=== PATIENT | female | born 1955 | race Caucasian/White ===

== ENCOUNTER 2021-05-28 03:19 | Outpatient (CLI) | payer OTHER, SELFPAY ==
[2021-05-28 14:18] LABS: Abs Immature Grans 0.01 10^3/uL (0.0-0.06); Absolute Basophil Count 0.03 10^3/uL (0.0-0.2); Absolute Lymphocyte Count 0.61 10^3/uL (1.2-3.4); Absolute Monocyte Count 0.29 10^3/uL (0.1-0.8); Absolute Neutrophil Count 1.81 10^3/uL (1.2-6.7); Eosinophils % 6.8; HCT 30.4 % (36.0-46.0); HGB 9.4 g/dL (11.2-15.7); Immature Grans % 0.3; Lymphocytes % 20.7; MCH 27.7 pg (27.0-33.0); MCHC 30.9 % (32.0-36.0); MCV 89.7 fL (80-95); MPV 9.1 fL (8.0-11.0); Monocytes % 9.8; Neutrophils % 61.4; Nucleated RBC 0 %; RBC 3.39 10^6/uL (3.93-5.22); RDW 19.4 % (11.7-14.6); RDW-SD 63.4 fL; WBC 2.95 10^3/uL (4.4-10.8)
[2021-05-28 15:05] LABS: Platelet Count 65 10^3/uL (130-400)
[2021-05-28 15:19] LABS: ALT 23 U/L (14-59); AST 23 U/L (15-37); Albumin 3.9 g/dL (3.4-5.0); Alkaline Phosphatase 67 U/L (46-116); Anion Gap 7.1 mmol/L (3-11); BUN 17 mg/dL (7-18); Bilirubin, Total 0.4 mg/dL (0.2-1.0); CO2 26.9 mmol/L (21.0-32.0); CREATININE 0.7 mg/dL (0.55-1.02); Calcium 8.8 mg/dL (8.5-10.1); Chloride 107 mmol/L (98-107); Glucose 87 mg/dL (74-106); Potassium 3.8 mmol/L (3.5-5.1); Sodium 141 mmol/L (136-145); Total Protein 7.5 g/dL (6.4-8.2)
[2021-05-28 20:57] LABS: INR 1.1 (0.9-1.1); Prothrombin Time 11.2 sec (9.3-11.0)
== END 2021-05-28 03:20 | disposition home or self-care (01) ==
LOC: LBO 03:19
PROVIDERS: PCP Family Medicine; Visit Provider Family Medicine
DX: Z00.00 Encounter for general adult medical examination without abnormal findings (principal); K74.60 Unspecified cirrhosis of liver; D69.6 Thrombocytopenia, unspecified; Z79.01 Long term (current) use of anticoagulants
CPT/HCPCS: 36415; 80053; 85025; 85610

== ENCOUNTER 2021-09-12 13:21 | Outpatient (CLI) | payer OTHER, SELFPAY ==
[2021-09-12 13:37] LABS: Abs Immature Grans 0.01 10^3/uL (0.0-0.06); Absolute Basophil Count 0.03 10^3/uL (0.0-0.2); Absolute Eosinophil Count 0.21 10^3/uL (0.0-0.7); Absolute Lymphocyte Count 0.62 10^3/uL (1.2-3.4); Absolute Monocyte Count 0.33 10^3/uL (0.1-0.8); Absolute Neutrophil Count 2.08 10^3/uL (1.2-6.7); Basophils % 0.9; Eosinophils % 6.4; HCT 30.5 % (36.0-46.0); Immature Grans % 0.3; Lymphocytes % 18.9; MCH 30.1 pg (27.0-33.0); MCHC 32.8 % (32.0-36.0); MCV 92 fL (80-95); MPV 10.4 fL (8.0-11.0); Monocytes % 10.1; Neutrophils % 63.4; RBC 3.32 10^6/uL (3.93-5.22); RDW 17.6 % (11.7-14.6); RDW-SD 58.7 fL; WBC 3.28 10^3/uL (4.4-10.8)
[2021-09-12 13:53] LABS: Diff Comment Diff Reviewed; Platelet Count 67 10^3/uL (130-400); RBC Morphology Normal
[2021-09-12 13:57] LABS: INR 1.1 (0.9-1.1); Prothrombin Time 11.2 sec (9.3-11.0)
[2021-09-12 14:04] LABS: ALT 21 U/L (14-59); AST 21 U/L (15-37); Albumin 3.5 g/dL (3.4-5.0); Alkaline Phosphatase 61 U/L (46-116); Anion Gap 5.6 mmol/L (3-11); BUN 16 mg/dL (7-18); Bilirubin, Total 0.5 mg/dL (0.2-1.0); CO2 28.4 mmol/L (21.0-32.0); CREATININE 0.8 mg/dL (0.55-1.02); Calcium 8.7 mg/dL (8.5-10.1); Chloride 104 mmol/L (98-107); Glucose 88 mg/dL (74-106); Potassium 4.1 mmol/L (3.5-5.1); Sodium 138 mmol/L (136-145); Total Protein 7.2 g/dL (6.4-8.2)
== END 2021-09-12 13:22 | disposition home or self-care (01) ==
LOC: LBO 13:22
PROVIDERS: PCP Family Medicine; Visit Provider Internal Medicine
DX: K74.60 Unspecified cirrhosis of liver (principal)
CPT/HCPCS: 36415; 80053; 85025; 85610

== ENCOUNTER 2021-11-05 04:33 | Outpatient (CLI) | payer OTHER, SELFPAY ==
[2021-11-05 13:48] LABS: INR 1.2 (0.9-1.1); Prothrombin Time 11.6 sec (9.3-11.0)
[2021-11-05 14:28] LABS: ALT 26 U/L (14-59); AST 25 U/L (15-37); Albumin 3.4 g/dL (3.4-5.0); Alkaline Phosphatase 63 U/L (46-116); Bilirubin, Direct 0.1 mg/dL (0.0-0.2); Bilirubin, Total 0.4 mg/dL (0.2-1.0)
== END 2021-11-05 04:34 | disposition home or self-care (01) ==
LOC: LBO 04:34
PROVIDERS: PCP Family Medicine; Visit Provider Internal Medicine
DX: K74.60 Unspecified cirrhosis of liver (principal)
CPT/HCPCS: 36415; 80076; 85610

== ENCOUNTER 2021-11-30 00:54 | Outpatient (CLI) | payer OTHER, SELFPAY ==
--- OUTSIDE RECORDS SUMMARY | 2021-11-30 01:28 | XMS_ITS | Encounter Summary ---
:1955 Author Organization [facility] [place] [address] Care Team Providers Name Role Phone Sruthi Eden MD Primary Care Provider Encounter Details Date Type Department Care Team Description 09/26/2021 Orders Only Gastroenterology at [facility] Janet Grey, Cirrhosis of liver [facility] Yasmin capone MD without ascites, [place] [address] [facility] unspecified hepatic [phone] [place] [address] Social History Tobacco Use Types Packs/Day Years Used Date Never Smoker Smokeless Tobacco: Never Used Alcohol Use Standard Drinks/Week Comments Yes 0 (1 standard drink = 0.6 oz pure alcoho l) rarely Alcohol Habits Answer Date Recorded How often do you have a drink containing alcohol? Not asked How many drinks containing alcohol do you have on a typical Not asked day when you are drinking? How often do you have six or more drinks on one occasion? No t asked Comment: rarely 08/28/2021 Sex Assigned at Date Recorded Female 05/18/2021 4:36 PM EST documented as of this encounter Plan of Treatment Upcoming Encounters Date Type Specialty Care Team Description 04/18/2022 Appointment Radiology Janet Grey MD [facility] [place] [address] (Wo rk) 04/18/2022 Laboratory Appointment Lab 04/18/2022 Office Visit Gastroenterology Janet Grey MD [facility] [address] [place] [address] (Wo rk) Scheduled Orders Name Type Priority Associated Diagnoses Order S chedule Hepatic Function Panel Lab Routine Cirrhosis of liver without Expected: 11/30/2021 ascites, unspecified (Approx imate), hepatic cirrhosis type Expir es: 04/28/2022 Prothrombin Time Lab Routine Cirrhosis of liver witho ut Expected: 10/27/2021 ascites, unspecified (Approx imate), hepatic cirrhosis type Expir es: 04/28/2022 documented as of this encounter Visit Diagnoses Diagnosis Cirrhosis of liver without ascites, unsp ecified hepatic cirrhosis type documented in this encounter Care Teams Email Marketing Intern Relationship Specialty Start Date End Date Sruthi Eden MD PCP - General Family Medicine 05/25/[address] [place] [id number] documented as of this encounter
--- OUTSIDE RECORDS SUMMARY | 2021-11-30 01:28 | XMS_ITS | Encounter Summary ---
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, liver biopsy to assess disease activity, f/u of esophageal varices, pancreatic cyst, ALEX Procedures PRO ENDOSCOPIC US EXAM, ESOPH PRO COLONOSCOPY, DIAGNOSTIC UPPER EUS- ENDOSCOPIC ULTRASOUND COLONOSCOPY, DIAGNOSTIC Referral ID Status Reason Start Date Expiration Date Visits Requ ested Visits Authorized [id number] 1 Encounter Details Date Type Department Care Team Description 08/28/2021 Surgery Gastroenterology at [facility] Rakesh Ricci UPPER EUS- ENDOSCOPIC [facility] Yasmin Tesfaye [place] [address] [facility] [phone] GASTRO[facility]OLOGY [place], [place] [address] Social History Tobacco Use Types Packs/Day Years [...] PM EST documented as of this encounter Last Filed Vital Signs Vital Sign Reading Time Taken Comments Blood Pressure 123/68 08/28/2021 2:20 PM EDT Pulse 55 08/28/2021 12:31 PM EDT Temperature 36.5 ??C (97.7 ??F) 08/28/2021 12:31 PM EDT Respiratory Rate - - Oxygen Saturation 100% 08/28/2021 2:20 PM EDT Inhaled Oxygen Concentration - - Weight 82.6 kg (182 lb) 08/28/2021 12:31 PM EDT Height - - Body Mass Index 25.38 06/22/2021 3:44 PM EDT documented in this encounter Medications at Time of Discharge Medication Sig Dispensed Refills Start Date End Date nadoloL (Corgard) 20 mg Take 1 tablet by 90 tablet 3 2021 Tablet mouth daily. multivitamin (THERAGRAN) Take 1 tablet by 0 Tablet mouth daily. MILK THISTLE ORAL Take by mouth. 0 azaTHIOprine (Imuran) 50 Take 2 tablets by 180 tablet 3 08/0809/26/2021 mg Tablet mouth daily. documented as of this encounter H&P Notes Rakesh Ricci MD - 08/28/2021 12:51 PM EDT PROBLEM LIST There is no problem list on file for this patient. HISTORY OF PRESENT ILLNESS Samara Lyons is a 66 y.o. y/o who presents for colonoscopy for anemia and liver biopsy for AIH. MEDICATIONS No current facility-administered medications on file prior to encounter. Current Outpatient Medications on File Prior to Encounter Medication Sig Dispense Refill ??? multivitamin (THERAGRAN) Tablet Take 1 tablet by mouth daily. ??? MILK THISTLE ORAL Take by mouth. PHYSICAL EXAM: Blood pressure 142/77, pulse 55, temperature 36.5 ??C (97.7 ??F), weight 82.6 kg (182 lb), SpO2 100 %. GEN: Alert, cooperative. Pleasant. In NAD MP I ASA II HEENT: No oropharyngeal lesions. Neck supple. No masses. Thyroid symmetric LUNGS: CTAB CARD: RRR without m/g/r RECENT LABS No results found for this or any previous visit (from the past 24 hour(s)). ASSESSMENT AND PLAN Samara Lyons is a 66 y.o. y/o who presents for endoscopic evaluation. Risks extensively discussed including bleeding, infection, reaction to anesthesia, perforation, pancreatitis (if applicable),bile duct injury (if applicable), missing a cancer (if applicable) and/or other unforseen complicatio n. Consent signed and patient well informed of the risks of the procedure. documented in this encounter Plan of Treatment Upcoming Encounters Date Type Specialty Care Team Description 04/18/2022 Appointment Radiology Janet Grey MD [facility] [address] [place] [address] (Wo rk) 04/18/2022 Laboratory Appointment Lab 04/18/2022 Office Visit Gastroenterology Janet Grey MD [facility] [address], [place] [address] (Wo rk) documented as of this encounter Procedures Procedure Name Priority Date/Time Associated Diagnosis Comme nts SURGICAL PATHOLOGY Routine 08/28/2021 1:37 PM Res ults for this REPORT EDT procedure are i n the results section. SPECIMEN TO Routine 08/28/2021 1:37 PM Results f or this PATHOLOGY EDT procedure are i n the results section. EGD, W US GUIDED 08/28/2021 12:53 Cirrhosis of liver FINE NEEDLE PM EDT without ascites, ASPIRATION/BIOPSY unspecified hepatic cirrhosis type Anemia, unspecified type LIVER BIOPSY 08/28/2021 12:53 Cirrhosis of liver PM EDT without ascites, unspecified hepatic cirrhosis type Anemia, unspecified type COLONOSCOPY, 08/28/2021 12:53 Cirrhosis of liver DIAGNOSTIC PM EDT without ascites, unspecified hepatic cirrhosis type Anemia, unspecified type UPPER EUS- 08/28/2021 12:53 Cirrhosis of liver ENDOSCOPIC PM EDT without ascites, ULTRASOUND unspecified hepatic cirrhosis type Anemia, unspecified type COLONOSCOPY Routine 08/28/2021 12:39 Results for this PM EDT procedure are i n the results section. UPPER EUS-ENDOSCOPIC Routine 08/28/2021 12:38 Res ults for this ULTRASOUND PM EDT procedure are i n the results section. documented in this encounter Results Surgical Pathology Report (08/28/2021 1:37 PM EDT) Component Value Ref Test Analysis Performed At Patholo gist Range Method Time Signature Surgical [id number] ? Location: 4T; EA13; A [facility] Report The signing pathologist has (i) examined the relevant preparation(s) for the [facility] specimen(s) and (ii) rendered or confirmed the diagnosis(es) . HOSPITAL LABORATORY . ?Surgic al Pathology DIAGNOSIS A - Liver biopsy, biopsy: The biopsy ??consists of thi n liver cores with focal fragmentation. Limited number of portal areas show no significant inf lammation and fibrosis. Focal mild and nonspecific sinusoidal dila tion is seen. No evidence of active autoimmune hepatitis and no definitive evidence of cirrhosis is seen in this bio psy. Iron stain is negative. Trichrome stain highlights focal mild portal fibrosis. Electronically signed by: ?Teresa Osman MD Verified: ??09/05/2021 12:10 ??Pathologist Performed at: ??-[facility] Dept. of Pathology, [place], [place] ADDITIONAL STUDIES Whole slide scan: [id number] A1-1,2 SPECIMEN(S) SUBMITTED A - Liver biopsy, biopsy (1) CLINICAL INFORMATION 66 year-old female with autoimmune hepatitis, staging for ci rrhosis SPECIMEN PROCESSING A - Labeled/Fixative: Liver biopsy, formalin. Quantity/Size: Four, ranging from 0.3 x 0.1 cm to 1.2 x 0.1 cm Tissue Description: Juarez needle core biopsies. Sections/Processing: Entirely submitted in 1 cassette labeled A1. ??sns Specimen (Source) Anatomical Collection Method Collection Time Re ceived Time Location / / Volume Laterality 08/28/2021 1:37 PM EDT Rakesh Ricci MD PATHOLOGY/CYTOLOGY ORDERABLE S Performing Organization Address City/State/[place] [address] Specimen to Pathology (08/28/2021 1:37 PM EDT) Specimen Anatomical Collection Method Collection Time Receive d Time (Source) Location / / Volume Laterality AP Specimen 08/28/2021 1:37 PM 2 1:37 EDT PM EDT Narrative [facility] - 08/28/2021 1:37 PM EDT Specimen requisition ordered. ??Separate Pathology report to follow Rakesh Ricci MD PATHOLOGY/CYTOLOGY ORDERABLE S Performing Organization Address [facility]/[place] [address] COLONOSCOPY (08/28/2021 12:39 PM EDT) [facility] Method Time Signature COLONOSCOPY [facility] Endoscopy Procedure Date: 08/28/2021 12:39 PM ? Patient Name: Samara Lyons ? Date of : 1955 ? Age: 66 ? Order #: [id number] ? Instrument Name: [id number] ? Procedure: ? Colonoscopy Indications: ? Unexplained iron deficiency anem ia Providers: ? Rakesh Ricci MD, Yessenia Carney ? Marija Lopez Kristin ? Adenike Thomason, Dedicated Local Truck Driver Referring MD: ?Sruthi Eden MD Medicines: ? Monitored Anesthesia Care Complications: ? No immediate complications. Procedure: ? Pre-Anesthesia Assessment: ? - Prior to the procedure, a History ? and Physical was performed , and ? patient medications and al lergies ? were reviewed. The patient is ? competent. The risks and b enefits ? of the procedure and the s edation ? options and risks were dis cussed ? with the patient. All ques tions ? were answered and informed consent ? was obtained. Patient ? identification and propose d ? procedure were verified by the ? physician in the pre-proce dure ? area. Mental Status Examin ation: ? alert and oriented. Airway ? Examination: normal oropha ryngeal ? airway and neck mobility. ? Respiratory Examination: c lear to ? auscultation. CV Examinati on: ? normal. Prophylactic Antib iotics: ? The patient does not requi re ? prophylactic antibiotics. Prior ? Anticoagulants: The patien t has ? taken no anticoagulant or ? antiplatelet agents. ASA G rade ? Assessment: III - A patien t with ? severe systemic disease. A fter ? reviewing the risks and be nefits, ? the patient was deemed in ? satisfactory condition to undergo ? the procedure. The anesthe jessie plan ? was to use monitored anest hesia ? care (MAC). Immediately pr ior to ? administration of medicati ons, the ? patient was re-assessed fo r ? adequacy to receive sedati ves. The ? heart rate, respiratory ra te, ? oxygen saturations, blood pressure, ? adequacy of pulmonary vent ilation, ? and response to care were monitored ? throughout the procedure. The ? physical status of the pat ient was ? re-assessed after the proc edure. ? The procedure, indications , ? benefits, risks and altern atives ? were explained to the nuzhat ent. ? Specifically discussed wer e ? potential complications in cluding, ? but not limited to, khalif [place], ? perforation, infection, mi ssing a ? cancer, and adverse medica tion ? reactions. The patient was placed ? in the left lateral decubi tus ? position, and a digital re ctal exam ? was performed. The Colonos cope was ? inserted in the anus and u nder ? direct visualization, adva nced to ? the terminal ileum. Carefu l ? inspection was made as the ? colonoscope was withdrawn. The ? colonoscopy was performed without ? difficulty. The patient to lerated ? the procedure well. The qu ality of ? the bowel preparation was good. ? Anatomical landmarks were ? photographed. ? Findings: ? The perianal and digital rectal examinations were ? normal. ? The colon (entire examined portion) appeared normal ? with the exception of a snake skin appearance in the ? distal rectum (circumferential last 3 cm of colon) ? and large rectal varices consistent with portal ? colopathy. ? The terminal ileum appeared normal. ? Moderate Sedation: ? Not applicable - See Anesthesia documentation Impression: ?- Portal colopathy and non blee ding ? rectal varices Recommendation: ?- Proceed with EUS now ? Attending Participation: ? I personally performed the entire procedure. ? Rakesh Ricci MD 08/28/2021 1:20:26 PM This report has been signed electronically. Number of Addenda: 0 Note Initiated On: 08/28/2021 12:39 PM Specimen (Source) Anatomical Collection Method Collection Time Re ceived Time Location / / Volume Laterality 08/28/2021 12:39 PM EDT Sruthi Eden MD GENERAL SURGICAL ORDERABLES Performing Organization Address City/State/ZIP Code Phon e Number [facility] UPPER EUS-ENDOSCOPIC ULTRASOUND (08/28/2021 12:38 PM EDT) Component Value Ref Test Analysis Performed Pathologis t Range Method Time At [facility] ENDOSCOPIC Endoscopy ULTRASOUND _ Procedure Date: 08/28/2021 12:38 PM ? Patient Name: Samara Lyons ? Date of : 1955 ? Age: 66 ? Order #: [id number] ? Instrument Name: [id number] ? Procedure: ? Upper EUS Indications: ? AIH - need for liver biopsy Providers: ? Rakesh Ricci MD, Yessenia Carney ? Marija Lopez Kristin ? Adenike Thomason, Dedicated Local Truck Driver Referring : ?Sruthi Eden MD Medicines: ? Monitored Anesthesia Care Complications: ? No immediate complications. Procedure: ? Pre-Anesthesia Assessment: ? - Prior to the procedure, a History ? and Physical was performed , and ? patient medications and al lergies ? were reviewed. The patient is ? competent. The risks and b enefits ? of the procedure and the s edation ? options and risks were dis cussed ? with the patient. All ques tions ? were answered and informed consent ? was obtained. Patient ? identification and propose d ? procedure were verified by the ? physician in the pre-proce dure ? area. Mental Status Examin ation: ? alert and oriented. Airway ? Examination: normal oropha ryngeal ? airway and neck mobility. ? Respiratory Examination: c lear to ? auscultation. CV Examinati on: ? normal. Prophylactic Antib iotics: ? The patient does not requi re ? prophylactic antibiotics. Prior ? Anticoagulants: The patien t has ? taken no anticoagulant or ? antiplatelet agents. ASA G rade ? Assessment: III - A patien t with ? severe systemic disease. A fter ? reviewing the risks and be nefits, ? the patient was deemed in ? satisfactory condition to undergo ? the procedure. The anesthe jessie plan ? was to use monitored anest hesia ? care (MAC). Immediately pr ior to ? administration of medicati ons, the ? patient was re-assessed fo r ? adequacy to receive sedati ves. The ? heart rate, respiratory ra te, ? oxygen saturations, blood pressure, ? adequacy of pulmonary vent ilation, ? and response to care were monitored ? throughout the procedure. The ? physical status of the pat ient was ? re-assessed after the proc edure. ? The procedure, indications , ? benefits, risks and altern atives ? were explained to the nuzhat ent. ? Specifically discussed wer e ? potential complications in cluding, ? but not limited to, k[place]if [place], ? perforation, infection, mi ssing a ? cancer, and adverse medica tion ? reactions. The Endosonosco pe was ? introduced through the tiffani th, and ? advanced to the third part of ? duodenum. The upper EUS wa s ? accomplished without diffi culty. ? The patient tolerated the procedure ? well. ? Findings: ? ENDOSCOPIC FINDING: : ? The patient had large varices in 3-4 columns which ? extended from 25-40 cm at the GE junction. There was ? no sign of recent bleeding. ? The entire stomach had a cobblestone appearance that ? 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 There were no gastric ? varices. ? The examined duodenum was endoscopically normal. ? ENDOSONOGRAPHIC FINDING: : ? There was no sign of significant endosonographic ? abnormality in the esophagus, stomach, duodenum or ? celiac axis with the exception of extensive vascular ? collateralization consistent with varices. ? There was no sign of significant endosonographic ? abnormality in the ampulla. ? There was no sign of significant endosonographic ? abnormality in the common bile duct. The maximum ? diameter of the duct was 3 mm. ? There was no sign of significant endosonographic ? abnormality in the left lobe of the liver. Fine ? needle biopsy was performed. Color Doppler imaging ? was utilized prior to needle puncture to confirm a ? lack of significant vascular structures within the ? needle path. One pass was made with the 22 gauge ? SharkCore biopsy needle using a transgastric ? approach. A visible core of tissue was obtained. The ? cellularity of the specimen was adequate. Final ? cytology results are pending. ? There was no sign of significant endosonographic ? abnormality in the entire pancreas with the exception ? of a 15 mm benign-appearing cysts which was ? unilocular without a thickened wall or main duct ? involvement. ? No lymphadenopathy seen. There was partial portal ? vein thrombosis and a small amount of perihepatic ? ascites ? Moderate Sedation: ? Not applicable - See Anesthesia documentation Impression: ?- Liver biopsy performed ? - Partial portal vein thro mbosis ? and a small amount of asci you ? - Large esophageal varices ? - Benign pancreatic cyst Recommendation: ?- Await pathology results ? - Continue outpatient foll ow-up per ? Dr. Grey ? Attending Participation: ? I personally performed the entire procedure. ? Rakesh Ricci MD 08/28/2021 1:45:54 PM This report has been signed electronically. 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 Continuous Medication Order 08/26/2021 08/27/2021 08/28/2021 lactated ringers infusion 1242 ( New Bag - Provider: Marva Young RN)1301 (Paused - Provider: Maritza Bateman Kati, DENTIST - Comment: Switch to gravity)1302 (Restarted - Provider: Maritza Chengpola, DENTIST)1332 (Anesthesia Volume Adjustment - Provider: Maritza S Kati, DENTIST) 100 mL/hr, Intravenous, CONTINUOUS, Star ting on 08/28/21 at 1245, Until 08/28/21 at 1738, Endoscopy (Day of Procedure) documented in this encounter Care Teams Machine Molder Squeeze Relationship Specialty Start Date End Date Sruthi Eden MD PCP - General Family Medicine 05/25/21 [address] [facility] [place] [address] documented as of this encounter
--- OUTSIDE RECORDS SUMMARY | 2021-11-30 01:28 | XMS_ITS | Clinical Summary ---
:1955 Author Organization [facility] [place] [address] Care Team Providers Name Role Phone Sruthi Eden MD Primary Care Provider Allergies Active Allergy Reactions Severity Noted Date Comments Prednisone 06/22/2021 Medications Medication Sig Dispensed Refills Start Date End Date Status multivitamin Take 1 tablet by 0 Active (THERAGRAN) Tablet mouth daily. MILK THISTLE ORAL Take by mouth. 0 Active nadoloL (Corgard) 20 mg Take 1 tablet by 90 tablet 3 2 Active Tablet mouth daily. azaTHIOprine (Imuran) Take 1 tablet by 45 tablet 3 09/26/2021 Active 50 mg Tablet mouth every other day. ascorbic acid, vitamin Take 100 mg by 0 Active C, (Vitamin C) 100 mg mouth daily. Tablet Active Problems No known active problems Encounters Date Type Specialty Care Team Description 11/12/2021 Orders Only Gastroenterology Janet Grey Cirrhos is of liver MD without ascites , unspecified hep atic cirrhosis type 10/17/2021 Office Visit Gastroenterology Janet Grey Cirrhos is of liver MD without ascites , unspecified hep atic cirrhosis type 10/11/2021 Hospital Encounter Radiology Janet Grey Cirrh osis of liver MD without ascites , unspecified hep atic cirrhosis type 09/26/2021 Orders Only Gastroenterology Janet Grey Cirrhos is of liver MD without ascites , unspecified hep atic cirrhosis type 09/07/2021 Orders Only Gastroenterology Janet Grey Cirrhos is of liver MD without ascites , unspecified hep atic cirrhosis type 09/06/2021 Telephone Gastroenterology Renetta Oliveros from Last 3 Months Social History Tobacco Use Types Packs/Day Years [...] Date Recorded Female 05/18/2021 4:36 PM EST Last Filed Vital Signs Vital Sign Reading Time Taken Comments Blood Pressure 133/76 10/17/2021 9:13 AM EDT Pulse 61 10/17/2021 9:13 AM EDT Temperature 36.5 ??C (97.7 ??F) 08/28/2021 12:31 PM EDT Respiratory Rate - - Oxygen Saturation 100% 08/28/2021 2:20 PM EDT Inhaled Oxygen Concentration - - Weight 85 kg (187 lb 4.8 oz) 10/17/2021 9:13 AM EDT Height 180.3 cm (5' 11) 10/17/2021 9:13 AM EDT Body Mass Index 26.12 10/17/2021 9:13 AM EDT Plan of Treatment Upcoming Encounters Date Type Specialty Care Team Description 04/18/2022 Appointment Radiology Janet Grey MD [facility] [address] [place] [address] (Wo rk) 04/18/2022 Laboratory Appointment Lab 04/18/2022 Office Visit Gastroenterology Janet Grey MD [facility] [place], [place] [address] (Wo rk) Health Maintenance Due Date Last Done Comments Covid-19 Vaccine (#1) 01/21/1960 Hepatitis C Screening 1973 Tdap adult 1974 Tetanus vaccine 1974 HPV test 1985 PAP Smear 1985 Breast Cancer Share Decision Needed 1995 Breast Cancer screening 2005 Zoster vaccine (1 of 2) 2005 Advance Directive 2010 Bone Density Scan 01/21/2020 Pneumoccocal Vaccine: 65+ (1 - PCV) 01/21/2020 Influenza (Flu) vaccine (1 of - 11/08/2021 Influenza standard series) Diabetes Screening (HgbA1C or Glucose) 06/22/2024 2 Colonoscopy 08/29/2031 08/28/2021, 08/28/2021 Procedures Procedure Name Priority Date/Time Associated Diagnosis Comme nts LAB SCAN 11/05/2021 12:00 AM Results for this EDT procedure are i n the results section. MRI ABDOMEN WWO Routine 10/11/2021 9:58 AM Cirrhosis of liver Results for this CONTRAST EDT without ascites, procedure a re in unspecified hepatic the resu lts cirrhosis type section. LAB SCAN 09/12/2021 12:00 AM Results for this EDT procedure are i n the results section. from Last 3 Months Results SCAN DOC: LAB (11/05/2021 12:00 AM EDT)Only the most recent of2 resultswithin the time period is included. Narrative 11/05/2021 12:00 AM EDT This result has an attachment that is no t available. Ordered by an unspecified provider. Scanning Provider MEDIA MGR SCAN EXT ORDR/RSLT MRI Abdomen wwo Contrast (Generic) (10/11/2021 9:58 AM EDT) Anatomical Region Laterality Modality Abdomen Magnetic Resonance Specimen (Source) Anatomical Location Collection Method / Collectio n Time Received Time / Laterality Volume Impressions 10/11/2021 1:21 PM EDT 1. ??No suspicious liver lesions. 2. ??Cirrhosis and stigmata of portal hy pertension including varices, ascites and splenomegaly. 3. ??Indeterminate solitary splenic lesi on, possible hematoma or hemangioma. Attention on follow-up liver imaging rec ommended. 4. ??Pancreatic body cystic lesion may b e a branch duct IPMN, 11 mm. LI-RADS Categories: LR-TIV = Tumor in vein LR-5 = Definitely hepatocellular carcino ma (concordant with OPTN 5) LR-4 = Probably hepatocellular carcinoma LR-3 = Intermediate probability for hepa tocellular carcinoma LR-2 = Probably benign LR-1 = Definitely benign LR-TR Viable = Treated, probably or defi nitely viable LR-TR Equivocal = Treated, equivocal via ble LR-TR Nonviable = Treated, probably or d efinitely not viable LR-TR Nonevaluable = Treated, Response n ot evaluable (due to image omission or degradation) LR-M = Probably or definitely malignant but not HCC specific LR-NC = Not categorizable (due to image omission or degradation) NOTE: LI-RADS categories should be inter preted in the context of other available data, such as biomarkers and the patient 's prior probability of developing or having hepatocellular carcinoma. The LI- RADS / OPTN classification of liver lesions has been adopted to standardize CT and MRI scan reporting in patients at risk for hepatocellular carcinoma. The i maging criteria for definite hepatocellular carcinoma are concordant for the LI-RADS and OPTN systems. LI-RADS criteria and documentation are a vailable online at https://www.acr.org/Clinical-Resources/R vostebof-olq-Dlun-Systems/LI-RADS. This report utilizes LI-RADS version 2018. Thank you for letting us participate in the care of this patient. ??If you are a health care provider and have any questi ons regarding this report, please contact the number below. ??For patients who have questions please contact the health clinical care leader that requested your imaging first. ? Narrative 10/11/2021 1:21 PM EDT EXAMINATION: MRI ABDOMEN WWO CONTRAST (GENERIC) CLINICAL HISTORY: Liver disease, chronic , tumor screening cirrhosis, HCC screening, f/u 9mm pancre as IPMN TECHNIQUE: MRI of the abdomen was perfor med with images obtained prior to and following the intravenous administration of 17ml of Dotarem using the dynamic liver protocol. COMPARISONS: none FINDINGS: Prior hepatic interventions: None. Liver Morphology: Small in size with nod ular contour consistent with history of cirrhosis Focal hepatic lesions: Nonenhancing simp le cysts, largest 5.6 cm in the inferior right lobe. These are LR-1. No suspiciou s lesions. Portal Vein: Widely Patent. Varices: Recanalized umbilical vein. Sma ll gastroesophageal varices Ascites: Moderate volume Spleen: Enlarged to 17 cm. T2 hypointens e hypovascular lesion along the lateral aspect of the spleen may represent a sma ll hemorrhage or hemangioma, 20 mm. No additional lesions Bile ducts: Nondilated. Gallbladder: 2 small stones in the depen dent lumen. Wall edema may be secondary to ascites. Pancreas: 11 mm cystic lesion in the ant erior body with unknown communication to the pancreatic duct. No prior imaging is available. No additional lesions. Adrenals: Normal. Kidneys: Normal aside from subcentimeter endophytic cortical cyst. Aorta: No aneurysm. Lymph nodes: No enlarged lymph nodes. Bowel: Nondilated, no inflammatory navas es. Marrow Signal: Normal. Procedure Note Jose Song MD - 10/11/2021Format ting of this note might be different from the original. EXAMINATION: MRI ABDOMEN WWO CONTRAST (G ENERIC) CLINICAL HISTORY: Liver disease, chronic , tumor screening cirrhosis, HCC screening, f/u 9mm pancre as IPMN TECHNIQUE: MRI of the abdomen was perfor med with images obtained prior to and following the intravenous administration of 17ml of Dotarem using the dynamic liver protocol. COMPARISONS: none FINDINGS: Prior hepatic interventions: None. Liver Morphology: Small in size with nod ular contour consistent with history of cirrhosis Focal hepatic lesions: Nonenhancing simp le cysts, largest 5.6 cm in the inferior right lobe. These are LR-1. No suspiciou s lesions. Portal Vein: Widely Patent. Varices: Recanalized umbilical vein. Sma ll gastroesophageal varices Ascites: Moderate volume Spleen: Enlarged to 17 cm. T2 hypointens e hypovascular lesion along the lateral aspect of the spleen may represent a sma ll hemorrhage or hemangioma, 20 mm. No additional lesions Bile ducts: Nondilated. Gallbladder: 2 small stones in the depen dent lumen. Wall edema may be secondary to ascites. Pancreas: 11 mm cystic lesion in the ant erior body with unknown communication to the pancreatic duct. No prior imaging is available. No additional lesions. Adrenals: Normal. Kidneys: Normal aside from subcentimeter endophytic cortical cyst. Aorta: No aneurysm. Lymph nodes: No enlarged lymph nodes. Bowel: Nondilated, no inflammatory navas es. Marrow Signal: Normal. IMPRESSION 1. No suspicious liver lesions. 2. Cirrhosis and stigmata of portal hype rtension including varices, ascites and splenomegaly. 3. Indeterminate solitary splenic lesion , possible hematoma or hemangioma. Attention on follow-up liver imaging rec ommended. 4. Pancreatic body cystic lesion may be a branch duct IPMN, 11 mm. LI-RADS Categories: LR-TIV = Tumor in vein LR-5 = Definitely hepatocellular carcino ma (concordant with OPTN 5) LR-4 = Probably hepatocellular carcinoma LR-3 = Intermediate probability for hepa tocellular carcinoma LR-2 = Probably benign LR-1 = Definitely benign LR-TR Viable = Treated, probably or defi nitely viable LR-TR Equivocal = Treated, equivocal via ble LR-TR Nonviable = Treated, probably or d efinitely not viable LR-TR Nonevaluable = Treated, Response n ot evaluable (due to image omission or degradation) LR-M = Probably or definitely malignant but not HCC specific LR-NC = Not categorizable (due to image omission or degradation) NOTE: LI-RADS categories should be inter preted in the context of other available data, such as biomarkers and the patient 's prior probability of developing or having hepatocellular carcinoma. The LI- RADS / OPTN classification of liver lesions has been adopted to standardize CT and MRI scan reporting in patients at risk for hepatocellular carcinoma. The i maging criteria for definite hepatocellular carcinoma are concordant for the LI-RADS and OPTN systems. LI-RADS criteria and documentation are a vailable online at https://www.acr.org/Clinical-Resources/R axwulyqm-dwl-Nchg-Systems/LI-RADS. This report utilizes LI-RADS version 2018. Thank you for letting us participate in the care of this patient. If you are a health care provider and have any questi ons regarding this report, please contact the number below. For patients w ho have questions please contact the health clinical care leader that requested your imaging first. Janet Grey MD IMG MRI ORDERABLES from Last 3 Months Insurance Payer Benefit Plan / Subscriber ID Effective Dates Phone Addre ss Type Group MVP MANAGED MVP MANAGED [id number] 2021-Presen [phone] [id number] MEDICARE MEDICARE t [address] [place] [address] Care Teams Soap Drier Operator Relationship Specialty Start Date End Date Sruthi Eden MD PCP - General Family Medicine 05/25/[address] [place] [address]
--- OUTSIDE RECORDS SUMMARY | 2021-11-30 01:28 | XMS_ITS | Encounter Summary ---
:1955 Author Organization [facility] Address [place] [id number] Care Team Providers Name Role Phone Sruthi Eden MD Primary Care Provider Encounter Details Date Type Department Care Team Description 10/17/2021 [place] [facility] [place], Cirrhosis of liver [facility] Yasmin capone MD without ascites, [place] [address] [facility] unspecified hepatic [phone] [place] [address] Social History Tobacco Use Types Packs/Day Years [...] Pulse 61 10/17/2021 9:13 AM EDT Temperature - - Respiratory Rate - - Oxygen Saturation - - Inhaled Oxygen Concentration - - Weight 85 kg (187 lb 4.8 oz) 10/17/2021 9:13 AM EDT Height 180.3 cm (5' 11) 10/17/2021 9:13 AM EDT Body Mass Index 26.12 10/17/2021 9:13 AM EDT documented in this encounter Progress Notes Janet Grey MD - 10/17/2021 9:00 AM EDT Gastroenterology and Hepatology Follow Up Note Patient: Samara Lyons : 1955 Provider: Janet Grey MD Problem List: #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 She has been maintained on azathioprine for her autoimmune hepatitis and on nadolol 40 mg daily with vital signs at target for primary prophylaxis for esophageal varices. ?? She reports being diagnosed in 07/2013. She reports that she had GI symptoms and jaundice. She had transaminases in the s at the time. She reports negative testing for viral hepatitis. She was stated on 60 mg on prednisone. She reports her liver enzymes decreased to 900 very quickly. She started to wean her prednisone within days on her own. Her enzymes at first declined, but than increased again. She did increase back up 60 mg of prednisone. She reports having hallucination from the high dose prednisone. She was started on azathioprine and she was able to taper off prednisone. She is currentlyon AZA 100 mg daily. She reports having a biopsy at some point in the fall. From the outsidenotes it should AIH with F2-3 fibrosis. Liver bx 08/09/2021, reviewed at path conference on 09/06/2021: cirrhosis with thin bands of fibrosis, no disease activity - Medications: - 10/09/2021: decreased AZA to 50 mg every other day ? #Esophageal varices She reports being started on nadolol 40 mg daily for large esophageal varices in 2019. She reports feeling weakness in her legs in 2021. Her PCP reduced her dose of nadolol to 20 mg daily resulting in vital signs not being at target for primary prophylaxis. - EGD 08/19/2021: large esophageal varices #At risk for HCC?? MRI abdomen 08/15/2020: cirrhosis, no masses, 9 mm IPMN MRI abdomen 10/09/2021: cirrhosis, no masses, 11 mm IPMN #Pancreatic IPMN MRI abdomen 08/15/2020: cirrhosis, no masses, 9 mm IPMN MRI abdomen 10/09/2021: cirrhosis, no masses, 11 mm IPMN #CRC screening Heron 10/2014: negative Heron 08/2021: negative, rectal varices Interval History: She reports doing well. She is here today to review her recent laboratory investigations, liver biopsy, MRI, and upper endoscopy. Current Outpatient Medications Medication Sig Dispense Refill ??? azaTHIOprine (Imuran) 50 mg Tablet Take 1 tablet by mouth every other day. 45 tablet 3 ??? nadoloL (Corgard) 20 mg Tablet Take 1 tablet by mouth daily. 90 tablet 3 ??? multivitamin (THERAGRAN) Tablet Take 1 tablet by mouth daily. ??? MILK THISTLE ORAL Take by mouth. No current facility-administered medications for this visit. Vitals: 10/17/21 0913 BP: 133/76 BP Location ([facility]): Left arm Patient Position: Sitting BP Cuff Sizes: Adult (25-34 cm) Pulse: 61 Weight: 85 kg (187 lb 4.8 oz) Height: 180.3 cm (5' 11) Body mass index is 26.12 kg/m??. 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 We discussed that given her cirrhosis diagnosis it is not recommended to come fully off of immunosuppression, but I was in agreement with working on reducing her dose. Discussed that this would require close monitoring with monthly liver enzymes. Discussed that patients with autoimmune hepatitis who come off of therapy even with normal liver enzymes and a biopsy without disease activity the risk of recurrent disease requiring the initiation of therapy again is 80% over a 5-year. Discussed that given her cirrhosis with portal hypertension this could lead to significant liver decompensation. We also discussed that if she came off of immunosuppression for her autoimmune hepatitis despite the recommendations above this would also likely mean that she would not be a liver transplant candidate. She appreciated the discussion, however at the end of our conversation appeared to favor discontinuing the azathioprineslowly over time. ?? # Large esophageal varices She is continuing on nadolol 20 mg daily. Upper endoscopy did confirm the presence of large esophageal varices. We discussed via side targets would be a pulse between 50 to 60 bpm while maintaining a systolic blood pressure greater than 90 mmHg. Her vital signs today were not at goal. She will monitorthem at home over the next week and provide the readings via the [facility] portal. We discussed that if her vital signs are not at goal I would recommend increasing the nadolol to reduce the risk of a variceal bleed. ?? # At risk for HCC # 9 mm pancreatic cyst I reviewed MRI report from Oct 2021 which was negative for HCC and noted of 11 mm pancreatic cyst likely IPMN. Recommend ultrasound in 6 months for HCC screening. Recommend MRI in August 2022 for HCC screening and follow-up of the pancreatic cyst. Janet Grey MD Section of Gastroenterology & Hepatology [address] [place] [id number] Time spent reviewing records prior to this encounter: 5 minutes Time spent during encounter with patient including counselin minutes Time spent documenting encounter after office visit: 5 minutes Approximate total time devoted to this single encounter on the day of the encounter: 30 minutes Cc: Sruthi Eden MD documented in this encounter Plan of Treatment Upcoming Encounters Date Type Specialty Care Team Description 04/18/2022 Appointment Radiology Janet Grey MD [facility] [address] [place], [place] [address] (Wo rk) 04/18/2022 Laboratory Appointment Lab 04/18/2022 Office Visit Gastroenterology Janet Grey MD [facility] [address] [place], [place] [address] (Wo rk) Scheduled Orders Name Type Priority Associated Diagnoses Order S chedule US Abdomen Limited Imaging Routine Cirrhosis of liver Exp ected: 04/19/2022 Hepatology Protocol without ascites, (Sima roximate), unspecified hepatic Expires: 10/19/2022 cirrhosis type CBC (with Diff) Lab Routine Cirrhosis of liver Expect ed: 04/19/2022 without ascites, (Approximat e), unspecified hepatic Expires: 10/19/2022 cirrhosis type Comprehensive metabolic Lab Routine Cirrhosis of live r Expected: 04/19/2022 panel (non-fasting) without ascites, (Sima roximate), unspecified hepatic Expires: 10/19/2022 cirrhosis type Prothrombin Time Lab Routine Cirrhosis of liver Expec tonio: 04/19/2022 without ascites, (Approximat e), unspecified hepatic Expires: 10/19/2022 cirrhosis type AFP tumor marker Lab Routine Cirrhosis of liver Expec tonio: 04/19/2022 without ascites, (Approximat e), unspecified hepatic Expires: 10/19/2022 cirrhosis type documented as of this encounter Visit Diagnoses Diagnosis Cirrhosis of liver without ascites, unsp ecified hepatic cirrhosis type documented in this encounter Care Teams Group Segment Consultant Relationship Specialty Start Date End Date Sruthi Eden MD PCP - General Family Medicine 05/25/[address] [place], [place] [address] [address] documented as of this encounter
--- OUTSIDE RECORDS SUMMARY | 2021-11-30 01:28 | XMS_ITS | Encounter Summary ---
:1955 Author Organization [facility] [place] [address] Care Team Providers Name Role Phone Sruthi Eden MD Primary Care Provider Reason for Referral Diagnostic Test (Routine) - Closed Specialty Diagnoses / Procedures Referred By Contact Refer red To Contact Radiology Diagnoses Cirrhosis of liver without ascites, unspecified hepatic cirrhosis type Janet Grey MD [facility] Rad Mri Procedures MRI Abdomen wwo Contrast (Generic) [facility] [address] [place], [place] [id number] [place] [id number] Referral ID Status Reason Start Date Expiration Date Visits V isits Requested Authorized [id number] Closed Specialty 06/22/2021 12/22/2022 1 1 Service Requested Reason for Visit Diagnostic Test (Routine) - Closed Specialty Diagnoses / Procedures Referred By Contact Refer red To Contact Radiology Diagnoses Cirrhosis of liver without ascites, unspecified hepatic cirrhosis type Janet Grey MD [facility] Rad Mri Procedures MRI Abdomen wwo Contrast (Generic) [place] [address] [place] [address] Referral ID Status Reason Start Date Expiration Date Visits V isits Requested Authorized [id number] Closed Specialty 06/22/2021 12/22/2022 1 1 Service Requested Encounter Details Date Type Department Care Team Description 10/11/2021 Hospital En[place] [facility] [place] Grey, Cirrhosis of liver [facility] without ascites, [facility] unspecified hepatic [facility] cirrhosis type [id number] [place], [place] [phone] [id number] Social History Tobacco Use Types Packs/Day Years [...] PM EST documented as of this encounter Medications at Time of Discharge Medication Sig Dispensed Refills Start Date End Date azaTHIOprine (Imuran) 50 mg Take 1 tablet by 45 tablet 3 Tablet mouth every other day. nadoloL (Corgard) 20 mg Take 1 tablet by 90 tablet 3 2021 Tablet mouth daily. multivitamin (THERAGRAN) Take 1 tablet by 0 Tablet mouth daily. MILK THISTLE ORAL Take by mouth. 0 documented as of this encounter Plan of Treatment Upcoming Encounters Date Type Specialty Care Team Description 04/18/2022 Appointment Radiology Janet Grey MD [facility] [place] [address] (Wo rk) 04/18/2022 Laboratory Appointment Lab 04/18/2022 Office Visit Gastroenterology Janet Grey MD [facility] [place] [address] (Wo rk) documented as of this encounter Procedures Procedure Name Priority Date/Time Associated Diagnosis Comme nts MRI ABDOMEN WWO Routine 10/11/2021 9:58 AM Cirrhosis of liver Results for this CONTRAST EDT without ascites, procedure a re in unspecified hepatic the resu lts cirrhosis type section. documented in this encounter Results MRI Abdomen wwo Contrast (Generic) (10/11/2021 9:58 [...] documentation are a vailable online at https://www.acr.org/Clinical-Resources/R eligsxqf-nmi-Dgin-Systems/LI-RADS. This report utilizes LI-RADS version 2018. Thank you for letting us participate in the care of this patient. ??If you are a health care provider and have any questi ons regarding this report, please contact the number below. ??For patients who have questions please contact the health health care analyst that requested your imaging first. ? Narrative [...] documentation are a vailable online at https://www.acr.org/Clinical-Resources/R qkypuioz-ogt-Wryd-Systems/LI-RADS. This report utilizes LI-RADS version 2018. Thank you for letting us participate in the care of this patient. If you are a health care provider and have any questi ons regarding this report, please contact the number below. For patients w ho have questions please contact the health health care analyst that requested your imaging first. Janet Grey MD IMG MRI ORDERABLES documented in this encounter Visit Diagnoses Diagnosis Cirrhosis of liver without ascites, unsp ecified hepatic cirrhosis type documented in this encounter Administered Medications Inactive Administered Medications - up to 3 most recent administrations Medication Order MAR Action Action Date Dose Rate Site gadoterate meglumine (Dotarem) Given 10/11/2021 9:29 AM EDT 17 m Ls (0.5 mMol/mL) injection solution 0-100 mL 0-100 mL, Intravenous, ONCE PRN, 1 dose, Starting on Samantha 10/11/21 at 0933, Until Samantha 10/11/21 at 0929, Per Protocol, Radiology Contrast, Routine documented in this encounter Care Teams Epic Ambulatory Analysts Relationship Specialty Start Date End Date Sruthi Eden MD PCP - General Family Medicine 05/25/[address] [place] [address] documented as of this encounter
--- OUTSIDE RECORDS SUMMARY | 2021-11-30 01:28 | XMS_ITS | Encounter Summary ---
:1955 Author Organization [facility] [place] [address] Care Team Providers Name Role Phone Sruthi Eden MD Primary Care Provider Encounter Details Date Type Department Care Team Description 11/12/2021 Orders Only [place] [facility] [place] Grey, Cirrhosis of liver [facility] Yasmin capone MD without ascites, [place] [address] [facility] Medical unspecified hepatic [phone] [address] Social History Tobacco Use Types Packs/Day Years [...] Description 04/18/2022 Appointment Radiology Janet Grey MD [facility] [place] [address] (Wo rk) 04/18/2022 Laboratory Appointment Lab 04/18/2022 Office Visit Gastroenterology Janet Grey MD [facility] [address] [place] [place] [address] (Wo rk) Scheduled Orders Name Type Priority Associated Diagnoses Order S chedule Comprehensive metabolic Lab Routine Cirrhosis of live r Expected: 12/12/2021 panel (non-fasting) without ascites, (Sima roximate), unspecified hepatic Expires: 06/13/2022 cirrhosis type Prothrombin Time Lab Routine Cirrhosis of liver Expec tonio: 12/12/2021 without ascites, (Approximat e), unspecified hepatic Expires: 06/13/2022 cirrhosis type documented as of this encounter Visit Diagnoses Diagnosis Cirrhosis of liver without ascites, unsp ecified hepatic cirrhosis type documented in this encounter Care Teams Channel Business Manager Relationship Specialty Start Date End Date Sruthi Eden MD PCP - General Family Medicine 05/25/[address] [place] [id number] documented as of this encounter
--- OUTSIDE RECORDS SUMMARY | 2021-11-30 01:28 | XMS_ITS | Encounter Summary ---
:1955 Author Organization [facility] [place] [address] Care Team Providers Name Role Phone Sruthi [...] Expiration Date Visits Requ ested Visits Authorized [id number] 1 1 Encounter Details Date Type Department Care Team Description 08/28/2021 Anesthesia Event G[place]ology [place] [facility] Hipolito Christopher, [facility] [place] [address] [facility] [phone] ANESTHESIOLOGY [place], [place] [address] Anesthesia Record Procedure Summary Procedure Name Responsible Anesthesia Start Anesthesia Stop Anesthesiologist Time Time UPPER EUS- Hipolito Christopher MD 08/28/21 1250 08/28/21 1 347 ENDOSCOPIC ULTRASOUND (N/A Trunk) Events Date Time Event Comment 08/28/2021 1236 1250 Start 1251 AN Verify 1254 An Start Data 1259 An Induction 5 L/min O2 via P OM. Smooth IV induction; spontaneous vent ilation maintained. 1300 Anesthesia Ready 1301 Procedure Start 1337 Procedure Stop 1342 an stop data 1346 Recovery or ICU Handoff Patient care was transferred to the destination unit staff after review of the patient's medica l history, current anesthetic/surgi loli status and plan, according to the Provider Handoff Checklist. 1347 Stop Spontaneous vent ilation without issue. VSS. Full report give n to TOOL AND DIE MAKER. Name Total IV Lidocaine 100 mg Propofol 100 mg Propofol INF 396.48 mg lactated ringers infusion 400 mL Agents Name O2 Air N2O O2 Auxiliary Flowmeter 1 Blood No blood administrations on file. Lines, Drains, and Airways Type Details Placement Removal PIV 08/28/21; 1242; median 08/28/21 1242 by Chet rene, 08/28/21 1524 by Lisandro, cubital vein (antecubital AXEL Chang RN fossa), right; [id number] catheter system; US Not Used; 22 gauge; Araceli Young RN; distraction; 08/28/21; 1524 documented in this encounter Social History Tobacco Use Types Packs/Day Years [...] PM EST documented as of this encounter OR Notes Anesthesia Postprocedure Evaluation - Hipolito Christopher MD - 08/28/2021 2:32 PM EDT Department of Anesthesiology Post-procedure Note Patient: Samara Lyons Procedure Summary Date: 08/28/21 Room / Location: [facility] ENDO 2 / [facility] ENDOSCOPY Anesthesia Start: 1250 Anesthesia Stop: 1347 Procedures: UPPER EUS- ENDOSCOPIC ULTRASOUND (N/A Trunk) COLONOSCOPY, DIAGNOSTIC (N/A Trunk) LIVER BIOPSY (N/A Trunk) EGD, W US GUIDED FINE NEEDLE ASPIRATION/BIOPSY Diagnosis: Cirrhosis of liver without ascites, unspecified hepatic cirrhosis type Anemia, unspecified type (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 Patient Location: PACU/[facility] Level of Consciousness: Awake and Alert Pain Management: Satisfactory Analgesia PONV: None Cardiovascular Status: At Baseline and Hemodynamically Stable Respiratory Status: At Baseline and Room Air Postoperative Fluid Status: Intravascular EUvolemia Possible Anesthetic Complications: NONE apparent at time of evaluation Final Primary Anesthesia Type: MAC (The anesthetic type performed was the same as planned.) Comments: Hipolito Christopher MD Anesthesia Preprocedure Evaluation - Hipolito Christopher MD - 08/28/2021 8:51 AM EDT Pre-Anesthesia Evaluation for: Samara Lyons a 66 y.o. female. Procedure(s): UPPER EUS- ENDOSCOPIC ULTRASOUND COLONOSCOPY, DIAGNOSTIC There are no problems to display for this patient. No past medical history on file. No past surgical history on file. Social History Tobacco Use ??? Smoking status: Never Smoker ??? Smokeless tobacco: Never Used Substance Use Topics ??? Alcohol use: Not on file Social History Substance and Sexual Activity Drug Use Not on file Allergies Allergen Reactions ??? Prednisone Medications: MAR and/or home medications have been reviewed. Physical Exam: Preprocedure Vitals Current as of 08/28/21 0851 No BP, pulse, respiration, SpO2, or temperature recorded. Height: Weight: BMI: IBW: Airway Assessment: Mallampati: II TM distance: >3 FB Neck ROM: full Cardiovascular Assessment: Rhythm: regular Rate: normal Pulmonary Assessment: unlabored breathing Dental Assessment: Misc Assessment: Patient is wearing No contact(s). IV access: Peripheral line Last Filed Perioperative Cognitive Screening None Anesthesia Plan: ASA 3 MAC, with a(n) intravenous induction Samara Lyons is a 66 y.o. BMI 26 female presenting for EUS/colonoscopy. 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 Labs were reviewed. Type and Screen: No results found for: ABORH Allergies: -- Prednisone NPO Status: Appropriate Anesthetic Plan: MAC with propofol, GA backup Standard ASA monitoring Adequate IV access Hipolito Christopher MD PhD #[id number] Region - Other Informed Consent: Anesthetic plan and risks discussed with patient. Plan discussed with HOT BOX OPERATOR. Anesthesia Screening documented in this encounter Plan of Treatment Upcoming Encounters Date Type Specialty Care Team Description 04/18/2022 Appointment Radiology Janet Grey MD [facility] [address] [place] [address] (Wo rk) 04/18/2022 Laboratory Appointment Lab 04/18/2022 Office Visit Gastroenterology Janet Grey MD [facility] [place] [address] (Wo rk) documented as of this encounter Visit Diagnoses Not on filedocumented in this encounter Administered Medications Inactive Administered Medications - up to 3 most recent administrations Medication Order MAR Action Action Date Dose Rate Site lactated ringers infusion Restarted 08/28/2021 1:02 PM EDT 100 mL/hr, Intravenous, CONTINUOUS, Starting on Fri08/28/21 at 1245, Until Fri08/28/21 at 1738, Endoscopy (Day of Procedure) New Bag 08/28/2021 12:42 PM EDT 100 mL/hr 100 mL/hr lidocaine (pf) (Xylocaine) (20 mg/mL) 2% Given 08/28/2021 12:59 PM EDT 100 mg injection syringe Intravenous, PRN, Starting on Fri08/28/21 at 1259, Until Fri08/28/21 at 1353, Anesthesia Intra-op, Routine propofoL (Diprivan) (10 mg/mL) New Bag 08/28/2021 1:00 PM 150 mcg/kg/min 74.34 mL/hr infusion EDT Intravenous, CONTINUOUS PRN, Starting on Fri08/28/21 at 1300, Until Fri08/28/21 at 1353, Anesthesia Intra-op, Routine propofoL (Diprivan) 10 mg/mL bolus injection Given 2 1:00 PM EDT 30 mg (Anesthesia) Intravenous, PRN, Starting on Fri08/28/21 at 1259, Until Fri08/28/21 at 1353, Anesthesia Intra-op Given 08/28/2021 12:59 PM EDT 70 mg documented in this encounter Care Teams Fish Hatchery Assistant Relationship Specialty Start Date End Date Sruthi Eden MD PCP - General Family Medicine 05/25/[address] [place] [id number] documented as of this encounter
--- OUTSIDE RECORDS SUMMARY | 2021-11-30 01:28 | XMS_ITS | Encounter Summary ---
:1955 Author Organization [facility] [place] [address] Care Team Providers Name Role Phone Sruthi Eden MD Primary Care Provider Encounter Details Date Type Department Care Team Description 06/26/2021 Orders Only Gastroenterology at [facility] [place] Janet Grey, Cirrhosis of liver without a scites, unspecified hepatic cirrhosis type; [facility] Yasmin capone MD Anemia, [place] [address] [facility] [phone] [place] [address] Social History Tobacco Use Types Packs/Day Years Used Date Never Smoker Smokeless Tobacco: Never Used Sex Assigned at Date Recorded Female 05/18/2021 4:36 PM EST documented as of this encounter Plan of Treatment Upcoming Encounters Date Type Specialty Care Team Description 04/18/2022 Appointment Radiology Janet Grey MD [facility] [address] [place] [address] (Wo rk) 04/18/2022 Laboratory Appointment Lab 04/18/2022 Office Visit Gastroenterology Janet Grey MD [facility] [address] [place] [address] (Wo rk) Scheduled Orders Name Type Priority Associated Diagnoses Order S chedule ENDOSCOPY CASE Procedures Routine Cirrhosis of liver Ordered : 06/26/2021 REQUEST: UPPER EUS- without ascites, ENDOSCOPIC ULTRASOUND unspecified hepatic cirrhosis type Anemia, unspecified type documented as of this encounter Visit Diagnoses Diagnosis Cirrhosis of liver without ascites, unsp ecified hepatic cirrhosis type Anemia, unspecified type documented in this encounter Care Teams Cook Vegetable Relationship Specialty Start Date End Date Sruthi Eden MD PCP - General Family Medicine 05/25/[address] [place] [address] documented as of this encounter
--- OUTSIDE RECORDS SUMMARY | 2021-11-30 01:28 | XMS_ITS | Encounter Summary ---
:1955 Author Organization [facility] [place] [address] Care Team Providers Name Role Phone Sruthi Eden MD Primary Care Provider Encounter Details Date Type Department Care Team Description 07/20/2021 Orders Only Gastroenterology at [facility] Janet Grey, Anemia, unspecified [facility] [place] [address] [facility] [phone] [place] [address] Social History Tobacco Use Types Packs/Day Years Used Date Never Smoker Smokeless Tobacco: Never Used Sex Assigned at Date Recorded Female 05/18/2021 4:36 PM EST documented as of this encounter Plan of Treatment Upcoming Encounters Date Type Specialty Care Team Description 04/18/2022 Appointment Radiology Janet Grey MD [facility] er [address] [place] [address] (Wo rk) 04/18/2022 Laboratory Appointment Lab 04/18/2022 Office Visit Gastroenterology Janet Grey MD [facility] [address] [place] [address] (Wo rk) documented as of this encounter Visit Diagnoses Diagnosis Anemia, unspecified type documented in this encounter Care Teams Videogame Tester Relationship Specialty Start Date End Date Sruthi Eden MD PCP - General Family Medicine 05/25/[address] [place], [place] [phone] (work) documented as of this encounter
--- OUTSIDE RECORDS SUMMARY | 2021-11-30 01:28 | XMS_ITS | Encounter Summary ---
:1955 Author Organization [facility] [place] [address] Care Team Providers Name Role Phone Sruthi Eden MD Primary Care Provider Encounter Details Date Type Department Care Team Description 09/06/2021 Telephone [place] [facility]os [facility] [place] [address] Social History Tobacco Use Types Packs/Day Years [...] PM EST documented as of this encounter Miscellaneous Notes Telephone Encounter - Renetta Oliveros - 09/06/2021 9:32 AM EDT Called pt to schedule follow up visit with Dr. Grey. Left . documented in this encounter Plan of Treatment Upcoming Encounters Date Type Specialty Care Team Description 04/18/2022 Appointment Radiology Janet Grey MD [facility] [address] [place] [address] (Wo rk) 04/18/2022 Laboratory Appointment Lab 04/18/2022 Office Visit Gastroenterology Janet Grey MD [facility] [address] [place] [address] (Wo rk) documented as of this encounter Visit Diagnoses Not on filedocumented in this encounter Care Teams Cashier Or Checker Stock Clerk Relationship Specialty Start Date End Date Sruthi Eden MD PCP - General Family Medicine 05/25/[address] [place] [address] [place] [address] documented as of this encounter
--- OUTSIDE RECORDS SUMMARY | 2021-11-30 01:28 | XMS_ITS | Encounter Summary ---
:1955 Author Organization [facility] [address] Care Team Providers Name Role Phone Sruthi Eden MD Primary Care Provider Encounter Details Date Type Department Care Team Description 09/07/2021 Orders Only Gastroenterology at [facility] Janet Grey, Cirrhosis of liver [facility] Yasmin capone MD without ascites, [place] [address] [facility] unspecified hepatic [phone] [place] [place] [address] Social History Tobacco Use Types Packs/Day Years [...] Description 04/18/2022 Appointment Radiology Janet Grey MD [facility] AFSANEH [place] [address] (Wo rk) 04/18/2022 Laboratory Appointment Lab 04/18/2022 Office Visit Gastroenterology Janet Grey MD [facility] [address] [address] (Wo rk) Scheduled Orders Name Type Priority Associated Diagnoses Order S chedule CBC (with Diff) Lab Routine Cirrhosis of liver Expect ed: 10/08/2021 without ascites, (Approximat e), unspecified hepatic Expires: 04/09/2022 cirrhosis type Comprehensive metabolic Lab Routine Cirrhosis of live r Expected: 10/08/2021 panel (non-fasting) without ascites, (Sima roximate), unspecified hepatic Expires: 04/09/2022 cirrhosis type Prothrombin Time Lab Routine Cirrhosis of liver Expec tonio: 10/08/2021 without ascites, (Approximat e), unspecified hepatic Expires: 04/09/2022 cirrhosis type documented as of this encounter Visit Diagnoses Diagnosis Cirrhosis of liver without ascites, unsp ecified hepatic cirrhosis type documented in this encounter Care Teams Target Aircraft Controller Relationship Specialty Start Date End Date Sruthi Eden MD PCP - General Family Medicine 05/25/[address] [place] [id number] documented as of this encounter
--- OUTSIDE RECORDS SUMMARY | 2021-11-30 01:28 | XMS_ITS | Encounter Summary ---
:1955 Author Organization [facility] [address] Care Team Providers Name Role Phone Sruthi Eden MD Primary Care Provider Reason for Referral Diagnostic Test (Routine) - Closed Specialty Diagnoses / Procedures Referred By Contact Refer red To Contact Radiology Diagnoses Cirrhosis of liver without ascites, unspecified hepatic cirrhosis type Kori Grey MD [facility] Rad Mri Procedures MRI Abdomen wwo Contrast (Generic) [place] [address] [place] [address] Referral ID Status Reason Start Date Expiration Date Visits V isits Requested Authorized [id number] Closed Specialty 06/22/2021 12/22/2022 1 1 Service Requested Reason for Visit Consultation (Routine) - Authorized Specialty Diagnoses / Procedures Referred By Contact Refer red To Contact Gastroenterology Diagnoses Unspecified cirrhosis of liver cirrhosis, autoimmune hepatitis Pedro Webster MD [facility] Gastro 4l Procedures [address] [place] [address] [place] [address] Phone: Fax: Referral ID Status Reason Start Expiration Visits Visits Date Date Requested Authorized [id number] Authorized Consult, 05/07/2021 05/07/2022 6 6 Test & Treat PCP Updated and/or Approved Encounter Details Date Type Department Care Team Description 06/22/2021 Office Visit Gastroenterology at [facility] Kori Grey, Cirrhosis of liver without a scites, unspecified hepatic cirrhosis type; [facility] Yasmin capone MD Anemia, unspecified type [place] [phone] [facility] [phone] [place] [address] Social History Tobacco Use Types Packs/Day Years Used Date Never Smoker Smokeless Tobacco: Never Used Sex Assigned at Date Recorded Female 05/18/2021 4:36 PM EST documented as of this encounter Last Filed Vital Signs Vital Sign Reading Time Taken Comments Blood Pressure 141/69 06/22/2021 3:44 PM EDT Pulse 65 06/22/2021 3:44 PM EDT Temperature - - Respiratory Rate - - Oxygen Saturation - - Inhaled Oxygen Concentration - - Weight 85.7 kg (188 lb 14.4 oz) 06/22/2021 3:44 PM EDT Height 180.3 cm (5' 11) 06/22/2021 3:44 PM EDT Body Mass Index 26.35 06/22/2021 3:44 PM EDT documented in this encounter Progress Notes Kori Grey MD - 06/22/2021 4:00 PM EDT Images from the original note were not included. HEPATOLOGY CONSULTATION Samara Lyons 1955 HOUSE FELLOW: Kori Grey MD ([id number]) PCP: Sruthi Eden MD Requesting Provider: Pedro Webster MD [address] [place] [address] REASON FOR CONSULTATION Cirrhosis, secondary to AIH HISTORY OF PRESENT ILLNESS Samara Lyons is a 66 y.o. year old with history of cirrhosis secondary to autoimmune hepatitis complicated by large esophageal varices. She has been maintained on azathioprine for her autoimmune hepatitis and on nadolol 40 mg daily with vital signs at target for primary prophylaxis for esophageal varices. She reports being diagnosed in 07/2013. She reports that she had GI symptoms and jaundice. She had transaminases in the 1999's at the time. She reports negative testing [...] a biopsy at some point in the fall of 2013. From the outsidenotes it should AIH with F2-3 fibrosis. She reports being started on nadolol 40 mg daily for large esophageal varices two years ago. She reports a few weeks ago feeling weakness in her legs. Her PCP reduced her dose of nadolol to 20 mg daily. Vital signs today are not at goal. MRI abdomen 08/15/2020: cirrhosis, no masses, 9 mm IPMN Colon 10/2014: negative ROS: Constitutional: no weight loss HEENT: no visual changes, no URI symptoms Cardio: no chest pain Resp: no cough, no SOB, no WALKER or orthopnea Hem/Lymph: no new lumps or bumps on body GI: see HPI : no dysuria Integumentary: no new rashes Musculoskeletal: no new joint pains Neuro: no new numbness, weakness in extremities PAST MEDICAL/SURGICAL HISTORY 1. AIH cirrhosis complicated by large esophageal varices 2. Bladder prolapse 3. 9 mm pancreatic cyst 4. Steroid induce psychosis MEDICATIONS Outpatient Medications Marked as Taking for the 06/22/21 encounter (Office Visit) with Kori Grey MD Medication Sig Dispense Refill ??? azaTHIOprine (Imuran) 50 mg Tablet Take 100 mg by mouth daily. ??? nadoloL (Corgard) 20 mg Tablet Take 20 mg by mouth daily. ??? multivitamin (THERAGRAN) Tablet Take 1 tablet by mouth daily. ??? MILK THISTLE ORAL Take by mouth. ALLERGIES Allergies Allergen Reactions ??? Prednisone SOCIAL HISTORY Social History Socioeconomic History ??? Marital status: Spouse name: Not on file ??? Number of children: Not on file ??? Years of education: Not on file ??? Highest education level: Not on file Occupational History ??? Not on file Tobacco Use ??? Smoking status: Never Smoker ??? Smokeless tobacco: Never Used Vaping Use ??? Vaping Use: Never used Substance and Sexual Activity ??? Alcohol use: Not on file ??? Drug use: Not on file ??? Sexual activity: Not on file Other Topics Concern ??? Not on file Social History Narrative ??? Not on file Social Determinants of Health Financial Resource Strain: Not on file Food Insecurity: Not on file Transportation Needs: Not on file Physical Activity: Not on file Housing Stability: Not on file FAMILY HISTORY There is no family history of inflammatory bowel disease, celiac disease, or colorectal cancer. There is no history of liver disease. Vitals: 06/22/21 1544 BP: 141/69 BP Location (NBP): Left arm Patient Position: Sitting BP Cuff Sizes: Adult (25-34 cm) Pulse: 65 Weight: 85.7 kg (188 lb 14.4 oz) Height: 180.3 cm (5' 11) PHYSICAL EXAM General: Appears stated age, NAD Eyes: Normal sclera, normal conjunctiva ENT: Moist mucus membranes, normal posterior pharynx Lymph: No lymphadenopathy of the head or neck Heart: Heart sounds I and II were audible, no added sounds, no murmurs Lungs: Clear to ausculation bilaterally Abdomen: Soft, non-tender, no organomegaly, normal active bowel sounds Extremities: No peripheral edema Skin: No jaundice, no spider nevi, no palmar erythema Neuro: No asterixis, grossly intact Mental: Appropriate affect, oriented in person, place, and time RESULTS See HPI ASSESSMENT/PLAN # Cirrhosis secondary to AIH We reviewed her diagnosis of cirrhosis secondary to autoimmune hepatitis complicated by portal hypertension with large esophageal varices. We discussed that her chronic thrombocytopenia and mild leukopenia could be due to portal hypertension or bone marrow suppression from the azathioprine. Recommend o btaining thio purine metabolites for assessment. We will update her CBC, CMP, and iron are today to assess liver synthetic function. She would like to potentially come off of immunosuppression. We discussed that some patients with autoimmune hepatitis are able to come off of immunosuppression if theredisease has been controlled for at least 2 years on therapy and with liver biopsy shows no disease activity prior to tapering immunosuppression, but 80% of patients that come off of immunosuppression will need to go back on within 5 years and the disease is often harder to control. After discussion she would still like to be considered for coming off of immunosuppression and we discussed an EUS guided liver biopsy. # Large esophageal varices We reviewed her prior endoscopic reports which were notable for large esophageal varices. We reviewed the recommendation for primary prophylaxis either with a nonselective beta-camila or banding therapy. She is not interested in banding therapy. We discussed that with the nadolol for primary prophylaxis for to be effective her vital signs have to be within goal which is a pulse between 50-60 while maintaining a systolic blood pressure greater than 90 mmHg. Based on today's vitals she is not at goalat a dose of nadolol of 20 mg daily. From the outside records her dose was increased from 20 mg to 40 mg to achieve the vital sign target. However, she would like to repeat the upper endoscopy to reassess the varices before titrating up on the nadolol. We discussed that if she is not tolerating the nadolol we could try switching to carvedilol. # At risk for HCC # 9 mm pancreatic cyst I reviewed MRI report from August 2020 which was negative for HCC and noted of 9 mm pancreatic cyst likely IPMN. Recommend MRI in August 2021 for HCC screening and follow-up of the pancreatic cyst. # Anemia I unfortunately do not have the records from her recent blood work done by her PCP, but per her notes she has a new anemia. Recommend follow-up CBC today. Ordered iron studies, folate, and B12 levels. Ordered celiac serologies. Discussed that if iron deficiency anemia is confirmed would recommend a col onoscopy in addition to upper endoscopy. Kori Grey MD Hepatology and Gastroenterology [facility] AFSANEH Meeks V: [phone] Copy: Sruthi Eden MD [address] [place] [address] / [facility] [id number] Time spent reviewing records prior to this encounter: 15 minutes Time spent during encounter with patient including counselin minutes Time spent documenting encounter after office visit: 5 minutes Approximate total time devoted to this single encounter on the day of the encounter: 65 minutes documented in this encounter Plan of Treatment Upcoming Encounters Date Type Specialty Care Team Description 04/18/2022 Appointment Radiology Kori Grey MD [facility] [address] [place] [address] (Wo rk) 04/18/2022 Laboratory Appointment Lab 04/18/2022 Office Visit Gastroenterology Kori Grey MD [facility] [address] [place] [address] (Wo rk) documented as of this encounter Procedures Procedure Name Priority Date/Time Associated Comments Diagnosis HEMOGRAM Routine 06/22/2021 5:19 Cirrhosis of liver Result s for this PM EDT without ascites, procedure a re in unspecified hepatic the resu lts cirrhosis type section. Anemia, unspecified type DIFFERENTIAL, AUTOMATED Routine 06/22/2021 5:19 Cirrhosis of l iver Results for this PM EDT without ascites, procedure a re in unspecified hepatic the resu lts cirrhosis type section. Anemia, unspecified type HC [facility] THIOPURINE Routine 06/22/2021 5:19 Cirrhosis of liver R esults for this METABOLITES PM EDT without ascites, procedure a re in unspecified hepatic the resu lts cirrhosis type section. Anemia, unspecified type HC IRON BINDING CAPACITY Routine 06/22/2021 5:19 Cirrhosis of liver Results for this PM EDT without ascites, procedure a re in unspecified hepatic the resu lts cirrhosis type section. Anemia, unspecified type HC TISSUE Routine 06/22/2021 5:19 Cirrhosis of liver Result s for this TRANSGLUTAMINASE AB PM EDT without ascites, proc edure are in unspecified hepatic the resu lts cirrhosis type section. Anemia, unspecified type HC PROTHROMBIN TIME Routine 06/22/2021 5:19 Cirrhosis of liver Results for this PM EDT without ascites, procedure a re in unspecified hepatic the resu lts cirrhosis type section. Anemia, unspecified type HC CBC,PLT & AUTO DIFF Routine 06/22/2021 5:19 Cirrhosis of li richie PM EDT without ascites, unspecified hepatic cirrhosis type Anemia, unspecified type HC IGA, SERUM Routine 06/22/2021 5:19 Cirrhosis of liver Resul ts for this PM EDT without ascites, procedure a re in unspecified hepatic the resu lts cirrhosis type section. Anemia, unspecified type HC FOLATE, SERUM Routine 06/22/2021 5:19 Cirrhosis of liver Re sults for this PM EDT without ascites, procedure a re in unspecified hepatic the resu lts cirrhosis type section. Anemia, unspecified type HC FERRITIN, SERUM Routine 06/22/2021 5:19 Cirrhosis of liver Results for this PM EDT without ascites, procedure a re in unspecified hepatic the resu lts cirrhosis type section. Anemia, unspecified type HC VENIPUNCTURE Routine 06/22/2021 5:19 Cirrhosis of liver Res ults for this PM EDT without ascites, procedure a re in unspecified hepatic the resu lts cirrhosis type section. Anemia, unspecified type COMPREHENSIVE METABOLIC Routine 06/22/2021 5:19 Cirrhosis of l iver Results for this PANEL (NON-FASTING) PM EDT without ascites, proc edure are in unspecified hepatic the resu lts cirrhosis type section. Anemia, unspecified type documented in this encounter Results MRI Abdomen [...] documentation are a vailable online at https://[email or web address].org/Clinical-Resources/R xwhhxtyq-iba-Huaz-Systems/LI-RADS. This report utilizes LI-RADS version 2018. Thank you for letting us participate in the care of this patient. ??If you are a health care provider and have any questi ons regarding this report, please contact the number below. ??For patients who have questions please contact the health career development engineer that requested your imaging first. ? Narrative [...] documentation are a vailable online at [email or web address].org/Clinical-Resources/R [email or web address]-Systems/[email or web address]. This report utilizes LI-RADS version 2018. Thank you for letting us participate in the care of this patient. If you are a health care provider and have any questi ons regarding this report, please contact the number below. For patients w ho have questions please contact the health career development engineer that requested your imaging first. Kori Grey MD IMG MRI ORDERABLES (ABNORMAL) Differential, Automated (06/22/2021 5:19 PM EDT) [facility] Method Time Signature Neutrophils % 62.7 % [facility] Neutr Abs (ANC) 1.67 (L) 1.70 - [facility] 6.10 [facility] x10(3)/[facility] LABORATORY Lymphocytes % 20.3 % [facility] Lymphocytes Abs 0.5 (L) 0.9 - 3.2 [facility] x10(3)/[facility] LABORATORY Monocytes % 10.9 % [facility] Monocyte Abs 0.3 0.3 - 0.9 [facility] x10(3)/[facility] LABORATORY Eosinophils % 4.9 % [facility] Eosinophils Abs 0.1 0.0 - 0.4 [facility] x10(3)/[facility] LABORATORY Basophils % 0.8 % [facility] Basophils Abs 0.0 0.0 - 0.1 [place] 163030(3)/[facility] LABORATORY Immature Gran % 0.40 % [facility] Comment: Immature granulocytes(IG's)percentage an d absolute count will include metamyelocytes, myelocytes, and promyelo cytes. Blood smears from CBCs yielding IG's will be scanned manually for concor dance. If this scan disagrees with the automated IG or if promyelocytes are not ed, a manual differential will be performed. Madeline Gran Abs 0.01 0.00 - 0.04 x10(3)/[facility]OR[facility] Specimen Anatomical Collection Method Collection Time Receive d Time (Source) Location / / Volume Laterality Blood 06/22/2021 5:19 PM 5:25 EDT PM EDT Resulting Agency Comment Spec In Lab Kori Grey MD HEMATOLOGY ORDERABLES Performing Organization Address City/State/[place] [address] (ABNORMAL) Hemogram (06/22/2021 5:19 PM EDT) Analysis Performed At Patho logist Time Signature WBC 2.7 (L) 4.0 - 9.5 [facility] x10(3)/[facility] LABORATORY RBC 3.30 (L) 4.00 - [facility] 5.21 [facility] x10(6)/[facility] LABORATORY Hemoglobin 9.5 (L) 11.7 - [facility] 15.5 g/dL [facility] LABORATORY Hematocrit 29.4 (L) 35.7 - [facility] 45.8 % [facility] MCV 89.1 82.6 - [facility] 94.4 [facility] LABORATORY MCH 28.8 27.1 - [facility] 32.0 pg [facility] MCHC 32.3 31.7 - [facility] 35.0 g/dL [facility]ORY Platelets 73 (L) 145 - 357 [facility] x10(3)/[facility] LABORATORY RDWSD 62.3 (H) 37.0 - [facility] 46.0 [facility] LABORATORY RDWCV 19.2 (H) 11.5 - [facility] 14.1 % [facility] LABORATORY MPV 8.9 7.6 - 12.9 [facility] LABORATORY nRBC % Auto 0.0 % [facility] nRBC Abs Auto 0.000 0.000 - [facility] 0.000 [facility] x10(3)/[facility] LABORATORY Specimen Anatomical Collection Method Collection Time Receive d Time (Source) Location / / Volume Laterality Blood 06/22/2021 5:19 PM 2 5:25 EDT PM EDT Resulting Agency Comment Spec In Lab Kori Grey MD HEMATOLOGY ORDERABLES Performing Organization Address City/[facility]/ZIP Code Phon e Number [address] Vitamin B12 (06/22/2021 5:19 PM EDT) athologist Signature Vitamin B-12 669 232 - 1,245 [facility] pg/mL [facility] LABOR[facility]ORY Specimen Anatomical Collection Method Collection Time Receive d Time (Source) Location / / Volume Laterality Blood 06/22/2021 5:19 PM 2 5:25 EDT PM EDT Resulting Agency Comment Spec In Lab Kori Grey MD CHEMISTRY ORDERABLES Performing Organization Address City/[facility]/ZIP Code Phon e Number [address] Folate, serum (06/22/2021 5:19 PM EDT) athologist [facility] Folate Lvl 17.8 4.8 - 24.2 [facility] ng/mL [facility] LABOR[facility]ORY Specimen Anatomical Collection Method Collection Time Receive d Time (Source) Location / / Volume Laterality Blood 06/22/2021 5:19 PM 2 5:25 EDT PM EDT Resulting Agency Comment Spec In Lab Kori Grey MD CHEMISTRY ORDERABLES Performing Organization Address City/[facility]/[place] [address] Tissue transglutaminase, IgA (06/22/2021 5:19 PM EDT) athologist [facility] TTG IgA Ab 1.0 0.1 - 10.0 [facility] u/ml [facility] LABORATORY Comment: Negative = <7 U/mL Equivocal = 7-10 U/mL Positive = >10 U/mL Specimen Anatomical Collection Method Collection Time Receive d Time (Source) Location / / Volume Laterality Blood 06/22/2021 5:19 PM 2 7:33 EDT AM EDT Resulting Agency Comment Spec In Lab Kori Grey MD IMMUNOLOGY ORDERABLES Performing Organization Address City/[facility]/[place] [address] (ABNORMAL) IgA (06/22/2021 5:19 PM EDT) athologist [facility] IgA 464 (H) 70 - 400 [facility] mg/dL [facility] LABOR[facility]ORY Specimen Anatomical Collection Method Collection Time Receive d Time (Source) Location / / Volume Laterality Blood 06/22/2021 5:19 PM 2 5:25 EDT PM EDT Resulting Agency Comment Spec In Lab Kori Grey MD IMMUNOLOGY ORDERABLES Performing Organization Address City/[facility]/[place] [address] (ABNORMAL) Iron and TIBC (06/22/2021 5:19 PM EDT) athologist Signature Iron 36 30 - 150 [facility] mcg/dL [facility] TIBC 392 250 - 450 [facility] mcg/dL [facility] LABOR[facility]ORY Iron Saturation 9 (L) 20 - 50 % [facility]ORY Specimen Anatomical Collection Method Collection Time Receive d Time (Source) Location / / Volume Laterality Blood 06/22/2021 5:19 PM 2 5:25 EDT PM EDT Resulting Agency Comment Spec In Lab Kori Grey MD CHEMISTRY ORDERABLES Performing Organization Address City/State/ZIP Code Phon e Number [address] (ABNORMAL) Ferritin (06/22/2021 5:19 PM EDT) athologist Signature Ferritin 14 (L) 30 - 400 [facility] ng/mL [facility] Comment: Pediatric reference ranges not verified at [facility], interpret with caution. Reference ranges for females greater juliette n 50 years of age approach values for men, i.e., 30-400 ng/mL. Specimen Anatomical Collection Method Collection Time Receive d Time (Source) Location / / Volume Laterality Blood 06/22/2021 5:19 PM 2 5:25 EDT PM EDT Resulting Agency Comment Spec In Lab Kori Grey MD CHEMISTRY ORDERABLES Performing Organization Address City/[facility]/[place] [address] Thiopurine Metabolites (06/22/2021 5:19 PM EDT) Patholo gist Method Time Signature Thiopurine See Scan [facility] Metabolites Report [facility] LABOR[facility]ORY Specimen Anatomical Collection Method Collection Time Receive d Time (Source) Location / / Volume Laterality Blood 06/22/2021 5:19 PM 2 EDT 10:38 AM EDT Narrative This result has an attachment that is no t available. Resulting Agency Comment Spec In Lab Kori Grye MD CHEMISTRY ORDERABLES Performing Organization Address City/State/[place] [address] (ABNORMAL) Prothrombin Time (06/22/2021 5:19 PM EDT) athologist Signature PT 14.3 (H) 9.4 - 12.5 [facility] LABORATORY INR 1.3 [facility] Comment: An INR <2.0 indicates adequate procoagul ant activity for hemostasis in most patients without underlying bleeding dis orders, though the INR may not adequately reflect hemostatic capacity i n patients with liver disease and synthetic impairment. The recommended ta rget INR range for therapeutic anticoagulation is 2.0 ? 3.0 for most applications, though lower and higher ranges may be appropriate depending on c linical circumstances. Specimen Anatomical Collection Method Collection Time Receive d Time (Source) Location / / Volume Laterality Blood 06/22/2021 5:19 PM 5:25 EDT PM EDT Resulting Agency Comment Spec In Lab Kori Grey MD HEMATOLOGY ORDERABLES Performing Organization Address City/State/[place] [address] (ABNORMAL) Comprehensive metabolic panel (non-fasting) (06/22/2021 5:19 PM EDT) athologist Signature Glucose Lvl 96 65 - 199 [facility] mg/dL [facility] Comment: Diabetes: >=200 mg/dL plus symp toms BUN 17 8 - 18 mg/dL [facility] LABOR[facility] Creatinine 0.69 (L) 0.70 - 1.20 mg/dL [facility] LAB[facility] Sodium 141 135 - 145 mmol/L [facility] Potassium 3.8 3.5 - 5.0 mmol/L [facility] Comment: Please note: ??Patients with WBC >100,00 0 may have falsely elevated Potassium levels. ??For accurate Potassium quantif ication in these patients send serum separator tube (gold top) for subsequent determinations. ??Contact the Clinical Chemistry Laboratory if there are any qu estions. Chloride 107 98 - 107 mmol/L [facility] CO2 26 22 - 31 mmol/L [facility] Anion Gap 8 5 - 15 mmol/L [facility] LABOR[facility]ORY Calcium 9.3 8.5 - 10.5 mg/dL [facility] K [facility]ORY Total Protein 7.7 6.1 - 8.0 g/dL [facility] Albumin 4.4 3.2 - 5.2 g/dL [facility] AST 24 0 - 30 unit/L [facility] ALT 13 0 - 30 unit/L [facility] Alk Phos 64 35 - 105 unit/L [facility] Total Bilirubin 0.4 0.2 - 1.3 mg/dL [facility] LABOR[facility]ORY Estimated GFR 91 >=60 mL/min/1.73 m?? [facility] Comment: This patient? s estimated glomerular filtration rate (eGFR) is between 91 mL/min/1.73 m2 (patients with less muscl e mass) and 105 mL/min/1.73 m2 (patients with more muscle mass) as dete rmined by the CKD-EPI equation. Assessment of eGFR is not appropriate wh en creatinine concentrations are rapidly changing. For clinical decisions where creatinine clearance will affect therapy, a 24-hour urine creatinine venu tammie may be advised. Assignment of CKD stage 1 - 5 for patien ts with an eGFR near the transition point between stages may be based on cli nical assessment of muscle mass and symptoms in addition to eGFR. Specimen Anatomical Collection Method Collection Time Receive d Time (Source) Location / / Volume Laterality Blood 06/22/2021 5:19 PM 2 5:25 EDT PM EDT Resulting Agency Comment Spec In Lab Kori Grey MD CHEMISTRY ORDERABLES Performing Organization Address City/State/[place] [address] documented in this encounter Visit Diagnoses Diagnosis Cirrhosis of liver without ascites, unsp ecified hepatic cirrhosis type Anemia, unspecified type Cirrhosis of liver without ascites, unsp ecified hepatic cirrhosis type documented in this encounter Care Teams Area Director Relationship Specialty Start Date End Date Sruthi Eden MD PCP - General Family Medicine 05/25/[address] [place], [place] [address] [address] documented as of this encounter
--- OUTSIDE RECORDS SUMMARY | 2021-11-30 01:28 | XMS_ITS | Encounter Summary ---
:1955 Author Organization [facility] [place] [address] Care Team Providers Name Role Phone Sruthi Eden MD Primary Care Provider Encounter Details Date Type Department Care Team Description 05/25/2021 Transcribe Orders eDH Incoming Referra ls Sruthi Eden MD [phone] [place], [place] [id number] (Wo rk) Social History Tobacco Use Types Packs/Day Years Used Date Never Assessed Sex Assigned at Date Recorded Female 05/18/2021 4:36 PM EST documented as of this encounter Plan of Treatment Upcoming Encounters Date Type Specialty Care Team Description 04/18/2022 Appointment Radiology Janet Grey MD [facility] [place] [address] (Wo rk) 04/18/2022 Laboratory Appointment Lab 04/18/2022 Office Visit Gastroenterology Janet Grey MD [facility] [address] [place], [place] [address] (Wo rk) documented as of this encounter Visit Diagnoses Not on filedocumented in this encounter Care Teams Sack Cleaner Relationship Specialty Start Date End Date Sruthi Eden MD PCP - General Family Medicine 05/25/[address] [place], [place] [id number] documented as of this encounter
--- OUTSIDE RECORDS SUMMARY | 2021-11-30 01:28 | XMS_ITS | Encounter Summary ---
:1955 Author Organization [facility] [place] [address] Care Team Providers Name Role Phone Sruthi [...] Expiration Date Visits Requ ested Visits Authorized [id number] 1 1 Encounter Details Date Type Department Care Team Description 08/28/2021 Hospital Encounter Gastroenterology at [facility] Rakesh Ricci [facility] [place] [address] [place] [address] [facility] [place], [place] [address] Social History Tobacco Use Types [...] 04/18/2022 Appointment Radiology Janet Grey MD [facility] [address] [place] [address] (Wo rk) 04/18/2022 Laboratory Appointment Lab 04/18/2022 Office Visit Gastroenterology Janet Grey MD [facility] [address] [place] [address] (Wo rk) documented as of this [...] Component Value Ref Test Analysis Performed At [facility] Method Time Signature Surgical [id number] ? Location: 4T; EA13; A [facility] Report The signing pathologist has (i) [...] MD Verified: ??09/05/2021 12:10 ??Pathologist Performed at: ??-[facility] Dept. of Pathology, [place], [place] ADDITIONAL STUDIES Whole slide scan: [id number] A1-1,2 SPECIMEN(S) SUBMITTED A - Liver biopsy, [...] Organization Address City/State/[place] [address] Specimen to Pathology (08/28/2021 1:37 PM EDT) Specimen Anatomical Collection Method Collection Time Receive d Time (Source) Location / / Volume Laterality AP Specimen 08/28/2021 1:37 PM 1:37 EDT PM EDT Narrative [facility] - 08/28/2021 1:37 PM EDT Specimen requisition ordered. ??Separate Pathology report to follow Rakesh Ricci MD PATHOLOGY/CYTOLOGY ORDERABLE S Performing Organization Address [facility]/State/[place] [address] COLONOSCOPY (08/28/2021 12:39 PM EDT) [facility] Method Time Signature COLONOSCOPY [facility] Endoscopy Procedure Date: 08/28/2021 12:39 PM ? Patient Name: Samara [place] ? Date of : 1955 ? Age: 66 ? Order #: [id number] ? Instrument Name: [id number] ? Procedure: ? Colonoscopy Indications: ? Unexplained iron deficiency anem ia Providers: ? Rakesh Ricci MD, Yessenia Carney ? Marija Lopez Kristin ? Adenike Thomason, External Relations Director Referring : ?Sruthi Eden MD Medicines: ? [...] Performed Pathologis t Range Method Time At [facility] ENDOSCOPIC Endoscopy ULTRASOUND _ Procedure Date: 08/28/2021 12:38 PM ? Patient Name: Samara [place] ? Date of : 1955 ? Age: 66 ? Order #: [id number] ? Instrument Name: [id number] ? Procedure: ? Upper EUS Indications: ? AIH - need for liver biopsy Providers: ? Rakesh Ricci MD, Yessenia Carney ? Marija Lopez Kristin ? Adenike Thomason, External Relations Director Referring : ?Sruthi Eden MD Medicines: ? [...] [employer]ATION documented in this encounter Visit Diagnoses Not on filedocumented [...] Marva Young RN)1301 (Paused - Provider: Maritza Simona, HAND TENNIS BALL COVERER - Comment: Switch to gravity)1302 (Restarted - Provider: Maritza Simona, HAND TENNIS BALL COVERER)1332 (Anesthesia Volume Adjustment - Provider: Maritzabenigno Chengpola, HAND TENNIS BALL COVERER) 100 mL/hr, Intravenous, CONTINUOUS, Star ting on e 08/28/21 at 1245, Until Tu08/28/21 at 1738, Endoscopy (Day of Procedure) documented in this encounter Care Teams Inventory Administrator Relationship Specialty Start Date End Date Sruthi Eden MD PCP - General Family Medicine 05/25/[address] [place] [address] documented as of this encounter
--- OUTSIDE RECORDS SUMMARY | 2021-11-30 01:28 | XMS_ITS | Encounter Summary ---
:1955 Author Organization [facility] [address] Care Team Providers Name Role Phone Sruthi Eden MD Primary Care Provider Encounter Details Date Type Department Care Team Description 08/17/2021 Orders Only [place] [place] [facility] [place] [address] [place], [place] [address] (Wo rk) Social History Tobacco Use Types Packs/Day Years Used Date Never Smoker Smokeless Tobacco: Never Used Sex Assigned at Date Recorded Female 05/18/2021 4:36 PM EST documented as of this encounter Plan of Treatment Upcoming Encounters Date Type Specialty Care Team Description 04/18/2022 Appointment Radiology Janet Grey MD [facility] [address] [place] [address] (Wo rk) 04/18/2022 Laboratory Appointment Lab 04/18/2022 Office Visit Gastroenterology Janet Grey MD [facility] [place], [place] [address] (Wo rk) documented as of this encounter Visit Diagnoses Not on filedocumented in this encounter Care Teams Administrative Assistant Coordinator Relationship Specialty Start Date End Date Sruthi Edne MD PCP - General Family Medicine 05/25/[address] [place], [place] [id number] documented as of this encounter
--- OUTSIDE RECORDS SUMMARY | 2021-11-30 01:30 | XMS_ITS ---
:1955 Author Care Team Providers Name Role Phone Huma Villa Primary Care Provider Unavailable Allergies Code Code System Name Reaction Severity Status Onset 8640 RxNorm Prednisone Edema Moderate to Severe Active 07/21/2013 ? ? ? Hallucinations Severe Active ? Headache Severe Active ? Medications Name Status Start Date Stop Date ? ? azathioprine 50 mg tablet Active 12/12/2013 Not av ailable 2 tablets every day by oral route. Daily Multi-Vitamin Active 03/10/2014 Not availabl e nadolol 40 mg tablet Active 11/21/2018 Not availab le 1 tablet every day by oral route. Vitamin C With Bernarda Hips 1,000 mg tablet Active 021 Not available 1 tablet every day by oral route. Problems Name Status Onset Date Source ? 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 Procedures Date Name Performed by ? 10/14/2014 Colonoscopy Information not avai lable Results Lab Results None recorded. Past Encounters 04/05/2021 Autoimmune Hepatitis [place]uma Villa, [place]: [address] [place] [address], Ph. [phone] Social History Tobacco Smoking Status Never Smoker Vaccine List Vaccine Type Hep A, adult 01/01/2011 Hep B, adolescent/high risk 04/11/2011 HPV, unspecified formulation 05/24/2019 influenza, seasonal, injectable 02/13/2019 Pneumococcal Conjugate, unspecified form ulation 01/06/2019 Plan of Care Patient Instructions 1. milk thistle- 500mg 2xday 2. Auto-immune diet and books on Autoim mune protocol 3. Bloodwork- the above are things i wou ld like to look into- WE can get 80% discount through [facility] or if you can get thrtough your medicare (unlikely to cover more than hepatic and cbc?) referral to gastroenterology let me k now who to send this referral to [facility]- Reminders Provider Appointments None recorded. ? ? Lab None recorded. ? ? Referral None recorded. ? ? Procedures None recorded. ? ? Surgeries None recorded. ? ? Imaging None recorded. ? ? Vitals Height Weight BMI Blood Pressure 5 ft 9.97 in 192 lbs 15.84 oz 27.7 kg/m2 112/66 mm[Hg]
[2021-11-30 13:22] LABS: ALT 20 U/L (14-59); AST 25 U/L (15-37); Albumin 3.6 g/dL (3.4-5.0); Alkaline Phosphatase 75 U/L (46-116); Bilirubin, Direct 0.1 mg/dL (0.0-0.2); Bilirubin, Total 0.4 mg/dL (0.2-1.0); Total Protein 7.7 g/dL (6.4-8.2)
== END 2021-11-30 00:55 | disposition home or self-care (01) ==
LOC: LBO 00:54
PROVIDERS: PCP Family Medicine; Visit Provider Internal Medicine
DX: K74.60 Unspecified cirrhosis of liver (principal)
CPT/HCPCS: 36415; 80076

== ENCOUNTER 2021-12-18 02:54 | Outpatient (CLI) | payer MEDICARE, SELFPAY ==
[2021-12-18 13:58] LABS: Abs Immature Grans 0.01 10^3/uL (0.0-0.06); Absolute Basophil Count 0.04 10^3/uL (0.0-0.2); Absolute Eosinophil Count 0.36 10^3/uL (0.0-0.7); Absolute Lymphocyte Count 0.69 10^3/uL (1.2-3.4); Absolute Monocyte Count 0.42 10^3/uL (0.1-0.8); Absolute Neutrophil Count 1.89 10^3/uL (1.2-6.7); Basophils % 1.2; Eosinophils % 10.6; HCT 33.6 % (36.0-46.0); HGB 11.1 g/dL (11.2-15.7); Immature Grans % 0.3; Lymphocytes % 20.2; MCH 30.2 pg (27.0-33.0); MCV 92 fL (80-95); MPV 11.6 fL (8.0-11.0); Monocytes % 12.3; Neutrophils % 55.4; RBC 3.67 10^6/uL (3.93-5.22); RDW 15.5 % (11.7-14.6); RDW-SD 51.8 fL; WBC 3.41 10^3/uL (4.4-10.8)
[2021-12-18 14:10] LABS: Platelet Count 59 10^3/uL (130-400)
== END 2021-12-18 02:55 | disposition home or self-care (01) ==
LOC: LBO 02:54
PROVIDERS: PCP Family Medicine; Visit Provider Internal Medicine
DX: K74.69 Other cirrhosis of liver (principal)
CPT/HCPCS: 36415; 85025

== ENCOUNTER 2022-01-04 02:16 | Outpatient (CLI) | payer MEDICARE, SELFPAY ==
[2022-01-04 15:15] LABS: ALT 29 U/L (14-59); AST 31 U/L (15-37); Albumin 3.7 g/dL (3.4-5.0); Alkaline Phosphatase 72 U/L (46-116); Bilirubin, Direct 0.2 mg/dL (0.0-0.2); Bilirubin, Total 0.4 mg/dL (0.2-1.0); Total Protein 7.5 g/dL (6.4-8.2)
== END 2022-01-04 02:17 | disposition home or self-care (01) ==
LOC: LBO 02:16
PROVIDERS: PCP Family Medicine; Visit Provider Internal Medicine
DX: K74.60 Unspecified cirrhosis of liver (principal)
CPT/HCPCS: 36415; 80076

== ENCOUNTER 2022-02-08 02:44 | Outpatient (CLI) | payer MEDICARE, SELFPAY ==
[2022-02-08 12:24] LABS: Abs Immature Grans 0.02 10^3/uL (0.0-0.06); Absolute Basophil Count 0.02 10^3/uL (0.0-0.2); Absolute Lymphocyte Count 0.73 10^3/uL (1.2-3.4); Absolute Monocyte Count 0.54 10^3/uL (0.1-0.8); Absolute Neutrophil Count 1.79 10^3/uL (1.2-6.7); Basophils % 0.6; Eosinophils % 6.1; HCT 34.8 % (36.0-46.0); HGB 11.4 g/dL (11.2-15.7); Immature Grans % 0.6; Lymphocytes % 22.1; MCH 29.8 pg (27.0-33.0); MCHC 32.8 % (32.0-36.0); MCV 91 fL (80-95); MPV 10.5 fL (8.0-11.0); Monocytes % 16.4; Neutrophils % 54.2; RBC 3.82 10^6/uL (3.93-5.22); RDW 16.2 % (11.7-14.6); RDW-SD 53.4 fL
[2022-02-08 12:33] LABS: Prothrombin Time 12.4 sec (9.3-11.0)
[2022-02-08 12:45] LABS: Platelet Count 54 10^3/uL (130-400)
[2022-02-08 12:47] LABS: INR 1.2 (0.9-1.1)
[2022-02-08 13:01] LABS: ALT 834 U/L (14-59); AST 760 U/L (15-37); Albumin 3.6 g/dL (3.4-5.0); Alkaline Phosphatase 101 U/L (46-116); Anion Gap 6.2 mmol/L (3-11); BUN 18 mg/dL (7-18); Bilirubin, Total 0.6 mg/dL (0.2-1.0); CO2 27.8 mmol/L (21.0-32.0); CREATININE 0.6 mg/dL (0.55-1.02); Chloride 106 mmol/L (98-107); Estimated GFR 98.32 (mL/min/1.73m2); Glucose 116 mg/dL (74-106); Sodium 140 mmol/L (136-145); Total Protein 7.5 g/dL (6.4-8.2)
== END 2022-02-08 02:45 | disposition home or self-care (01) ==
LOC: LBO 02:45
PROVIDERS: PCP Family Medicine; Visit Provider Internal Medicine
DX: K74.69 Other cirrhosis of liver (principal)
CPT/HCPCS: 36415; 80053; 85025; 85610

== ENCOUNTER 2022-02-13 10:30 | Outpatient (CLI) | payer MEDICARE, SELFPAY ==
[2022-02-13 11:39] LABS: INR 1.2 (0.9-1.1); Prothrombin Time 12.3 sec (9.3-11.0)
[2022-02-13 12:35] LABS: ALT 810 U/L (14-59); AST 586 U/L (15-37); Albumin 3.5 g/dL (3.4-5.0); Alkaline Phosphatase 102 U/L (46-116); Bilirubin, Direct 0.3 mg/dL (0.0-0.2); Bilirubin, Total 0.7 mg/dL (0.2-1.0); Total Protein 7.3 g/dL (6.4-8.2)
[2022-02-14 09:52] LABS: IgG 1206 mg/dL (610-1616)
== END 2022-02-13 10:31 | disposition home or self-care (01) ==
LOC: LBO 10:35
PROVIDERS: PCP Family Medicine; Visit Provider Internal Medicine
DX: K75.4 Autoimmune hepatitis (principal); K74.60 Unspecified cirrhosis of liver
CPT/HCPCS: 36415; 80076; 82784; 85610

== ENCOUNTER 2022-03-05 03:37 | Outpatient (CLI) | payer MEDICARE, SELFPAY ==
[2022-03-05 15:57] LABS: INR 1.2 (0.9-1.1)
[2022-03-05 16:29] LABS: ALT 331 U/L (14-59); AST 277 U/L (15-37); Albumin 3.7 g/dL (3.4-5.0); Alkaline Phosphatase 95 U/L (46-116); Bilirubin, Direct 0.3 mg/dL (0.0-0.2); Total Protein 7.6 g/dL (6.4-8.2)
[2022-03-07 09:39] LABS: IgG 1425 mg/dL (610-1616)
== END 2022-03-05 03:38 | disposition home or self-care (01) ==
PROVIDERS: PCP Family Medicine; Visit Provider Internal Medicine
DX: K75.4 Autoimmune hepatitis (principal); K74.60 Unspecified cirrhosis of liver
CPT/HCPCS: 36415; 80076; 82784; 85610

== ENCOUNTER 2022-04-08 02:55 | Outpatient (CLI) | payer MEDICARE, SELFPAY ==
[2022-04-08 12:44] LABS: Abs Immature Grans 0.01 10^3/uL (0.0-0.06); Absolute Basophil Count 0.04 10^3/uL (0.0-0.2); Absolute Eosinophil Count 0.34 10^3/uL (0.0-0.7); Absolute Lymphocyte Count 0.83 10^3/uL (1.2-3.4); Absolute Monocyte Count 0.43 10^3/uL (0.1-0.8); Absolute Neutrophil Count 2.16 10^3/uL (1.2-6.7); Eosinophils % 8.9; HCT 35.5 % (36.0-46.0); HGB 11.5 g/dL (11.2-15.7); Immature Grans % 0.3; Lymphocytes % 21.8; MCH 29.6 pg (27.0-33.0); MCHC 32.4 % (32.0-36.0); MCV 91 fL (80-95); Monocytes % 11.3; Neutrophils % 56.7; RBC 3.89 10^6/uL (3.93-5.22); RDW 16.2 % (11.7-14.6); RDW-SD 54.2 fL; WBC 3.81 10^3/uL (4.4-10.8)
[2022-04-08 12:55] LABS: INR 1.2 (0.9-1.1); Prothrombin Time 11.6 sec (9.3-11.0)
[2022-04-08 12:57] LABS: Diff Comment Diff Reviewed; RBC Morphology Normal
[2022-04-08 13:11] LABS: ALT 162 U/L (14-59); AST 143 U/L (15-37); Albumin 3.5 g/dL (3.4-5.0); Alkaline Phosphatase 88 U/L (46-116); Anion Gap 9.3 mmol/L (3-11); BUN 15 mg/dL (7-18); Bilirubin, Total 0.6 mg/dL (0.2-1.0); CO2 26.7 mmol/L (21.0-32.0); CREATININE 0.7 mg/dL (0.55-1.02); Calcium 8.9 mg/dL (8.5-10.1); Chloride 105 mmol/L (98-107); Estimated GFR 94.73 (mL/min/1.73m2); Glucose 83 mg/dL (74-106); Potassium 3.9 mmol/L (3.5-5.1); Sodium 141 mmol/L (136-145); Total Protein 7.4 g/dL (6.4-8.2)
== END 2022-04-08 02:56 | disposition home or self-care (01) ==
LOC: LOS 02:55
PROVIDERS: PCP Family Medicine; Visit Provider Family Medicine
DX: K74.69 Other cirrhosis of liver (principal); D69.6 Thrombocytopenia, unspecified; K75.4 Autoimmune hepatitis
CPT/HCPCS: 36415; 80053; 85025; 85610

== ENCOUNTER 2022-05-06 02:55 | Outpatient (CLI) | payer MEDICARE, SELFPAY ==
[2022-05-06 12:06] LABS: Absolute Basophil Count 0.04 10^3/uL (0.0-0.2); Absolute Eosinophil Count 0.32 10^3/uL (0.0-0.7); Absolute Lymphocyte Count 0.76 10^3/uL (1.2-3.4); Absolute Monocyte Count 0.43 10^3/uL (0.1-0.8); Absolute Neutrophil Count 2.02 10^3/uL (1.2-6.7); Basophils % 1.1; HGB 11.6 g/dL (11.2-15.7); Lymphocytes % 21.3; MCH 29.8 pg (27.0-33.0); MCHC 33.1 % (32.0-36.0); MCV 90 fL (80-95); MPV 11.5 fL (8.0-11.0); Neutrophils % 56.6; RBC 3.89 10^6/uL (3.93-5.22); RDW 15.7 % (11.7-14.6); RDW-SD 51.8 fL; WBC 3.57 10^3/uL (4.4-10.8)
[2022-05-06 12:15] LABS: INR 1.2 (0.9-1.1); Prothrombin Time 12.2 sec (9.3-11.0)
[2022-05-06 12:17] LABS: Diff Comment Diff Reviewed; Platelet Count 68 10^3/uL (130-400); RBC Morphology Normal
[2022-05-06 12:28] LABS: ALT 190 U/L (14-59); AST 178 U/L (15-37); Albumin 3.2 g/dL (3.4-5.0); Alkaline Phosphatase 72 U/L (46-116); Anion Gap 7.2 mmol/L (3-11); BUN 14 mg/dL (7-18); Bilirubin, Total 0.7 mg/dL (0.2-1.0); CO2 27.8 mmol/L (21.0-32.0); CREATININE 0.7 mg/dL (0.55-1.02); Calcium 8.9 mg/dL (8.5-10.1); Chloride 108 mmol/L (98-107); Estimated GFR 94.73 (mL/min/1.73m2); Glucose 92 mg/dL (74-106); Potassium 3.7 mmol/L (3.5-5.1); Sodium 143 mmol/L (136-145); Total Protein 7.2 g/dL (6.4-8.2)
== END 2022-05-06 02:56 | disposition home or self-care (01) ==
LOC: LBO 02:55
PROVIDERS: PCP Family Medicine; Visit Provider Internal Medicine
DX: K74.60 Unspecified cirrhosis of liver (principal)
CPT/HCPCS: 36415; 80053; 85025; 85610

== ENCOUNTER 2022-06-11 03:06 | Outpatient (CLI) | payer MEDICARE, SELFPAY ==
[2022-06-11 12:17] LABS: Abs Immature Grans 0.01 10^3/uL (0.0-0.06); Absolute Basophil Count 0.02 10^3/uL (0.0-0.2); Absolute Eosinophil Count 0.14 10^3/uL (0.0-0.7); Absolute Lymphocyte Count 0.53 10^3/uL (1.2-3.4); Absolute Monocyte Count 0.43 10^3/uL (0.1-0.8); Absolute Neutrophil Count 1.93 10^3/uL (1.2-6.7); Basophils % 0.7; Eosinophils % 4.6; HCT 34.6 % (36.0-46.0); HGB 11.7 g/dL (11.2-15.7); Immature Grans % 0.3; Lymphocytes % 17.3; MCH 30.2 pg (27.0-33.0); MCHC 33.8 % (32.0-36.0); MCV 89 fL (80-95); MPV 10.2 fL (8.0-11.0); Monocytes % 14.1; RBC 3.87 10^6/uL (3.93-5.22); RDW 16.3 % (11.7-14.6); RDW-SD 53.9 fL; WBC 3.06 10^3/uL (4.4-10.8)
[2022-06-11 12:35] LABS: INR 1.2 (0.9-1.1); Prothrombin Time 11.9 sec (9.3-11.0)
[2022-06-11 12:44] LABS: Diff Comment Diff Reviewed; Platelet Count 58 10^3/uL (130-400); RBC Morphology Normal
[2022-06-11 12:50] LABS: ALT 232 U/L (14-59); AST 208 U/L (15-37); Albumin 3.3 g/dL (3.4-5.0); Alkaline Phosphatase 76 U/L (46-116); BUN 15 mg/dL (7-18); Bilirubin, Direct 0.3 mg/dL (0.0-0.2); Bilirubin, Total 0.9 mg/dL (0.2-1.0); CREATININE 0.8 mg/dL (0.55-1.02); Calcium 8.9 mg/dL (8.5-10.1); Chloride 104 mmol/L (98-107); Estimated GFR 80.71 (mL/min/1.73m2); Glucose 98 mg/dL (74-106); Potassium 3.7 mmol/L (3.5-5.1); Sodium 139 mmol/L (136-145); Total Protein 7.8 g/dL (6.4-8.2)
[2022-06-12 13:15] LABS: AFP Tumor Marker <2.5 ng/mL (<8.1)
== END 2022-06-11 03:07 | disposition home or self-care (01) ==
LOC: LBO 03:06
PROVIDERS: PCP Family Medicine; Visit Provider Internal Medicine
DX: K75.4 Autoimmune hepatitis (principal); K74.60 Unspecified cirrhosis of liver
CPT/HCPCS: 36415; 80053; 80076; 82105; 85025; 85610

== ENCOUNTER 2022-06-20 01:02 | Outpatient (CLI) | payer MEDICARE, SELFPAY ==
--- NOTE | 2022-06-20 11:45 | DI.DEXA_ITS ---
Exam(s) XR DEXA BONE DENSITY W/WO LORENA EXAM: XR DEXA BONE DENSITY W/WO LORENA CLINICAL HISTORY: asymptomatic menopausal state, Z78.0 TECHNIQUE: Holo[employer] Horizon C densitometer analysis of left hip, lumbar spine and left forearm. Lat eral survey image of the thoracic and lumbar spine. COMPARISON: No exams were available for comparison FINDINGS: Lateral view of the thoracic and lumbar spine shows no evidence of compression fractures. Bone mineral density measurements of the lumbar spine correspond to a total T-score of -1.0. Bone mineral density measurements of the left hip correspond to a total T-score of -1.4. The femora l neck T-score is -1.4. The left forearm bone mineral density measurements correspond to a T-score of the distal 3rd of -0.4 . IMPRESSION: Normal bone mineral density of the left forearm and lumbar spine. Mild osteopenia the hip.
--- NOTE | 2022-06-20 11:45 | DI.MAMMO_ITS ---
Exam(s) MAMMO SCREENING EXAM: MAMMO SCREENING CLINICAL HISTORY: screening, Z12.39. TECHNIQUE: Bilateral full field digital CC and MLO mammographic images were obtained with 3D tomosyn thesis and utilizing computer aided detection (CAD). COMPARISON: None. Prior mammograms have not been obtained and therefore this is being read at this time no previous. FINDINGS: There are no spiculated masses nor malignant appearing microcalcification groups. Benign microcalcifications noted bilaterally. There is no significant architectural distortion nor skin thickening-retraction. IMPRESSION: No radiographic evidence of malignancy. BI-RADS Category 1 - Negative Breast Density - Category B - Scattered areas of fibroglandular density Breast density Category C or D implies that the patient has dense breast tissue. Dense breast tissue can make it harder to find cancer on a mammogram. Dense breast tissue is also associated with an incr eased risk of breast cancer. This information about the result of the mammogram report was provided to the patient to raise their awareness. Use this report when you speak with the patient about their risks for breast cancer, which includes their family history. At that time, you may recommend additional screening tests (Ultrasoun d or MRI) as these tests may add significant information. A negative radiographic report should not delay biopsy if a dominant or clinically suspicious mass is present. Up to ten percent of cancers are not identified on mammography. A negative report may reinforce clinical impression. Adenosis and dense breasts may obscure an underlying neoplasm. False positive reports average 6 to 10%. Patient will receive a letter notifying them of these results.
== END 2022-06-20 01:22 ==
LOC: DI 01:02
PROVIDERS: PCP Family Medicine; Visit Provider Family Medicine
DX: Z12.31 Encounter for screening mammogram for malignant neoplasm of breast (principal); Z78.0 Asymptomatic menopausal state
CPT/HCPCS: 77063; 77067; 77080

== ENCOUNTER 2022-07-12 01:54 | Outpatient (CLI) | payer MEDICARE, SELFPAY ==
[2022-07-12 11:54] LABS: ALT 497 U/L (14-59); AST 559 U/L (15-37); Albumin 3.1 g/dL (3.4-5.0); Alkaline Phosphatase 90 U/L (46-116); Bilirubin, Direct 0.3 mg/dL (0.0-0.2); Bilirubin, Total 0.7 mg/dL (0.2-1.0); Total Protein 7.8 g/dL (6.4-8.2)
== END 2022-07-12 01:55 | disposition home or self-care (01) ==
LOC: LBO 01:55
PROVIDERS: PCP Family Medicine; Visit Provider Internal Medicine
DX: K75.4 Autoimmune hepatitis (principal)
CPT/HCPCS: 36415; 80076

== ENCOUNTER 2022-07-26 02:42 | Outpatient (CLI) | payer MEDICARE, SELFPAY ==
[2022-07-26 13:43] LABS: Abs Immature Grans 0.01 10^3/uL (0.0-0.06); Absolute Basophil Count 0.04 10^3/uL (0.0-0.2); Absolute Eosinophil Count 0.15 10^3/uL (0.0-0.7); Absolute Lymphocyte Count 0.89 10^3/uL (1.2-3.4); Absolute Monocyte Count 0.41 10^3/uL (0.1-0.8); Absolute Neutrophil Count 2.35 10^3/uL (1.2-6.7); Eosinophils % 3.9; HCT 34.3 % (36.0-46.0); HGB 11.7 g/dL (11.2-15.7); Immature Grans % 0.3; Lymphocytes % 23.1; MCH 30.5 pg (27.0-33.0); MCHC 34.1 % (32.0-36.0); MCV 90 fL (80-95); MPV 10.8 fL (8.0-11.0); Monocytes % 10.6; Neutrophils % 61.1; RBC 3.83 10^6/uL (3.93-5.22); RDW 16.8 % (11.7-14.6); RDW-SD 54.8 fL; WBC 3.85 10^3/uL (4.4-10.8)
[2022-07-26 13:53] LABS: INR 1.3 (0.9-1.1); Prothrombin Time 12.8 sec (9.3-11.0)
[2022-07-26 14:06] LABS: ALT 313 U/L (14-59); AST 296 U/L (15-37); Albumin 3.1 g/dL (3.4-5.0); Alkaline Phosphatase 80 U/L (46-116); Anion Gap 7.3 mmol/L (3-11); BUN 15 mg/dL (7-18); Bilirubin, Total 0.7 mg/dL (0.2-1.0); CO2 27.7 mmol/L (21.0-32.0); CREATININE 0.7 mg/dL (0.55-1.02); Calcium 8.9 mg/dL (8.5-10.1); Chloride 106 mmol/L (98-107); Estimated GFR 94.73 (mL/min/1.73m2); Glucose 92 mg/dL (74-106); Potassium 3.8 mmol/L (3.5-5.1); Sodium 141 mmol/L (136-145); Total Protein 7.7 g/dL (6.4-8.2)
[2022-07-26 14:24] LABS: Diff Comment Diff Reviewed; Platelet Count 76 10^3/uL (130-400); RBC Morphology Normal
[2022-07-29 10:41] LABS: IgG 1902 mg/dL (610-1616)
[2022-07-29 13:36] LABS: Smooth Muscle Ab Screen Positive (Negative)
[2022-07-29 15:16] LABS: ANA Interpretation Positive (Negative); ANA Titer Pattern 1:160 Speckled
[2022-07-29 20:16] LABS: Liver/Kidney Microsome Type 1 <5.0 U
== END 2022-07-26 02:43 | disposition home or self-care (01) ==
LOC: LBO 02:43
PROVIDERS: PCP Family Medicine; Visit Provider Internal Medicine
DX: K75.4 Autoimmune hepatitis (principal)
CPT/HCPCS: 36415; 80053; 82784; 86256; 85025; 85610; 86038; 86255

== ENCOUNTER 2022-09-24 02:49 | Outpatient (CLI) | payer MEDICARE, SELFPAY ==
[2022-09-24 15:03] LABS: Abs Immature Grans 0.01 10^3/uL (0.0-0.06); Absolute Basophil Count 0.02 10^3/uL (0.0-0.2); Absolute Eosinophil Count 0.19 10^3/uL (0.0-0.7); Absolute Lymphocyte Count 0.79 10^3/uL (1.2-3.4); Absolute Monocyte Count 0.42 10^3/uL (0.1-0.8); Basophils % 0.5; Eosinophils % 5.1; HCT 34.7 % (36.0-46.0); HGB 11.9 g/dL (11.2-15.7); Immature Grans % 0.3; Lymphocytes % 21.2; MCH 30.8 pg (27.0-33.0); MCHC 34.3 % (32.0-36.0); MCV 90 fL (80-95); MPV 10.1 fL (8.0-11.0); Monocytes % 11.3; Neutrophils % 61.6; RBC 3.86 10^6/uL (3.93-5.22); RDW 16.2 % (11.7-14.6); RDW-SD 53.9 fL; WBC 3.73 10^3/uL (4.4-10.8)
[2022-09-24 15:22] LABS: INR 1.3 (0.9-1.1); Prothrombin Time 13.7 sec (9.3-11.0)
[2022-09-24 15:52] LABS: ALT 338 U/L (14-59); AST 331 U/L (15-37); Albumin 3.2 g/dL (3.4-5.0); Alkaline Phosphatase 76 U/L (46-116); Anion Gap 7.3 mmol/L (3-11); BUN 6 mg/dL (7-18); Bilirubin, Total 1.4 mg/dL (0.2-1.0); CO2 26.7 mmol/L (21.0-32.0); CREATININE 0.8 mg/dL (0.55-1.02); Calcium 8.5 mg/dL (8.5-10.1); Chloride 105 mmol/L (98-107); Estimated GFR 80.71 (mL/min/1.73m2); Glucose 106 mg/dL (74-106); Potassium 3.7 mmol/L (3.5-5.1); Sodium 139 mmol/L (136-145); Total Protein 7.6 g/dL (6.4-8.2)
[2022-09-24 17:31] LABS: Platelet Count 82 10^3/uL (130-400)
[2022-09-25 09:20] LABS: AFP Tumor Marker <2.5 ng/mL (<8.1)
== END 2022-09-24 02:50 | disposition home or self-care (01) ==
LOC: LBO 02:49
PROVIDERS: PCP Family Medicine; Visit Provider Internal Medicine
DX: K75.4 Autoimmune hepatitis (principal)
CPT/HCPCS: 36415; 80053; 82105; 85025; 85610

== ENCOUNTER 2022-09-27 16:48 | Emergency (ER) | payer MEDICARE, SELFPAY ==
--- NOTE | 2022-09-27 | DI.CT_ITS ---
Exam(s) CT ABDOMEN PELVIS WO EXAM: CT ABDOMEN PELVIS WO CLINICAL HISTORY: abd pain, vag bleeding. TECHNIQUE: Imaging Protocol: Axial computed tomography images with coronal and sagittal reformatted images were created and reviewed. COMPARISON: No exams were available for comparison FINDINGS: ABDOMEN: Lung Bases: There is a moderate size right pleural effusion. There is atelectasis of the right middl e lobe. There is a small pericardial effusion. Liver: There are multiple round hypodensities in the liver most consistent with cysts. The liver has a lobulated contour suggesting hepatic cirrhosis. No measurable mass. Gallbladder and biliary tract: Cholelithiasis. No biliary ductal dilatation. Pancreas: Normal density, no abnormal calcifications or inflammatory process. Spleen: Splenomegaly. Kidneys: Normal size, contour and axis.Right nephrolithiasis. No hydronephrosis. Round hypodensitie s in the left kidney likely cysts. Adrenal glands: No mass is seen. Lymph nodes: Within normal limits. Abdominal Aorta: Abdominal portion non-dilated. Atherosclerosis. PELVIS: Bladder:Symmetric distention, no gross wall thickening. Bowel: There is wall thickening seen in the ascending colon and proximal transverse colon. There is a air-fluid level in the right lower quadrant which may represent a distended cecum. There is no erica dence of bowel obstruction. Peritoneal cavity: There is a small to moderate amount of pelvic ascites and a small amount of perihe patic and perisplenic ascites. No free air. Reproductive organs: Unremarkable as visualized. Bones: Within normal limits. Soft Tissues: Within normal limits. IMPRESSION: 1. Findings of hepatic cirrhosis and portal hypertension with splenomegaly and abdominal ascites. 2. Moderate right pleural effusion. Atelectasis in the right middle lobe. 3. Bowel wall thickening involving the ascending and proximal transverse colon suspicious for, infect ious or inflammatory colitis. 4. Air-fluid collection in the right lower quadrant which may represent the cecum. Extra luminal flu id collection should be considered. This area is difficult to evaluate on this noncontrast examinati on. A CT scan of the abdomen and pelvis with oral contrast is recommended for further evaluation. 5. No pneumoperitoneum. 6. Cholelithiasis. No biliary ductal dilatation. 7. Findings were discussed with Cheyanne Azul at 6 p.m. on 09/27/2022. RADIATION DOSE DELIVERED: 721.44mGy.cm Total DLP DATA REPOSITORY: All CT scans at this facility are submitted to the National Radiology Data Registry (NRDR) Dose Index Registry (DIR) with the [employer] (ACR). RADIATION OPTIMIZATION: All CT scans at this facility use at least one of these dose optimization te chniques: automated exposure control; mA and/or kV adjustment per patient size (includes targeted exa ms where dose is matched to clinical indication); or iterative reconstruction.
--- NOTE | 2022-09-27 | DI.CT_ITS ---
Exam(s) CT ABDOMEN PELVIS WO EXAM: CT ABDOMEN PELVIS WO CLINICAL HISTORY: bowel wall thickening, with po contrast. TECHNIQUE: Imaging Protocol: Axial computed tomography images with coronal and sagittal reformatted images were created and reviewed. COMPARISON: CT CT ABDOMEN PELVIS WO from 09/27/2022 FINDINGS: The patient was given oral contrast. ABDOMEN: There has been no significant change in appearance of the abdomen compared to the examinatio n from earlier in the day. Findings consistent with hepatic cirrhosis with portal hypertension, sple nomegaly and ascites is again noted. Cholelithiasis is seen. Lung Bases: No change in appearance of the lung bases compared to the examination from earlier in the day. PELVIS: There has been no significant change in appearance of the pelvis compared to the examination from earlier in the day. Bowel: There is again seen thickening of the wall of the right colon and transverse colon consistent with colitis. The air-fluid collection previously disc just on the CT scan from earlier in the day i s the cecum. No extra luminal fluid collection is seen to suggest an abscess. Appendix is unremarka ble. IMPRESSION: 1. Findings consistent with colitis with bowel wall thickening of the right colon and proximal transv erse colon. 2. The air-fluid collection in the right lower quadrant is the cecum. No extraluminal fluid collecti ons are seen to suggest an abscess. RADIATION DOSE DELIVERED: 691.27mGy.cm Total DLP DATA REPOSITORY: All CT scans at this facility are submitted to the National Radiology Data Registry (NRDR) Dose Index Registry (DIR) with the [employer] ([employer]). RADIATION OPTIMIZATION: All CT scans at this facility use at least one of these dose optimization te chniques: automated exposure control; mA and/or kV adjustment per patient size (includes targeted exa ms where dose is matched to clinical indication); or iterative reconstruction.
[2022-09-27 16:51] VITALS: BP 129/74; PULSE 71; RESP 16; TEMP 36.4; O2SAT 97
[2022-09-27] MEDS: Normal Saline 1,000 ML 1000 ML IV (17:13)
[2022-09-27 17:21] LABS: Abs Immature Grans 0.03 10^3/uL (0.0-0.06); Absolute Basophil Count 0.03 10^3/uL (0.0-0.2); Absolute Eosinophil Count 0.26 10^3/uL (0.0-0.7); Absolute Lymphocyte Count 0.98 10^3/uL (1.2-3.4); Absolute Neutrophil Count 3.37 10^3/uL (1.2-6.7); Basophils % 0.6; HCT 39.2 % (36.0-46.0); HGB 13.4 g/dL (11.2-15.7); Immature Grans % 0.6; MCHC 34.2 % (32.0-36.0); MCV 91 fL (80-95); MPV 10.6 fL (8.0-11.0); Monocytes % 9.7; Neutrophils % 65.1; Platelet Count 128 10^3/uL (130-400); RBC 4.32 10^6/uL (3.93-5.22); RDW 16.6 % (11.7-14.6); WBC 5.17 10^3/uL (4.4-10.8)
[2022-09-27 17:30] LABS: INR 1.3 (0.9-1.1); Prothrombin Time 13.3 sec (9.3-11.0)
[2022-09-27 17:41] LABS: ALT 272 U/L (14-59); AST 262 U/L (15-37); Albumin 3.3 g/dL (3.4-5.0); Alkaline Phosphatase 70 U/L (46-116); Anion Gap 7.3 mmol/L (3-11); BUN 14 mg/dL (7-18); Bilirubin, Total 2.5 mg/dL (0.2-1.0); CO2 26.7 mmol/L (21.0-32.0); CREATININE 0.8 mg/dL (0.55-1.02); Calcium 8.9 mg/dL (8.5-10.1); Chloride 101 mmol/L (98-107); Estimated GFR 80.71 (mL/min/1.73m2); Glucose 119 mg/dL (74-106); Magnesium 1.8 mg/dL (1.8-2.4); Sodium 135 mmol/L (136-145); Total Protein 8.2 g/dL (6.4-8.2)
[2022-09-27] MEDS: Barium Sulfate 2% W/V-Berry Smoothie 450 ML BTL PO (18:18)
[2022-09-27 19:55] VITALS: BP 126/75; PULSE 50; RESP 16; O2SAT 100
--- NOTE | 2022-09-27 20:30 | ED.GENADUL_ITS ---
Discharge Plan Disposition Patient Disposition: Home Condition: Stable Discharge Details Clinical Impression: Colitis Primary Care Provider: Sruthi Eden ED Provider: Cheyanne Azul Home Meds and New Rx's Prescriptions: Continued multivitamin [Daily Multi-Vitamin] Tablet 1 tab PO DAILY ascorbate calcium (vitamin C) 500 mg tablet 500 mg PO DAILY Patient Comments: pt reports she takes 1000 mg nadolol 20 mg tablet 20 mg PO DAILY Qty: 30 1RF Discharge Instructions Instructions: Colitis (ED) Additional Instructions: Clear liquid diet, advance as tolerated. Drink fluids when you are able. It might help to take small sips every 15 to 30 minutes. Try to drink more as you start to feel better. ?When you have a lot of vomiting or diarrhea, your body loses both water and salt. Drinking fluids that contain some salt can help replace what your body has lost. Examples include oral rehydration solutions sports drinks, and broth. If you drink a lot of plain water, make sure you are also eating. This will help your body keep the right salt and water balance. ?Avoid drinks with a lot of sugar, like juice or soda. Avoid alcohol, too. ?Eat when you are able. If you can keep food down, it's best to eat lean meats, fruits, vegetables, and whole-grain breads and cereals. Avoid eating foods with a lot of fat or sugar, which can make symptoms worse. Referrals: Sruthi Eden MD [Primary Care Provider] - Discharge Data Discharge Date/Time-TO BE ENTERED AT DEPARTURE: 09/27/22 22:03 Medical Decision Making Last colonoscopy was 1 year ago. Medical Records Medical records reviewed: Yes I reviewed the patient's medical records. Imaging Data Radiologic Study: Imaging: CT Scan Radiologist's impression: Exam(s) PROCEDURE INFORMATION: Exam: CT Abdomen And Pelvis Without Contrast Exam date and time: 09/27/2022 8:12 PM Age: 67 years old Clinical indication: Other: Bowel wall thickening, with po contrast TECHNIQUE: Imaging protocol: Computed tomography of the abdomen and pelvis without contrast. Radiation optimization: All CT scans at this facility use at least one of these dose optimization techniques: automated exposure control; mA and/or kV adjustment per patient size (includes targeted exams where dose is matched to clinical indication); or iterative reconstruction. Other contrast: Oral, barium sulfate , 900; COMPARISON: CT ABDOMEN PELVIS WO 09/27/2022 5:23 PM FINDINGS: Lungs: Atelectasis in the right middle lobe . Stable Pleural spaces: Moderate right pleural effusion . Heart: Small pericardial effusion Liver: Stable cystic structures in the liver. Small Lobulated liver consistent with cirrhosis. Gallbladder and bile ducts: Gallstones in the gallbladder. Pancreas: Pancreas is stable in appearance Spleen: Splenomegaly consistent with portal hypertension. Spleen measures 16.4 cm. Adrenal glands: Normal. No mass. Kidneys and ureters:? Stable in appearance. No hydronephrosis. Stomach and bowel:? diverticulosis of the rectosigmoid. No diverticulitis. Again noted is bowel wall thickening in the right colon and transverse colon consistent with colitis. Appendix: No evidence of appendicitis. Intraperitoneal space: Moderate ascites in the abdomen and pelvis. There is no extraluminal fluid collection to suggest abscess. Vasculature: Unremarkable. No abdominal aortic aneurysm. Lymph nodes: Unremarkable. No enlarged lymph nodes. Urinary bladder: Unremarkable as visualized. Reproductive: Unremarkable as visualized. Bones/joints: Unremarkable. No acute fracture. Soft tissues: Stable appearance of the umbilicus IMPRESSION: 1. ? Moderate right pleural effusion . 2. ? Gallstones in the gallbladder. 3. ? Small Lobulated liver consistent with cirrhosis. 4. ? Splenomegaly consistent with portal hypertension. Spleen measures 16.4 cm. 5. ? Again noted is bowel wall thickening in the right colon and transverse colon consistent with colitis. 6. ? There is no extraluminal fluid collection to suggest abscess. Dictated and Authenticated by: Sheree Rogel MD. Lab Data Lab results reviewed: Yes I reviewed the patient's lab results. Lab results narrative: Laboratory Last Values WBC 5.17 10^3/uL (4.4-10.8) 09/27/22 17:13 RBC 4.32 10^6/uL (3.93-5.22) 09/27/22 17:13 Hgb 13.4 g/dL (11.2-15.7) 09/27/22 17:13 Hct 39.2 % (36.0-46.0) 09/27/22 17:13 MCV 91 fL (80-95) 09/27/22 17:13 MCH 31.0 pg (27.0-33.0) 09/27/22 17:13 MCHC 34.2 % (32.0-36.0) 09/27/22 17:13 RDW 16.6 % (11.7-14.6) H 09/27/22 17:13 Plt Count 128 10^3/uL (130-400) L 09/27/22 17:13 MPV 10.6 fL (8.0-11.0) 09/27/22 17:13 Immature Gran % 0.6 09/27/22 17:13 Neutrophils % 65.1 09/27/22 17:13 Lymphocytes % 19.0 09/27/22 17:13 Monocytes % 9.7 09/27/22 17:13 Eosinophils % 5.0 09/27/22 17:13 Basophils % 0.6 09/27/22 17:13 Nucleated RBC % 0.0 % (0.0-0.3) 09/27/22 17:13 Absolute Neutrophils 3.37 10^3/uL (1.2-6.7) 09/27/22 17:13 Absolute Lymphocytes 0.98 10^3/uL (1.2-3.4) L 09/27/22 17:13 Absolute Monocytes 0.50 10^3/uL (0.1-0.8) 09/27/22 17:13 Absolute Eosinophils 0.26 10^3/uL (0.0-0.7) 09/27/22 17:13 Absolute Basophils 0.03 10^3/uL (0.0-0.2) 09/27/22 17:13 PT 13.3 sec (9.3-11.0) H 09/27/22 17:13 INR 1.3 (0.9-1.1) H 09/27/22 17:13 Sodium 135 mmol/L (136-145) L 09/27/22 17:13 Potassium 4.0 mmol/L (3.5-5.1) 09/27/22 17:13 Chloride 101 mmol/L (98-107) 09/27/22 17:13 Carbon Dioxide 26.7 mmol/L (21.0-32.0) 09/27/22 17:13 Anion Gap 7.3 mmol/L (3-11) 09/27/22 17:13 BUN 14 mg/dL (7-18) 09/27/22 17:13 Creatinine 0.8 mg/dL (0.55-1.02) 09/27/22 17:13 Est GFR (CKD-EPI 2020) 80.71 (mL/min/1.73m2) 09/27/22 17:13 Glucose 119 mg/dL (74-106) H 09/27/22 17:13 Calcium 8.9 mg/dL (8.5-10.1) 09/27/22 17:13 Magnesium 1.8 mg/dL (1.8-2.4) 09/27/22 17:13 Total Bilirubin 2.5 mg/dL (0.2-1.0) H 09/27/22 17:13 AST 262 U/L (15-37) H 09/27/22 17:13 ALT 272 U/L (14-59) H 09/27/22 17:13 Alkaline Phosphatase 70 U/L (46-116) 09/27/22 17:13 Total Protein 8.2 g/dL (6.4-8.2) 09/27/22 17:13 Albumin 3.3 g/dL (3.4-5.0) L 09/27/22 17:13 HPI General Mode of arrival: ambulatory . Date/Time Provider Initiated Documentation: 09/27/22 16:52 . Limitations to Documentation: no limitations . Information obtained by: patient . HPI Narrative: Patient presents with several week history lower abdominal cramping/burning. She states is worsened with eating. There is no fevers. She has not been vomiting or having nausea. Reports multiple episodes of loose stools. Today noticed blood when she wiped which is what prompted her to the emergency department Related Data Home Medications Medication Instructions Recorded Confirmed multivitamin (Daily Multi-Vitamin 1 tab PO DAILY 04/13/21 09/27/22 tablet) ascorbate calcium (vitamin C) 500 500 mg PO DAILY 06/05/21 12/12/21 mg tablet nadolol 20 mg tablet 20 mg PO DAILY #30 tabs 07/16/21 09/27/22 Previous Rx's Medication Instructions Recorded nadolol 20 mg tablet 20 mg PO DAILY #30 tabs 07/16/21 Allergies Allergy/AdvReac Type Severity Reaction Status Date / Time prednisone Allergy Unknown Unverified 09/27/22 16:57 General Stated Complaint: Abd Prob FÉLIX: 3 Review of Systems All systems reviewed & are unremarkable except as noted in HPI and below PFSH All Active Problems (Updated 09/27/22 @ 21:43 by Cheyanne Azul NP) Cirrhosis of liver without ascites (Acute) [place] [facility] [place]rombocytopenia (Chronic) Portal hypertension (Acute) Acquired pancytopenia (Acute) Varices of esophagus determined by endoscopy (Acute) Colitis (Acute) Medical History (Updated 09/27/22 @ 21:43 by Cheyanne Azul NP) Autoimmune hepatitis biopsy with grade 2-3, st 1-2. AFP negative. Managed with azathioprine historically; [place] [facility] [place]. Bladder prolapse, female, acquired has nighttime incontinence. Tried a pessary - unable to tolerate. Improved with PT. History of esophageal varices no bleeding. 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 Sister Rheumatoid arthritis Brother No problems noted. Brother Hypertension Son No problems noted. Daughter No problems noted. Social History (Updated 12/19/21 @ 06:22 by Minal Grissom) Smoking/Tobacco Use Status: Never Second Hand Exposure: No Smoking risk assessment performed?: Yes Alcohol Intake: never Drug use: Never Substance use type: does not use Caregiver/Support person: No Household members: family and children Housing: house Number of Children: 2 number of grandchildren: 8 Education Level: college Do you need help understanding health information?: Never current occupation: Retired from [employer] in [place] Pets and animals: No Sexually active: No Do you think of yourself as: straight/heterosexual Current gender identity: female What is your relationship status?: How often do you talk on the phone with friends or family?: three or more times per week How often do you get together with friends or relatives?: three or more times per week How often do you attend pentecostal or methodist services?: 4 or more times per year Do you belong to any clubs or organized social groups?: no Panel score (0-1 are the most socially isolated patients): 2 What type of physical activity do you participate in: walking Duration: 15-30 minutes/day Frequency: daily Jaclyn/Scientologist: Moravian Special jaclyn needs: No Seatbelt use: always Helmet use: No Drive intox or ride w/intox seasonal driver: No Additional Social history: Enjoys spending time with family, playing sports/games with them. Female Reproductive History Menstrual Age of Menarche: 13 Menopause type: natural Date of menopause: 08/08/05 History History 2 Para 2 Hx # Term Pregnancies 2 Multiple births Hx # Pregnancies Ectopic pregnancies AB induced Hx Number of Living Children 2 AB spontaneous Past Pregnancies Del. Date GA/Weeks # Preg Succ Route Wgt Sex Labor Lgth Anesth esia Location Prov [facility] 10/07/77 40 No vaginal 3529.516 g Male 10 09/27/82 40 No vaginal 3657.088 g Female Delivery Date: 10/07/77 Last Updated by: Yojana Daniels laceration with repair Exam Const General: cooperative, comfortable and no acute distress Nutritional Appearance: average body habitus Orientation: alert, awake and oriented x3 HENMT Head: normal to inspection, normocephalic and atraumatic Mouth: oral mucosae normal Resp Effort & Inspection: normal respiratory effort Auscultation: clear to auscultation bilaterally Cardio Rate: regular rate Rhythm: regular rhythm GI Inspection: normal to inspection Palpation: soft and tender in the LLQ and in the RLQ Skin General skin exam: no rashes or lesions noted Neuro General: patient alert, patient awake and patient oriented x3 Extrem General: normal to inspection Course Vital Signs Vital signs: Vital Signs Temperature 36.4 C L 09/27/22 16:51 Pulse 71 09/27/22 16:51 Respiratory Rate 16 09/27/22 16:51 Blood Pressure 129/74 09/27/22 16:51 Pulse Oximetry 97 09/27/22 16:51 Temperature 36.4 C L 09/27/22 16:51 Temperature Source Temporal Artery Scan 09/27/22 16:51 Pulse 50 L 09/27/22 19:55 Respiratory Rate 16 09/27/22 19:55 Respiratory Effort Normal 09/27/22 16:54 Blood Pressure 126/75 09/27/22 19:55 Blood Pressure Position Sitting 09/27/22 16:51 Pulse Oximetry 100 09/27/22 19:55 Oxygen Delivery Method Room Air 09/27/22 19:55 Oxygen Flow Rate 0 09/27/22 19:55 Pain Level 0 09/27/22 19:55 Lab/Test Results Lab/Test Results: Laboratory Tests Range/Units 09/27/22 09/27/22 09/27/22 17:13 17:13 17:13 WBC (4.4-10.8) 10^3/uL 5.17 RBC (3.93-5.22) 10^6/uL 4.32 Hgb (11.2-15.7) g/dL 13.4 Hct (36.0-46.0) % 39.2 MCV (80-95) fL 91 MCH (27.0-33.0) pg 31.0 MCHC (32.0-36.0) % 34.2 RDW (11.7-14.6) % 16.6 H Plt Count (130-400) 10^3/uL 128 L MPV (8.0-11.0) fL 10.6 Immature Gran % 0.6 Neutrophils % 65.1 Lymphocytes % 19.0 Monocytes % 9.7 Eosinophils % 5.0 Basophils % 0.6 Nucleated RBC % (0.0-0.3) % 0.0 Absolute Neutrophils (1.2-6.7) 10^3/uL 3.37 Absolute Lymphocytes (1.2-3.4) 10^3/uL 0.98 L Absolute Monocytes (0.1-0.8) 10^3/uL 0.50 Absolute Eosinophils (0.0-0.7) 10^3/uL 0.26 Absolute Basophils (0.0-0.2) 10^3/uL 0.03 PT (9.3-11.0) sec 13.3 H INR (0.9-1.1) 1.3 H Sodium (136-145) mmol/L 135 L Potassium (3.5-5.1) mmol/L 4.0 Chloride (98-107) mmol/L 101 Carbon Dioxide (21.0-32.0) mmol/L 26.7 Anion Gap (3-11) mmol/L 7.3 BUN (7-18) mg/dL 14 Creatinine (0.55-1.02) mg/dL 0.8 Est GFR (CKD-EPI 2020) (mL/min/1.73m2) 80.71 Glucose (74-106) mg/dL 119 H Calcium (8.5-10.1) mg/dL 8.9 Magnesium (1.8-2.4) mg/dL 1.8 Total Bilirubin (0.2-1.0) mg/dL 2.5 H AST (15-37) U/L 262 H ALT (14-59) U/L 272 H Alkaline Phosphatase (46-116) U/L 70 Total Protein (6.4-8.2) g/dL 8.2 Albumin (3.4-5.0) g/dL 3.3 L
--- NOTE | 2022-09-27 20:54 | DI.VRAD_ITS ---
PROCEDURE INFORMATION: Exam: CT Abdomen And Pelvis Without Contrast Exam date and time: 09/27/2022 8:12 PM Age: 67 years old Clinical indication: Other: Bowel wall thickening, with po contrast TECHNIQUE: Imaging protocol: Computed tomography of the abdomen and pelvis without contrast. Radiation optimization: All CT scans at this facility use at least one of these dose optimization techniques: automated exposure control; mA and/or kV adjustment per patient size (includes targeted exams where dose is matched to clinical indication); or iterative reconstruction. Other contrast: Oral, barium sulfate , 900; COMPARISON: CT ABDOMEN PELVIS WO 09/27/2022 5:23 PM FINDINGS: Lungs: Atelectasis in the right middle lobe . Stable Pleural spaces: Moderate right pleural effusion . Heart: Small pericardial effusion Liver: Stable cystic structures in the liver. Small Lobulated liver consistent with cirrhosis. Gallbladder and bile ducts: Gallstones in the gallbladder. Pancreas: Pancreas is stable in appearance Spleen: Splenomegaly consistent with portal hypertension. Spleen measures 16.4 cm. Adrenal glands: Normal. No mass. Kidneys and ureters: Stable in appearance. No hydronephrosis. Stomach and bowel: diverticulosis of the rectosigmoid. No diverticulitis. Again noted is bowel wall thickening in the right colon and transverse colon consistent with colitis. Appendix: No evidence of appendicitis. Intraperitoneal space: Moderate ascites in the abdomen and pelvis. There is no extraluminal fluid collection to suggest abscess. Vasculature: Unremarkable. No abdominal aortic aneurysm. Lymph nodes: Unremarkable. No enlarged lymph nodes. Urinary bladder: Unremarkable as visualized. Reproductive: Unremarkable as visualized. Bones/joints: Unremarkable. No acute fracture. Soft tissues: Stable appearance of the umbilicus IMPRESSION: 1. Moderate right pleural effusion . 2. Gallstones in the gallbladder. 3. Small Lobulated liver consistent with cirrhosis. 4. Splenomegaly consistent with portal hypertension. Spleen measures 16.4 cm. 5. Again noted is bowel wall thickening in the right colon and transverse colon consistent with colitis. 6. There is no extraluminal fluid collection to suggest abscess. Dictated and Authenticated by: Sheree Rogel MD. Ordering:CONG Edward MD
[2022-09-27 22:00] VITALS: BP 120/65; PULSE 57; RESP 18; O2SAT 100
== END 2022-09-27 22:03 | disposition home or self-care (01) ==
PROVIDERS: Emergency Provider Nurse Practitioner Acute Care; PCP Family Medicine
DX: K52.9 Noninfective gastroenteritis and colitis, unspecified (principal); K74.60 Unspecified cirrhosis of liver; K76.6 Portal hypertension; R16.1 Splenomegaly, not elsewhere classified; R18.8 Other ascites; K80.20 Calculus of gallbladder without cholecystitis without obstruction; J90 Pleural effusion, not elsewhere classified
CPT/HCPCS: 36415; 80053; 96360; 99284; 74176; 83735; 85025; 85610; 99283

== ENCOUNTER 2022-10-04 01:48 | Outpatient (CLI) | payer MEDICARE, SELFPAY ==
[2022-10-07 10:22] LABS: Lyme Ab w Rflx to Lyme Confirm Negative (Negative)
[2022-10-08 22:53] LABS: Anaplasma phagocytophilum Negative (Negative); B. miyamotoi PCR Negative (Negative); Babesia divergens/MO-1 Negative (Negative); Babesia duncani Negative (Negative); Babesia microti Negative (Negative); Ehrlichia chaffeensis Negative (Negative); Ehrlichia ewingii/canis Negative (Negative); Ehrlichia muris eauclairensis Negative (Negative)
== END 2022-10-04 01:49 | disposition home or self-care (01) ==
LOC: LBO 01:49
PROVIDERS: PCP Family Medicine; Visit Provider Family Medicine
DX: T14.8XXA Other injury of unspecified body region, initial encounter (principal); W57.XXXA Bitten or stung by nonvenomous insect and other nonvenomous arthropods, initial encounter
CPT/HCPCS: 36415; 87798; 86618

== ENCOUNTER 2022-10-16 02:47 | Outpatient (CLI) | payer MEDICARE, SELFPAY ==
[2022-10-16 12:27] LABS: HCT 35.7 % (36.0-46.0); HGB 11.9 g/dL (11.2-15.7); MCHC 33.3 % (32.0-36.0); MCV 93 fL (80-95); MPV 10.8 fL (8.0-11.0); RBC 3.84 10^6/uL (3.93-5.22); RDW 17.8 % (11.7-14.6); RDW-SD 60.7 fL; WBC 3.88 10^3/uL (4.4-10.8)
[2022-10-16 12:41] LABS: Platelet Count 78 10^3/uL (130-400)
== END 2022-10-16 02:48 | disposition home or self-care (01) ==
LOC: LOS 02:47
PROVIDERS: PCP Family Medicine; Visit Provider Family Medicine
DX: D69.6 Thrombocytopenia, unspecified (principal)
CPT/HCPCS: 36415; 85027

== ENCOUNTER 2022-11-21 02:17 | Outpatient (CLI) | payer MEDICARE, SELFPAY ==
[2022-11-21 16:01] LABS: Abs Immature Grans 0.01 10^3/uL (0.0-0.06); Absolute Basophil Count 0.03 10^3/uL (0.0-0.2); Absolute Eosinophil Count 0.17 10^3/uL (0.0-0.7); Absolute Lymphocyte Count 0.78 10^3/uL (1.2-3.4); Absolute Monocyte Count 0.41 10^3/uL (0.1-0.8); Absolute Neutrophil Count 1.98 10^3/uL (1.2-6.7); Basophils % 0.9; HCT 33.7 % (36.0-46.0); HGB 11.5 g/dL (11.2-15.7); Immature Grans % 0.3; Lymphocytes % 23.1; MCH 32.4 pg (27.0-33.0); MCHC 34.1 % (32.0-36.0); MCV 95 fL (80-95); MPV 10.5 fL (8.0-11.0); Monocytes % 12.1; Neutrophils % 58.6; RBC 3.55 10^6/uL (3.93-5.22); RDW 16.2 % (11.7-14.6); RDW-SD 57.2 fL; WBC 3.38 10^3/uL (4.4-10.8)
[2022-11-21 16:10] LABS: INR 1.3 (0.9-1.1); Prothrombin Time 12.9 sec (9.3-11.0)
[2022-11-21 16:32] LABS: ALT 102 U/L (14-59); AST 123 U/L (15-37); Albumin 2.8 g/dL (3.4-5.0); Alkaline Phosphatase 63 U/L (46-116); BUN 11 mg/dL (7-18); Bilirubin, Total 0.9 mg/dL (0.2-1.0); CREATININE 0.7 mg/dL (0.55-1.02); Calcium 8.4 mg/dL (8.5-10.1); Chloride 106 mmol/L (98-107); Estimated GFR 94.73 (mL/min/1.73m2); Glucose 107 mg/dL (74-106); Potassium 3.8 mmol/L (3.5-5.1); Sodium 140 mmol/L (136-145); Total Protein 7.2 g/dL (6.4-8.2)
[2022-11-21 16:48] LABS: Anisocytosis 1+; Diff Comment RBC Morph Reviewed
[2022-11-21 16:49] LABS: Platelet Count 76 10^3/uL (130-400); Poikilocytes 1+
== END 2022-11-21 02:18 | disposition home or self-care (01) ==
LOC: LBO 02:17
PROVIDERS: PCP Family Medicine; Visit Provider Internal Medicine
DX: K74.60 Unspecified cirrhosis of liver (principal); K75.4 Autoimmune hepatitis
CPT/HCPCS: 36415; 80053; 85025; 85610

== ENCOUNTER 2022-12-30 03:37 | Outpatient (CLI) | payer MEDICARE, SELFPAY ==
[2022-12-30 16:14] LABS: Abs Immature Grans 0.02 10^3/uL (0.0-0.06); Absolute Basophil Count 0.03 10^3/uL (0.0-0.2); Absolute Eosinophil Count 0.17 10^3/uL (0.0-0.7); Absolute Lymphocyte Count 0.72 10^3/uL (1.2-3.4); Absolute Monocyte Count 0.43 10^3/uL (0.1-0.8); Absolute Neutrophil Count 3.71 10^3/uL (1.2-6.7); Basophils % 0.6; Eosinophils % 3.3; HCT 35.7 % (36.0-46.0); HGB 11.9 g/dL (11.2-15.7); Immature Grans % 0.4; Lymphocytes % 14.2; MCH 31.6 pg (27.0-33.0); MCHC 33.3 % (32.0-36.0); MCV 95 fL (80-95); MPV 10.4 fL (8.0-11.0); Monocytes % 8.5; RBC 3.77 10^6/uL (3.93-5.22); RDW-SD 52.1 fL; WBC 5.08 10^3/uL (4.4-10.8)
[2022-12-30 16:27] LABS: INR 1.4 (0.9-1.1)
[2022-12-30 16:42] LABS: Diff Comment Diff Reviewed; Platelet Count 81 10^3/uL (130-400); RBC Morphology Normal
[2022-12-30 17:06] LABS: ALT 458 U/L (14-59); AST 543 U/L (15-37); Alkaline Phosphatase 84 U/L (46-116); Anion Gap 8.9 mmol/L (3-11); BUN 9 mg/dL (7-18); Bilirubin, Total 1.1 mg/dL (0.2-1.0); CO2 26.1 mmol/L (21.0-32.0); CREATININE 0.6 mg/dL (0.55-1.02); Calcium 8.9 mg/dL (8.5-10.1); Chloride 102 mmol/L (98-107); Estimated GFR 98.32 (mL/min/1.73m2); Glucose 86 mg/dL (74-106); Sodium 137 mmol/L (136-145); Total Protein 7.8 g/dL (6.4-8.2)
== END 2022-12-30 03:38 | disposition home or self-care (01) ==
PROVIDERS: PCP Family Medicine; Visit Provider Internal Medicine
DX: K74.60 Unspecified cirrhosis of liver (principal)
CPT/HCPCS: 36415; 80053; 85025; 85610

== ENCOUNTER 2023-01-01 10:28 | Emergency (ER) | payer MEDICARE, SELFPAY ==
[2023-01-01] VITALS (31 sets, daily range): BP systolic 107–132; BP diastolic 55–80; PULSE 0–90; RESP 13–24; TEMP 36.6–36.7; O2SAT 99–100
--- NOTE | 2023-01-01 11:30 | RT.EKG_ITS ---
APPROVED REPORT Exam: Resting ECG Reason for Exam: weakness Patient Location: E HR:68 bpm ECG Measurements Heart Rate 68 AXIS IN 82 P 0 QRSd 85 QRS 52 QT 395 T 55 QTc 420 Conclusion Sinus rhythm...normal P axis, V-rate 60- 99
--- NOTE | 2023-01-01 11:45 | DI.CT_ITS ---
Exam(s) CT THORAX ABD/PEL CTA EXAM: CT THORAX ABD/PEL CTA CLINICAL HISTORY: cta chest/abd/pelvis, gi bleeding, known varices. TECHNIQUE: Imaging Protocol: Axial computed tomography images with coronal and sagittal reformatted images were created and reviewed CONTRAST MATERIAL: Intravenous: Omnipaque 350 Contrast volume:100 ml Oral: None COMPARISON: CT CT ABDOMEN PELVIS WO from 09/27/[address] ABDOMEN PELVIS WO from 09/27/2022 FINDINGS: CHEST: LUNGS: There is a large unilateral right pleural effusion and there is significant volume loss-collap se of a large part of the right lower lobe.. There is no infiltrate nor nodules evident in the right upper and right middle lobes. Some fluid is seen in the right major fissure. The opposite-left hernandez g is clear with no infiltrates nor ominous nodules. There is no pleural fluid on the left side. MEDIASTINUM: There is no hilar nor mediastinal adenopathy. There is no subcarinal adenopathy.There ar e no obvious actively bleeding esophageal varices. CARDIAC: Heart size normal. There is a small pericardial effusion with maximum thickness anteriorly of 6 mm. AORTA: Caliber of the thoracic aorta is within normal limits.There is no evidence of aortic dissectio n. ABDOMEN: There is no evidence of abdominal aortic aneurysm nor dissection.There is no aneurysmal dilatation of the common iliac arteries.The celiac and superior mesenteric arteries are patent. There is now abundant ascites in the abdomen and pelvis, more so than previous. There is also generalized relatively symmetrical anasarca in the subcutaneous fat over both sides of the abdomen. LIVER: Cirrhotic liver again noted with multiple cysts. The largest cyst is again noted to be in the right hepatic lobe and measures 5.5 by 5.5 cm. No new solid liver masses evident. GALLBLADDER/BILIARY: There are gallstones again noted in the region the gallbladder neck. There is s ome fluid around the gallbladder but this is most probably related to the generalized ascites. CBD i s not dilated. There are no calculi evident in the CBD. CBD is not dilated. PANCREAS: No evidence of pancreatic mass nor dilatation of the pancreatic duct. SPLEEN: Splenomegaly noted. No intrasplenic lesions. Splenic and portal veins are patent. ADRENALS: No significant adrenal masses. KIDNEYS: No cysts evident. No calculi nor hydronephrosis. No solid renal masses. ABDOMINAL AORTA: The abdominal aorta is not enlarged. LYMPH NODES: There is no retroperitoneal nor para-aortic adenopathy. No obvious mesenteric masses. ABDOMINAL WALL: Symmetrical anasarca. Umbilical hernia which contains fat and fluid. No bowel loops therein. There is no bowel obstruction. GI: There is no evidence of bowel obstruction, free air, nor abscess.However, there appears to be a d iffuse colitis pattern. PELVIS: LYMPH NODES: There is no intrapelvic nor inguinal adenopathy. GI: Appendix is difficult to locate is a separate structure. No obvious acute appendicitis.No eviden ce of sigmoid diverticulitis. URINARY BLADDER: No calculi nor masses evident REPRODUCTIVE: Uterus size normal. Ovaries not able to be identified. There are enlarged left periut erine veins which drain into an enlarged but not thrombosed left gonadal vein which itself drains int o the left renal vein. Consistent with pelvic congestion syndrome. There is a pessary in the upper [place]. OSSEOUS: No significant osseous lesions. No fractures. Very mild degenerative anterolisthesis L4 upon L5. No significant disc space narrowing. IMPRESSION: 1. Large unilateral right pleural effusion with collapse of a large part of the right lower lobe. No significant findings in the right upper and right middle lobes nor in the left lung. There is no pleu ral effusion on the left side. 2. Small pericardial effusion with maximum thickness of 6 mm. 3. There is now massive abdominal-pelvic ascites as well as symmetrical anasarca. 4. Cirrhotic liver with multiple cysts (no solid liver lesions), splenomegaly and cholelithiasis agai n noted. 5. 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 6. No obvious bleeding esophageal varices, as per request. 7. Pelvic congestion syndrome with dilated left parauterine veins draining into a dilated nonthrombos ed left gonadal vein which itself drains into a nonthrombosed pre aortic left renal vein. RADIATION DOSE DELIVERED: Total DLP DATA REPOSITORY: All CT scans at this facility are submitted to the National Radiology Data Registry (NRDR) Dose Index Registry (DIR) with the [employer] [place] (ACR). RADIATION OPTIMIZATION: All CT scans at this facility use at least one of these dose optimization te chniques: automated exposure control; mA and/or kV adjustment per patient size (includes targeted exa ms where dose is matched to clinical indication); or iterative reconstruction.
[2023-01-01] MEDS: Pantoprazole 40 MG VIAL 80 MG IVP (11:47)
[2023-01-01 11:48] LABS: Abs Immature Grans 0.03 10^3/uL (0.0-0.06); Absolute Basophil Count 0.05 10^3/uL (0.0-0.2); Absolute Eosinophil Count 0.04 10^3/uL (0.0-0.7); Absolute Lymphocyte Count 1.08 10^3/uL (1.2-3.4); Absolute Monocyte Count 0.76 10^3/uL (0.1-0.8); Basophils % 0.5; Eosinophils % 0.4; HCT 37.8 % (36.0-46.0); HGB 12.5 g/dL (11.2-15.7); Immature Grans % 0.3; Lymphocytes % 9.9; MCH 31.5 pg (27.0-33.0); MCHC 33.1 % (32.0-36.0); MCV 95 fL (80-95); MPV 10.5 fL (8.0-11.0); Neutrophils % 81.9; Platelet Count 118 10^3/uL (130-400); RBC 3.97 10^6/uL (3.93-5.22); RDW 15.1 % (11.7-14.6); RDW-SD 53.4 fL; WBC 10.91 10^3/uL (4.4-10.8)
[2023-01-01] MEDS: Normal Saline 100 ML (11:48)
[2023-01-01 11:50] LABS: Absolute Neutrophil Count 8.94 10^3/uL (1.2-6.7)
[2023-01-01] MEDS: Normal Saline 500 ML IV (11:54)
[2023-01-01] MEDS: Normal Saline Flush 10 ML SYR IVP (11:58)
[2023-01-01] MEDS: Normal Saline - Diluent 50 ML VIAL IJ (11:58)
[2023-01-01] MEDS: Omnipaque 350 MG/ML 100 ML BTL IJ (12:00)
[2023-01-01 12:10] LABS: ALT 357 U/L (14-59); AST 354 U/L (15-37); Albumin 3.1 g/dL (3.4-5.0); Alkaline Phosphatase 79 U/L (46-116); Anion Gap 5.5 mmol/L (3-11); BUN 16 mg/dL (7-18); Bilirubin, Total 2.5 mg/dL (0.2-1.0); CO2 25.5 mmol/L (21.0-32.0); CREATININE 0.8 mg/dL (0.55-1.02); Calcium 8.8 mg/dL (8.5-10.1); Chloride 101 mmol/L (98-107); Estimated GFR 80.71 (mL/min/1.73m2); Glucose 133 mg/dL (74-106); Potassium 3.8 mmol/L (3.5-5.1); Sodium 132 mmol/L (136-145); Total Protein 8.1 g/dL (6.4-8.2)
[2023-01-01] MEDS: OCTREOTIDE 250 MCG in Normal Saline 245 ML 50 MCG IV (12:29)
[2023-01-01] MEDS: Octreotide 100 MCG/ML VIAL 50 MCG IVP (12:31)
[2023-01-01 13:57] LABS: C Diff PCR Negative (Negative)
[2023-01-01 14:27] LABS: Abs Immature Grans 0.03 10^3/uL (0.0-0.06); Absolute Basophil Count 0.03 10^3/uL (0.0-0.2); Absolute Eosinophil Count 0.04 10^3/uL (0.0-0.7); Absolute Lymphocyte Count 0.97 10^3/uL (1.2-3.4); Absolute Monocyte Count 0.97 10^3/uL (0.1-0.8); Basophils % 0.3; Eosinophils % 0.5; HCT 31.4 % (36.0-46.0); HGB 10.6 g/dL (11.2-15.7); Immature Grans % 0.3; MCHC 33.8 % (32.0-36.0); MCV 95 fL (80-95); MPV 10.3 fL (8.0-11.0); Neutrophils % 76.9; RBC 3.31 10^6/uL (3.93-5.22); RDW-SD 52.5 fL; WBC 8.84 10^3/uL (4.4-10.8)
--- NOTE | 2023-01-01 14:33 | ED.GENADUL_ITS ---
Discharge Plan Disposition Patient Disposition: Transfer-Acute Inpatient Care Specific Acute Inpt Facility: [facility] Discharge Details Clinical Impression: GI bleed, Cirrhosis of liver without ascites, Thrombocytopenia, Pancolitis, Portal hypertension Primary Care Provider: Sruthi Eden ED Provider: Linda Bryan Home Meds and New Rx's Prescriptions: Continued milk thistle 500 mg capsule 500 mg PO DAILY Rx Instructions: give with meal/snack cholecalciferol (vitamin D3) 50 mcg (2,000 unit) capsule 50 mcg PO DAILY Ca carb-Ca gluc-Mg ox-Mg gluco 500 mg calcium -250 mg tablet PO DAILY Patient Comments: 10/14/22- Pt takes a pill with 100 mg of calcium and 100 mg of magnesium per pt report. multivitamin [Daily Multi-Vitamin] Tablet 1 tab PO DAILY nadolol 20 mg tablet 20 mg PO DAILY Qty: 30 5RF Discharge Data Discharge Date/Time-TO BE ENTERED AT DEPARTURE: 01/01/23 15:51 Medical Decision Making Pale 67-year-old female, calm, cooperative alert and oriented on presentation with stable vitals presents with bloody stool, blood noted, scant diarrhea with diffuse dark red blood, nontender abdominal exam, ascites appreciated, afebrile, no evidence of SBP, right lung mildly diminished, oxygenation 99%, speaking in complete sentences, no distress Umbilical hernia noted, nontender 1+ edema to bilateral lower extremities, denies any alcohol consumption Platelets 116, CBC all within normal limits, he is hemodynamically stable, CMP with bili of 2.5, unchanged from prior, LFTs elevated AST and ALT 357, improved from prior in the 500s Albumin 3.1 Case discussed with our surgeon, Dr. Tobias and he feels patient needs gastroenterology in conjunction with her care and disposition I called [facility], [facility], [facility], [facility], they were all at capacity and unable to accept this patient in transfer, presents is not consulted and they are able to accept the patient in an ER transfer Patient is remained hemodynamically stable in the emergency department, she has received Protonix, 500 cc of fluid, and we are repeating a CBC to determine whether or not to start transfusion, she is remained hemodynamically stable and alert and oriented through this at this encounter CT scan shows large right pleural effusion with volume loss collapse large part of the right lower lobe on radiologist interpretation, when compared to September, she had moderate effusion so this appears to be worsening, she has no evidence of obvious esophageal variceal bleeding on CTA of her chest, small reported 6 mm pericardial effusion, no clinical signs or symptoms consistent with tamponade, large volume abdominal and pelvic ascites with anasarca, cirrhotic liver with cysts, splenomegaly, cholelithiasis, she has no pain and is afebrile, lower suspicion for acute choledocholithiasis, pancolitis noted, pelvic congestion syndrome noted I suspect many of these are related to patient's portal hypertension and cirrhosis Regardless she will need transfer to higher level of care with gastroenterology capability and management secondary to GI bleed in the presence of pancolitis and cirrhosis complicating picture Ceftriaxone 1 g was ordered for colitis Octreotide and Protonix empirically given known variceal use without evidence of variceal bleeding at this time Patient made aware she is being transferred to [facility], she is agreeable and understands that she is going to the emergency department for evaluation and treatment/disposition, I think she stable for transfer at this time On reassessment, in the [facility] paramedics are unable to transfer patient with octreotide running, I have reviewed CTA of patient's chest and abdomen, there is no clear evidence of variceal bleeding and patient has remained hemodynamically stable, her CBC was repeated and she has not had any additional bleeding, I think it is reasonable to transfer patient via medic level and temporarily discontinue the octreotide at this time Secondary to resource capacity and lack of critical care medic transport, I believe patient can be managed conservatively with ALS transport with medic for close hemodynamic monitoring Repeat CBC shows hemoglobin of 10.6, hematocrit of 31.4, decreased from 12.5 and a 12-hour. With no active bleeding Throughout her encounter, repeat platelet count 83,000 HPI General Date/Time Provider Initiated Documentation: 01/01/23 10:46 . HPI Narrative: This medically complex 67-year-old female with history of uterine prolapse autoimmune hepatitis with cirrhosis, thrombocytopenia, portal hypertension, pancytopenia, esophageal varices confirmed on endoscopy presents with report of cramping in her abdomen yesterday with chills progressing to blood in her stool which started abruptly at 3:00 in the morning. Patient states she had diarrhea and looked down in the bowl and noticed that she had dark red blood filling the bowl, she had approximately 6 episodes of bloody stool with 2 additional episodes in the emergency department. Denies any nausea or vomiting. Denies alcohol use. Does have doctor of pharmacy at [facility], last colonoscopy was approximately a year ago. States her platelet count is 80,000, this is significantly improved from her last which was 55,000. Denies any chest pain or shortness of breath. Denies any abdominal pain. States she feels lightheaded and weak. Denies any falls or injuries. Denies history of additional coagulopathy. Denies any travel, ibuprofen use, or aspirin use. Denies history of GI bleed in the past. Denies recent instrumentation. Denies chest pain or shortness of breath. Related Data Home Medications Medication Instructions Recorded Confirmed multivitamin (Daily Multi-Vitamin 1 tab PO DAILY 04/13/21 01/01/23 tablet) calcium carb-Ca gluc 500 mg tab PO DAILY 10/14/22 12/13/22 calcium-magnesium ox-Mg gluc 250 mg tablet cholecalciferol (vitamin D3) 50 50 mcg PO DAILY 10/14/22 01/01/23 mcg (2,000 unit) capsule milk thistle 500 mg capsule 500 mg PO DAILY 10/16/22 01/01/23 nadolol 20 mg tablet 20 mg PO DAILY #30 tabs 12/03/22 01/01/23 Previous Rx's Medication Instructions Recorded nadolol 20 mg tablet 20 mg PO DAILY #30 tabs 12/03/22 Allergies Allergy/AdvReac Type Severity Reaction Status Date / Time prednisone Allergy Unknown Unverified 01/01/23 10:43 General Stated Complaint: Abd Prob FÉLIX: 3 PFSH All Active Problems (Updated 01/01/23 @ 15:03 by JULIANNA Mclaughlin) Pancolitis (Acute) GI bleed (Chronic) Complete uterine prolapse with prolapse of anterior vaginal wall (Acute) Varices of esophagus determined by endoscopy (Acute) Acquired pancytopenia (Acute) Portal hypertension (Acute) Thrombocytopenia (Chronic) Cirrhosis of liver without ascites (Acute) managed with surveillance and nadolol by [facility] Medical History (Updated 01/01/23 @ 15:03 by JULIANNA Mclaughlin) History of esophageal varices no bleeding. 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 AFP negative. Managed with azathioprine historically; repeat biopsy at [facility] negative inflammation. Surgical History (Updated 04/13/21 @ 13:46 by Collette Haley) History of liver biopsy (~08/2013) Family History (Updated 05/16/21 @ 14:23 by Sruthi Eden MD) Mother Diabetes Father Alzheimers disease Sister Depression Hypertension Sister No problems noted. Sister Rheumatoid arthritis Brother No problems noted. Brother Hypertension Son No problems noted. Daughter No problems noted. 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 Pets and animals: No Sexually active: No Do you think of yourself as: straight/heterosexual Current gender identity: female What is your relationship status?: How often do you talk on the phone with friends or family?: three or more times per week How often do you get together with friends or relatives?: three or more times per week How often do you attend sabianism or quaker services?: 4 or more times per year Do you belong to any clubs or organized social groups?: no Panel score (0-1 are the most socially isolated patients): 2 What type of physical activity do you participate in: walking Duration: 15-30 minutes/day Frequency: daily Jaclyn/Gnosticism: Temple Special jaclyn needs: No Seatbelt use: always Helmet use: No Drive intox or ride w/intox stacker driver: No Additional Social history: Enjoys spending time with family, playing sports/games with them. Female Reproductive History Menstrual Age of Menarche: 13 Menopause type: natural Date of menopause: 08/08/05 History History 2 Para 2 Hx # Term Pregnancies 2 Multiple births Hx # Pregnancies Ectopic pregnancies AB induced Hx Number of Living Children 2 AB spontaneous Past Pregnancies Del. Date GA/Weeks # Preg Succ Route Wgt Sex Labor Lgth Anesth esia Location Prov [facility] 10/07/77 40 No vaginal 3529.516 g Male 10 09/27/82 40 No vaginal 3657.088 g Female Delivery Date: 10/07/77 Last Updated by: Yojana Daniels laceration with repair Course Vital Signs Vital signs: Vital Signs Temperature 36.6 C 01/01/23 10:37 Pulse 90 01/01/23 10:37 Respiratory Rate 20 01/01/23 10:37 Blood Pressure 130/79 01/01/23 10:37 Pulse Oximetry 99 01/01/23 10:37 Temperature 36.7 C 01/01/23 10:51 Temperature Source Oral 01/01/23 10:37 Pulse 59 L 01/01/23 13:30 Pulse 0 L 01/01/23 12:00 Respiratory Rate 14 01/01/23 11:50 Respiratory Effort Normal 01/01/23 10:42 Blood Pressure 108/65 01/01/23 13:30 Blood Pressure Mean 80 01/01/23 13:30 Blood Pressure Position Sitting 01/01/23 10:37 Pulse Oximetry 100 01/01/23 10:51 Oxygen Delivery Method Room Air 01/01/23 10:51 Oxygen Flow Rate 0 01/01/23 10:37 Pain Level 0 01/01/23 10:51 Lab/Test Results Lab/Test Results: Laboratory Tests Range/Units 01/01/23 01/01/23 11:33 13:00 WBC (4.4-10.8) 10^3/uL 10.91 H RBC (3.93-5.22) 10^6/uL 3.97 Hgb (11.2-15.7) g/dL 12.5 Hct (36.0-46.0) % 37.8 MCV (80-95) fL 95 MCH (27.0-33.0) pg 31.5 MCHC (32.0-36.0) % 33.1 RDW (11.7-14.6) % 15.1 H Plt Count (130-400) 10^3/uL 118 L MPV (8.0-11.0) fL 10.5 Immature Gran % 0.3 Neutrophils % 81.9 Lymphocytes % 9.9 Monocytes % 7.0 Eosinophils % 0.4 Basophils % 0.5 Nucleated RBC % (0.0-0.3) % 0.0 Absolute Neutrophils (1.2-6.7) 10^3/uL 8.94 H Absolute Lymphocytes (1.2-3.4) 10^3/uL 1.08 L Absolute Monocytes (0.1-0.8) 10^3/uL 0.76 Absolute Eosinophils (0.0-0.7) 10^3/uL 0.04 Absolute Basophils (0.0-0.2) 10^3/uL 0.05 Sodium (136-145) mmol/L 132 L Potassium (3.5-5.1) mmol/L 3.8 Chloride (98-107) mmol/L 101 Carbon Dioxide (21.0-32.0) mmol/L 25.5 Anion Gap (3-11) mmol/L 5.5 BUN (7-18) mg/dL 16 Creatinine (0.55-1.02) mg/dL 0.8 Est GFR (CKD-EPI 2020) (mL/min/1.73m2) 80.71 Glucose (74-106) mg/dL 133 H Calcium (8.5-10.1) mg/dL 8.8 Total Bilirubin (0.2-1.0) mg/dL 2.5 H AST (15-37) U/L 354 H ALT (14-59) U/L 357 H Alkaline Phosphatase (46-116) U/L 79 Total Protein (6.4-8.2) g/dL 8.1 Albumin (3.4-5.0) g/dL 3.1 L Stl C.difficile Tox PCR (Negative) Negative Patient ABO/Rh B Positive Antibody Screen NEGATIVE
[2023-01-01] MEDS: cefTRIAXone 1 GM/50 ML BAG IVPB (14:39)
[2023-01-01 14:52] LABS: Platelet Count 83 10^3/uL (130-400)
[2023-01-01 16:36] LABS: INR 1.4 (0.9-1.1)
[2023-01-01 16:48] LABS: Troponin I < 50 ng/L (<or=60)
[2023-01-01 16:57] LABS: Troponin I < 50 ng/L (<or=60)
--- NOTE | 2023-01-04 12:56 | NUR.NOTE ---
Accessed chart to determine time pt left for transfer. Nursing Note:
[2023-01-06 11:07] LABS: Campylobacter PCR Negative (Negative); Salmonella PCR Negative (Negative); Shiga Toxin PCR Negative (Negative); Shigella/Enteroinvasive Ecoli Negative (Negative)
--- NOTE | 2023-01-07 14:22 | NUR.NOTE ---
Accessed Pt chart to complete the transfer documents as to who transported the Pt to [facility]
== END 2023-01-01 15:51 | disposition short-term general hospital (02) ==
PROVIDERS: Emergency Provider Physician Assistant; PCP Family Medicine
DX: K92.2 Gastrointestinal hemorrhage, unspecified (principal); K74.60 Unspecified cirrhosis of liver; R18.8 Other ascites; D69.6 Thrombocytopenia, unspecified; K52.9 Noninfective gastroenteritis and colitis, unspecified; K76.6 Portal hypertension; J90 Pleural effusion, not elsewhere classified; J98.19 Other pulmonary collapse; K75.4 Autoimmune hepatitis
CPT/HCPCS: 71275; 80053; 86850; 86900; 86901; 87493; 87505; 93005; 96361; 96365; 96375; 99285; 74174; 84484; 85025; 85610; 93010; J0696; J2354; J3490

== ENCOUNTER 2023-01-23 05:22 | Outpatient (CLI) | payer MEDICARE, SELFPAY ==
[2023-01-23 13:09] LABS: Abs Immature Grans 0.01 10^3/uL (0.0-0.06); Absolute Basophil Count 0.04 10^3/uL (0.0-0.2); Absolute Eosinophil Count 0.16 10^3/uL (0.0-0.7); Absolute Lymphocyte Count 0.45 10^3/uL (1.2-3.4); Absolute Monocyte Count 0.39 10^3/uL (0.1-0.8); Absolute Neutrophil Count 1.73 10^3/uL (1.2-6.7); Basophils % 1.4; Eosinophils % 5.8; HCT 31.3 % (36.0-46.0); HGB 10.7 g/dL (11.2-15.7); Immature Grans % 0.4; Lymphocytes % 16.2; MCH 32.1 pg (27.0-33.0); MCHC 34.2 % (32.0-36.0); MCV 94 fL (80-95); MPV 10.5 fL (8.0-11.0); Neutrophils % 62.2; RBC 3.33 10^6/uL (3.93-5.22); RDW 15.2 % (11.7-14.6); RDW-SD 52.4 fL; WBC 2.78 10^3/uL (4.4-10.8)
[2023-01-23 13:18] LABS: INR 1.3 (0.9-1.1)
[2023-01-23 13:40] LABS: ALT 116 U/L (14-59); AST 115 U/L (15-37); Albumin 2.8 g/dL (3.4-5.0); Alkaline Phosphatase 63 U/L (46-116); Bilirubin, Direct 0.5 mg/dL (0.0-0.2); Bilirubin, Total 1.1 mg/dL (0.2-1.0); Total Protein 7.4 g/dL (6.4-8.2)
[2023-01-23 13:42] LABS: ALT 115 U/L (14-59); AST 117 U/L (15-37); Albumin 2.9 g/dL (3.4-5.0); Alkaline Phosphatase 59 U/L (46-116); Anion Gap 6.5 mmol/L (3-11); BUN 12 mg/dL (7-18); Bilirubin, Total 1.2 mg/dL (0.2-1.0); CO2 25.5 mmol/L (21.0-32.0); CREATININE 0.6 mg/dL (0.55-1.02); Calcium 9.1 mg/dL (8.5-10.1); Chloride 103 mmol/L (98-107); Estimated GFR 97.71 (mL/min/1.73m2); Glucose 94 mg/dL (74-106); Potassium 3.7 mmol/L (3.5-5.1); Sodium 135 mmol/L (136-145); Total Protein 7.7 g/dL (6.4-8.2)
[2023-01-23 13:59] LABS: Platelet Count 91 10^3/uL (130-400)
== END 2023-01-23 05:23 | disposition home or self-care (01) ==
LOC: LBO 05:22
PROVIDERS: PCP Family Medicine; Visit Provider Internal Medicine
DX: D69.6 Thrombocytopenia, unspecified (principal); K74.60 Unspecified cirrhosis of liver
CPT/HCPCS: 36415; 80053; 80076; 85025; 85610

== ENCOUNTER 2023-02-05 06:13 | Emergency (ER) | payer MEDICARE, SELFPAY ==
[2023-02-05 06:17] VITALS: BP 116/61; PULSE 94; RESP 22; TEMP 36.5; O2SAT 93
--- NOTE | 2023-02-05 06:18 | ED.GENADUL_ITS ---
Discharge Plan Discharge Details Chief Complaint: Abd Prob Clinical Impression: Hematemesis Primary Care Provider: Sruthi Eden ED Provider: Haroon Calloway Home Meds and New Rx's Prescriptions: No Action milk thistle 500 mg capsule 500 mg PO DAILY Rx Instructions: give with meal/snack cholecalciferol (vitamin D3) 50 mcg (2,000 unit) capsule 50 mcg PO DAILY Ca carb-Ca gluc-Mg ox-Mg gluco 500 mg calcium -250 mg tablet PO DAILY Patient Comments: 10/14/22- Pt takes a pill with 100 mg of calcium and 100 mg of magnesium per pt report. multivitamin [Daily Multi-Vitamin] Tablet 1 tab PO DAILY nadolol 20 mg tablet 20 mg PO DAILY Qty: 30 5RF HPI General Date/Time Provider Initiated Documentation: 02/05/23 06:18 . HPI Narrative: MDM This is a 68-year-old normotensive and not tachycardic female with history of portal hypertension and esophageal varices now with hematochezia and coffee- ground stools concerning for recurrent upper GI bleed for which patient will receive 80 mg of pantoprazole, octreotide, type and screen, 500 cc of crystalloid and ideally transfer back to [facility] where patient received care last month. Soft nontender abdomen so no indication for CT scan as I am not concerned for active blush. Patient is not anticoagulated to suggest need for reversal. Patient is nonalcoholic to suggest increased risk for withdrawal. Patient is not anticoagulated to suggest need for reversal. Patient does have a 20-gauge prehospital IV in her left AC. I have asked patient's nurse to place a right 18-gauge IV. We will ensure patient is not markedly thrombocytopenic. No chest pain to suggest ACS. No fevers no cough to suggest pneumonia. Patient does have an umbilical hernia but it is soft and reducible so I am not concerned for aspiration. No fevers to suggest SBP. We will treat nausea with ondansetron. 7:42 AM I signed patient out to Dr. Forrester pending callback from [place] to discuss possibility of transfer. 7:50 AM I spoke with Dr. Norebrt Alves from the ED at [facility]. He agreed to accept the patient in transfer. I will sign transfer paperwork. Chronic conditions affecting the care of the patient: Esophageal varices recent EGD with banding and colonoscopy History obtained from an outside historian: Paramedics External record review: [facility] EMR Medications: Pantoprazole octreotide Social determinants of health affecting disposition: N/A Management discussed with: Dr. Forrester Treatment/interventions considered: N/A Response to therapies provided: Nausea improved following ondansetron HPI This is a 68-year-old female with history of esophageal varices and 1 month status post EGD with banding at [facility] now arrived to the emergency department via paramedics in the setting of several episodes of coffee-ground diarrhea and hematemesis this morning. Patient reports that she vomited bright red blood twice this morning. She says that she was due to follow-up at [facility] last week but has not yet been seen. [facility] was reportedly trying to repeat an EGD. She also endorses an umbilical hernia that has become slightly more protuberant as of the past several days. She is not having any abdominal pain. She denies fevers or chills. She is not anticoagulated. She denies chest pain. Exam General: Pale-appearing in no acute distress speaking in complete sentences. Head: Normocephalic, atraumatic. Eye: Extraocular eye movements intact. No conjunctival injection. No scleral icterus. Ear, nose, mouth, throat: Grossly normal inspection. Normal voice, handling secretions normally. Neck: Trachea midline. Cardiovascular: Well-perfused distal extremities. Regular rate and rhythm Respiratory: Nonlabored respiration. Clear lungs Gastrointestinal: Mildly distended abdomen. Soft nontender. No rebound. Soft reducible umbilical hernia. : No melana. External hemorrhoid. No active bleeding. Musculoskeletal: No edema. Moving all 4 extremities spontaneously. Skin: Normal for age and race, grossly normal temperature and turgor. No acute rash. Neurologic: Alert and appropriate, no apparent acute deficits. Psychiatric: Mood and manner are appropriate. Grooming and personal hygiene are appropriate. Related Data Home Medications Medication Instructions Recorded Confirmed multivitamin (Daily Multi-Vitamin 1 tab PO DAILY 04/13/21 02/05/23 tablet) calcium carb-Ca gluc 500 mg tab PO DAILY 10/14/22 01/24/23 calcium-magnesium ox-Mg gluc 250 mg tablet cholecalciferol (vitamin D3) 50 50 mcg PO DAILY 10/14/22 02/05/23 mcg (2,000 unit) capsule milk thistle 500 mg capsule 500 mg PO DAILY 10/16/22 02/05/23 nadolol 20 mg tablet 20 mg PO DAILY #30 tabs 12/03/22 02/05/23 Previous Rx's Medication Instructions Recorded nadolol 20 mg tablet 20 mg PO DAILY #30 tabs 12/03/22 Allergies Allergy/AdvReac Type Severity Reaction Status Date / Time prednisone Allergy Unknown Unverified 02/05/23 06:16 General FÉLIX: 3 PFSH All Active Problems (Updated 02/05/23 @ 06:43 by Haroon Calloway MD) Hematemesis (Acute) Pleural effusion associated with hepatic disorder (Acute) Complete uterine prolapse with prolapse of anterior vaginal wall (Acute) Varices of esophagus determined by endoscopy (Acute) s/p esophageal varices banding 12/2022 Acquired pancytopenia (Acute) Portal hypertension (Acute) Thrombocytopenia (Chronic) Cirrhosis of liver without ascites (Acute) managed with surveillance and nadolol by [facility] Medical History (Updated 02/05/23 @ 06:43 by Haroon Calloway MD) History of esophageal varices no bleeding. 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 AFP negative. Managed with azathioprine historically; repeat biopsy at [facility] negative inflammation. Surgical History (Updated 04/13/21 @ 13:46 by Collette Haley) History of liver biopsy (~08/2013) Family History (Updated 05/16/21 @ 14:23 by Sruthi Eden MD) Mother Diabetes Father Alzheimers disease Sister Depression Hypertension Sister No problems noted. Sister Rheumatoid arthritis Brother No problems noted. Brother Hypertension Son No problems noted. Daughter No problems noted. 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 Pets and animals: No Sexually active: No Do you think of yourself as: straight/heterosexual Current gender identity: female What is your relationship status?: How often do you talk on the phone with friends or family?: three or more times per week How often do you get together with friends or relatives?: three or more times per week How often do you attend samaritan or amish services?: 4 or more times per year Do you belong to any clubs or organized social groups?: no Panel score (0-1 are the most socially isolated patients): 2 What type of physical activity do you participate in: walking Duration: 15-30 minutes/day Frequency: daily Jaclyn/Scientology: Orthodoxy Special jaclyn needs: No Seatbelt use: always Helmet use: No Drive intox or ride w/intox milk pickup driver: No Do you feel safe at home: Yes Do you feel safe in your relationship?: Yes Additional Social history: Enjoys spending time with family, playing sports/games with them. Female Reproductive History Menstrual Age of Menarche: 13 Menopause type: natural Date of menopause: 08/08/05 History History 2 Para 2 Hx # Term Pregnancies 2 Multiple births Hx # Pregnancies Ectopic pregnancies AB induced Hx Number of Living Children 2 AB spontaneous Past Pregnancies Del. Date GA/Weeks # Preg Succ Route Wgt Sex Labor Lgth [facility]esth [facility] 40 No vaginal 3529.516 g Male 10 09/27/82 40 No vaginal 3657.088 g Female Delivery Date: 10/07/77 Last Updated by: Yojana Daniels laceration with repair Critical Care Time Critical Care Time Critical Care Time: Yes Total Critical Care Time: 30 Attestation: Hematemesis
[2023-02-05 06:23] VITALS: BP 100/82; PULSE 96; RESP 24; TEMP 36.7; O2SAT 99
[2023-02-05] MEDS: Normal Saline 500 ML IV (06:36)
[2023-02-05] MEDS: Octreotide 100 MCG/ML VIAL 50 MCG IVP (06:36)
[2023-02-05] MEDS: Pantoprazole 40 MG VIAL 80 MG IVP (06:36)
[2023-02-05 06:38] LABS: Abs Immature Grans 0.04 10^3/uL (0.0-0.06); Absolute Basophil Count 0.06 10^3/uL (0.0-0.2); Absolute Eosinophil Count 0.12 10^3/uL (0.0-0.7); Absolute Lymphocyte Count 1.53 10^3/uL (1.2-3.4); Absolute Monocyte Count 0.78 10^3/uL (0.1-0.8); Basophils % 0.8; Eosinophils % 1.6; HCT 25.5 % (36.0-46.0); HGB 8.4 g/dL (11.2-15.7); Immature Grans % 0.5; Lymphocytes % 20.3; MCHC 32.9 % (32.0-36.0); MCV 94 fL (80-95); Monocytes % 10.4; Neutrophils % 66.4; Platelet Count 130 10^3/uL (130-400); RBC 2.71 10^6/uL (3.93-5.22); RDW 14.8 % (11.7-14.6); RDW-SD 51.5 fL; WBC 7.53 10^3/uL (4.4-10.8)
[2023-02-05] MEDS: Ondansetron 4 MG/2 ML VIAL IVP (06:47)
[2023-02-05 06:51] LABS: INR 1.6 (0.9-1.1); Prothrombin Time 15.4 sec (9.1-11.1)
[2023-02-05 06:59] LABS: ALT 142 U/L (14-59); AST 218 U/L (15-37); Albumin 2.3 g/dL (3.4-5.0); Alkaline Phosphatase 57 U/L (46-116); BUN 24 mg/dL (7-18); CREATININE 0.6 mg/dL (0.55-1.02); Chloride 107 mmol/L (98-107); Estimated GFR 97.71 (mL/min/1.73m2); Glucose 135 mg/dL (74-106); Lipase 24 U/L (16-77); Magnesium 1.7 mg/dL (1.8-2.4); Potassium 4.2 mmol/L (3.5-5.1); Sodium 139 mmol/L (136-145); Total Protein 6.3 g/dL (6.4-8.2)
--- NOTE | 2023-02-05 07:30 | DI.RAD_ITS ---
Exam(s) XR PORTABLE CHEST AP EXAM: XR PORTABLE CHEST AP CLINICAL HISTORY: vomiting, hematemasis, eval for free air TECHNIQUE: 2D digital imaging was performed of the chest. Two images were obtained. AP views were obtained. COMPARISON: CT CT THORAX ABD/PEL CTA from 01/01/2023 FINDINGS: MEDIASTINUM: Normal. HEART: Appears within normal limits but is obscured by the large right pleural effusion. PULMONARY VASCULATURE: Normal. LUNGS: Clear. PLEURAL SPACE: There is a large right pleural effusion occupying greater than 50 percent of the right hemithorax. There is no left pleural effusion. No pneumothorax is present. BONE:Within normal limits for the patient's age. OTHER FINDINGS:Normal. IMPRESSION: Large right pleural effusion. DATA REPOSITORY: RADIATION DOSE DELIVERED:
[2023-02-05] MEDS: PANTOPRAZOLE 80 MG in Normal Saline 100 ML 10 MG IV (08:22)
[2023-02-05] MEDS: Normal Saline 1,000 ML 150 ML IV (09:00)
--- NOTE | 2023-02-05 14:34 | ED.PROG_ITS ---
Date of service: 02/05/23 Time of Service: 14:34 Medical Decision Making Patient was evaluated by my colleague Dr. Calloway. Please refer to his HPI, physical exam, assessment and plan. By the time of my arrival the patient was admitted to [facility] for further management of her hematemesis. Transfer call had been made by Dr. Calloway, the patient was excepted after discussion with Dr. Calloway, and transport was organized. Dr. Calloway had reached out to [facility] but they were at capacity and unable to accept the patient for transfer. Family did reach out to me during the transition. While waiting for transport and asked me to reach out to their sandstone inspector repairer at [facility] Dr. Connor. We did contact [facility] and asked to speak with that physician, but he is not on- call, and they said the only alternative would be the on-call physician and not that specific physician at family's request. [facility] also reiterated that they do not have availability for transfer secondary to limited bed status. This was discussed with family. Discharge Plan Discharge Details Chief Complaint: Abd Prob Clinical Impression: Hematemesis Primary Care Provider: Sruthi Eden ED Provider: Haroon Calloway Home Meds and New Rx's Prescriptions: No Action milk thistle 500 mg capsule 500 mg PO DAILY Rx Instructions: give with meal/snack cholecalciferol (vitamin D3) 50 mcg (2,000 unit) capsule 50 mcg PO DAILY Ca carb-Ca gluc-Mg ox-Mg gluco 500 mg calcium -250 mg tablet PO DAILY Patient Comments: 10/14/22- Pt takes a pill with 100 mg of calcium and 100 mg of magnesium per pt report. multivitamin [Daily Multi-Vitamin] Tablet 1 tab PO DAILY nadolol 20 mg tablet 20 mg PO DAILY Qty: 30 5RF Discharge Data Discharge Date/Time-TO BE ENTERED AT DEPARTURE: 02/05/23 09:12
== END 2023-02-05 09:12 | disposition home or self-care (01) ==
LOC: ER 07:05
PROVIDERS: Emergency Provider Emergency Medicine; PCP Family Medicine
DX: K92.0 Hematemesis (principal); K76.6 Portal hypertension; I85.10 Secondary esophageal varices without bleeding
CPT/HCPCS: 00123; 80053; 83690; 86850; 86900; 86901; 96361; 96365; 96366; 96375; 99285; 71045; 83735; 85025; 85610; J2354; J2405

== ENCOUNTER 2023-02-18 04:57 | Outpatient (CLI) | payer MEDICARE, SELFPAY ==
[2023-02-18 13:50] LABS: HCT 30.8 % (36.0-46.0); HGB 9.8 g/dL (11.2-15.7); MCH 29.7 pg (27.0-33.0); MCHC 31.8 % (32.0-36.0); MCV 93 fL (80-95); MPV 10.5 fL (8.0-11.0); Platelet Count 128 10^3/uL (130-400); RDW 15.7 % (11.7-14.6); RDW-SD 54.2 fL; WBC 4.54 10^3/uL (4.4-10.8)
[2023-02-18 14:31] LABS: ALT 165 U/L (14-59); AST 228 U/L (15-37); Albumin 2.6 g/dL (3.4-5.0); Alkaline Phosphatase 75 U/L (46-116); Anion Gap 6.8 mmol/L (3-11); BUN 8 mg/dL (7-18); Bilirubin, Total 0.9 mg/dL (0.2-1.0); CO2 26.2 mmol/L (21.0-32.0); CREATININE 0.7 mg/dL (0.55-1.02); Calcium 8.4 mg/dL (8.5-10.1); Chloride 104 mmol/L (98-107); Estimated GFR 94.15 (mL/min/1.73m2); Glucose 105 mg/dL (74-106); Potassium 3.8 mmol/L (3.5-5.1); Sodium 137 mmol/L (136-145); Total Protein 7.1 g/dL (6.4-8.2)
== END 2023-02-18 04:58 | disposition home or self-care (01) ==
LOC: LBO 04:57
PROVIDERS: PCP Family Medicine; Visit Provider Family Medicine
DX: K74.60 Unspecified cirrhosis of liver (principal); R18.8 Other ascites; Z00.00 Encounter for general adult medical examination without abnormal findings; D69.6 Thrombocytopenia, unspecified; I85.00 Esophageal varices without bleeding
CPT/HCPCS: 36415; 80053; 85027

== ENCOUNTER 2023-03-07 03:40 | Outpatient (CLI) | payer MEDICARE, SELFPAY ==
[2023-03-07 15:08] LABS: Abs Immature Grans 0.01 10^3/uL (0.0-0.06); Absolute Basophil Count 0.04 10^3/uL (0.0-0.2); Absolute Eosinophil Count 0.22 10^3/uL (0.0-0.7); Absolute Monocyte Count 0.46 10^3/uL (0.1-0.8); Absolute Neutrophil Count 3.07 10^3/uL (1.2-6.7); Basophils % 0.9; HCT 31.6 % (36.0-46.0); HGB 9.9 g/dL (11.2-15.7); Immature Grans % 0.2; Lymphocytes % 13.6; MCH 28.3 pg (27.0-33.0); MCHC 31.3 % (32.0-36.0); MCV 90 fL (80-95); Monocytes % 10.5; Neutrophils % 69.8; Platelet Count 111 10^3/uL (130-400); RDW 15.6 % (11.7-14.6); RDW-SD 50.9 fL
[2023-03-07 15:37] LABS: Albumin 2.5 g/dL (3.4-5.0); Alkaline Phosphatase 68 U/L (46-116); BUN 10 mg/dL (7-18); Bilirubin, Total 0.9 mg/dL (0.2-1.0); CO2 27.6 mmol/L (21.0-32.0); CREATININE 0.7 mg/dL (0.55-1.02); Calcium 8.6 mg/dL (8.5-10.1); Chloride 104 mmol/L (98-107); Estimated GFR 94.15 (mL/min/1.73m2); Glucose 111 mg/dL (74-106); Potassium 3.7 mmol/L (3.5-5.1); Sodium 139 mmol/L (136-145); Total Protein 7.2 g/dL (6.4-8.2)
[2023-03-07 15:38] LABS: ALT 87 U/L (14-59); AST 125 U/L (15-37); Anion Gap 7.4 mmol/L (3-11)
== END 2023-03-07 03:41 | disposition home or self-care (01) ==
PROVIDERS: PCP Family Medicine; Visit Provider Nurse Practitioner
DX: K74.69 Other cirrhosis of liver (principal)
CPT/HCPCS: 36415; 80053; 85025

== ENCOUNTER 2023-05-01 01:36 | Outpatient (CLI) | payer MEDICARE, SELFPAY ==
[2023-05-01 16:16] LABS: Abs Immature Grans 0.02 10^3/uL (0.0-0.06); Absolute Basophil Count 0.04 10^3/uL (0.0-0.2); Absolute Eosinophil Count 0.24 10^3/uL (0.0-0.7); Absolute Lymphocyte Count 0.79 10^3/uL (1.2-3.4); Absolute Monocyte Count 0.57 10^3/uL (0.1-0.8); Absolute Neutrophil Count 2.97 10^3/uL (1.2-6.7); Basophils % 0.9; Eosinophils % 5.2; HCT 32.2 % (36.0-46.0); HGB 10.1 g/dL (11.2-15.7); INR 1.3 (0.9-1.1); Immature Grans % 0.4; Lymphocytes % 17.1; MCH 26.3 pg (27.0-33.0); MCHC 31.4 % (32.0-36.0); MCV 84 fL (80-95); MPV 10.4 fL (8.0-11.0); Monocytes % 12.3; Neutrophils % 64.1; Platelet Count 107 10^3/uL (130-400); RBC 3.84 10^6/uL (3.93-5.22); RDW 18.8 % (11.7-14.6); RDW-SD 57.7 fL; WBC 4.63 10^3/uL (4.4-10.8)
[2023-05-01 16:35] LABS: ALT 74 U/L (14-59); AST 89 U/L (15-37); Albumin 2.9 g/dL (3.4-5.0); Alkaline Phosphatase 86 U/L (46-116); Anion Gap 5.1 mmol/L (3-11); BUN 14 mg/dL (7-18); Bilirubin, Total 0.7 mg/dL (0.2-1.0); CO2 27.9 mmol/L (21.0-32.0); CREATININE 0.6 mg/dL (0.55-1.02); Calcium 8.5 mg/dL (8.5-10.1); Chloride 104 mmol/L (98-107); Estimated GFR 97.71 (mL/min/1.73m2); Glucose 110 mg/dL (74-106); Potassium 3.6 mmol/L (3.5-5.1); Sodium 137 mmol/L (136-145); Total Protein 7.9 g/dL (6.4-8.2)
== END 2023-05-01 01:37 | disposition home or self-care (01) ==
PROVIDERS: PCP Family Medicine; Visit Provider Nurse Practitioner
DX: K74.69 Other cirrhosis of liver (principal)
CPT/HCPCS: 36415; 80053; 85025; 85610

== ENCOUNTER 2023-06-27 03:09 | Outpatient (CLI) | payer MEDICARE, SELFPAY ==
[2023-06-27 14:14] LABS: Abs Immature Grans 0.01 10^3/uL (0.0-0.06); Absolute Basophil Count 0.04 10^3/uL (0.0-0.2); Absolute Eosinophil Count 0.29 10^3/uL (0.0-0.7); Absolute Lymphocyte Count 0.74 10^3/uL (1.2-3.4); Absolute Monocyte Count 0.48 10^3/uL (0.1-0.8); Absolute Neutrophil Count 2.57 10^3/uL (1.2-6.7); HCT 31.5 % (36.0-46.0); HGB 9.9 g/dL (11.2-15.7); Immature Grans % 0.2; Lymphocytes % 17.9; MCH 27.1 pg (27.0-33.0); MCHC 31.4 % (32.0-36.0); MCV 86 fL (80-95); MPV 9.7 fL (8.0-11.0); Monocytes % 11.6; Neutrophils % 62.3; RBC 3.65 10^6/uL (3.93-5.22); RDW 18.6 % (11.7-14.6); RDW-SD 58.6 fL; WBC 4.13 10^3/uL (4.4-10.8)
[2023-06-27 14:25] LABS: INR 1.3 (0.9-1.1); Prothrombin Time 12.8 sec (9.1-11.1)
[2023-06-27 14:31] LABS: ALT 44 U/L (14-59); AST 49 U/L (15-37); Albumin 3.1 g/dL (3.4-5.0); Alkaline Phosphatase 82 U/L (46-116); Anion Gap 7.5 mmol/L (3-11); BUN 15 mg/dL (7-18); Bilirubin, Total 0.5 mg/dL (0.2-1.0); CO2 29.5 mmol/L (21.0-32.0); CREATININE 0.6 mg/dL (0.55-1.02); Calcium 8.6 mg/dL (8.5-10.1); Chloride 105 mmol/L (98-107); Estimated GFR 97.71 (mL/min/1.73m2); Glucose 83 mg/dL (74-106); Potassium 3.7 mmol/L (3.5-5.1); Sodium 142 mmol/L (136-145); Total Protein 7.9 g/dL (6.4-8.2)
[2023-06-27 14:32] LABS: Diff Comment Diff Reviewed; Platelet Count 97 10^3/uL (130-400); RBC Morphology Normal
== END 2023-06-27 03:10 | disposition home or self-care (01) ==
LOC: LBO 03:10
PROVIDERS: PCP Family Medicine; Visit Provider Family Medicine
DX: Z00.00 Encounter for general adult medical examination without abnormal findings (principal); K74.60 Unspecified cirrhosis of liver; R18.8 Other ascites
CPT/HCPCS: 36415; 80053; 85025; 85610

== ENCOUNTER 2023-09-22 03:57 | Outpatient (CLI) | payer MEDICARE, SELFPAY ==
[2023-09-22 13:33] LABS: Abs Immature Grans 0.01 10^3/uL (0.0-0.06); Absolute Basophil Count 0.04 10^3/uL (0.0-0.2); Absolute Eosinophil Count 0.18 10^3/uL (0.0-0.7); Absolute Lymphocyte Count 0.82 10^3/uL (1.2-3.4); Absolute Monocyte Count 0.55 10^3/uL (0.1-0.8); Absolute Neutrophil Count 2.25 10^3/uL (1.2-6.7); Eosinophils % 4.7 %; HCT 29.4 % (36.0-46.0); HGB 9.4 g/dL (11.2-15.7); Immature Grans % 0.3 %; Lymphocytes % 21.3 %; MCH 26.6 pg (27.0-33.0); MCV 83 fL (80-95); MPV 10.2 fL (8.0-11.0); Monocytes % 14.3 %; Neutrophils % 58.4 %; RBC 3.54 10^6/uL (3.93-5.22); RDW 21.2 % (11.7-14.6); RDW-SD 63.7 fL; WBC 3.85 10^3/uL (4.4-10.8)
[2023-09-22 13:47] LABS: Anisocytosis 2+; Diff Comment RBC Morph Reviewed; Platelet Count 94 10^3/uL (130-400); Poikilocytes 1+
[2023-09-22 14:02] LABS: INR 1.5 (0.9-1.1); Prothrombin Time 14.9 sec (9.1-11.1)
[2023-09-22 14:04] LABS: ALT 374 U/L (14-59); AST 494 U/L (15-37); Albumin 2.6 g/dL (3.4-5.0); Alkaline Phosphatase 95 U/L (46-116); Anion Gap 9.4 mmol/L (3-11); BUN 14 mg/dL (7-18); CO2 22.6 mmol/L (21.0-32.0); CREATININE 0.8 mg/dL (0.55-1.02); Calcium 8.1 mg/dL (8.5-10.1); Chloride 108 mmol/L (98-107); Estimated GFR 80.21 (mL/min/1.73m2); Glucose 121 mg/dL (74-106); Potassium 3.9 mmol/L (3.5-5.1); Sodium 140 mmol/L (136-145); Total Protein 7.6 g/dL (6.4-8.2)
== END 2023-09-22 03:58 | disposition home or self-care (01) ==
LOC: LBO 03:57
PROVIDERS: PCP Family Medicine; Visit Provider Family Medicine
DX: Z79.01 Long term (current) use of anticoagulants (principal); K74.60 Unspecified cirrhosis of liver; R18.8 Other ascites; Z00.00 Encounter for general adult medical examination without abnormal findings
CPT/HCPCS: 36415; 80053; 85025; 85610

== ENCOUNTER 2023-10-24 01:33 | Outpatient (CLI) | payer MEDICARE, SELFPAY ==
[2023-10-24 16:30] LABS: ALT 297 U/L (14-59); AST 304 U/L (15-37); Albumin 2.8 g/dL (3.4-5.0); Alkaline Phosphatase 96 U/L (46-116); Bilirubin, Direct 0.6 mg/dL (0.0-0.2); Bilirubin, Total 1.77 mg/dL (0.2-1.0); Total Protein 8.1 g/dL (6.4-8.2)
[2023-10-27 09:12] LABS: AFP Tumor Marker <2.5 ng/mL (<8.1)
== END 2023-10-24 01:34 | disposition home or self-care (01) ==
LOC: LBO 01:33
PROVIDERS: PCP Family Medicine; Visit Provider Nurse Practitioner
DX: K75.4 Autoimmune hepatitis (principal); K74.69 Other cirrhosis of liver
CPT/HCPCS: 36415; 80076; 82105

== ENCOUNTER 2023-11-06 04:12 | Outpatient (CLI) | payer MEDICARE, SELFPAY ==
[2023-11-06 13:23] LABS: BUN 14 mg/dL (7-18); CREATININE 0.7 mg/dL (0.55-1.02); Estimated GFR 94.15 (mL/min/1.73m2)
== END 2023-11-06 04:13 | disposition home or self-care (01) ==
LOC: LBO 04:12
PROVIDERS: PCP Family Medicine; Visit Provider Nurse Practitioner
DX: R94.5 Abnormal results of liver function studies (principal); K74.69 Other cirrhosis of liver
CPT/HCPCS: 36415; 84520; 82565

== ENCOUNTER 2023-11-10 13:50 | Outpatient (REF) | payer MEDICARE, SELFPAY | END 2023-11-10 13:51 | disposition home or self-care (01) | LOC: LBN 13:50 | PROVIDERS: PCP Family Medicine; Visit Provider Nurse Practitioner Family | DX: L98.8 Other specified disorders of the skin and subcutaneous tissue (principal); L03.116 Cellulitis of left lower limb | CPT/HCPCS: 87070; 87205 ==

== ENCOUNTER 2023-12-16 02:20 | Outpatient (CLI) | payer MEDICARE, SELFPAY ==
--- NOTE | 2023-12-16 | DI.MRI_ITS ---
Exam(s) MR ABDOMEN WO/W EXAM: MR ABDOMEN WO/W CLINICAL HISTORY: CIRRHOSIS OF LIVER K74.69 TECHNIQUE: Multiplanar multisequence MRI was performed with both pre and post contrast infused seque nces. Contrast injected sequences were performed following IV injection of 15 cc of Dotarem. COMPARISON: CT CT THORAX ABD/PEL CTA from 01/01/2023 FINDINGS: VISUALIZED LUNG BASES: Prominent right pleural effusion again noted as well as partial collapse right lower lobe. There is ascites again evident. Anasarca also again evident both sides the abdomen. LIVER: The liver is again noted be severely cirrhotic is again noted to contain multiple nonenhancing cysts which is range to 5.5 cm size. There does not appear to be an obvious hepatoma. BILIARY: Cholelithiasis. Gallstones again noted in the gallbladder lumen. Gallbladder wall does not appear thickened. There is pericholecystic fluid which is most probably related to the generalized ascites, more so than acute cholecystitis. The CBD is not dilated. PANCREAS: There is a 1.1 x 0.9 cm cyst in the anterior aspect of the pancreatic body. Pancreatic vic t is not dilated. No other significant focal pancreatic findings seen. SPLEEN: Spleen is enlarged measuring 16 cm craniocaudal length.Splenic vein appears patent. Portal v ein is also patent. ADRENALS: There are no significant adrenal masses. KIDNEYS: No solid renal masses. No hydronephrosis.Small benign-appearing cysts noted in the left kid megan measuring less than 1 cm. No significant focal findings in the right kidney. No hydronephrosis on either side. ABDOMINAL AORTA: Not enlarged and there is no significant para-aortic adenopathy. ANTERIOR ABDOMINAL WALL/GI: There is an anterior abdominal wall midline umbilical hernia which contai ns fat and some fluid but no obvious bowel loops. There is no obvious bowel obstruction. OSSEOUS: There are no lytic osseous lesions in the field of view of this study. IMPRESSION: 1. Large right pleural effusion with right lower lobe collapse. No pleural effusion on the opposite- left side. Ascites and anasarca again noted 2. Cirrhotic liver with multiple cysts again noted ranging up to 5.5 cm size, unchanged. No obvious hepatoma. 3. Splenomegaly again noted with spleen measurement 16 cm. 4. Cholelithiasis again noted. No obvious dilatation of the biliary tree. 5. anterior abdominal wall midline umbilical hernia again noted. DATA REPOSITORY:
[2023-12-16] MEDS: Gadoterate meglumine 20 ML VIAL 15 ML IVP (12:20)
[2023-12-16] MEDS: Normal Saline - Diluent 50 ML VIAL IJ (12:21)
== END 2023-12-16 02:40 ==
PROVIDERS: PCP Family Medicine; Visit Provider Nurse Practitioner
DX: K74.69 Other cirrhosis of liver (principal)
CPT/HCPCS: 74183

== ENCOUNTER 2023-12-19 02:31 | Outpatient (CLI) | payer MEDICARE, SELFPAY ==
[2023-12-19 16:44] LABS: Abs Immature Grans 0.04 10^3/uL (0.0-0.06); Absolute Basophil Count 0.03 10^3/uL (0.0-0.2); Absolute Lymphocyte Count 0.65 10^3/uL (1.2-3.4); Absolute Monocyte Count 0.55 10^3/uL (0.1-0.8); Absolute Neutrophil Count 5.37 10^3/uL (1.2-6.7); Basophils % 0.4 %; Eosinophils % 2.9 %; HCT 33.2 % (36.0-46.0); Immature Grans % 0.6 %; Lymphocytes % 9.5 %; MCH 30.7 pg (27.0-33.0); MCHC 33.1 % (32.0-36.0); MCV 93 fL (80-95); MPV 9.8 fL (8.0-11.0); Neutrophils % 78.6 %; Platelet Count 112 10^3/uL (130-400); RBC 3.58 10^6/uL (3.93-5.22); RDW 19.2 % (11.7-14.6); RDW-SD 64.8 fL; WBC 6.84 10^3/uL (4.4-10.8)
[2023-12-19 16:54] LABS: INR 1.5 (0.9-1.1); Prothrombin Time 14.6 sec (9.1-11.1)
[2023-12-19 18:02] LABS: ALT 82 U/L (14-59); AST 111 U/L (15-37); Albumin 2.2 g/dL (3.4-5.0); Alkaline Phosphatase 92 U/L (46-116); BUN 12 mg/dL (7-18); Bilirubin, Total 1.09 mg/dL (0.2-1.0); CREATININE 0.7 mg/dL (0.55-1.02); Calcium 8.6 mg/dL (8.5-10.1); Chloride 106 mmol/L (98-107); Estimated GFR 94.15 (mL/min/1.73m2); Glucose 92 mg/dL (74-106); Potassium 3.9 mmol/L (3.5-5.1); Sodium 140 mmol/L (136-145); Total Protein 7.7 g/dL (6.4-8.2)
== END 2023-12-19 02:32 | disposition home or self-care (01) ==
LOC: LBO 02:31
PROVIDERS: PCP Family Medicine; Visit Provider Family Medicine
DX: K74.60 Unspecified cirrhosis of liver (principal); R18.8 Other ascites; Z00.00 Encounter for general adult medical examination without abnormal findings; Z79.01 Long term (current) use of anticoagulants
CPT/HCPCS: 36415; 80053; 85025; 85610

== ENCOUNTER 2024-01-06 23:43 | Observation (INO) | payer MEDICARE, SELFPAY ==
[2024-01-06 23:45] VITALS: BP 146/104; PULSE 89; RESP 20; O2SAT 95
--- NOTE | 2024-01-06 23:46 | ED.GENADUL_ITS ---
Discharge Plan Disposition Patient Disposition: Admit to [facility] Condition: Stable Discharge Details Clinical Impression: Cough with hemoptysis, Pleural effusion, right Primary Care Provider: Sruthi Eden ED Provider: Clark Arias and New Rx's Prescriptions: No Action milk thistle 500 mg capsule 500 mg PO DAILY Rx Instructions: give with meal/snack cholecalciferol (vitamin D3) 50 mcg (2,000 unit) capsule 50 mcg PO DAILY calcium carb,gluc-mag gluc,ox 500 mg calcium -250 mg tablet 1 tab PO DAILY Patient Comments: 10/14/22- Pt takes a pill with 100 mg of calcium and 100 mg of magnesium per pt report. Joseph Probiotic 14 billion cell capsule 1 cell PO DAILY Qty: 90 2RF multivitamin [Daily Multi-Vitamin] Tablet 1 tab PO DAILY nadolol 20 mg tablet 20 mg PO DAILY Qty: 30 5RF HPI General Mode of arrival: ambulatory . Date/Time Provider Initiated Documentation: 01/06/24 23:46 . Limitations to Documentation: no limitations . Information obtained by: patient, RN notes reviewed and old records reviewed . HPI Narrative: Patient presents to ED with cough and hemoptysis. Patient has history of cirrhosis secondary to autoimmune hepatitis. She has had some shortness of breath on and off last week. Thought it was most likely related to her chronic ascites. Denies having any type of chest pain. Does have known varices but denies vomiting. Reports developing a right earache this afternoon but no other URI type symptoms. This evening around 9 PM started coughing and since then has been having hemoptysis. Here it looks pink in nature not bright red, not really frothy. Denies any fever. Has not been ill recently. Ascites and leg edema waxes and wanes but it is not any worse than typical. Denies having any abdominal pain or back pain. Related Data Home Medications ?Medication ?Instructions ?Recorded ?Confirmed multivitamin (Daily Multi-Vitamin 1 tab PO DAILY 04/13/21 01/06/24 tablet) calcium 500 mg 1 tab PO DAILY 10/14/22 01/06/24 (carb,gluconate)-magnesium 250 mg (gluc,oxide) tablet cholecalciferol (vitamin D3) 50 50 mcg PO DAILY 10/14/22 01/06/24 mcg (2,000 unit) capsule milk thistle 500 mg capsule 500 mg PO DAILY 10/16/22 01/06/24 Lactobacillus combo no.23 14 1 cell (0 x 14 billion cell) PO 11/10/23 01/06/24 billion cell capsule (Joseph DAILY #90 caps Probiotic) nadolol 20 mg tablet 20 mg PO DAILY #30 tabs 11/24/23 01/06/24 Previous Rx's ?Medication ?Instructions ?Recorded Lactobacillus combo no.23 14 1 cell (0 x 14 billion cell) PO 11/10/23 billion cell capsule (Joseph DAILY #90 caps Probiotic) nadolol 20 mg tablet 20 mg PO DAILY #30 tabs 11/24/23 Allergies Allergy/AdvReac Type Severity Reaction Status Date / Time prednisone Allergy Unknown Psychosis Verified 01/06/24 23:51 General FÉLIX: 3 Review of Systems Narrative: Per HPI Exam Narrative Exam Narrative: Const: WDWN female in NAD. VS per triage. HEENT: NC/AT. Normal facial exam. Right TM is clear. Neck: Supple. Trachea midline. Lungs: Normal respiratory effort. Inspiratory breath sounds are clear. Expiratory breath sounds are rhonchorous throughout but more in the upper lung zones. Cor: RRR without murmur. Good radial pulses. GI: Soft/NT. Neuro: A+O x 3. Normal speech, mentation, gait. Cranial nerves II - XII grossly intact. No gross motor or sensory deficit. Ext: No C/C. 1-2+ BLE. Medical Decision Making Patient presenting to ED with cough and hemoptysis, mild shortness of breath. She has intermittent shortness of breath that she feels is very dependent on her ascites. She does not feel that her ascites is significantly worse than usual. She denies any type of chest pain or back pain. She denies any abdominal pain. She denies vomiting. Her inspiratory lung sounds are clear throughout. Her expiratory lung sounds are rhonchorous throughout suggesting upper airway noise. She has not been ill previously. Differential includes possible fluid overload, PE, bleeding due to thrombocytopenia/anticoagulation due to her liver disease, less likely infectious. Possibility of malignancy should be considered. Less likely cardiac in nature. IV is established. Laboratory studies including BNP and type and screen are sent. EKG and CTA of the chest ordered. She does not appear in distress and her room air O2 saturation is greater than 95%. Patient's EKG is sinus rhythm with normal ST and normal axis. She appears to have possible subtle electrical alternans in the limb leads. Laboratory studies are pretty much baseline. White count and hemoglobin are fine. Platelets are stable at 100. PTT is normal. INR is 1.4 which is her baseline. Electrolytes and kidney function normal except for mag 1.6 which has been repleted. Liver function is stable. Troponin and BNP normal. CT scan discussed with radiologist. Patient has a large right pleural effusion with atelectasis versus pneumonia involving the middle and lower lobes. She has no evidence of pulmonary embolus. No pericardial effusion noted. Possible areas of free air on limited abdominal exam. Patient has not had a paracentesis in months. She is not experiencing any type of abdominal pain but we will obtain CT of the abdomen pelvis per radiology recommendation. Of note patient is unable to lie flat for prolonged period of time. Saturations dropped into the low 80s at time of CT. Currently on nasal cannula oxygen and sitting upright. She continues to be in no distress otherwise. CT scan of the abdomen is stable. There is no free air. Patient continues to be comfortable as long as she is upright. I have ordered a sputum culture. Will cover with ceftriaxone and azithromycin for possible pneumonia given radiology comments despite normal white count, fever, URI type symptoms. Will obtain Fluvid swab. Patient likely to benefit from thoracentesis. Discussed with hospitalist Dr. Ha. Will admit to hospitalist service with plan for surgical consult for large-volume thoracentesis. Patient is aware of findings and plan and is agreeable to admission. Medical Records Medical records reviewed: Yes I reviewed the patient's medical records. Medical records narrative: GI notes from [facility], primary care notes from recent annual exam. Lab Data Lab results reviewed: Yes I reviewed the patient's lab results. Lab results narrative: See [facility] ECG Data Attestation: I personally reviewed and interpreted this ECG (s) as follows: Interpretation: See EKG/[facility] PFSH All Active Problems (Updated 01/07/24 @ 03:05 by Clark Arias MD) Pleural effusion, right (Acute) Cough with hemoptysis (Acute) Umbilical hernia without obstruction and without gangrene (Acute) Reduced at [facility]; not containing intestine on MRI abd 11/2023. Managing with abd pressure; felt to be due to ascites and internal abd pressure. Cirrhosis of liver with ascites (Chronic) managed with surveillance and nadolol by [facility] Pleural effusion associated with hepatic disorder (Acute) Complete uterine prolapse with prolapse of anterior vaginal wall (Acute) 83mm gelhorn pessary in place Desires hysterectomy with [facility] urogyn but needs to be medically stable in regards to other comorbidities first. 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 Medical History Vaginal pessary in situ 01/06/24: switched back to 83mm gelhorn as she is worried the pessary is contributing to her increasing fluid/ascites 12/30/23: increased to 89mm gelhorn pessary due to persistent prolapse around pessary Mar 2023: switched to 83mm gelhorn due to pessary falling out Oct 2022: fitted with #7 RS pessary Vasospasm of peripheral artery Acquired pancytopenia Pancreatic cyst incidental finding 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 AFP negative. Managed with azathioprine historically; repeat biopsy at [facility] negative inflammation. Surgical History History of liver biopsy (~08/2013) Family History (Updated 05/16/21 @ 14:23 by Sruthi Eden MD) Mother Diabetes Father Alzheimers disease Sister Depression Hypertension Sister No problems noted. Sister Rheumatoid arthritis Brother No problems noted. Brother Hypertension Son No problems noted. Daughter No problems noted. 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 Pets and animals: No Sexually active: No Do you think of yourself as: straight/heterosexual Current gender identity: female What is your relationship status?: How often do you talk on the phone with friends or family?: three or more times per week How often do you get together with friends or relatives?: three or more times per week How often do you attend nondenominational or gnosticist services?: 4 or more times per year Do you belong to any clubs or organized social groups?: no Panel score (0-1 are the most socially isolated patients): 2 What type of physical activity do you participate in: walking Duration: 15-30 minutes/day Frequency: daily Jaclyn/Yarsani: Uatsdin Special jaclyn needs: No Seatbelt use: always Helmet use: No Drive intox or ride w/intox trailer driver: No Do you feel safe at home: Yes Do you feel safe in your relationship?: Yes Additional Social history: Enjoys spending time with family, playing sports/games with them. Female Reproductive History Menstrual Age of Menarche: 13 Menopause type: natural Date of menopause: 08/08/05 History History 2 Para 2 Hx # Term Pregnancies 2 Multiple births Hx # Pregnancies Ectopic pregnancies AB induced Hx Number of Living Children 2 AB spontaneous Past Pregnancies Del. Date GA/Weeks # Preg Succ Route Wgt Sex Labor Lgth Anesth esia Location [facility] 10/07/77 40 No vaginal 3529.516 g Male 10 09/27/82 40 No vaginal 3657.088 g Female Delivery Date: 10/07/77 Last Updated by: Yojana Daniels laceration with repair
[2024-01-06 23:54] VITALS: TEMP 36.3
[2024-01-06 23:57] VITALS: PULSE 94; RESP 21; O2SAT 93
[2024-01-07] VITALS (101 sets, daily range): BP systolic 85–158; BP diastolic 49–91; PULSE 73–103; RESP 12–31; TEMP 36.6–37.6; O2SAT 91–100
--- NOTE | 2024-01-07 | DI.RAD_ITS ---
Exam(s) XR PORTABLE CHEST AP EXAM: XR PORTABLE CHEST AP CLINICAL HISTORY: right thoracentsis TECHNIQUE: 2D digital imaging was performed. COMPARISON: CR XR PORTABLE CHEST AP from 02/05/[address] CHEST PE CTA from 01/07/2024 FINDINGS: Multiple leads overlie the chest. LUNGS: Increased density seen right lower lobe. No pneumothorax. Left lung is clear. HEART: Normal size. AORTA: Normal diameter. BONES: Unremarkable for age. Soft tissues: Unremarkable. IMPRESSION: No evidence of pneumothorax status post thoracentesis. Right lower lobe consolidation. DATA REPOSITORY: RADIATION DOSE DELIVERED:
--- NOTE | 2024-01-07 | DI.RAD_ITS ---
Exam(s) XR PORTABLE CHEST AP EXAM: XR PORTABLE CHEST AP CLINICAL HISTORY: s/p right thoracentsis. TECHNIQUE: 2D digital imaging was performed. COMPARISON: CT CT ABDOMEN PELVIS WO from 01/07/2024 CR XR PORTABLE CHEST AP from 01/07/[address] CHEST PE CTA from 01/07/2024 FINDINGS: Single AP upright portable view. Heart size is upper normal. The mediastinum is not widened. Left lung is remains clear. No pleural effusion on the left side. However, on the right side there is infiltrate in the right middle lobe and right lower lobe and righ t pleural effusion. IMPRESSION: Right lung base infiltrate and right pleural fluid. Appears to be involvement of both right middle l obe and right lower lobe. DATA REPOSITORY: RADIATION DOSE DELIVERED:
--- NOTE | 2024-01-07 | RT.EKG_ITS ---
APPROVED REPORT Exam: Resting ECG Reason for Exam: Shortness of breath Patient Location: E HR:88 bpm ECG Measurements Heart Rate 88 AXIS [place] 174 P 6 QRSd 88 QRS 19 QT 373 T 43 QTc 451 Conclusion Sinus rhythm...normal P axis, V-rate 60- 99 Normal [place] Normal ST segments Electrical Alternans most prominent in limb leads.
--- NOTE | 2024-01-07 00:01 | DI.CT_ITS ---
Exam(s) CT CHEST PE CTA EXAM: CT CHEST PE CTA CLINICAL HISTORY: Shortness of breath with hemoptysis. TECHNIQUE: Imaging Protocol: Axial CT angiography was performed with multi-slice acquisition and mu lti-planar reconstructions as well as axial, coronal and sagittal MIP reconstructions. Computer aided detection (CAD) was utilized. CONTRAST MATERIAL: Intravenous: Omnipaque 350 Contrast volume:70ml COMPARISON: CT CT THORAX ABD/PEL CTA from 01/01/2023 FINDINGS: Pulmonary Arteries: No evidence of filling defect to suggest pulmonary emboli. Mediastinum and Amy: No dominant adenopathy or fluid collection. Pulmonary parenchyma: Stable appearance severe right lower lobe collapse. Interval worsening infiltr ates in the right middle and lower lobes. Worsening of atelectasis at the right middle lobe. Pleura: Large right pleural effusion, stable from prior. No pneumothorax. Heart: The heart is not dilated. Mild coronary artery calcifications are seen. Aorta: Thoracic aorta non-dilated. No dissection. Upper abdomen: No acute findings. Cirrhotic liver with multiple cysts again noted. Cholelithiasi s. Splenomegaly. Ascites. Bones: Unremarkable for age. Tubes, Catheters, and Lines: None Soft tissues: Unremarkable. IMPRESSION: No evidence of pulmonary embolism. Stable right lower lobe atelectasis. Worsening of right middle lobe act atelectasis. Worsening of i nfiltrates right lower and middle lobes. No visible mass however this is not excluded given degree o f atelectasis. RADIATION DOSE DELIVERED: 61.19mGy.cm Total DLP DATA REPOSITORY: All CT scans at this facility are submitted to the National Radiology Data Registry (NRDR) Dose Index Registry (DIR) with the [employer] (ACR). RADIATION OPTIMIZATION: All CT scans at this facility use at least one of these dose optimization te chniques: automated exposure control; mA and/or kV adjustment per patient size (includes targeted exa ms where dose is matched to clinical indication); or iterative reconstruction.
[2024-01-07 00:09] LABS: Abs Immature Grans 0.02 10^3/uL (0.0-0.06); Absolute Basophil Count 0.04 10^3/uL (0.0-0.2); Absolute Eosinophil Count 0.43 10^3/uL (0.0-0.7); Absolute Lymphocyte Count 0.82 10^3/uL (1.2-3.4); Absolute Monocyte Count 0.53 10^3/uL (0.1-0.8); Absolute Neutrophil Count 4.96 10^3/uL (1.2-6.7); Basophils % 0.6 %; Eosinophils % 6.3 %; HCT 35.4 % (36.0-46.0); HGB 11.6 g/dL (11.2-15.7); Immature Grans % 0.3 %; Lymphocytes % 12.1 %; MCH 31.2 pg (27.0-33.0); MCHC 32.8 % (32.0-36.0); MCV 95 fL (80-95); MPV 9.4 fL (8.0-11.0); Monocytes % 7.8 %; Neutrophils % 72.9 %; Platelet Count 100 10^3/uL (130-400); RBC 3.72 10^6/uL (3.93-5.22); RDW-SD 63.9 fL
[2024-01-07 00:26] LABS: INR 1.4 (0.9-1.1); PTT Activated 29.9 sec (23.6-32.8); Prothrombin Time 13.3 sec (9.1-11.1)
[2024-01-07 00:28] LABS: ALT 82 U/L (14-59); AST 109 U/L (15-37); Albumin 2.3 g/dL (3.4-5.0); Alkaline Phosphatase 92 U/L (46-116); Anion Gap 3.8 mmol/L (3-11); BUN 10 mg/dL (7-18); Bilirubin, Total 0.91 mg/dL (0.2-1.0); CO2 30.2 mmol/L (21.0-32.0); CREATININE 0.7 mg/dL (0.55-1.02); Calcium 8.4 mg/dL (8.5-10.1); Chloride 105 mmol/L (98-107); Estimated GFR 94.15 (mL/min/1.73m2); Glucose 105 mg/dL (74-106); Magnesium 1.6 mg/dL (1.8-2.4); Potassium 3.8 mmol/L (3.5-5.1); Sodium 139 mmol/L (136-145); Total Protein 8.2 g/dL (6.4-8.2)
[2024-01-07] MEDS: Omnipaque 350 MG/ML 100 ML BTL IJ (00:33)
[2024-01-07] MEDS: Normal Saline - Diluent 50 ML VIAL IJ (00:34)
[2024-01-07] MEDS: Normal Saline Flush 10 ML SYR IVP ×2 (00:35→19:27)
[2024-01-07 00:39] LABS: NT-proBNP 105 pg/mL (<300); Troponin I 4 ng/L (<or=51)
[2024-01-07] MEDS: MAGNESIUM SULFATE 2 GM/50 ML BAG IV_INF ×2 (01:15→09:40)
--- NOTE | 2024-01-07 01:42 | DI.VRAD_ITS ---
PROCEDURE INFORMATION: Exam: CTA Chest With Contrast Exam date and time: 01/07/2024 12:38 AM Age: 68 years old Clinical indication: Shortness of breath; Patient HX: SOB with hemoptysis TECHNIQUE: Imaging protocol: Computed tomographic angiography of the chest with contrast. Exam focused on the arteries. 3D rendering (Not supervised by radiologist): MIP and/or 3D reconstructed images were created by the technologist. Radiation optimization: All CT scans at this facility use at least one of these dose optimization techniques: automated exposure control; mA and/or kV adjustment per patient size (includes targeted exams where dose is matched to clinical indication); or iterative reconstruction. Contrast material: OMNIPAQUE 350; Contrast volume: 70 ml; Contrast route: INTRAVENOUS (IV); COMPARISON: CT THORAX ABD/PEL CTA 01/01/2023 12:01 PM FINDINGS: Pulmonary arteries: No pulmonary embolus. Aorta: Unremarkable. No aortic aneurysm. No aortic dissection. Thyroid: No thyroid lesions. No thyroid enlargement. Lungs: Right middle and lower lobe atelectasis versus pneumonia. Pleural spaces: There is a large right pleural effusion, unchanged since prior exam. Heart: No cardiomegaly or pericardial effusion. Lymph nodes: Unremarkable. No enlarged lymph nodes. Liver: Liver has a cirrhotic morphology. Numerous stable liver cysts Gallbladder and biliary ducts: Multiple gallstones are present. No pericholecystic inflammatory changes to suggest cholecystitis. Spleen: Splenomegaly. Intestine: Multiple small foci of air within the upper abdomen, this could represent bowel loops, however small pneumoperitoneum cannot be excluded. Recommend CT of the abdomen for further evaluation. Intraperitoneal space: Abdominal ascites noted. Bones/joints: Unremarkable. No acute fracture. Soft tissues: No chest wall lesions. IMPRESSION: 1. Multiple small foci of air within the upper abdomen, this could represent bowel loops, however small pneumoperitoneum cannot be excluded. Recommend CT of the abdomen for further evaluation. This is best seen series 4, image 6768 and 69. 2. No pulmonary embolus. 3. No evidence of pulmonary embolism. 4. There is a large right pleural effusion, unchanged since prior exam. 5. Right middle and lower lobe atelectasis versus pneumonia. 6. Abdominal ascites noted. THIS REPORT CONTAINS FINDINGS THAT MAY BE CRITICAL TO PATIENT CARE. The findings were verbally communicated via telephone conference with OPAL CALVIN at 1:40 AM EDT on 01/07/2024. The findings were acknowledged and understood. Dictated and Authenticated by: Suzette Oliveros MD. Ordering:LISETH Rodas MD
--- NOTE | 2024-01-07 01:45 | DI.CT_ITS ---
Exam(s) CT ABDOMEN PELVIS WO EXAM: CT ABDOMEN PELVIS WO CLINICAL HISTORY: possible free air seen on chest CT. TECHNIQUE: Imaging Protocol: Axial computed tomography images with coronal and sagittal reformatted images were created and reviewed. Oral: / no COMPARISON: CT CT THORAX ABD/PEL CTA from 01/01/[address] CHEST PE CTA from 01/07/2024 FINDINGS: Lung Bases: Large right pleural effusion. Right lower lobe infiltrate. Collapse of right lower lobe . Liver: Normal cirrhotic appearing liver with multiple cysts. No suspicious mass. Gallbladder and biliary tract: Cholelithiasis. No biliary dilation. Pancreas: Normal density. No abnormal calcifications or inflammatory process. Spleen: Enlarged, unchanged. Kidneys: Normal size, contour and axis. No radiodense stones. No obstructive uropathy. No suspicious masses seen. Adrenal glands: No masses seen. Lymph nodes: Within normal limits. Vasculature: Abdominal aorta non-dilated. Soft tissues: Anasarca. Fluid extending into the right inguinal canal. Fat containing umbilical her ekta containing fluid. Bladder: No wall thickening. Cystocele. Bowel: Limited evaluation due to lack of oral and IV contrast as well as adjacent ascites and mesente nitin edema.. No obstruction or gross evidence of bowel wall thickening. Peritoneal cavity: Small amount of ascites greatest in the low pelvis. No focal collection. No mese nteric inflammatory response. Reproductive organs: Unremarkable. Pessary. Bones: Unremarkable for age. IMPRESSION: No acute abnormality in the abdomen or pelvis. Cirrhotic liver, splenomegaly and cholelithiasis again noted. Anasarca. No evidence of free air or bowel obstruction. RADIATION DOSE DELIVERED: 499.81mGy.cm Total DLP DATA REPOSITORY: All CT scans at this facility are submitted to the National Radiology Data Registry (NRDR) Dose Index Registry (DIR) with the [employer] (ACR). RADIATION OPTIMIZATION: All CT scans at this facility use at least one of these dose optimization te chniques: automated exposure control; mA and/or kV adjustment per patient size (includes targeted exa ms where dose is matched to clinical indication); or iterative reconstruction.
--- NOTE | 2024-01-07 02:34 | DI.VRAD_ITS ---
PROCEDURE INFORMATION: Exam: CT Abdomen And Pelvis Without Contrast Exam date and time: 01/07/2024 2:12 AM Age: 68 years old Clinical indication: Other: Possible free air on chest CT; Prior surgery; Surgery date: 6+ months; Surgery type: Pessary, liver biopsy TECHNIQUE: Imaging protocol: Computed tomography of the abdomen and pelvis without contrast. Radiation optimization: All CT scans at this facility use at least one of these dose optimization techniques: automated exposure control; mA and/or kV adjustment per patient size (includes targeted exams where dose is matched to clinical indication); or iterative reconstruction. COMPARISON: MR ABDOMEN WO/W 12/16/2023 12:23 PM FINDINGS: Tubes, catheters and devices: Rectal tube noted. Lungs: See Pleural spaces finding. Pleural spaces: Redemonstration of large right pleural effusion with right middle and lower lobe infiltrate may represent pneumonia. Diaphragm: Moderate-sized hiatal hernia. Liver: Liver has a cirrhotic morphology.Splenomegaly. Stable liver cysts Gallbladder and biliary ducts: Distended gallbladder. Multiple gallstones are present. No pericholecystic inflammatory changes to suggest cholecystitis. Pancreas: Normal. No ductal dilation. Spleen: See Liver finding. Adrenal glands: The adrenal glands are unremarkable. Kidneys and ureters: Bilateral renal cysts are present, as well as other subcentimeter hypodensities which are too small to characterize. Stomach and bowel: Unremarkable. No obstruction. No mucosal thickening. Appendix: No evidence of appendicitis. Intraperitoneal space: Mild ascites. Diffuse mesenteric edema. No free air. Vasculature: Unremarkable. No abdominal aortic aneurysm. Lymph nodes: Unremarkable. No enlarged lymph nodes. Urinary bladder: Unremarkable as visualized. Reproductive: Unremarkable as visualized. Bones/joints: Unremarkable. No acute fracture. Soft tissues: Moderate-size fat containing umbilical hernia. Severe anasarca. Fluid containing small right inguinal. IMPRESSION: Cirrhosis. Anasarca. Mild ascites. No pneumoperitoneum. Re-demonstration large right pleural effusion with right middle and lower lobe infiltrate may represent pneumonia. Other chronic noncritical findings as described Dictated and Authenticated by: Suzette Oliveros MD. Ordering:LISETH Rodas MD
[2024-01-07] MEDS: cefTRIAXone 1 GM/50 ML BAG IVPB (02:50)
[2024-01-07] MEDS: Azithromycin 250 MG TAB 500 MG PO (03:20)
[2024-01-07 04:15] LABS: COVID-19 PCR Negative (Negative); Influenza A PCR Negative (Negative); Influenza B PCR Negative (Negative); RSV PCR Negative (Negative); Source Nasopharynx
--- NOTE | 2024-01-07 06:46 | HPE_ITS ---
Date of service: 01/07/24 Time of Service: 06:47 Assessment and Plan Assessment and plan (1) Cough with hemoptysis: Status: Acute Assessment and plan: Likely secondary to acute infection. CT chest reassuring that no PE or lung malignancy. Started with ear pain, but no symptoms of upper respiratory infeciton now, no signs of HEENT mass, ear pain has resolved. See below. (2) Community acquired pneumonia: Status: Acute Assessment and plan: Suggested by CT scan, with cough and mild hypoxia. I agree with treated with ceftriaxone and azithromycin. (3) Pleural effusion associated with hepatic disorder: Status: Acute Assessment and plan: This is chronic, but likely contributing to her mild hypoxia, has not been tapped before. I agree with Dr. Arias that diagnostic and therapeutic thoracentesis would be appropriate to evaluate and help her symptoms, Dr. Holbrook confirms this can be done here. INR only mildly elevated. (4) Cirrhosis of liver with ascites: Status: Chronic Assessment and plan: Secondary to autoimmune hepatitis. With history of gastric varicies last banded 03/01, more recent endoscopy 12/01 without need for banding. Child-Kinney class B, score 8-9 with mild-moderate ascites currently. Her liver function has been stable despite being off immune suppressive therapy. Continue to monitor. Qualifiers: Hepatic cirrhosis type: unspecified hepatic cirrhosis Qualified Code(s): K74.60 - Unspecified cirrhosis of liver; R18.8 - Other ascites (5) Electrical alternans: Status: Acute Assessment and plan: This is new on EKG. No pericardial effusion on CT. No clinical pericarditis or chest pain. Her Mg was low and this was replaced, consider repeat EKG before discharge. (6) DVT prophylaxis: Status: Acute Assessment and plan: SCDs (she declined TEDs) given some acute History of Present Illness History of Present Illness Chief Complaint: coughing up blood Narrative: 68 yo female with cirrhosis secondary to autoimmune hepatitis, with chronic portal hypertension and ascites and right sided pleural effusion, who presented to the emergency room after coughing up blood. She started coughing around 9pm the night before admission. [place] like something in her throat, couldn't stop coughing. She typically doesn't spit up, but she tried to get some sputum up and around 11pm she noticed blood tinged sputum and decided then to come in the hospital. This had not happened before. She does feel mildly SOB, though better now than when she first came in. She does feel more SOB if she lays on the left side, but this isn't totally new, she is able to sleep on her right side. Prior to the coughing, she did have acute severe right ear pain starting about 4:30pm. She did not have upper respiratory infection symptoms. She thought it might be her wisdom tooth that is still trying to come in. This resolved completely 15 minutes after using castor oil drops in the canal. Review of Systems All systems reviewed & are unremarkable except as noted in HPI and below Constitutional Constitutional: Denies chills, Denies fever(s) and Denies headache(s) ENT Ears, Nose, Mouth, and Throat: Denies change in voice, Denies vertigo, Denies headache(s), Denies hearing loss, Denies nasal congestion, Denies nasal discharge, Denies sinus pain and Denies sore throat Cardiovascular Cardiovascular: Reports as per HPI, Denies chest pain and Denies chest pain with activity Genitourinary Genitourinary: Denies abnormal vaginal bleeding, Reports hematuria (not sure, a little red?), Denies difficulty voiding and Reports urinary incontinence (uses pessary for prolapsed, replaced day prior to admission) Integumentary/Breasts Skin/Breast: Reports rash (had odd painful abdominal rash, infection? 6 weeks ago, cleared.), Denies skin ulcer and Denies wounds Neurologic Neurologic: Denies vertigo and Denies headache(s) PFSH All Active Problems (Updated 01/07/24 @ 08:15 by Haroon Ha) Electrical alternans (Acute) DVT prophylaxis (Acute) Community acquired pneumonia (Acute) Pleural effusion, right (Acute) Cough with hemoptysis (Acute) Umbilical hernia without obstruction and without gangrene (Acute) [place] [facility] [place]; not containing intestine on MRI abd 11/2023. Managing with abd pressure; felt to be due to ascites and internal abd pressure. Cirrhosis of liver with ascites (Chronic) managed with surveillance and nadolol by [facility] Pleural effusion associated with hepatic disorder (Acute) Complete uterine prolapse with prolapse of anterior vaginal wall (Acute) 83mm gelhorn pessary in place Desires hysterectomy [place] [facility] [place] but needs to be medically stable in regards to other comorbidities first. 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 Medical History Vaginal pessary in situ 01/06/24: switched back to 83mm gelhorn as she is worried the pessary is contributing to her increasing fluid/ascites 12/30/23: increased to 89mm gelhorn pessary due to persistent prolapse around pessary Mar 2023: switched to 83mm gelhorn due to pessary falling out Oct 2022: fitted with #7 RS pessary Vasospasm of peripheral artery Acquired pancytopenia Pancreatic cyst incidental finding 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 AFP negative. Managed with azathioprine historically; [place] [facility] [place]. Surgical History History of liver biopsy (~08/2013) Family History Mother Diabetes Father Alzheimers disease Sister Depression Hypertension Sister No problems noted. Sister Rheumatoid arthritis Brother No problems noted. Brother Hypertension Son No problems noted. Daughter No problems noted. 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 Pets and animals: No Sexually active: No Do you think of yourself as: straight/heterosexual Current gender identity: female What is your relationship status?: How often do you talk on the phone with friends or family?: three or more times per week How often do you get together with friends or relatives?: three or more times per week How often do you attend episcopal or sikh services?: 4 or more times per year Do you belong to any clubs or organized social groups?: no Panel score (0-1 are the most socially isolated patients): 2 What type of physical activity do you participate in: walking Duration: 15-30 minutes/day Frequency: daily Jaclyn/Hindu: Mandaen Special jaclyn needs: No Seatbelt use: always Helmet use: No Drive intox or ride w/intox trackless trolley driver: No Do you feel safe at home: Yes Do you feel safe in your relationship?: Yes Additional Social history: Enjoys spending time with family, playing sports/games with them. Female Reproductive History Menstrual Age of Menarche: 13 Menopause type: natural Date of menopause: 08/08/05 History History 2 2 Para 2 Hx # Term Pregnancies 2 Multiple births Hx # Pregnancies Ectopic pregnancies AB induced Hx Number of Living Children 2 AB spontaneous Past Pregnancies Del. Date GA/Weeks # Preg Succ Route Wgt Sex Labor Lgth Anesth esia Location [facility] 10/07/77 40 No vaginal 3529.516 g Male 10 09/27/82 40 No vaginal 3657.088 g Female Delivery Date: 10/07/77 Last Updated by: Yojana Daniels laceration with repair Meds Allergies and Home Medications Allergies Allergy/AdvReac Type Severity Reaction Status Date / Time prednisone Allergy Unknown Psychosis Verified 01/06/24 23:51 Home Medications ?Medication ?Instructions ?Recorded ?Confirmed ?Type multivitamin (Daily Multi-Vitamin 1 tab PO DAILY 04/13/21 01/06/24 History tablet) calcium 500 mg 1 tab PO DAILY 10/14/22 01/06/24 History (carb,gluconate)-magnesium 250 mg (gluc,oxide) tablet cholecalciferol (vitamin D3) 50 50 mcg PO DAILY 10/14/22 01/06/24 History mcg (2,000 unit) capsule milk thistle 500 mg capsule 500 mg PO DAILY 10/16/22 01/06/24 History Lactobacillus combo no.23 14 1 cell (0 x 14 billion cell) PO 11/10/23 01/06/24 Rx billion cell capsule (Joseph DAILY #90 caps Probiotic) nadolol 20 mg tablet 20 mg PO DAILY #30 tabs 11/24/23 01/06/24 Rx Exam Narrative Exam Narrative: GEN: Alert and oriented x 4, pleasant and cooperative, gives linear history. Thin, sitting up in bed. No acute distress at rest. HEENT: Head atraumatic. TMs clear, normal canals. Conjunctiva clear, no icterus. PEERL, EOMI. no rhinorrhea. MMM, OP benign. Neck is supple with no masses or lymphadenopathy, trachea midline LUNGS: Clear on left, right field diminished at base with high pitched expiratory rub CV: RRR with no murmurs, gallops, or rubs. ABD: active bowel sounds, soft, nontender and mildly distended with fluid wave and 5cm umbilical hernia. No masses. EXT: no cyanosis, clubbing. 1+ pitting LE edema MSK: No joint redness or swelling NEURO: CN 2-12 grossly intact. Normal movement of 4 extremities. Normal speech and coordination. No tremor SKIN: No rashes or open wounds. PSYCH: normal mood and affect, normal thought process Results Imaging Abdomen CT scan report/results: report reviewed CT scan - chest: r eport reviewed (see below) CT scan - pelvis: report reviewed EKG: report reviewed and image reviewed (NSR, nl axis, intervals. No ST-T abnormalities. Electrial alternans pattern noted in limb leads) Imaging Studies: CT chest: 1. Multiple small foci of air within the upper abdomen, this could represent bowel loops, however small pneumoperitoneum cannot be excluded. Recommend CT of the abdomen for further evaluation. This is best seen series 4, image [id number] and 69. 2. No pulmonary embolus. 3. No evidence of pulmonary embolism. 4. There is a large right pleural effusion, unchanged since prior exam. 5. Right middle and lower lobe atelectasis versus pneumonia. 6. Abdominal ascites noted. CT abd/pelvis: Cirrhosis. Anasarca. Mild ascites. No pneumoperitoneum. Re-demonstration large right pleural effusion with right middle and lower lobe infiltrate may represent pneumonia. Other chronic noncritical findings as described Labs 01/07/24 05:54 01/07/24 05:54 Labs: Laboratory Results - last 24 hr 01/07/24 01/07/24 00:00 03:11 WBC 6.80 RBC 3.72 L Hgb 11.6 Hct 35.4 L MCV 95 MCH 31.2 MCHC 32.8 RDW 18.0 H Plt Count 100 L MPV 9.4 Immature Gran % 0.3 Neutrophils % 72.9 Lymphocytes % 12.1 Monocytes % 7.8 Eosinophils % 6.3 Basophils % 0.6 Nucleated RBC % 0.0 Absolute Neutrophils 4.96 Absolute Lymphocytes 0.82 L Absolute Monocytes 0.53 Absolute Eosinophils 0.43 Absolute Basophils 0.04 PT 13.3 H INR 1.4 H APTT 29.9 Sodium 139 Potassium 3.8 Chloride 105 Carbon Dioxide 30.2 Anion Gap 3.8 BUN 10 Creatinine 0.7 Est GFR (CKD-EPI 2020) 94.15 Glucose 105 Calcium 8.4 L Magnesium 1.6 L Total Bilirubin 0.91 AST 109 H ALT 82 H Alkaline Phosphatase 92 Troponin I 4 NT-Pro-B Natriuret Pep 105 Total Protein 8.2 Albumin 2.3 L COVID-19 Source Nasopharynx SARS-CoV-2 (PCR) Negative Influenza Type A (PCR) Negative Influenza Type B (PCR) Negative RSV (PCR) Negative ABO/Rh B Positive Antibody Screen NEGATIVE Last Vital Signs Temp 36.6 C 01/07/24 05:18 Pulse 79 01/07/24 05:18 Resp 16 01/07/24 05:18 BP 128/69 01/07/24 05:18 Pulse Ox 99 01/07/24 06:00 Time Spent Time spent with Patient: >75 minutes Time was spent: preparing to see the patient(eg.review tests), obtaining and/or reviewing separately otained hiistory, ordering medications,tests, procedures, referring, communicating with other health care assistant, indepentently interpreting results, counseling the patient and care coordination
[2024-01-07 07:02] LABS: Abs Immature Grans 0.02 10^3/uL (0.0-0.06); Absolute Basophil Count 0.04 10^3/uL (0.0-0.2); Absolute Eosinophil Count 0.31 10^3/uL (0.0-0.7); Absolute Lymphocyte Count 0.74 10^3/uL (1.2-3.4); Absolute Monocyte Count 0.38 10^3/uL (0.1-0.8); Absolute Neutrophil Count 4.38 10^3/uL (1.2-6.7); Basophils % 0.7 %; Eosinophils % 5.3 %; HGB 10.5 g/dL (11.2-15.7); Immature Grans % 0.3 %; Lymphocytes % 12.6 %; MCH 31.4 pg (27.0-33.0); MCHC 32.8 % (32.0-36.0); MCV 96 fL (80-95); MPV 10.7 fL (8.0-11.0); Monocytes % 6.5 %; Neutrophils % 74.6 %; RBC 3.34 10^6/uL (3.93-5.22); RDW 18.1 % (11.7-14.6); RDW-SD 63.9 fL; WBC 5.87 10^3/uL (4.4-10.8)
[2024-01-07 07:24] LABS: ALT 72 U/L (14-59); AST 96 U/L (15-37); Alkaline Phosphatase 78 U/L (46-116); Anion Gap 3.7 mmol/L (3-11); BUN 10 mg/dL (7-18); Bilirubin, Total 0.88 mg/dL (0.2-1.0); CO2 30.3 mmol/L (21.0-32.0); CREATININE 0.7 mg/dL (0.55-1.02); Calcium 8.1 mg/dL (8.5-10.1); Chloride 105 mmol/L (98-107); Estimated GFR 94.15 (mL/min/1.73m2); Glucose 152 mg/dL (74-106); Magnesium 1.8 mg/dL (1.8-2.4); Potassium 3.3 mmol/L (3.5-5.1); Sodium 139 mmol/L (136-145); Total Protein 7.3 g/dL (6.4-8.2)
[2024-01-07 07:48] LABS: Diff Comment PLT Morph Reviewed; Platelet Count 95 10^3/uL (130-400); RBC Morphology Normal
--- NOTE | 2024-01-07 09:03 | PDOC.CMIN ---
Date of service: 01/07/24 Time of Service: 09:04 Care Management Initial Assmt Initial Assessment Reason for Hospitalization: Pneumonia with hemoptysis Functional Status/Living Situation Patient Presentation: Samara was sitting up in bed in the ICU when CM met with her. She had just returned from having a thoracentesis where over 3000ml of fluid was removed. She was having some difficulty with talking so CM kept the visit brief. Samara was admitted with pneumonia and a pleural effusion. She also has chronic autoimmiune hepatitis which may be playing a role in her pleural effusions. Samara shared that she relocated to [place] from [place] 3 years ago and loves it here. 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 Town of Residence: [place] Resides with: Child (lives with her son and his family which includes a and 6 children) Significant Other/Family: Out of area (daughter in [place]) Employment Status: Retired (was a web page designer) Instrumental Activities of Daily Living (ADLs): Independent Medications Medication Management: No Issues/Barriers identified Physical Functioning/Mobility Assistive Device: none Advance Directives Advance Directives: Do you have an Advance Directive: Y 10/16/22 16:20 AD On File at [facility]: Y 10/16/22 16:20 Date Asked AD Date Reviewed 01/07/24 01/07/24 04:28 COLST On File at [facility] COLST Date Scanned Code Status Resuscitation Status DNI Insurance Coverage/Financial Issues Insurance: MVP Care Team Visit Care Team Role Provider Type Sruthi Eden MD Primary Care Provider [facility] STAFF PHYSICIAN July Sheridan MD Other Providers NON-[facility] STAFF PHYSICIAN JULIANNA Mclean Other Providers PHYSICIANS ASSISTANT Vlad [facility]ace [facility] Other [facility]iders [facility] STAFF PHYSICIAN Janay Pérez IV, MD Other Providers [facility] STAFF PHYSICIAN Diego Dias MD Other Providers CONSULTING PHYSICIAN Janes Burk MD Other Providers CONSULTING PHYSICIAN Clark Velasquez MD Other Providers NON-[facility] STAFF PHYSICIAN Clark Santillan DO Other Providers CONSULTING PHYSICIAN Yonas Cuadra MD Other Providers [facility] STAFF PHYSICIAN Néstor Grant Other Providers CONSULTING PHYSICIAN Janet Black MD Other Providers [facility] STAFF PHYSICIAN Elias Hammer MD Other Providers CONSULTING PHYSICIAN Tila Holbrook, DO Other Providers OSTEOPATHIC DOCTOR Becky Cerda, DO Other Providers CONSULTING PHYSICIAN Tulio Frost MD Other Providers CONSULTING PHYSICIAN Mimi Muñiz, DO Other Providers OSTEOPATHIC DOCTOR Norbert Solis, DO Other Providers CONSULTING PHYSICIAN Carrol Mathew Other Providers NON-[facility] STAFF PHYSICIAN Sergo Tobias MD Other Providers [facility] STAFF PHYSICIAN Natasha You, DO Other Providers OSTEOPATHIC DOCTOR Yuri Jaramillo, DO Other Providers OSTEOPATHIC DOCTOR Leonor Elizabeth MD Other Providers [facility] STAFF PHYSICIAN Clark Arias MD Emergency Provider [facility] STAFF PHYSICIAN Haroon Ha Admit Provider [facility] STAFF PHYSICIAN Attending Provider Discharge Potential Discharge Needs: PCP F/U Appt Anticipated Barriers to Discharge: None Identified Patient/Family Education Needs: Review discharge instructions, discuss Ask Me Three Transportation: Private vehicle Plan: Anticipate Samara will be discharged home with no new services when medically stable. She will follow up with her community providers and plan of care and transport with family. CM will follopw and continue to support discharge planning needs. PFSH All Active Problems Electrical alternans (Acute) DVT prophylaxis (Acute) Community acquired pneumonia (Acute) Pleural effusion, right (Acute) Cough with hemoptysis (Acute) Umbilical hernia without obstruction and without gangrene (Acute) Reduced at [facility] [place] [facility]; not containing intestine on MRI abd 11/2023. Managing with abd pressure; felt to be due to ascites and internal abd pressure. Cirrhosis of liver with ascites (Chronic) managed with surveillance and nadolol by [facility] Pleural effusion associated with hepatic disorder (Acute) Complete uterine prolapse with prolapse of anterior vaginal wall (Acute) 83mm gelhorn pessary in place Desires hysterectomy with [facility] [place] urog[place] but needs to be medically stable in regards to other comorbidities first. 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 Medical History Vaginal pessary in situ 01/06/24: switched back to 83mm gelhorn as she is worried the pessary is contributing to her increasing fluid/ascites 12/30/23: increased to 89mm gelhorn pessary due to persistent prolapse around pessary Mar 2023: switched to 83mm gelhorn due to pessary falling out Oct 2022: fitted with #7 RS pessary Vasospasm of peripheral artery Acquired pancytopenia Pancreatic cyst incidental finding 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 AFP negative. Managed with azathioprine historically; repeat biopsy at [facility] [place] negative inflammation. Surgical History History of liver biopsy (~08/2013) Family History Mother Diabetes Father Alzheimers disease Sister Depression Hypertension Sister No problems noted. Sister Rheumatoid arthritis Brother No problems noted. Brother Hypertension Son No problems noted. Daughter No problems noted. 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 Pets and animals: No Sexually active: No Do you think of yourself as: straight/heterosexual Current gender identity: female What is your relationship status?: How often do you talk on the phone with friends or family?: three or more times per week How often do you get together with friends or relatives?: three or more times per week How often do you attend voodoo or protestant services?: 4 or more times per year Do you belong to any clubs or organized social groups?: no Panel score (0-1 are the most socially isolated patients): 2 What type of physical activity do you participate in: walking Duration: 15-30 minutes/day Frequency: daily Jaclyn/Pentecostalism: Mormonism Special jaclyn needs: No Seatbelt use: always Helmet use: No Drive intox or ride w/intox power truck driver: No Do you feel safe at home: Yes Do you feel safe in your relationship?: Yes Additional Social history: Enjoys spending time with family, playing sports/games with them. Female Reproductive History Menstrual Age of Menarche: 13 Menopause type: natural Date of menopause: 08/08/05 History History 2 Para 2 Hx # Term Pregnancies 2 Multiple births Hx # Pregnancies Ectopic pregnancies AB induced Hx Number of Living Children 2 AB spontaneous Past Pregnancies Del. Date GA/Weeks # Preg Succ Route Wgt Sex Labor Lgth Anesthesia Location Prov Com[facility] 10/07/77 40 No vaginal 3529.516 g Male 10 09/27/82 40 No vaginal 3657.088 g Female Delivery Date: 10/07/77 Last Updated by: Yojana Daniels laceration with repair SDOH(Care Management) Screening Will the Patient Participate in the Screening?: Yes Do you worry about having a steady place to live?: no Problems where you live: no known problems In the past 12 months, have you had to go without electric, gas, oil or water in your home?: no Have you or anyone in your house had to go without enough food to eat?: no Has lack of transportation kept you from medical appointments or from doing things needed for daily living?: no Has anyone in your support network made you feel unsafe for any reason?: no Social Determinants of Health Comments(SDOH Details): pt has been a pt recently in [facility] [place] and [place] in 2022 Health Related Social Needs Health related social needs details: none has strong support system
--- NOTE | 2024-01-07 09:22 | W.SURGCON ---
Date of service: 01/07/24 Time of Service: 09:22 Assessment and Plan Assessment and plan (1) Pleural effusion, right: Status: Acute Assessment and plan: Based on the history, labs, and Hounsfield units on the CT scan, I do suspect this is a simple hydrothorax as opposed to an empyema. Regardless, she has pretty significant dyspnea even with conversation, and mild tachypnea. In that regard, I think thoracentesis is probably the right safest decision here. I explained that it would offer diagnostic benefit if it is the case that she has an empyema, and more importantly, I think there is some therapeutic benefit here even in the case of a simple pneumonia. Reexpansion of the lung and improve ventilation should make her more comfortable, and help resolve some of her tachypnea. I think will also help with some pulmonary toileting and clearance of her secretions. She had a mild increased risk compared to the general population with her thrombocytopenia, but this is extremely mild, with ultrasound guidance, I think we can minimize likelihood of complications that includes bleeding. I make arrangements to proceed with thoracentesis late this morning or early this afternoon. History of Present Illness History of Present Illness Chief Complaint: Hemoptysis Narrative: Samara is 68 years old. She has autoimmune hepatitis with cirrhosis. This is complicated by esophageal variceal disease and a chronic right-sided hydrothorax. Yesterday, she noticed the acute onset of a right-sided earache. This is new for her. She describes it as sharp and stabbing. In retrospect, it may have been preceded by about a week of increasing exertional dyspnea, but she is not entirely certain of that. Throughout the course of yesterday afternoon and last evening she started to develop some increasing coughing. It was a little more productive than usual, and she became particularly alarmed when she had a small amount of hemoptysis. She was concerned that this might represent hematemesis, indicating complications of her esophageal varices. Therefore, she went to the emergency department. She underwent a CT scan of the chest abdomen and pelvis. Significant findings from that test demonstrated increasing infiltrates of the right middle and lower lobes. White blood cell count was normal. She has mild thrombocytopenia, and a low serum albumin level. She was admitted with a diagnosis of pneumonia, and I am consulted for thoracentesis to rule out empyema. Review of Systems Constitutional Constitutional: Reports fatigue, Denies fever(s), Reports lethargy, Reports weakness and Denies weight loss Eyes Eyes: Reports system reviewed and no additional complaints, except as documented ENT Ears, Nose, Mouth, and Throat: Denies nasal congestion and Denies nasal discharge Comments: Right-sided earache Cardiovascular Cardiovascular: Denies chest pain, Reports dyspnea and Reports dyspnea on exertion Comments: Conversational dyspnea Respiratory Respiratory: Reports cough, Reports hemoptysis, Reports dyspnea and Reports dyspnea on exertion Gastrointestinal Gastrointestinal: Denies nausea and Denies vomiting Musculoskeletal Musculoskeletal: Reports atrophy and Reports muscle weakness Neurologic Neurologic: Reports system reviewed and no additional complaints, except as documented and Reports weakness Psychiatric Psychiatric: Reports system reviewed and no additional complaints, except as documented Endocrine Endocrine: Reports fatigue Hematologic/Lymphatic Hematologic/Lymphatic: Denies easy bleeding and Denies easy bruising PFSH All Active Problems Electrical alternans (Acute) DVT prophylaxis (Acute) Community acquired pneumonia (Acute) Pleural effusion, right (Acute) Cough with hemoptysis (Acute) Umbilical hernia without obstruction and without gangrene (Acute) Reduced at [facility] ER; not containing intestine on MRI abd 11/2023. Managing with abd pressure; felt to be due to ascites and internal abd pressure. Cirrhosis of liver with ascites (Chronic) managed with surveillance and nadolol by [facility] Pleural effusion associated with hepatic disorder (Acute) Complete uterine prolapse with prolapse of anterior vaginal wall (Acute) 83mm gelhorn pessary in place Desires hysterectomy with [facility] urogyn but needs to be medically stable in regards to other comorbidities first. 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 Medical History Vaginal pessary in situ 01/06/24: switched back to 83mm gelhorn as she is worried the pessary is contributing to her increasing fluid/ascites 12/30/23: increased to 89mm gelhorn pessary due to persistent prolapse around pessary Mar 2023: switched to 83mm gelhorn due to pessary falling out Oct 2022: fitted with #7 RS pessary Vasospasm of peripheral artery Acquired pancytopenia Pancreatic cyst incidental finding 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 AFP negative. Managed with azathioprine historically; repeat biopsy at [facility] negative inflammation. Surgical History History of liver biopsy (~08/2013) Family History Mother Diabetes Father Alzheimers disease Sister Depression Hypertension Sister No problems noted. Sister Rheumatoid arthritis Brother No problems noted. Brother Hypertension Son No problems noted. Daughter No problems noted. 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 Pets and animals: No Sexually active: No Do you think of yourself as: straight/heterosexual Current gender identity: female What is your relationship status?: How often do you talk on the phone with friends or family?: three or more times per week How often do you get together with friends or relatives?: three or more times per week How often do you attend samaritan or advent services?: 4 or more times per year Do you belong to any clubs or organized social groups?: no Panel score (0-1 are the most socially isolated patients): 2 What type of physical activity do you participate in: walking Duration: 15-30 minutes/day Frequency: daily Jaclyn/Catholic: Zoroastrian Special jaclyn needs: No Seatbelt use: always Helmet use: No Drive intox or ride w/intox recycle driver: No Do you feel safe at home: Yes Do you feel safe in your relationship?: Yes Additional Social history: Enjoys spending time with family, playing sports/games with them. Female Reproductive History Menstrual Age of Menarche: 13 Menopause type: natural Date of menopause: 08/08/05 History History 2 Para 2 Hx # Term Pregnancies 2 Multiple births Hx # Pregnancies Ectopic pregnancies AB induced Hx Number of Living Children 2 AB spontaneous Past Pregnancies Del. Date GA/Weeks # Preg Succ Route Wgt Sex Labor Lgth Anesthesia Location Prov Complic 10/07/77 40 No vaginal 7 lb 12.5 oz Male 10 09/27/82 40 No vaginal 8 lb 1 oz Female Delivery Date: 10/07/77 Last Updated by: Yojana Daniels laceration with repair Exam Const General: cooperative and frail appearing Orientation: alert, awake and oriented x3 HENMT Head: normal to inspection Eyes General: appearance normal, both eyes and all related structures Neck Neck: normal visual inspection, full ROM and no lymphadenopathy Lymphatic: no lymphadenopathy noted Resp Effort & Inspection: cough, labored and no tracheal deviation Other: Lung sounds absent on the right mid and lower lung cleary Cardio Rate: regular rate Rhythm: regular rhythm Heart Sounds: S1 normal and S2 normal GI Inspection: distended Palpation: soft and no guarding Percussion: dullness to percussion Results Last Vital Signs Temp 97.9 F 01/07/24 05:18 Pulse 90 01/07/24 09:01 Resp 19 01/07/24 09:01 BP 129/70 01/07/24 09:01 Pulse Ox 96 01/07/24 09:01 Labs 01/07/24 05:54 01/07/24 05:54 Labs: Laboratory Results - last 24 hr 01/07/24 01/07/24 01/07/24 00:00 03:11 05:54 WBC 6.80 5.87 RBC 3.72 L 3.34 L Hgb 11.6 10.5 L Hct 35.4 L 32.0 L MCV 95 96 H MCH 31.2 31.4 MCHC 32.8 32.8 RDW 18.0 H 18.1 H Plt Count 100 L 95 L MPV 9.4 10.7 Immature Gran % 0.3 0.3 Neutrophils % 72.9 74.6 Lymphocytes % 12.1 12.6 Monocytes % 7.8 6.5 Eosinophils % 6.3 5.3 Basophils % 0.6 0.7 Nucleated RBC % 0.0 0.0 Absolute Neutrophils 4.96 4.38 Absolute Lymphocytes 0.82 L 0.74 L Absolute Monocytes 0.53 0.38 Absolute Eosinophils 0.43 0.31 Absolute Basophils 0.04 0.04 RBC Morphology Normal PT 13.3 H INR 1.4 H APTT 29.9 Sodium 139 139 Potassium 3.8 3.3 L Chloride 105 105 Carbon Dioxide 30.2 30.3 Anion Gap 3.8 3.7 BUN 10 10 Creatinine 0.7 0.7 Est GFR (CKD-EPI 2020) 94.15 94.15 Glucose 105 152 H Calcium 8.4 L 8.1 L Magnesium 1.6 L 1.8 Total Bilirubin 0.91 0.88 AST 109 H 96 H ALT 82 H 72 H Alkaline Phosphatase 92 78 Troponin I 4 NT-Pro-B Natriuret Pep 105 Total Protein 8.2 7.3 Albumin 2.3 L 2.0 L COVID-19 Source Nasopharynx SARS-CoV-2 (PCR) Negative Influenza Type A (PCR) Negative Influenza Type B (PCR) Negative RSV (PCR) Negative ABO/Rh B Positive Antibody Screen NEGATIVE Imaging CT scan - chest: report reviewed and image reviewed
[2024-01-07] MEDS: Nadolol 40 MG TAB 20 MG PO (09:38)
[2024-01-07] MEDS: Multivitamin TAB 1 TAB PO (09:38)
[2024-01-07] MEDS: Lactobacillus Acidophilus CAP 1 CAP PO (09:38)
[2024-01-07] MEDS: Cholecalciferol (Vitamin D3) 1,000 UNIT TAB 2000 UNITS PO (09:38)
[2024-01-07 11:08] LABS: Bilirubin Small (Negative); Blood Large (Negative); Clarity Cloudy (Clear); Glucose Negative (Negative); Ketones Negative (Negative); Leukocyte Esterase Negative (Negative); Nitrite Negative (Negative)
[2024-01-07 11:28] LABS: Bacteria Rare HPF (Negative); C & S Indicated? No; Casts Negative LPF (Negative); Crystals Negative HPF (Negative); Epithelial Cells Many HPF (Negative); Mucus Negative (Negative); RBC >50 HPF (0-2); WBC 0-2 HPF (0-5)
--- NOTE | 2024-01-07 11:32 | PHA.REVIEW2 ---
Pharmacy Admission Review Admission Clinical Review Admission Pharmacy Review: Electrical alternans (Acute) DVT prophylaxis (Acute) Community acquired pneumonia (Acute) Pleural effusion, right (Acute) Cough with hemoptysis (Acute) Pleural effusion associated with hepatic disorder (Acute) prednisone Allergy (Unknown, Verified 01/06/24 23:51) Psychosis Resuscitation Status DNI Height 5 ft 11 in Weight 77.4 kg Pharmacy Admission Review Renal Dosing Renal Dosing: BUN 10 mg/dL (7-18) 01/07/24 05:54 Creatinine 0.7 mg/dL (0.55-1.02) 01/07/24 05:54 Medications needing adjustments: Reviewed (Crcl 65.79 mL/min) List of meds needing interventions: Current medications are okay Anticoagulation Anticoagulation: Hgb 10.5 g/dL (11.2-15.7) L 01/07/24 05:54 Hct 32.0 % (36.0-46.0) L 01/07/24 05:54 Plt Count 95 10^3/uL (130-400) L 01/07/24 05:54 INR 1.4 (0.9-1.1) H 01/07/24 00:00 Creatinine 0.7 mg/dL (0.55-1.02) 01/07/24 05:54 DVT Prophylaxis: Reviewed (SCDs/TEDs - coughing up blood yesterday per morning meeting) Relevant Labs Relevant Labs: Sodium 139 mmol/L (136-145) 01/07/24 05:54 Potassium 3.3 mmol/L (3.5-5.1) L 01/07/24 05:54 Chloride 105 mmol/L (98-107) 01/07/24 05:54 Magnesium 1.8 mg/dL (1.8-2.4) 01/07/24 05:54 Electrolytes, C-Reactive P, ESR: Reviewed (K 3.3, AST/ALT 96/72, glucose 152 at 0554) Cardiac Review Cardiac Review: Troponin I 4 ng/L (<or=51) 01/07/24 00:00 NT-Pro-B Natriuret Pep 105 pg/mL (<300) 01/07/24 00:00 BP, HR, EF%: Reviewed (BP and HR WNL) List meds needing interventions: Has order for nadolol 20mg daily QTc Review QTc: Reviewed (451 from 01/07/24) IV to PO Switch IV Medications: Reviewed (ceftriaxone) Home Meds Home Med List reviewed: Intervened Relevent Home Meds Not ordered & why?: Milk thistle Changed calcium/magnesium 500/250mg to patients own order Current Meds Current Medication Order Review: Reviewed Pharmacy Antibiotic Review Relevant Labs: WBC 5.87 10^3/uL (4.4-10.8) 01/07/24 05:54 Temperature 36.9 C Temperature 36.6 C Temperature 36.6 C Temperature 36.3 C Pharmacy Antibiotic Activity: Reviewed, no change Comments: Patient is on ceftriaxone and azithromycin PO, day 1, for CAP. WBC WNL, patient is afebrile and there are no cultures pending.
--- NOTE | 2024-01-07 13:55 | W.PM.OP ---
Date of service: 01/07/24 Time of Service: 13:55 Operative Note Operative Note DATE OF PROCEDURE: 01/07/24 PRE-OP DIAGNOSIS: Right-sided hydrothorax POST-OP DIAGNOSIS: same PROCEDURE: Right-sided thoracentesis SURGEON: Sergo Tobias ANESTHESIA TYPE: Local By Surgeon Refer to Anesthesia Record ESTIMATED BLOOD LOSS: 5 PATHOLOGY: other (Fluid for Gram stain and culture; fluid analysis for pleural effusion) COMPLICATIONS: None Patient was transported to: ICU Patient's condition: stable Indications: Samara is a 68-year-old woman with autoimmune hepatitis and cirrhosis. She has had a right-sided hydrothorax. She was admitted with concern for pneumonia, and I was asked to perform thoracentesis to rule out empyema Findings: Right-sided pleural effusion Procedure Description: I met with Samara in the preprocedure area, and reviewed the plan for thoracentesis. I explained what to expect in terms of the nature of the procedure and the recovery. She was able to provide informed consent. Next, we moved back into the operating room. She was assisted to a seated position with a pillow and surface to rest upon. Next, a performed a limited ultrasound of the right chest to assess the effusion. There is in fact a large right-sided pleural effusion. There was a large target for drainage in the posterior lateral aspect of the right chest. Next, I prepped and draped that area. Then, with real-time ultrasound guidance, I established a generous field block using local anesthetic. I anesthetized down onto the upper portion of the rib and the pleural space. I then made a small incision in the skin and advanced the thoracentesis needle and catheter system into the pleural space while aspirating. I withdrew slightly pink-tinged but generally straw-colored fluid. It was quite thin. I advanced the catheter slightly as I withdrew the needle. I filled a 50 mL syringe with fluid, and transferred that into specimen containers for pleural fluid analysis as well as Gram stain and culture. Next, I have fixed suction tubing and using Vacutainer's, we then emptied the pleural space. This was done slowly with intentional breathing exercises at Samara's pace. Once the fluid stopped draining, the catheter was removed under positive intrathoracic pressure, and a Band-Aid was applied to the access site. Samara tolerated the procedure excellent, and in total, we drained 3200 mL of pleural effusion.
[2024-01-07] MEDS: Potassium Chloride 20 MEQ TABCR PO ×2 (14:18→19:27)
--- NOTE | 2024-01-07 14:27 | CHAPLAIN ---
Samara was resting in bed when I visited. She said she is waiting for a procedure this afternoon and hopes to then go home today or tomorrow morning. She lives with her son and daughter in law and their six kids. She expects her son will be in to visit today.
[2024-01-07 15:00] LABS: Clarity Clear; Mononuclear Cells 44 %; Nucleated Cells 388 uL (0); Polynuclear Cells 56 %; Source Pleural
--- NOTE | 2024-01-07 15:00 | DI.US_ITS ---
APPROVED REPORT EXAM: Comprehensive 2D, Doppler, and color-flow Echocardiogram Patient Location: In-Patient Room/Bed: [id number] Flight Dynamicist: Constanza Ireland RDCS (AE) Indications: Pericardial effusion, (H/O thoracentesis earlier today) Other Information Study Quality: Adequate. Technically limited study due to inability to position patient, exam done sneed embarrass bedside icu. Conclusion Normal left ventricular wall thickness and chamber size. Ejection fraction is 65%. Wall motion is n ormal Normal right ventricular size and function Borderline dilated left atrium. Normal right atrial size There is no significant valvular disease There is no pericardial effusion Wall motion Left Ventricle The left ventricle is normal size. The left ventricular systolic function is normal. The left ventric ular ejection fraction is within the normal range. There is normal left ventricular wall thickness. T here is normal LV segmental wall motion. There is no ventricular septal defect visualized. LVEF is 65 %. Right Ventricle The right ventricle is normal size. The right ventricular systolic function is normal. Atria Left atrium is borderline dilated. The right atrium size is normal. The interatrial septum is intact with no evidence for an atrial septal defect. Aortic Valve The aortic valve is normal in structure. Aortic valve is trileaflet. There is no aortic valvular elva nosis. No aortic regurgitation is present. Mitral Valve Mild mitral annular calcification. No evidence of mitral valve stenosis. Trace mitral regurgitation. Tricuspid Valve The tricuspid valve is normal in structure. There is no tricuspid valve stenosis. Trace tricuspid reg urgitation. The RVSP is 29.5mmHg. Pulmonic Valve The pulmonary valve is normal in structure. There is no pulmonic valvular stenosis. There is no pulmo chiquis valvular regurgitation. Great Vessels The aortic root is normal in size. Ascending aorta is not well visualized. Aortic arch is normal in c aliber. The IVC collapses <50% with inspiration. Pericardium There is no pericardial effusion. 2D Dimensions IVSD d PLAX 0.92 cm F: 0.6-1.0 Ao Root d 2.97 cm F: 2.7 - 3.3 LVPW d PLAX 0.90 cm F: 0.6 - 1.0 LVID d PLAX 4.40 cm F: 3.8 - 5.2 LVDs 2.83 cm F: 2.2 - 3.5 LV EF Teichholz 65.1 % FS 35.46 % LV EDV (Teich) 86.9 mL LV ESV (Teich) 30.3 mL M-Mode TAPSE 2.42 cm (M/F) >1.7 Auto EF LV EDV A4C 94.4 mL LV EDV A2C 118.3 mL LV EDV BP 103.9 mL LV ESV A4C 33.1 mL LV ESV A2C 41.9 mL LV ESV BP 37.9 mL LVEF(%) A4C 64.9 % LVEF(%) A2C 64.5 % LVEF(%) BP 63.6 % LV SV A4C 61.2 ml LV SV A2C 76.3 ml LV SV BP 66.1 ml LV CO A4C 4.8 L/min LV CO A2C 5.8 L/min LV CO BP 5.3 L/min HR A4C 78.43 BPM HR A2C 76.60 BPM LV EDV Index (BP) LA Volume LA Length A4C 4.4 cm LA Length A2C 5.7 cm LA Area A4C s 17.87 cm2 LA Area A2C s 19.85 cm2 LA Vol A4C A-L 61.42 mL LA Vol A2C A-L 58.93 mL LA Vol Biplane A-L 68.2 mL LA Vol/BSA A4C A-L LA Vol/BSA A2C A-L LA Vol/BSA BP A-L 34.6 mL/m2 LA Vol A4C MOD 55.2 mL LA Vol A2C MOD 53.4 mL LA Vol BP MOD 61.5 mL RA Volume RA Area A4C 13.1 cm2 RA ESV A4C (A-L) 28.7mL RA Vol/BSA A4C A-L RA Length A4C 5.1 cm RA ESV A4C (MOD) 26.7mL LV Diastology MV E' medial 0.103 (>0.07 m/s) MV E Vmax 0.78 (0.4-1.3 m/s) MV E/E' MED 7.63 (<14) MV A Vmax 0.85 (0.4-1.3 m/s) MV E' lateral 0.144 (>0.1 m/s) E/A Ratio 0.9 MV E/E' LAT 5.45 (<14) MV E' Average 0.123 m/s MV E/E'(average) 6.36 Aortic Valve AoV Vmax 1.72 m/s LVOT Vmax 1.45 m/s AoV Peak Grad 11.8 mmHg LVOT Peak Grad 8.4 mmHg AoV Area (Vmax) 2.57 cm2 LVOT VTI 0.309 m AoV VTI 0.351 m LVOT Mean Grad 5.3 mmHg AoV Mean Palomo. 1.14 m/s LVOT SV 94.39 mL AoV Mean Grad 6.0 mmHg LVOT Diam s 1.95 cm AoV Area (VTI) 2.69 cm2 AV Regurg Peak Gr. 11.79 mmHg Velocity Ratio 0.84 Mitral Valve MV DT 233 (160-240 msec) MV Vmax TIPS 0.70 m/s MV Mean Grad 1.1 (<2mmHg) MV VTI 0.215 m Pulmonary Valve PV Vmax 0.94 (0.5-1.5 m/s) RVOT Vmax 0.99 m/s PV Peak Grad 3.5 mmHg RVOT Peak Gr. 4.0 mmHg PV Mean Palomo 0.71 m/s RVOT VTI 0.204 m PV Mean Grad 2.2 mmHg RVOT Mean Gr. 2.3 mmHg Tricuspid Valve RA Pressure 8.00 mmHg TR Vmax 2.32 m/s TV S' 0.15 m/s TR Peak Grad 21.5 mmHg RVSP (TR) 29.5 mmHg
--- NOTE | 2024-01-07 15:21 | W.PC.ACHO ---
Registration Status: Primary Language: Preferred Language: ED Information & Data Chief Complaint RespSymp 01/06/24 23:50 Chief Complaint RespSymp 01/06/24 23:45 Triage Note pt states that she coughed 01/06/24 23:45 up blood. states that shes been coughing up phlegm for a week. States that it was bright red blood. Has esophageal varices and has had banding done. Gets treated at [facility]. States ongoing SOB. Denies CP. Medical / Surgical History (Last Reviewed 01/07/24 @ 09:28 by Sergo Tobias MD) Vaginal pessary in situ Vasospasm of peripheral artery Acquired pancytopenia Pancreatic cyst Steroid-induced psychosis Nephrolithiasis Autoimmune hepatitis (Last Reviewed 01/07/24 @ 09:28 by Sergo Tobias MD) History of liver biopsy (~08/2013) Most Recent Vital Signs Temperature 37.6 C H 01/07/24 14:05 Temperature Source Temporal Artery Scan 01/07/24 11:31 Pulse 75 01/07/24 14:05 Pulse 85 01/07/24 11:42 Respiratory Rate 20 01/07/24 14:05 Respiratory Effort Short of Breath, Incrsd Work of Breathing 01/07/24 05:18 Respiratory Depth Normal 01/07/24 05:18 Respiratory Pattern Irregular 01/07/24 05:18 Blood Pressure 90/54 L 01/07/24 14:05 Blood Pressure Mean 77 01/07/24 11:42 Blood Pressure Position Sitting 01/07/24 05:18 Pulse Oximetry 96 01/07/24 14:05 Oxygen Delivery Method Room Air 01/07/24 14:05 Oxygen Flow Rate 0 01/07/24 14:05 Pain Level 0 01/07/24 05:18 Allergies prednisone Allergy (Unknown, Verified 01/06/24 23:51) Psychosis psychosis Precautions Isolation Standard precaution 01/06/24 23:50 Active Medications Generic Name Dose Route Start Last Admin Trade Name Freq PRN Reason Stop Dose Admin Acidophilus/Pectin 1 cap 01/07/24 08:30 01/07/24 09:38 Lactobacillus Acidophilus Cap PO 1 cap DAILY DANTE Administration Cholecalciferol 2,000 units 01/07/24 08:30 01/07/24 09:38 Cholecalciferol (Vitamin D3) 1,000 Unit Tab PO 2,000 units DAILY DANTE Administration Multivitamins 1 tab 01/07/24 08:30 01/07/24 09:38 Multivitamin Tab PO 1 tab DAILY DANTE Administration Nadolol 20 mg 01/07/24 08:30 01/07/24 09:38 Nadolol 40 Mg Tab PO 20 mg DAILY DANTE Administration Pt's Own Calcium 1 each 01/07/24 08:30 01/07/24 09:59 Carb,Gluc-Mag Gluc, PO Not Given Ox 500 Mg/250 Mg Tab DAILY DANTE Potassium Chloride 20 meq 01/07/24 13:10 01/07/24 14:18 Potassium Chloride 20 Meq Tabcr PO 01/08/24 00:00 20 meq BID DANTE Administration Sodium Chloride 0 ml 01/06/24 23:59 01/07/24 00:35 Normal Saline Flush 10 Ml Syr IVP 10 ml PRN PRN Administration Sodium Chloride 0 ml 01/07/24 08:30 01/07/24 09:57 Normal Saline Flush 10 Ml Syr IVP Not Given BID DANTE IV IV Catheter Type [Left Saline Lock Antecubital] IV Catheter Gauge [Left 18 Antecubital] Diet Orders Category Date Time Status Heart Healthy Eating [DIET] Nutrition 01/07/24 Breakfast Active Diagnostics 01/07/24 01/07/24 01/07/24 Range/Units 13:30 13:30 10:26 WBC (4.4-10.8) 10^3/uL RBC (3.93-5.22) 10^6/uL Hgb (11.2-15.7) g/dL Hct (36.0-46.0) % MCV (80-95) fL MCH (27.0-33.0) pg MCHC (32.0-36.0) % RDW (11.7-14.6) % Plt Count (130-400) 10^3/uL MPV (8.0-11.0) fL Immature Gran % % Neutrophils % % Lymphocytes % % Monocytes % % Eosinophils % % Basophils % % Nucleated RBC % (0.0-0.3) % Absolute Neutrophils (1.2-6.7) 10^3/uL Absolute Lymphocytes (1.2-3.4) 10^3/uL Absolute Monocytes (0.1-0.8) 10^3/uL Absolute Eosinophils (0.0-0.7) 10^3/uL Absolute Basophils (0.0-0.2) 10^3/uL RBC Morphology PT (9.1-11.1) sec INR (0.9-1.1) APTT (23.6-32.8) sec Sodium (136-145) mmol/L Potassium (3.5-5.1) mmol/L Chloride (98-107) mmol/L Carbon Dioxide (21.0-32.0) mmol/L Anion Gap (3-11) mmol/L BUN (7-18) mg/dL Creatinine (0.55-1.02) mg/dL Est GFR (CKD-EPI 2020) (mL/min/1.73m2) Glucose (74-106) mg/dL Calcium (8.5-10.1) mg/dL Magnesium (1.8-2.4) mg/dL Total Bilirubin (0.2-1.0) mg/dL AST (15-37) U/L ALT (14-59) U/L Alkaline Phosphatase (46-116) U/L Troponin I (<or=51) ng/L NT-Pro-B Natriuret Pep (<300) pg/mL Total Protein (6.4-8.2) g/dL Albumin (3.4-5.0) g/dL Urine Color Dark Yellow (Yellow) Urine Clarity Cloudy (Clear) Urine pH 6.0 (5-8) Ur Specific [place] 1.020 (1.005-1.025) Urine Protein Trace (Neg-Trace) mg/dL Urine Ketones Negative (Negative) mg/dL Urine Blood Large H (Negative) Urine Nitrite Negative (Negative) Urine Bilirubin Small H (Negative) Urine Urobilinogen 1.0 H (Up to 0.2) mg/dL Ur Leukocyte Esterase Negative (Negative) Urine RBC >50 H (0-2) HPF Urine WBC 0-2 (0-5) HPF Ur Epithelial Cells Many (Negative) HPF Urine Crystals Negative (Negative) HPF Urine Bacteria Rare (Negative) HPF Urine Casts Negative (Negative) LPF Urine Mucus Negative (Negative) Ur Culture Indicated? No Urine Glucose Negative (Negative) mg/dL Fluid Type Pending Pending Fluid Source Pleural Fluid Color Yellow Fluid Clarity Clear Fluid WBC 388 (0) uL Fld Polynuclear WBCs % 56 % Fluid Mononuclear Cell 44 % Fluid Glucose Pending Fluid Total Protein Pending Fluid Albumin Pending Fluid LDH Pending COVID-19 Source SARS-CoV-2 (PCR) (Negative) Influenza Type A (PCR) (Negative) Influenza Type B (PCR) (Negative) RSV (PCR) (Negative) Path Cons Comment Pending ABO/Rh Antibody Screen 01/07/24 01/07/24 01/07/24 Range/Units 05:54 03:11 00:00 WBC 5.87 6.80 (4.4-10.8) 10^3/uL RBC 3.34 L 3.72 L (3.93-5.22) 10^6/uL Hgb 10.5 L 11.6 (11.2-15.7) g/dL Hct 32.0 L 35.4 L (36.0-46.0) % MCV 96 H 95 (80-95) fL MCH 31.4 31.2 (27.0-33.0) pg MCHC 32.8 32.8 (32.0-36.0) % RDW 18.1 H 18.0 H (11.7-14.6) % Plt Count 95 L 100 L (130-400) 10^3/uL MPV 10.7 9.4 (8.0-11.0) fL Immature Gran % 0.3 0.3 % Neutrophils % 74.6 72.9 % Lymphocytes % 12.6 12.1 % Monocytes % 6.5 7.8 % Eosinophils % 5.3 6.3 % Basophils % 0.7 0.6 % Nucleated RBC % 0.0 0.0 (0.0-0.3) % Absolute Neutrophils 4.38 4.96 (1.2-6.7) 10^3/uL Absolute Lymphocytes 0.74 L 0.82 L (1.2-3.4) 10^3/uL Absolute Monocytes 0.38 0.53 (0.1-0.8) 10^3/uL Absolute Eosinophils 0.31 0.43 (0.0-0.7) 10^3/uL Absolute Basophils 0.04 0.04 (0.0-0.2) 10^3/uL RBC Morphology Normal PT 13.3 H (9.1-11.1) sec INR 1.4 H (0.9-1.1) APTT 29.9 (23.6-32.8) sec Sodium 139 139 (136-145) mmol/L Potassium 3.3 L 3.8 (3.5-5.1) mmol/L Chloride 105 105 (98-107) mmol/L Carbon Dioxide 30.3 30.2 (21.0-32.0) mmol/L Anion Gap 3.7 3.8 (3-11) mmol/L BUN 10 10 (7-18) mg/dL Creatinine 0.7 0.7 (0.55-1.02) mg/dL Est GFR (CKD-EPI 2020) 94.15 94.15 (mL/min/1.73m2) Glucose 152 H 105 (74-106) mg/dL Calcium 8.1 L 8.4 L (8.5-10.1) mg/dL Magnesium 1.8 1.6 L (1.8-2.4) mg/dL Total Bilirubin 0.88 0.91 (0.2-1.0) mg/dL AST 96 H 109 H (15-37) U/L ALT 72 H 82 H (14-59) U/L Alkaline Phosphatase 78 92 (46-116) U/L Troponin I 4 (<or=51) ng/L NT-Pro-B Natriuret Pep 105 (<300) pg/mL Total Protein 7.3 8.2 (6.4-8.2) g/dL Albumin 2.0 L 2.3 L (3.4-5.0) g/dL Urine Color (Yellow) Urine Clarity (Clear) Urine pH (5-8) Ur Specific [place] (1.005-1.025) Urine Protein (Neg-Trace) mg/dL Urine Ketones (Negative) mg/dL Urine Blood (Negative) Urine Nitrite (Negative) Urine Bilirubin (Negative) Urine Urobilinogen (Up to 0.2) mg/dL Ur Leukocyte Esterase (Negative) Urine RBC (0-2) HPF Urine WBC (0-5) HPF Ur Epithelial Cells (Negative) HPF Urine Crystals (Negative) HPF Urine Bacteria (Negative) HPF Urine Casts (Negative) LPF Urine Mucus (Negative) Ur Culture Indicated? Urine Glucose (Negative) mg/dL Fluid Type Fluid Source Fluid Color Fluid Clarity Fluid WBC (0) uL Fld Polynuclear WBCs % % Fluid Mononuclear Cell % Fluid Glucose Fluid Total Protein Fluid Albumin Fluid LDH COVID-19 Source Nasopharynx SARS-CoV-2 (PCR) Negative (Negative) Influenza Type A (PCR) Negative (Negative) Influenza Type B (PCR) Negative (Negative) RSV (PCR) Negative (Negative) Path Cons Comment ABO/Rh B Positive Antibody Screen NEGATIVE 01/07/24 13:30 Body Fluid Culture - Pending Thoracentesis Gram Stain - Final Intake and Output - 24 Hour Total 01/06/24 23:43 thru 01/07/24 13:01 Intake Total 400 Output Total 300 Balance 100 Weight 77.4 kg Intake: IV 100 Oral 300 Output: Urine 300 Other: Urine Color Dark Leigh Urine Appearance [place] Risk Assessment History of Falls No History 01/07/24 05:18 Contributing Factors No Factors,Medications 01/07/24 05:18 Ambulatory Aids Independent 01/07/24 05:18 Tubes/Lines With any additional score 01/07/24 05:18 Gait Evaluation No gait disturbance 01/07/24 05:18 Cognition No cognitive impairment 01/07/24 05:18 Fall Total Score 23 01/07/24 05:18 Level of Risk Standard/Low Risk 01/07/24 05:18 Problems (Last Reviewed 01/07/24 @ 09:28 by Sergo Tobias MD) Electrical alternans (Acute) DVT prophylaxis (Acute) Community acquired pneumonia (Acute) Pleural effusion, right (Acute) Cough with hemoptysis (Acute) Cirrhosis of liver with ascites (Chronic) Pleural effusion associated with hepatic disorder (Acute) v v v v v v v v v Sending and/or Receiving Nurses: Please use comment section below to note any information pertinent to the patient hand-off not included above. Information / Comments: All questions answered. Report received from: Patrizia Myrick RN
--- NOTE | 2024-01-07 18:00 | W.PM.PROGNOT ---
Date of Service Date of service: 01/07/24 Time of Service: 11:30 Assessment and Plan Assessment and plan (1) Cough with hemoptysis: Status: Acute Assessment and plan: No further hemoptysis today but was likely secondary to acute infection. No pulmonary embolism as per CT chest -no lung malignancy. No further complaint of ear pain, but no symptoms of upper respiratory infection now See below. (2) Community acquired pneumonia: Status: Acute Assessment and plan: Right lower lobe consolidation as per CT scan from 01/07/2024 ; patient presenting with hemoptysis, cough and mild hypoxia Continue treating with ceftriaxone and azithromycin CBC in the morning (3) Pleural effusion associated with hepatic disorder: Status: Acute Assessment and plan: Appears chronic and most likely contributing to her mild hypoxia in combination with pneumonia;has not been tapped before. Has a history of paracentesis for ascites. Surgical consult for diagnostic and therapeutic thoracentesis with Dr. 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 With history of gastric varicies last banded 03/01.was stable as of recent endoscopy 12/01- without need for banding. Child-Kinney class B, score 8-9 with mild-moderate ascites currently; no ascites wave. Her liver function has been stable despite being off immune suppressive therapy. CMP in AM Qualifiers: Hepatic cirrhosis type: unspecified hepatic cirrhosis Qualified Code(s): K74.60 - Unspecified cirrhosis of liver; R18.8 - Other ascites (5) Electrical alternans: Status: Acute Assessment and plan: This is new on EKG. No pericardial effusion on CT. No clinical pericarditis or chest pain. consider repeat EKG before discharge. Echocardiogram completed (6) DVT prophylaxis: Status: Acute Assessment and plan: SCDs (she declined TEDs) given some acute (7) Hypokalemia: Status: Acute Assessment and plan: K 3.3 supplementation given CMP in AM (8) Hypomagnesemia: Status: Acute Assessment and plan: Mg 1.6 and 1.8 s/p repletion Mg in AM Discussed with Dr. Espinosa Subjective Subjective Patient reports: feels better, tolerating liquids well, tolerating a regular diet and voiding w/o difficulty; denies diarrhea, nausea, vomiting, shortness of breath or fever Objective Last Vital Signs Temp 37.6 C H 01/07/24 14:05 Pulse 80 01/07/24 17:48 Resp 25 H 01/07/24 17:50 BP 99/56 L 01/07/24 17:48 Pulse Ox 96 01/07/24 17:50 Laboratory Results - last 24 hr 01/07/24 01/07/24 01/07/24 00:00 03:11 05:54 WBC 6.80 5.87 RBC 3.72 L 3.34 L Hgb 11.6 10.5 L Hct 35.4 L 32.0 L MCV 95 96 H MCH 31.2 31.4 MCHC 32.8 32.8 RDW 18.0 H 18.1 H Plt Count 100 L 95 L MPV 9.4 10.7 Immature Gran % 0.3 0.3 Neutrophils % 72.9 74.6 Lymphocytes % 12.1 12.6 Monocytes % 7.8 6.5 Eosinophils % 6.3 5.3 Basophils % 0.6 0.7 Nucleated RBC % 0.0 0.0 Absolute Neutrophils 4.96 4.38 Absolute Lymphocytes 0.82 L 0.74 L Absolute Monocytes 0.53 0.38 Absolute Eosinophils 0.43 0.31 Absolute Basophils 0.04 0.04 RBC Morphology Normal PT 13.3 H INR 1.4 H APTT 29.9 Sodium 139 139 Potassium 3.8 3.3 L Chloride 105 105 Carbon Dioxide 30.2 30.3 Anion Gap 3.8 3.7 BUN 10 10 Creatinine 0.7 0.7 Est GFR (CKD-EPI 2020) 94.15 94.15 Glucose 105 152 H Calcium 8.4 L 8.1 L Magnesium 1.6 L 1.8 Total Bilirubin 0.91 0.88 AST 109 H 96 H ALT 82 H 72 H Alkaline Phosphatase 92 78 Troponin I 4 NT-Pro-B Natriuret Pep 105 Total Protein 8.2 7.3 Albumin 2.3 L 2.0 L Urine Color Urine Clarity Urine pH Ur Specific [place] Urine Protein Urine Ketones Urine Blood Urine Nitrite Urine Bilirubin Urine Urobilinogen Ur Leukocyte Esterase Urine RBC Urine WBC Ur Epithelial Cells Urine Crystals Urine Bacteria Urine Casts Urine Mucus Ur Culture Indicated? Urine Glucose Fluid Source Fluid Color Fluid Clarity Fluid WBC Fld Polynuclear WBCs % Fluid Mononuclear Cell COVID-19 Source Nasopharynx SARS-CoV-2 (PCR) Negative Influenza Type A (PCR) Negative Influenza Type B (PCR) Negative RSV (PCR) Negative ABO/Rh B Positive Antibody Screen NEGATIVE 01/07/24 01/07/24 10:26 13:30 WBC RBC Hgb Hct MCV MCH MCHC RDW Plt Count MPV Immature Gran % Neutrophils % Lymphocytes % Monocytes % Eosinophils % Basophils % Nucleated RBC % Absolute Neutrophils Absolute Lymphocytes Absolute Monocytes Absolute Eosinophils Absolute Basophils RBC Morphology PT INR APTT Sodium Potassium Chloride Carbon Dioxide Anion Gap BUN Creatinine Est GFR (CKD-EPI 2020) Glucose Calcium Magnesium Total Bilirubin AST ALT Alkaline Phosphatase Troponin I NT-Pro-B Natriuret Pep Total Protein Albumin Urine Color Dark Yellow Urine Clarity Cloudy Urine pH 6.0 Ur Specific [place] 1.020 Urine Protein Trace Urine Ketones Negative Urine Blood Large H Urine Nitrite Negative Urine Bilirubin Small H Urine Urobilinogen 1.0 H Ur Leukocyte Esterase Negative Urine RBC >50 H Urine WBC 0-2 Ur Epithelial Cells Many Urine Crystals Negative Urine Bacteria Rare Urine Casts Negative Urine Mucus Negative Ur Culture Indicated? No Urine Glucose Negative Fluid Source Pleural Fluid Color Yellow Fluid Clarity Clear Fluid WBC 388 Fld Polynuclear WBCs % 56 Fluid Mononuclear Cell 44 COVID-19 Source SARS-CoV-2 (PCR) Influenza Type A (PCR) Influenza Type B (PCR) RSV (PCR) ABO/Rh Antibody Screen Time Spent with Patient Time Spent with Patient: >50 minutes Time was spent: preparing to see the patient(eg.review tests), obtaining and/or reviewing separately otained hiistory, ordering medications,tests, procedures, referring, communicating with other health home care music therapist, indepentently interpreting results, counseling the patient and care coordination
[2024-01-07 22:02] LABS: Albumin, Body FLuid <1.0 g/dL (See Note)
[2024-01-07 22:04] LABS: Glucose, Fluid 112 mg/dL (See Note)
[2024-01-08] VITALS (108 sets, daily range): BP systolic 98–130; BP diastolic 56–71; PULSE 64–91; RESP 14–29; TEMP 37.1–37.4; O2SAT 95–97
[2024-01-08] MEDS: cefTRIAXone 1 GM/50 ML BAG IVPB (05:21)
[2024-01-08 06:51] LABS: HCT 29.5 % (36.0-46.0); HGB 9.9 g/dL (11.2-15.7); MCH 31.9 pg (27.0-33.0); MCHC 33.6 % (32.0-36.0); MCV 95 fL (80-95); RDW 18.5 % (11.7-14.6); RDW-SD 64.8 fL; WBC 6.03 10^3/uL (4.4-10.8)
[2024-01-08 07:12] LABS: ALT 60 U/L (14-59); AST 85 U/L (15-37); Albumin 1.6 g/dL (3.4-5.0); Alkaline Phosphatase 66 U/L (46-116); Anion Gap 5.7 mmol/L (3-11); BUN 15 mg/dL (7-18); Bilirubin, Total 0.87 mg/dL (0.2-1.0); CO2 28.3 mmol/L (21.0-32.0); CREATININE 0.7 mg/dL (0.55-1.02); Calcium 8.3 mg/dL (8.5-10.1); Chloride 110 mmol/L (98-107); Estimated GFR 94.15 (mL/min/1.73m2); Glucose 131 mg/dL (74-106); Magnesium 1.9 mg/dL (1.8-2.4); Potassium 4.5 mmol/L (3.5-5.1); Sodium 144 mmol/L (136-145); Total Protein 6.3 g/dL (6.4-8.2)
[2024-01-08 07:42] LABS: Platelet Count 92 10^3/uL (130-400)
[2024-01-08] MEDS: Normal Saline Flush 10 ML SYR IVP (08:38)
[2024-01-08] MEDS: Cholecalciferol (Vitamin D3) 1,000 UNIT TAB 2000 UNITS PO (08:39)
[2024-01-08] MEDS: Lactobacillus Acidophilus CAP 1 CAP PO (08:39)
[2024-01-08] MEDS: Nadolol 40 MG TAB 20 MG PO (08:39)
[2024-01-08] MEDS: Azithromycin 250 MG TAB PO (08:40)
[2024-01-08] MEDS: Multivitamin TAB 1 TAB PO (08:40)
--- NOTE | 2024-01-08 09:00 | PDOC.CMIN ---
Date of service: 01/08/24 Time of Service: 09:00 Care Management Initial Assmt Initial Assessment Reason for Hospitalization: Pneumonia, hypoxia, pleural effusion Functional Status/Living Situation Town of Residence: [place] Advance Directives Advance Directives: Do you have an Advance Directive: Y 10/16/22 16:20 AD On File at [facility]: Y 10/16/22 16:20 Date Asked AD Date Reviewed 01/07/24 01/07/24 04:28 COLST On File at [facility] COLST Date Scanned Code Status Resuscitation Status DNI Care Team Visit Care Team Role Provider Type Sruthi Eden MD Primary Care Provider [facility] STAFF PHYSICIAN July Sheridan MD Other Providers NON-[facility] STAFF PHYSICIAN JULIANNA Mclean Other Providers PHYSICIANS ASSISTANT Vlad [facility]ace [facility] Other Providers [facility] STAFF PHYSICIAN Janay Pérez IV, MD Other Providers [facility] STAFF PHYSICIAN Diego Dias MD Other Providers CONSULTING PHYSICIAN Janes Burk MD Other Providers CONSULTING PHYSICIAN Clark Velasquez MD Other Providers NON-[facility] STAFF PHYSICIAN Clark Santillan, DO Other Providers CONSULTING PHYSICIAN Yonas Cuadra MD Other Providers [facility] STAFF PHYSICIAN Néstor Grant Other Providers CONSULTING PHYSICIAN Janet Black MD Other Providers [facility] STAFF PHYSICIAN Elias Hammer MD Other Providers MD CONSULTING PHYSICIAN Tila Holbrook, DO Other Providers OSTEOPATHIC DOCTOR Becky Cerda, DO Other Providers CONSULTING PHYSICIAN Tulio Frost MD Other Providers CONSULTING PHYSICIAN Mimi Muñiz, DO Other Providers OSTEOPATHIC DOCTOR Norbert Solis, DO Other Providers CONSULTING PHYSICIAN Carrol Mathew Other Providers NON-[facility] STAFF PHYSICIAN Sergo Tobias MD Other Providers [facility] STAFF PHYSICIAN Natasha You, DO Other Providers OSTEOPATHIC DOCTOR Yuri Jaramillo, DO Other Providers OSTEOPATHIC DOCTOR Leonor Elizabeth MD Other Providers [facility] STAFF PHYSICIAN Clark Arias MD Emergency Provider [facility] STAFF PHYSICIAN Haroon Ha Admit Provider [facility] STAFF PHYSICIAN Attending Provider [facility] All Active Problems (Updated 01/07/24 @ 18:04 by Estephanie Dickson APRN) Hypomagnesemia (Acute) Hypokalemia (Acute) Electrical alternans (Acute) DVT prophylaxis (Acute) Community acquired pneumonia (Acute) Pleural effusion, right (Acute) Cough with hemoptysis (Acute) Umbilical hernia without obstruction and without gangrene (Acute) Reduced at [facility] [place] [facility]; not containing intestine on MRI abd 11/2023. Managing with abd pressure; felt to be due to ascites and internal abd pressure. Cirrhosis of liver with ascites (Chronic) managed with surveillance and nadolol by [facility] Pleural effusion associated with hepatic disorder (Acute) Complete uterine prolapse with prolapse of anterior vaginal wall (Acute) 83mm gelhorn pessary in place Desires hysterectomy with [facility] urogyn but needs to be medically stable in regards to other comorbidities first. 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 Medical History Vaginal pessary in situ 01/06/24: switched back to 83mm gelhorn as she is worried the pessary is contributing to her increasing fluid/ascites 12/30/23: increased to 89mm gelhorn pessary due to persistent prolapse around pessary Mar 2023: switched to 83mm gelhorn due to pessary falling out Oct 2022: fitted with #7 RS pessary Vasospasm of peripheral artery Acquired pancytopenia Pancreatic cyst incidental finding 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 AFP negative. Managed with azathioprine historically; repeat biopsy at [facility] [place] negative inflammation. Surgical History History of liver biopsy (~08/2013) Family History Mother Diabetes Father Alzheimers disease Sister Depression Hypertension Sister No problems noted. Sister Rheumatoid arthritis Brother No problems noted. Brother Hypertension Son No problems noted. Daughter No problems noted. 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 Pets and animals: No Sexually active: No Do you think of yourself as: straight/heterosexual Current gender identity: female What is your relationship status?: How often do you talk on the phone with friends or family?: three or more times per week How often do you get together with friends or relatives?: three or more times per week How often do you attend congregation or quaker services?: 4 or more times per year Do you belong to any clubs or organized social groups?: no Panel score (0-1 are the most socially isolated patients): 2 What type of physical activity do you participate in: walking Duration: 15-30 minutes/day Frequency: daily Jaclyn/Scientology: Nondenominational Special jaclyn needs: No Seatbelt use: always Helmet use: No Drive intox or ride w/intox driver/merchandiser: No Do you feel safe at home: Yes Do you feel safe in your relationship?: Yes Additional Social history: Enjoys spending time with family, playing sports/games with them. Female Reproductive History Menstrual Age of Menarche: 13 Menopause type: natural Date of menopause: 08/08/05 History History 2 Para 2 Hx # Term Pregnancies 2 Multiple births Hx # Pregnancies Ectopic pregnancies AB induced Hx Number of Living Children 2 AB spontaneous Past Pregnancies Del. Date GA/Weeks # Preg Succ Route Wgt Sex Labor Lgth Anesthesia Location [facility] 10/07/77 40 No vaginal 3529.516 g Male 10 09/27/82 40 No vaginal 3657.088 g Female Delivery Date: 10/07/77 Last Updated by: Yojana Daniels laceration with repair SDOH(Care Management) Screening Will the Patient Participate in the Screening?: Yes Do you worry about having a steady place to live?: no Problems where you live: no known problems In the past 12 months, have you had to go without electric, gas, oil or water in your home?: no Have you or anyone in your house had to go without enough food to eat?: no Has lack of transportation kept you from medical appointments or from doing things needed for daily living?: no Has anyone in your support network made you feel unsafe for any reason?: no Social Determinants of Health Comments(SDOH Details): pt has been a pt recently in [facility] and [facility] in 2022 Health Related Social Needs Health related social needs details: none has strong support system
--- NOTE | 2024-01-08 09:40 | PGE_ITS ---
Date of Service Date of service: 01/08/24 Time of Service: 09:40 Assessment and Plan Assessment and plan (1) Cough with hemoptysis: Status: Acute Assessment and plan: No further hemoptysis today but was likely secondary to acute infection. No pulmonary embolism as per CT chest -no lung malignancy. No further complaint of ear pain, but no symptoms of upper respiratory in fection now See below. (2) Community acquired pneumonia: Status: Acute Assessment and plan: Right lower lobe consolidation as per CT scan from 01/07/2024 ; patient presenting with hemoptysis, cough and mild hypoxia Continue treating with ceftriaxone and azithromycin CBC in the morning (3) Pleural effusion associated with hepatic disorder: Status: Acute Assessment and plan: Appears chronic and most likely contributing to her mild hypoxia in combination with pneumonia;has not been tapped before. Has a history of paracentesis for ascites. Surgical consult for diagnostic and therapeutic thoracentesis with Dr. 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 With history of gastric varicies last banded 03/01.was stable as of recent endoscopy 12/01- without need for banding. Child-Kinney class B, score 8-9 with mild-moderate ascites currently; no ascites wave. Her liver function has been stable despite being off immune suppressive therapy. CMP in AM Qualifiers: Hepatic cirrhosis type: unspecified hepatic cirrhosis Qualified Code(s): K74.60 - Unspecified cirrhosis of liver; R18.8 - Other ascites (5) Electrical alternans: Status: Acute Assessment and plan: This is new on EKG. No pericardial effusion on CT. No clinical pericarditis or chest pain. consider repeat EKG before discharge. Echocardiogram completed (6) DVT prophylaxis: Status: Acute Assessment and plan: SCDs (she declined TEDs) given some acute (7) Hypokalemia: Status: Acute Assessment and plan: K 3.3 supplementation given CMP in AM (8) Hypomagnesemia: Status: Acute Assessment and plan: Mg 1.6 and 1.8 s/p repletion Mg in AM Discussed with Dr. Espinosa Exam Narrative Exam Narrative: Constitutional The patient is sitting in chair/ lying in bed comfortable and cooperative during the interview. The patient is well groomed without acute distress and has average body habitus/is obese/ is thin. HENMT: Head is atraumatic, normocephalic, no lymphadenopathy. Facial structures with normal appearance Eyes: Well aligned, intact ROM Neck: Normal ROM, no meningeal signs Neuro:alert and oriented to self, person, place time and situation. No neurological focal deficit, PERRLA Chest:Chest is symmetrical and normal appearance Resp: Normal respiratory pattern, speaks in full sentences, unlabored breathing, clear lung bilaterally Cardio: regular rhythm, S1, S2, no murmur, capillary refill<3 sec., bilateral radial and dorsalis pedis pulses are positive, palpable GI: Abdomen is not distended, soft and non tender, bowel sounds are present : Negative Costovertebral angle tenderness, no bladder distension Back/spine/Pelvis: No back tenderness, normal alignment Integumentary: No skin lesions or rash Extremities: strength 5/5 to bilateral lower and upper extremities Psych: RASS 0, congruent mood and normal affect. Objective Last Vital Signs Temp 37.4 C 01/08/24 07:30 Pulse 74 01/08/24 07:30 Resp 22 01/08/24 07:50 BP 130/56 L 01/08/24 07:30 Pulse Ox 97 01/08/24 07:30 Laboratory Results - last 24 hr 01/07/24 01/07/24 01/08/24 10:26 13:30 05:35 WBC 6.03 RBC 3.10 L Hgb 9.9 L Hct 29.5 L MCV 95 MCH 31.9 MCHC 33.6 RDW 18.5 H Plt Count 92 L MPV 10.0 Sodium 144 Potassium 4.5 D Chloride 110 H Carbon Dioxide 28.3 Anion Gap 5.7 BUN 15 Creatinine 0.7 Est GFR (CKD-EPI 2020) 94.15 Glucose 131 H Calcium 8.3 L Magnesium 1.9 Total Bilirubin 0.87 AST 85 H ALT 60 H Alkaline Phosphatase 66 Total Protein 6.3 L Albumin 1.6 L Urine Color Dark Yellow Urine Clarity Cloudy Urine pH 6.0 Ur Specific [place] 1.020 Urine Protein Trace Urine Ketones Negative Urine Blood Large H Urine Nitrite Negative Urine Bilirubin Small H Urine Urobilinogen 1.0 H Ur Leukocyte Esterase Negative Urine RBC >50 H Urine WBC 0-2 Ur Epithelial Cells Many Urine Crystals Negative Urine Bacteria Rare Urine Casts Negative Urine Mucus Negative Ur Culture Indicated? No Urine Glucose Negative Fluid Source Pleural Fluid Color Yellow Fluid Clarity Clear Fluid WBC 388 Fld Polynuclear WBCs % 56 Fluid Mononuclear Cell 44 Fluid Glucose 112 Fluid Albumin <1.0 Path Cons Comment SEE COMMENT
--- NOTE | 2024-01-08 12:55 | CMDISCH_ITS ---
Date of service: 01/08/24 Time of Service: 12:56 LACE Index Scoring Tool Questions: Length of Stay (in days): 1 Was the patient admitted via the E.D.?: Yes E.D. Visits: 1 Answers: Total Score: 5 Risk of Readmission: Low Risk Care Management Discharge Plan Reason for Hospitalization: Pneumonia, hypoxia, pleural effusion Discharge Plan: Discharge home via private vehicle with family. Follow up with community providers and her discharge plan of care as instructed. Records will be sent to her GI specialist Dr. Acosta, at her request. Patient/Family Education Needs: Review discharge instructions, limitations, medications and plan to follow up with community providers. Discuss ask me three. SDOH Health Related Social Needs: Health related social needs details none has strong sneed pport system Health related social needs details: none has strong support system Referrals and interventions: none
--- NOTE | 2024-01-08 14:19 | W.PM.DS.N ---
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 (6) DVT prophylaxis: Status: Acute (7) Hypokalemia: Status: Acute (8) Hypomagnesemia: Status: Acute Discharge Plan Disposition Patient Disposition: Home Condition: Improving Discharge Details Reason For Visit: pneumonia, hypoxia, pleura effusion Admit Date/Time: 01/07/24 03:19 Admit Provider: Haroon Ha Attending Provider: Haroon Ha Primary Care Provider: Sruthi Eden Hospital Course Hospital Course: This 60-year-old female patient with past medical history of cirrhosis secondary to autoimmune hepatitis, chronic portal hypertension, ascites and right-sided pleural effusion presented to the ED at [facility] on 01/07/2024 for evaluation of hemoptysis. Patient reporting intractable coughing, feeling that something was caught in her throat starting at 2100 the night prior to presentation. Patient also reported slight shortness of breath that worsens when lying on the left side. At the time the patient did not have any upper respiratory infection symptoms. Workup in the ED was significant for a chest CT positive for large right pleural effusion and for abdominal ascites. Surgery was consulted and paracentesis was recommended. Right-sided infiltrate in the right middle lobe also seen as per imaging. Treatment with ceftriaxone and azithromycin was initiated for pneumonia. The hospitalist service was contacted and the patient admitted to the medical surgical floor for, and management of cough with MODZ, currently acquired pneumonia, pleural effusion associated with hepatic disorder. Dr. Alli Tobias surgeon completed the thoracentesis for an output of 3200 mL on 01/07/2024 resulting in better reexpansion of the lung and resolving her tachypnea. Fluid from Gram stain did not show any bacteria and only moderate white blood cells. Culture on the specimen is still at the preliminary phase and follow-up should be completed by the primary care provider. The patient mention being on furosemide earlier and having stopped it as she felt that it was not improving her ascites or the swelling of her lower extremities. Resumption should be discussed with primary care provider. Treatment with ceftriaxone and azithromycin was ongoing for treatment of the community-acquired pneumonia. EKG remained in a sinus rhythm in the 70's without ectopies. The patient had no further oxygen requirement. Hypokalemia was corrected with supplementation resulting in a potassium level of 4.5. Hypomagnesemia was corrected with supplementation resulting in a magnesium level of 1.9. Hemoglobin remained stable at 9.9 and 29.5 without overt source of bleeding with recommendation for anemia workup as per primary care provider. The patient will be discharged home on oral cefpodoxime and azithromycin to complete the treatment for community-acquired pneumonia and will need to follow-up with her primary care practitioner within 7 days of discharge. Discussed with Dr. Espinosa Home Meds and New Rx's Prescriptions: New azithromycin 250 mg tablet 250 mg PO DAILY Qty: 3 0RF cefpodoxime 200 mg tablet 200 mg PO BID Qty: 6 0RF Rx Instructions: must administer with a meal/food Continued milk thistle 500 mg capsule 500 mg PO DAILY Rx Instructions: give with meal/snack cholecalciferol (vitamin D3) 50 mcg (2,000 unit) capsule 50 mcg PO DAILY calcium carb,gluc-mag gluc,ox 500 mg calcium -250 mg tablet 1 tab PO DAILY Patient Comments: 10/14/22- Pt takes a pill with 100 mg of calcium and 100 mg of magnesium per pt report. Joseph Probiotic 14 billion cell capsule 1 cell PO DAILY Qty: 90 2RF multivitamin [Daily Multi-Vitamin] Tablet 1 tab PO DAILY nadolol 20 mg tablet 20 mg PO DAILY Qty: 30 5RF Discharge Instructions Referrals: Sruthi Eden MD [Primary Care Provider] - 01/16/24 7:40 am Activity:: Activity as Tolerated Equipment/Supplies:: No Equipment Needed Diet:: As Tolerated Discharge Orders Discharge Orders: Discharge Order (Routine); Ordered 01/08/24 Ordered By: Estephanie Dickson DS: Summary Time Spent with Patient providing and/or coordinating discharge services: Greater than 30 minutes Status at Discharge Functional status at discharge: independent ambulation Overall status at discharge: patient is progressing back to baseline Mental Status: mental status grossly normal Speech and Movement: speech and movement normal Mood: congruent mood Affect: normal affect Quality:SDOH Health Related Social Needs: Health related social needs details none has strong support system Health related social needs details: none has strong support system Referrals and interventions: none Exam Narrative Exam Narrative: Constitutional The patient is comfortable HENMT: Facial structures with normal appearance Neuro:alert and oriented X 4, no focal deficits Resp: Unlabored breathing, clear right lung-fine base-crackles; clear left lung field Cardio: regular rhythm, S1, S2, positive radial and pedal pulses GI: Abdomen is not distended, soft and non tender, bowel sounds are present : Negative Costovertebral angle tenderness, no bladder distension Back/spine/Pelvis: No back tenderness, normal alignment Integumentary: No skin lesions or rash Extremities: strength 5/5 to bilateral lower and upper extremities Psych: RASS 0, congruent mood and normal affect. Psych Mental Status: mental status grossly normal Speech and Movement: speech and movement normal Mood: congruent mood Affect: normal affect DS: Data Vitals/I&O Vitals and I&O: Vital Signs Temperature 37.4 C 01/08/24 07:30 Temperature Source Temporal Artery Scan 01/08/24 07:30 Pulse 76 01/08/24 08:02 Pulse 84 01/08/24 13:50 Respiratory Rate 25 H 01/08/24 13:50 Respiratory Effort Short of Breath, Incrsd Work of Breathing 01/07/24 05:18 Respiratory Depth Normal 01/07/24 05:18 Respiratory Pattern Irregular 01/07/24 05:18 Blood Pressure 103/63 01/08/24 08:02 Blood Pressure Mean 74 01/08/24 08:02 Blood Pressure Position Sitting 01/07/24 05:18 Pulse Oximetry 97 01/08/24 07:30 Oxygen Delivery Method Room Air 01/08/24 07:30 Oxygen Flow Rate 0 01/08/24 07:30 Pain Level 0 01/07/24 05:18 Intake & Output 01/07/24 01/08/24 01/08/24 23:59 11:59 23:59 Intake Total 10 560 / 560 Output Total 350 / 550 800 / 800 Balance -340 / -140 -240 / -240 Weight 77.6 kg Intake: IV Oral 560 / 560 Output: Urine 350 / 550 800 / 800 Other: Urine Color Light Leigh Yellow Urine Appearance Clear Clear Urine Odor Normal Normal Comment urine starting to lighten Data Completed and Pending Labs on day of discharge: Labs from last 24 hours 01/08/24 01/07/24 01/07/24 05:35 13:30 13:30 WBC 6.03 RBC 3.10 L Hgb 9.9 L Hct 29.5 L MCV 95 MCH 31.9 MCHC 33.6 RDW 18.5 H Plt Count 92 L MPV 10.0 Sodium 144 Potassium 4.5 D Chloride 110 H Carbon Dioxide 28.3 Anion Gap 5.7 BUN 15 Creatinine 0.7 Est GFR (CKD-EPI 2020) 94.15 Glucose 131 H Calcium 8.3 L Magnesium 1.9 Total Bilirubin 0.87 AST 85 H ALT 60 H Alkaline Phosphatase 66 Total Protein 6.3 L Albumin 1.6 L Fluid Type Pending Pending Fluid Source Pleural Fluid Color Yellow Fluid Clarity Clear Fluid WBC 388 Fld Polynuclear WBCs % 56 Fluid Mononuclear Cell 44 Fluid Glucose 112 Fluid Total Protein Pending Fluid Albumin <1.0 Fluid LDH Pending Path Cons Comment SEE COMMENT Preliminary micro results at discharge 01/07/24 13:30 Body Fluid Culture - Preliminary Thoracentesis PFSH All Active Problems (Updated 01/08/24 @ 16:17 by Estephanie Dickson APRN) Hypomagnesemia (Acute) Hypokalemia (Acute) Electrical alternans (Acute) DVT prophylaxis (Acute) Community acquired pneumonia (Acute) Pleural effusion, right (Acute) Cough with hemoptysis (Acute) Umbilical hernia without obstruction and without gangrene (Acute) Reduced at [facility] ER; not containing intestine on MRI abd 11/2023. Managing with abd pressure; felt to be due to ascites and internal abd pressure. Cirrhosis of liver with ascites (Chronic) managed with surveillance and nadolol by [facility] Pleural effusion associated with hepatic disorder (Acute) Complete uterine prolapse with prolapse of anterior vaginal wall (Acute) 83mm gelhorn pessary in place Desires hysterectomy with [facility] urogyn but needs to be medically stable in regards to other comorbidities first. 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 Medical History Vaginal pessary in situ 01/06/24: switched back to 83mm gelhorn as she is worried the pessary is contributing to her increasing fluid/ascites 12/30/23: increased to 89mm gelhorn pessary due to persistent prolapse around pessary Mar 2023: switched to 83mm gelhorn due to pessary falling out Oct 2022: fitted with #7 RS pessary Vasospasm of peripheral artery Acquired pancytopenia Pancreatic cyst incidental finding 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 AFP negative. Managed with azathioprine historically; repeat biopsy at [facility] negative inflammation. Surgical History History of liver biopsy (~08/2013) Family History Mother Diabetes Father Alzheimers disease Sister Depression Hypertension Sister No problems noted. Sister Rheumatoid arthritis Brother No problems noted. Brother Hypertension Son No problems noted. Daughter No problems noted. 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 Pets and animals: No Sexually active: No Do you think of yourself as: straight/heterosexual Current gender identity: female What is your relationship status?: How often do you talk on the phone with friends or family?: three or more times per week How often do you get together with friends or relatives?: three or more times per week How often do you attend tenriism or taoism services?: 4 or more times per year Do you belong to any clubs or organized social groups?: no Panel score (0-1 are the most socially isolated patients): 2 What type of physical activity do you participate in: walking Duration: 15-30 minutes/day Frequency: daily Jaclyn/Buddhism: Yarsanism Special jaclyn needs: No Seatbelt use: always Helmet use: No Drive intox or ride w/intox guard driver: No Do you feel safe at home: Yes Do you feel safe in your relationship?: Yes Additional Social history: Enjoys spending time with family, playing sports/games with them. Female Reproductive History Menstrual Age of Menarche: 13 Menopause type: natural Date of menopause: 08/08/05 History History 2 Para 2 Hx # Term Pregnancies 2 Multiple births Hx # Pregnancies Ectopic pregnancies AB induced Hx Number of Living Children 2 AB spontaneous Past Pregnancies Del. Date GA/Weeks # Preg Succ Route Wgt Sex Labor Lgth Anesthesia Location Prov Complic 10/07/77 40 No vaginal 3529.516 g Male 10 09/27/82 40 No vaginal 3657.088 g Female Delivery Date: 10/07/77 Last Updated by: Yojana Daniels laceration with repair Time Spent with Patient Time Spent with Patient: 70-84 minutes4 Time was spent: preparing to see the patient(eg.review tests), obtaining and/or reviewing separately otained hiistory, ordering medications,tests, procedures, referring, communicating with other health career transition specialist, indepentently interpreting results, counseling the patient and care coordination
[2024-01-09 10:08] LABS: Lactate Dehydrogenase (LD), BF 88 U/L
== END 2024-01-08 17:30 | disposition home or self-care (01) ==
LOC: ER 01-07 04:28 → ICU 01-07 04:30
PROVIDERS: Family Medicine; Surgery; Admitting Provider Family Medicine; Emergency Provider Emergency Medicine; PCP Family Medicine; Visit Provider Family Medicine
PROC: (CPT 32554; principal; 2024-01-07 13:15)
DX: J18.9 Pneumonia, unspecified organism (principal); R04.2 Hemoptysis; E83.42 Hypomagnesemia; E87.6 Hypokalemia; R09.02 Hypoxemia; R18.8 Other ascites; K74.69 Other cirrhosis of liver; K75.4 Autoimmune hepatitis; J91.8 Pleural effusion in other conditions classified elsewhere; K76.6 Portal hypertension; H92.01 Otalgia, right ear; R94.31 Abnormal electrocardiogram [ECG] [EKG]
CPT/HCPCS: 32555; 00123; 36415; 71275; 80053; 82042; 85027; 86850; 86900; 86901; 87637; 93005; 93306; 96365; 96366; 96367; 99222; 99285; 71045; 74176; 81003; 81015; 81373; 83615; 83735; 83880; 84157; 84484; 85025; 85610; 85730; 87070; 87205; 89051; 93010; 99223; 99239; G0378; J0696; J3475; J3490

== ENCOUNTER 2024-03-12 01:20 | Outpatient (CLI) | payer MEDICARE, SELFPAY ==
[2024-03-12 16:24] LABS: Abs Immature Grans 0.02 10^3/uL (0.0-0.06); Absolute Basophil Count 0.04 10^3/uL (0.0-0.2); Absolute Lymphocyte Count 0.83 10^3/uL (1.2-3.4); Absolute Monocyte Count 0.64 10^3/uL (0.1-0.8); Absolute Neutrophil Count 2.96 10^3/uL (1.2-6.7); Basophils % 0.8 %; Eosinophils % 6.3 %; HCT 36.9 % (36.0-46.0); HGB 12.1 g/dL (11.2-15.7); Immature Grans % 0.4 %; Lymphocytes % 17.3 %; MCH 30.9 pg (27.0-33.0); MCHC 32.8 % (32.0-36.0); MCV 94 fL (80-95); Monocytes % 13.4 %; Neutrophils % 61.8 %; Platelet Count 101 10^3/uL (130-400); RBC 3.92 10^6/uL (3.93-5.22); RDW 14.4 % (11.7-14.6); RDW-SD 49.5 fL; WBC 4.79 10^3/uL (4.4-10.8)
[2024-03-12 17:26] LABS: ALT 217 U/L (14-59); AST 300 U/L (15-37); Albumin 2.5 g/dL (3.4-5.0); Alkaline Phosphatase 102 U/L (46-116); Anion Gap 1.6 mmol/L (3-11); BUN 15 mg/dL (7-18); Bilirubin, Total 0.72 mg/dL (0.2-1.0); CO2 33.4 mmol/L (21.0-32.0); CREATININE 0.7 mg/dL (0.55-1.02); Calcium 8.7 mg/dL (8.5-10.1); Chloride 106 mmol/L (98-107); Estimated GFR 93.56 (mL/min/1.73m2); Glucose 116 mg/dL (74-106); Potassium 3.7 mmol/L (3.5-5.1); Sodium 141 mmol/L (136-145); Total Protein 8.2 g/dL (6.4-8.2)
== END 2024-03-12 01:21 | disposition home or self-care (01) ==
PROVIDERS: PCP Family Medicine; Visit Provider Family Medicine
DX: K74.60 Unspecified cirrhosis of liver (principal); R18.8 Other ascites; Z00.00 Encounter for general adult medical examination without abnormal findings
CPT/HCPCS: 36415; 80053; 85025

== ENCOUNTER 2024-04-03 17:06 | Inpatient (IN) | payer MEDICARE, SELFPAY ==
[2024-04-03] VITALS (55 sets, daily range): BP systolic 95–143; BP diastolic 46–87; PULSE 73–85; RESP 2–31; TEMP 36.7; O2SAT 85–99
--- NOTE | 2024-04-03 17:15 | RT.EKG_ITS ---
APPROVED REPORT Exam: Resting ECG Reason for Exam: SOB, back pain Patient Location: E HR:78 bpm ECG Measurements Heart Rate 78 AXIS NC 176 P 39 QRSd 86 QRS 77 QT 394 T 46 QTc 451 Conclusion Sinus rhythm 78 normal axis no stemi
--- NOTE | 2024-04-03 17:15 | DI.RAD_ITS ---
Exam(s) XR CHEST 2V PA LATERAL EXAM: XR CHEST 2V PA LATERAL CLINICAL HISTORY: productive cough, SOB, wheeze. TECHNIQUE: 2D digital imaging was performed. COMPARISON: CR XR PORTABLE CHEST AP from 01/07/2024 CR XR PORTABLE CHEST AP from 01/07/2024 FINDINGS: 2 views: Heart size is normal. The mediastinum is not widened. There is moderate-large pleural effusion on the right side which appears loculated. This has further increased in size from 01/07/2024. There is also subjacent infiltrate in the right lung. No pleura l effusion on the opposite-left side. There is subtle suggestion of a 1 cm nodular infiltrate in the lower left lung field. IMPRESSION: Right sided loculated moderate-large pleural effusion which has increased in size from 01/07/2024. C hest CT scan recommended. Also small nodule infiltrate in the lower left lung field now evident. There is no pleural effusion on the left side. DATA REPOSITORY: RADIATION DOSE DELIVERED:
--- NOTE | 2024-04-03 17:23 | ED.GENADUL_ITS ---
Discharge Plan Discharge Details Chief Complaint: RespSymp Primary Care Provider: Sruthi Eden ED Provider: Esther Schofield Home Meds and New Rx's Prescriptions: No Action milk thistle 500 mg capsule 500 mg PO DAILY Rx Instructions: give with meal/snack cholecalciferol (vitamin D3) 50 mcg (2,000 unit) capsule 50 mcg PO DAILY Joseph Probiotic 14 billion cell capsule 1 cell PO DAILY Qty: 90 2RF selenium 200 mcg capsule 200 mcg PO DAILY cyanocobalamin-liver extract Tablet 1 tab PO DAILY multivitamin [Daily Multi-Vitamin] Tablet 1 tab PO DAILY nadolol 20 mg tablet 20 mg PO DAILY Qty: 30 5RF HPI General Date/Time Provider Initiated Documentation: 04/03/24 17:09 . HPI Narrative: Samara is a 69year old female who presents to the emergency department today for evaluation of 3 to 4 days of productive cough. Today she developed fatigue, decreased appetite, and shortness of breath. This is accompanied by right mid back discomfort that is worsened with deep breathing. She reports that she had viral symptoms at the beginning of March, was evaluated at [facility] on 03/19/2024. At that time she was found to have diffuse wheezing, declined chest x-ray.she says that symptoms got better the next couple of days, but then became acutely worsened a couple of days ago. She denies fever/chills, headache, dizziness, sore throat, congestion, chest pain, nausea/vomiting, abdominal pain, change in bowel or bladder function. Past medical history is significant for cirrhosis with esophageal varices, is treated with nadolol. She did have pneumonia back in December. Physical exam remarkable for wheezing, especially in the left lobe. Samara does have increased work of breathing, 2-3 word dyspnea. She is alert and oriented, answers questions appropriately. O2 sat 95% on room air, was 88% in triage. Normal heart sounds, no tachycardia noted. Normal gait. Extremities equally. No obvious rashes or lesions. D/dx includes but is not limited to: Pneumonia, ACS, CHF, pleural effusion, pneumothorax, hemothorax, electrolyte imbalance, severe anemia. Pt does not meet SIRS criteria. I independently interpreted the following tests: CBC, procalcitonin, troponin reassuring. CMP largely reassuring, patient does have elevated LFTs, however it is not significantly changed from previous. Mild hypomagnesemia noted, magnesium 1.6. COVID and flu negative. Chest x-ray remarkable for moderate/large pleural effusion on the right side and 1 cm nodular infiltrate on the left lower lung field While in the emergency department, Samara received a DuoNeb with good improvement of symptoms; she is currently able to converse without difficulty and is able to sit back; says she is feeling much better. I did review previous medical records, including recent hospitalization at [facility] from 01/07/2024 to 01/08/2024. Patient was diagnosed with cough with hemoptysis secondary to community-acquired pneumonia. She was noted to have a chronic pleural effusion at that time that was tapped for diagnostic and therapeutic purposes. A total of 3200 mL of pleural effusion was drained CTA performed to better evaluate pleural effusion and infiltrate. Was significant for large right pleural effusion and consolidation in the right middle lobe concerning for infiltrate/pneumonia. As patient was recently hospitalized within the last 3 months for pneumonia and given antibiotics, cefepime and Levaquin given to cover Pseudomonas and MRSA. Patient to be admitted for pleural effusion and PNA. She is agreeable with plan of care. Presented case to Dr. Thayer, hospitalist. Patient to be admitted to hospitalist service; she will board in the ED until bed on Med Surg unit is available. Surgery to consult. Related Data Home Medications ?Medication ?Instructions ?Recorded ?Confirmed multivitamin (Daily Multi-Vitamin 1 tab PO DAILY 04/13/21 04/03/24 tablet) cholecalciferol (vitamin D3) 50 50 mcg PO DAILY 10/14/22 04/03/24 mcg (2,000 unit) capsule milk thistle 500 mg capsule 500 mg PO DAILY 10/16/22 04/03/24 Lactobacillus combo no.23 14 1 cell (0 x 14 billion cell) PO 11/10/23 04/03/24 billion cell capsule (Joseph DAILY #90 caps Probiotic) nadolol 20 mg tablet 20 mg PO DAILY #30 tabs 11/24/23 04/03/24 cyanocobalamin-liver extract tablet 1 tab PO DAILY 03/19/24 04/03/24 selenium 200 mcg capsule 200 mcg PO DAILY 03/19/24 04/03/24 Previous Rx's ?Medication ?Instructions ?Recorded Lactobacillus combo no.23 14 1 cell (0 x 14 billion cell) PO 11/10/23 billion cell capsule (Joseph DAILY #90 caps Probiotic) nadolol 20 mg tablet 20 mg PO DAILY #30 tabs 11/24/23 Allergies Allergy/AdvReac Type Severity Reaction Status Date / Time prednisone Allergy Unknown Psychosis Verified 04/03/24 17:54 General Stated Complaint: RespSymp FÉLIX: 3 Review of Systems Narrative: see HPI Exam Const General: cooperative, no acute distress and well developed Nutritional Appearance: average body habitus Orientation: alert and oriented x3 Resp Effort & Inspection: cough and tachypneic Auscultation: wheezes (aurelia LLL) Cardio Jugular venous pressure: no JVD Rate: regular rate Rhythm: regular rhythm Skin General skin exam: no rashes or lesions noted Neuro General: patient alert and patient oriented x3 Cognition: normal cognition Speech: speech normal Gait: normal gait Extrem General: no pedal edema Course Vital Signs Vital signs: Vital Signs Temperature 36.7 C 04/03/24 17:09 Pulse 82 04/03/24 17:09 Respiratory Rate 26 H 04/03/24 17:09 Blood Pressure 143/85 H 04/03/24 17:09 Pulse Oximetry 88 L 04/03/24 17:09 Temperature 36.7 C 04/03/24 17:19 Temperature Source Oral 04/03/24 17:19 Pulse 82 04/03/24 17:19 Respiratory Rate 26 H 04/03/24 17:19 Blood Pressure 143/85 H 04/03/24 17:19 Blood Pressure Position Sitting 04/03/24 17:19 Pulse Oximetry 88 L 04/03/24 17:19 Oxygen Delivery Method Room Air 04/03/24 17:19 Oxygen Flow Rate 0 04/03/24 17:19 Medical Decision Making Imaging Data Radiologic Study: Radiologist's impression: PROCEDURE INFORMATION: Exam: CTA Chest With Contrast Exam date and time: 04/03/2024 7:08 PM Age: 69 years old Clinical indication: Shortness of breath; Patient HX: Pleural effusion, nodule infiltrate, SOB TECHNIQUE: Imaging protocol: Computed tomographic angiography of the chest with contrast. Exam focused on the arteries. 3D rendering (Not supervised by radiologist): MIP and/or 3D reconstructed images were created by the technologist. COMPARISON: CT CHEST PE CTA 01/07/2024 12:38 AM FINDINGS: Pulmonary arteries: Normal. No pulmonary emboli. Aorta: Unremarkable. No aortic aneurysm. No aortic dissection. Lungs: See Pleural spaces finding. Pleural spaces: Large right pleural effusion with atelectasis of right lower lobe and partial atelectasis of the right upper lobe. Consolidation in the right middle lobe may represent infiltrates/pneumonia. Heart: Unremarkable. No cardiomegaly. No pericardial effusion. Lymph nodes: Unremarkable. No enlarged lymph nodes. Bones/joints: Unremarkable. No acute fracture. Soft tissues: Unremarkable. IMPRESSION: Large right pleural effusion with atelectasis of right lower lobe and partial atelectasis of right upper lobe. Consolidation in the right middle lobe may represent infiltrates/pneumonia. No pulmonary embolism. Quality:SDOH Health Related Social Needs: Health related social needs details none has strong sneed pport system PFSH All Active Problems ACP (advance care planning) (Acute) Community acquired pneumonia (Acute) Umbilical hernia without obstruction and without gangrene (Acute) Reduced at [facility]; not containing intestine on MRI abd 11/2023. Managing with abd pressure; felt to be due to ascites and internal abd pressure. Cirrhosis of liver with ascites (Chronic) managed with surveillance and nadolol by [facility]; previously declined goal directed treatment with azathioprine. Pleural effusion associated with hepatic disorder (Acute) Complete uterine prolapse with prolapse of anterior vaginal wall (Acute) 83mm gelhorn pessary in place Desires hysterectomy with [facility] urogyn but needs to be medically stable in regards to other comorbidities first. 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 Medical History Electrical alternans Pleural effusion, right Vaginal pessary in situ 01/06/24: switched back to 83mm gelhorn as she is worried the pessary is contributing to her increasing fluid/ascites 12/30/23: increased to 89mm gelhorn pessary due to persistent prolapse around pessary Mar 2023: switched to 83mm gelhorn due to pessary falling out Oct 2022: fitted with #7 RS pessary Vasospasm of peripheral artery Acquired pancytopenia Pancreatic cyst incidental finding 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 AFP negative. Managed with azathioprine historically; repeat biopsy at [facility] negative inflammation. Surgical History History of liver biopsy (~08/2013) Family History Mother Diabetes Father Alzheimers disease Sister Depression Hypertension Sister No problems noted. Sister Rheumatoid arthritis Brother No problems noted. Brother Hypertension Son No problems noted. Daughter No problems noted. 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 Pets and animals: No Sexually active: No Do you think of yourself as: straight/heterosexual Current gender identity: female What is your relationship status?: How often do you talk on the phone with friends or family?: three or more times per week How often do you get together with friends or relatives?: three or more times per week How often do you attend bahai or protestant services?: 4 or more times per year Do you belong to any clubs or organized social groups?: no Panel score (0-1 are the most socially isolated patients): 2 What type of physical activity do you participate in: walking Duration: 15-30 minutes/day Frequency: daily Jaclyn/Jew: Pentecostalism Special jaclyn needs: No Seatbelt use: always Helmet use: No Drive intox or ride w/intox jitney driver: No Do you feel safe at home: Yes Do you feel safe in your relationship?: Yes Additional Social history: Enjoys spending time with family, playing sports/games with them. Female Reproductive History Menstrual Age of Menarche: 13 Menopause type: natural Date of menopause: 08/08/05 History History 2 Para 2 Hx # Term Pregnancies 2 Multiple births Hx # Pregnancies Ectopic pregnancies AB induced Hx Number of Living Children 2 AB spontaneous Past Pregnancies Del. Date GA/Weeks # Preg Succ Route Wgt Sex Labor Lgth Anesth esia Location Prov Complic 10/07/77 40 No vaginal 3529.516 g Male 10 09/27/82 40 No vaginal 3657.088 g Female Delivery Date: 10/07/77 Last Updated by: Yojana Daniels laceration with repair
[2024-04-03] MEDS: Albuterol/Ipratropium 3 ML UPD VIAL UPD (17:38)
[2024-04-03 17:40] LABS: Abs Immature Grans 0.06 10^3/uL (0.0-0.06); Absolute Basophil Count 0.06 10^3/uL (0.0-0.2); Absolute Eosinophil Count 0.09 10^3/uL (0.0-0.7); Absolute Lymphocyte Count 0.89 10^3/uL (1.2-3.4); Absolute Monocyte Count 0.94 10^3/uL (0.1-0.8); Absolute Neutrophil Count 7.42 10^3/uL (1.2-6.7); Basophils % 0.6 %; HCT 37.2 % (36.0-46.0); HGB 12.3 g/dL (11.2-15.7); Immature Grans % 0.6 %; Lymphocytes % 9.4 %; MCH 30.4 pg (27.0-33.0); MCHC 33.1 % (32.0-36.0); MCV 92 fL (80-95); MPV 10.2 fL (8.0-11.0); Monocytes % 9.9 %; Neutrophils % 78.5 %; Platelet Count 118 10^3/uL (130-400); RBC 4.05 10^6/uL (3.93-5.22); RDW 15.5 % (11.7-14.6); RDW-SD 52.4 fL; WBC 9.46 10^3/uL (4.4-10.8)
[2024-04-03 18:02] LABS: ALT 179 U/L (14-59); AST 193 U/L (15-37); Albumin 2.7 g/dL (3.4-5.0); Alkaline Phosphatase 91 U/L (46-116); Anion Gap 3.1 mmol/L (3-11); BUN 13 mg/dL (7-18); CO2 31.9 mmol/L (21.0-32.0); CREATININE 0.7 mg/dL (0.55-1.02); Calcium 8.5 mg/dL (8.5-10.1); Chloride 103 mmol/L (98-107); Estimated GFR 93.56 (mL/min/1.73m2); Glucose 95 mg/dL (74-106); Magnesium 1.6 mg/dL (1.8-2.4); NT-proBNP 90 pg/mL (<300); Potassium 3.7 mmol/L (3.5-5.1); Sodium 138 mmol/L (136-145); Total Protein 8.4 g/dL (6.4-8.2); Troponin I 4 ng/L (<or=51)
[2024-04-03 18:05] LABS: Procalcitonin 0.15 ng/mL
[2024-04-03 18:23] LABS: COVID-19 PCR Negative (Negative); Influenza A PCR Negative (Negative); Influenza B PCR Negative (Negative); RSV PCR Negative (Negative)
[2024-04-03 18:24] LABS: Source NASOPHARYNX
--- NOTE | 2024-04-03 18:45 | DI.CT_ITS ---
Exam(s) CT CHEST PE CTA EXAM: CT CHEST PE CTA CLINICAL HISTORY: pleural effusion, nodule infiltrate, SOB. TECHNIQUE: Imaging Protocol: CT angiography of the chest was performed using pulmonary embolus kaushal col. Multi planar reconstructions were performed. CONTRAST MATERIAL: Intravenous: Omnipaque 350 Contrast volume: 100 cc COMPARISON: CT CT CHEST PE CTA from 01/07/2024 FINDINGS: CHEST: PULMONARY ARTERIES: There are no intraluminal filling defects to suggest acute pulmonary embol in the left lung. On the right side there are no intraluminal filling defects evident within the main pulm onary artery. Most of the right lung is collapsed due to large pleural effusion and those pulmonary arteries which are visualized appear patent although there is some pulmonary arterial cutoff where doris ng is collapsed. LUNGS: There is a very large right pleural effusion and collapse of significant amount of the right l bessie related to this. The remaining aerated anterior aspect of the right upper lobe a is free of infi ltrate but there is infiltrate throughout the aerated right middle lobe. The right lower lobe is com pletely collapsed. There is shift of mediastinal structures towards the opposite-left side including trachea and mediastinal structures as well as the heart.. There is no pleural effusion on the left side. No infiltrate nor metastatic nodules in the left lung. MEDIASTINUM: Mediastinum is shifted to the left as described above. There is no hilar adenopathy on the left side. Right hilum difficult to assess because of the collapsed right lung. Partially visua lized thyroid appears unremarkable. CARDIAC: The heart is shifted towards the left. Heart size is normal.Caliber of the thoracic aorta i s within normal limits. No evidence of dissection. Ventricular ratio is 1:1 PARTIALLY VISUALIZED UPPERMOST ABDOMEN: There is ascites and there are multiple lesions in the partia lly visualized liver which are difficult to assess but may be metastatic. OSSEOUS: No significant osseous lesions.No fractures evident.. IMPRESSION: 1. Main finding here is a very large right pleural effusion with complete collapse of the right lower lobe and partial collapse of the other are right lung lobes and infiltrate throughout the remaining aerated right middle lobe..There is some right-sided pulmonary artery cutoff demonstrated but this ma y be more related to the total collapse of lung at these levels than actual pulmonary emboli. There are no discernible intraluminal filling defects on either side to suggest obvious acute pulmonary emb melony. 2. The left lung is clear and there is no pleural effusion on the left side. 3. There is significant shift of mediastinal structures to the left side, more so than on the previou s CT scan of 01/07/2024.. 4. The lowermost images of this chest study reveal ascites and multiple hypodense lesions in the inc luded upper aspect of the liver. These may be metastatic. If clinically indicated interventional radiology pigtail drainage catheter placements can be performe d. First read by [facility]. Called by myself to [facility] 04/04/2024 8 p.m. Apparently this patient is scheduled for thoracentesis or drainage tomorrow. RADIATION DOSE DELIVERED: 58.85mGy.cm Total DLP DATA REPOSITORY: All CT scans at this facility are submitted to the National Radiology Data Registry (NRDR) Dose Index Registry (DIR) with the [employer] (ACR). RADIATION OPTIMIZATION: All CT scans at this facility use at least one of these dose optimization te chniques: automated exposure control; mA and/or kV adjustment per patient size (includes targeted exa ms where dose is matched to clinical indication); or iterative reconstruction.
[2024-04-03 18:52] LABS: Troponin I 4 ng/L (<or=51)
[2024-04-03] MEDS: Magnesium Oxide 400 MG TAB PO (18:58)
[2024-04-03] MEDS: Lidocaine 5% Patch 1 PATCH TP (18:59)
[2024-04-03] MEDS: Normal Saline - Diluent 50 ML VIAL IJ (19:01)
[2024-04-03] MEDS: Omnipaque 350 MG/ML 100 ML BTL IJ (19:02)
[2024-04-03 19:54] LABS: INR 1.4 (0.9-1.1); PTT Activated 28.7 sec (20.6-30.2); Prothrombin Time 13.6 sec (9.1-11.1)
--- NOTE | 2024-04-03 20:10 | DI.VRAD_ITS ---
PROCEDURE INFORMATION: Exam: CTA Chest With Contrast Exam date and time: 04/03/2024 7:08 PM Age: 69 years old Clinical indication: Shortness of breath; Patient HX: Pleural effusion, nodule infiltrate, SOB TECHNIQUE: Imaging protocol: Computed tomographic angiography of the chest with contrast. Exam focused on the arteries. 3D rendering (Not supervised by radiologist): MIP and/or 3D reconstructed images were created by the technologist. COMPARISON: CT CHEST PE CTA 01/07/2024 12:38 AM FINDINGS: Pulmonary arteries: Normal. No pulmonary emboli. Aorta: Unremarkable. No aortic aneurysm. No aortic dissection. Lungs: See Pleural spaces finding. Pleural spaces: Large right pleural effusion with atelectasis of right lower lobe and partial atelectasis of the right upper lobe. Consolidation in the right middle lobe may represent infiltrates/pneumonia. Heart: Unremarkable. No cardiomegaly. No pericardial effusion. Lymph nodes: Unremarkable. No enlarged lymph nodes. Bones/joints: Unremarkable. No acute fracture. Soft tissues: Unremarkable. IMPRESSION: Large right pleural effusion with atelectasis of right lower lobe and partial atelectasis of right upper lobe. Consolidation in the right middle lobe may represent infiltrates/pneumonia. No pulmonary embolism. Dictated and Authenticated by: Andrea Kenny MD. Ordering:DAMON Santana MD
[2024-04-03 20:26] LABS: BE (Venous) 4 mmol/L (-2-3); HCO3 (Venous) 29 mmol/L (23-28); O2 Sat (Venous) 46 %; TCO2 (Venous) 27 mmol/L (24-29); pCO2 (Venous) 47 mmHg (41-51); pO2 (Venous) 27 mmHg
--- NOTE | 2024-04-03 20:46 | HPE_ITS ---
Date of service: 04/03/24 Time of Service: 20:46 Assessment and Plan Assessment and plan (1) Pleural effusion associated with hepatic disorder: Start date: 04/03/24 Start time: 20:56 Status: Acute Assessment and plan: The patient comes in w/a history of autoimmune hepatitis c/w portal HTN, esophageal varices and thrombocytopenia who is not on any current immunosuppressive therapy. She has had a 2 day history of chest pain and dyspnea. On exam she has decreased BS on R w/ crackles and her CT Chest shows significant pleural effusion along w/ concern for RML. I recommend that she undergo a thoracocentesis w/ fluid analysis (ph, cell count, LDH, protein, culture) and start on ABX for RML. -Consult Gen Surgery in AM for thoracocentesis and fluid analysis. In the past this was a transudative fluid most likely due to hepatic cirrhosis. No concern for SBP. -Start LVQ q24 -Obtain MRSA nare swab (2) Community acquired pneumonia: Status: Acute Assessment and plan: Significant pleural effusion c/w RML. -Cont w/ IV LVQ q 24h -MRSA swab (3) Cirrhosis of liver with ascites: Status: Chronic Assessment and plan: Plt 118k. INR 1.4, Tot Bili 1.4, AST 193, ALT 179 -Not on any immunosuppressive. Cont to monitor -GI at [facility] [place] (4) Varices of esophagus determined by endoscopy: Status: Acute Assessment and plan: -COnt w/ Nadolol 20mg daily History of Present Illness History of Present Illness Chief Complaint: Shortness of breath Narrative: The patient is a 69 y/o C F w/ PMH autoimmune hepatitis who is not on any current immunosuppressvie tx with complications to include esophageal varices, portal hypertension and thrombocytopenia who comes in tonight due to a 2 day history of chest pain and shortness of breath. Her symptoms began with a productive cough w/ clear sputum for 2 days but then progressed w/ chest pain worse on the right side which radiates between her shoulder blades and is described as a sharp pain which is worse w/ movement and is alleviated w/ rest. Associated symptoms include dyspnea w/ exertion, orthopnea and worsening of symptoms on the right side. She does not have any fever, chills or night sweats. She denies any recent weight gain or lower extremity edema. She has no abdominal pain, n/v/d. She has no hemoptysis, hematemesis, melena or hematochezia. She had a similar presentation on Dec 2023 for which she had a large volume thoracocentesis performed w/ 3.2L output which was determined to be a transudative fluid. Review of Systems Constitutional Constitutional: Denies chills, Denies fever(s), Reports lethargy and Denies night sweats Eyes Eyes: Denies blurry vision and Denies eye pain ENT Ears, Nose, Mouth, and Throat: Denies dizziness, Denies otalgia, Denies neck pain and Denies sore throat Cardiovascular Cardiovascular: Reports chest pain with activity, Denies rapid heart rate, Denies edema, Reports dyspnea on exertion and Reports orthopnea Respiratory Respiratory: Reports cough, Denies hemoptysis, Denies pain on inspiration, Reports dyspnea on exertion, Denies stridor and Reports wheezing Gastrointestinal Gastrointestinal: Denies abdominal pain, Denies melena, Denies hematochezia, Denies diarrhea, Denies loose stools, Denies nausea, Denies vomiting and Denies hematemesis Genitourinary Genitourinary: Denies hematuria Musculoskeletal Musculoskeletal: Denies arthralgias, Denies neck pain and Denies tingling Neurologic Neurologic: Denies confusion, Denies dizziness and Denies tingling Psychiatric Psychiatric: Denies confusion Allergic/Immunologic Allergic/Immunologic: Reports wheezing PFSH All Active Problems ACP (advance care planning) (Acute) Community acquired pneumonia (Acute) Umbilical hernia without obstruction and without gangrene (Acute) Reduced at [facility] [place] [facility]; not containing intestine on MRI abd 11/2023. Managing with abd pressure; felt to be due to ascites and internal abd pressure. Cirrhosis of liver with ascites (Chronic) managed with surveillance and nadolol by [facility]; previously declined goal directed treatment with azathioprine. Pleural effusion associated with hepatic disorder (Acute) Complete uterine prolapse with prolapse of anterior vaginal wall (Acute) 83mm gelhorn pessary in place Desires hysterectomy with [facility] [place] urogyn but needs to be medically stable in regards to other comorbidities first. 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 Medical History Electrical alternans Pleural effusion, right Vaginal pessary in situ 01/06/24: switched back to 83mm gelhorn as she is worried the pessary is contributing to her increasing fluid/ascites 12/30/23: increased to 89mm gelhorn pessary due to persistent prolapse around pessary Mar 2023: switched to 83mm gelhorn due to pessary falling out Oct 2022: fitted with #7 RS pessary Vasospasm of peripheral artery Acquired pancytopenia Pancreatic cyst incidental finding 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 AFP negative. Managed with azathioprine historically; repeat biopsy at [facility] [place] negative inflammation. Surgical History History of liver biopsy (~08/2013) Family History Mother Diabetes Father Alzheimers disease Sister Depression Hypertension Sister No problems noted. Sister Rheumatoid arthritis Brother No problems noted. Brother Hypertension Son No problems noted. Daughter No problems noted. 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 Pets and animals: No Sexually active: No Do you think of yourself as: straight/heterosexual Current gender identity: female What is your relationship status?: How often do you talk on the phone with friends or family?: three or more times per week How often do you get together with friends or relatives?: three or more times per week How often do you attend latter day or nondenominational services?: 4 or more times per year Do you belong to any clubs or organized social groups?: no Panel score (0-1 are the most socially isolated patients): 2 What type of physical activity do you participate in: walking Duration: 15-30 minutes/day Frequency: daily Jaclyn/Confucianism: Uatsdin Special jaclyn needs: No Seatbelt use: always Helmet use: No Drive intox or ride w/intox driver merchandiser: No Do you feel safe at home: Yes Do you feel safe in your relationship?: Yes Additional Social history: Enjoys spending time with family, playing sports/games with them. Female Reproductive History Menstrual Age of Menarche: 13 Menopause type: natural Date of menopause: 08/08/05 History History 2 2 Para 2 Hx # Term Pregnancies 2 Multiple births Hx # Pregnancies Ectopic pregnancies AB induced Hx Number of Living Children 2 AB spontaneous Past Pregnancies Del. Date GA/Weeks # Preg Succ Route Wgt Sex Labor Lgth Anesth esia Location [facility] 10/07/77 40 No vaginal 3529.516 g Male 10 09/27/82 40 No vaginal 3657.088 g Female Delivery Date: 10/07/77 Last Updated by: Yojana Daniels laceration with repair Meds Allergies and Home Medications Allergies Allergy/AdvReac Type Severity Reaction Status Date / Time prednisone Allergy Unknown Psychosis Verified 04/03/24 17:54 Home Medications ?Medication ?Instructions ?Recorded ?Confirmed ?Type multivitamin (Daily Multi-Vitamin 1 tab PO DAILY 04/13/21 04/03/24 History tablet) cholecalciferol (vitamin D3) 50 50 mcg PO DAILY 10/14/22 04/03/24 History mcg (2,000 unit) capsule milk thistle 500 mg capsule 500 mg PO DAILY 10/16/22 04/03/24 History Lactobacillus combo no.23 14 1 cell (0 x 14 billion cell) PO 11/10/23 04/03/24 Rx billion cell capsule (Joseph DAILY #90 caps Probiotic) nadolol 20 mg tablet 20 mg PO DAILY #30 tabs 11/24/23 04/03/24 Rx cyanocobalamin-liver extract tablet 1 tab PO DAILY 03/19/24 04/03/24 History selenium 200 mcg capsule 200 mcg PO DAILY 03/19/24 04/03/24 History Exam Const General: cooperative, healthy appearing, comfortable and no acute distress Orientation: alert, awake and oriented x3 HENMT Head: normal to inspection Ears: hearing grossly normal bilaterally and external ears normal General nose exam: external nose normal and nares normal Face and sinus: normal facial exam Eyes General: appearance normal, both eyes and all related structures Alignment and Position: alignment normal Eyelids: eyelids normal Neck Neck: normal visual inspection and full ROM Chest Chest: normal inspection of the chest Resp Effort & Inspection: normal respiratory effort, able to speak in complete sentences and no tracheal deviation Auscultation: crackles on the right Cardio Rate: regular rate Rhythm: regular rhythm Heart Sounds: S1 normal and S2 normal GI Inspection: normal to inspection Percussion: normal to percussion Auscultation: normal bowel sounds Other: small umbilical hernia Skin General skin exam: no rashes or lesions noted, elasticity normal and turgor normal Neuro General: patient alert, patient awake and patient oriented x3 Cranial Nerves: CN's II-XI intact bilaterally Speech: speech normal Motor: muscle tone normal throughout Extrem General: normal to inspection and no pedal edema Psych Appearance: grossly normal and well kempt Mental Status: mental status grossly normal Results Labs 04/03/24 17:28 04/03/24 17:28 Labs: Laboratory Results - last 24 hr 04/03/24 04/03/24 04/03/24 17:28 17:35 18:26 WBC 9.46 RBC 4.05 Hgb 12.3 Hct 37.2 MCV 92 MCH 30.4 MCHC 33.1 RDW 15.5 H Plt Count 118 L MPV 10.2 Immature Gran % 0.6 Neutrophils % 78.5 Lymphocytes % 9.4 Monocytes % 9.9 Eosinophils % 1.0 Basophils % 0.6 Nucleated RBC % 0.0 Absolute Neutrophils 7.42 H Absolute Lymphocytes 0.89 L Absolute Monocytes 0.94 H Absolute Eosinophils 0.09 Absolute Basophils 0.06 PT INR APTT VBG pH VBG pCO2 VBG pO2 VBG HCO3 VBG Total CO2 VBG O2 Saturation VBG Base Excess Sodium 138 Potassium 3.7 Chloride 103 Carbon Dioxide 31.9 Anion Gap 3.1 BUN 13 Creatinine 0.7 Est GFR (CKD-EPI 2020) 93.56 Glucose 95 Calcium 8.5 Magnesium 1.6 L Total Bilirubin 1.40 H AST 193 H ALT 179 H Alkaline Phosphatase 91 Troponin I 4 4 NT-Pro-B Natriuret Pep 90 Total Protein 8.4 H Albumin 2.7 L Procalcitonin 0.15 COVID-19 Source NASOPHARYNX SARS-CoV-2 (PCR) Negative Influenza Type A (PCR) Negative Influenza Type B (PCR) Negative RSV (PCR) Negative 04/03/24 04/03/24 04/03/24 19:34 20:19 20:21 WBC RBC Hgb Hct MCV MCH MCHC RDW Plt Count MPV Immature Gran % Neutrophils % Lymphocytes % Monocytes % Eosinophils % Basophils % Nucleated RBC % Absolute Neutrophils Absolute Lymphocytes Absolute Monocytes Absolute Eosinophils Absolute Basophils PT 13.6 H INR 1.4 H APTT 28.7 VBG pH 7.40 VBG pCO2 47 VBG pO2 27 VBG HCO3 29 H VBG Total CO2 27 VBG O2 Saturation 46 VBG Base Excess 4 H Sodium Potassium Chloride Carbon Dioxide Anion Gap BUN Creatinine Est GFR (CKD-EPI 2020) Glucose Calcium Magnesium Total Bilirubin AST ALT Alkaline Phosphatase Troponin I Cancelled NT-Pro-B Natriuret Pep Total Protein Albumin Procalcitonin COVID-19 Source SARS-CoV-2 (PCR) Influenza Type A (PCR) Influenza Type B (PCR) RSV (PCR) Last Vital Signs Temp 36.7 C 04/03/24 17:19 Pulse 75 04/03/24 19:31 Resp 16 04/03/24 19:31 BP 128/63 04/03/24 19:31 Pulse Ox 92 04/03/24 19:26 Time Spent Time spent with Patient: 55-74 minutes Time was spent: preparing to see the patient(eg.review tests), obtaining and/or reviewing separately otained hiistory, ordering medications,tests, procedures, referring, communicating with other health emergency care attendant, indepentently interpreting results, counseling the patient and care coordination
[2024-04-03] MEDS: CEFEPIME 2 GM in Normal Saline 100 ML IVPB (20:57)
[2024-04-03] MEDS: levoFLOXacin 750 MG/150 ML BAG 100 MG IVPB (21:24)
[2024-04-03] MEDS: Enoxaparin 40 MG/0.4 ML SYR SC (22:18)
[2024-04-03 22:37] LABS: MRSA PCR Negative (Negative)
[2024-04-03] MEDS: Ketorolac 15 MG/ML VIAL IM (23:06)
[2024-04-04] VITALS (88 sets, daily range): BP systolic 78–125; BP diastolic 38–71; PULSE 63–97; RESP 12–34; TEMP 37.3–37.7; O2SAT 95–100
[2024-04-04] MEDS: fentaNYL 100 MCG/2 ML VIAL 25 MCG IVP (02:15)
[2024-04-04 05:52] LABS: HCT 30.1 % (36.0-46.0); MCH 30.7 pg (27.0-33.0); MCHC 32.9 % (32.0-36.0); MCV 93 fL (80-95); MPV 10.3 fL (8.0-11.0); RBC 3.23 10^6/uL (3.93-5.22); RDW 15.9 % (11.7-14.6); RDW-SD 53.9 fL; WBC 8.85 10^3/uL (4.4-10.8)
[2024-04-04 06:10] LABS: HGB 9.9 g/dL (11.2-15.7); Platelet Count 83 10^3/uL (130-400)
[2024-04-04 06:12] LABS: ALT 127 U/L (14-59); AST 124 U/L (15-37); Albumin 1.9 g/dL (3.4-5.0); Alkaline Phosphatase 67 U/L (46-116); Anion Gap 0.1 mmol/L (3-11); BUN 18 mg/dL (7-18); CO2 30.9 mmol/L (21.0-32.0); CREATININE 0.9 mg/dL (0.55-1.02); Calcium 7.9 mg/dL (8.5-10.1); Chloride 105 mmol/L (98-107); Glucose 107 mg/dL (74-106); Sodium 136 mmol/L (136-145); Total Protein 6.8 g/dL (6.4-8.2)
[2024-04-04] MEDS: Lidocaine Patch Removal 1 EACH TP (08:10)
--- NOTE | 2024-04-04 09:31 | INITIAL_ITS ---
Date of service: 04/04/24 Time of Service: 09:31 Care Management Initial Assmt Initial Assessment Reason for Hospitalization: autoimmune hepatitis Pneumonia Functional Status/Living Situation Patient Presentation: Samara was sitting up in bed when CM met with her. She was pleasant in manner and agreeable to conversation. Samara, or Eden Barroso as her mother called her, was admitted with pneumonia and complications of autoimmune hepatitis. She has a large pleural effusion for which a surgical consult has been requested. Eden Barroso lives in a large single family home in [place] with her son, his and their 6 children. She noted that it is a very busy household with kids ranging from 5 to 19. She also has a daughter who lives in [place]. 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 She is independent at baseline and does not receive any community services. Town of Residence: [place] Resides with: Child (lives with son, [id number] and their 6 children) Significant Other/Family: Out of area (daughter in [place]) Natural Supports: children Cesar and Latoya Employment Status: Retired Instrumental Activities of Daily Living (ADLs): Independent Medications Medication Management: No Issues/Barriers identified Physical Functioning/Mobility Assistive Device: none Advance Directives Advance Directives: Do you have an Advance Directive: Y 10/16/22 16:20 AD On File at [facility]: Y 10/16/22 16:20 Date Asked 04/03/24 04/03/24 21:25 AD Date Reviewed 04/03/24 04/03/24 17:11 COLST On File at [facility] No 04/03/24 17:11 COLST Date Scanned Code Status Resuscitation Status Full Code Insurance Coverage/Financial Issues Insurance: [facility] Care Team Visit Care Team Role Provider Type Sruthi Eden MD Primary Care Provider [facility] STAFF PHYSICIAN Esther Napoles Emergency Provider NURSE PRACTITIONER Jonathan Thayer MD Admit Provider [facility] STAFF PHYSICIAN Attending Provider Other Providers Discharge Potential Discharge Needs: PCP F/U Appt Anticipated Barriers to Discharge: None Identified Patient/Family Education Needs: Review discharge instructions, discuss Ask Me Three Transportation: Private vehicle Plan: Anticipate Samara will be discharged home with no new services when medically stable. She will follow up with her community providers and plan of care and transport with family. CM will follow and continue to assess for discharge needs. Social Determinants of Health Screening Will the Patient Participate in the Screening?: Unable to obtain PFSH All Active Problems (Updated 04/04/24 @ 13:59 by Haroon Ha) Anemia (Chronic) Hypotension (Acute) DVT prophylaxis (Acute) ACP (advance care planning) (Acute) Community acquired pneumonia (Acute) Umbilical hernia without obstruction and without gangrene (Acute) Reduced at [facility] [place] [place] [facility]; not containing intestine on MRI abd 11/2023. Managing with abd pressure; felt to be due to ascites and internal abd pressure. Cirrhosis of liver with ascites (Chronic) managed with surveillance and nadolol by [facility]; previously declined goal directed treatment with azathioprine. Pleural effusion associated with hepatic disorder (Acute) Complete uterine prolapse with prolapse of anterior vaginal wall (Acute) 83mm gelhorn pessary in place Desires hysterectomy with [facility] [place] [place] urogyn but needs to be medically stable in regards to other comorbidities first. 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 Medical History Electrical alternans Pleural effusion, right Vaginal pessary in situ 01/06/24: switched back to 83mm gelhorn as she is worried the pessary is contributing to her increasing fluid/ascites 12/30/23: increased to 89mm gelhorn pessary due to persistent prolapse around pessary Mar 2023: switched to 83mm gelhorn due to pessary falling out Oct 2022: fitted with #7 RS pessary Vasospasm of peripheral artery Acquired pancytopenia Pancreatic cyst incidental finding 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 AFP negative. Managed with azathioprine historically; repeat biopsy at [facility] [place] [place] negative inflammation. Surgical History History of liver biopsy (~08/2013) Family History Mother Diabetes Father Alzheimers disease Sister Depression Hypertension Sister No problems noted. Sister Rheumatoid arthritis Brother No problems noted. Brother Hypertension Son No problems noted. Daughter No problems noted. 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 Pets and animals: No Sexually active: No Do you think of yourself as: straight/heterosexual Current gender identity: female What is your relationship status?: How often do you talk on the phone with friends or family?: three or more times per week How often do you get together with friends or relatives?: three or more times per week How often do you attend restorationism or sikhism services?: 4 or more times per year Do you belong to any clubs or organized social groups?: no Panel score (0-1 are the most socially isolated patients): 2 What type of physical activity do you participate in: walking Duration: 15-30 minutes/day Frequency: daily Jaclyn/Episcopalian: Restorationist Special jaclyn needs: No Seatbelt use: always Helmet use: No Drive intox or ride w/intox front end driver: No Do you feel safe at home: Yes Do you feel safe in your relationship?: Yes Additional Social history: Enjoys spending time with family, playing sports/games with them. Female Reproductive History Menstrual Age of Menarche: 13 Menopause type: natural Date of menopause: 08/08/05 History History 2 Para 2 Hx # Term Pregnancies 2 Multiple births Hx # Pregnancies Ectopic pregnancies AB induced Hx Number of Living Children 2 AB spontaneous Past Pregnancies Del. Date GA/Weeks # Preg Succ Route Wgt Sex Labor Lgth Anesth esia Location Prov Complic 10/07/77 40 No vaginal 3529.516 g Male 10 09/27/82 40 No vaginal 3657.088 g Female Delivery Date: 10/07/77 Last Updated by: Yojana Daniels laceration with repair
[2024-04-04] MEDS: Lactated Ringers 500 ML IV (10:27)
[2024-04-04] MEDS: MAGNESIUM SULFATE 1 GM/100 ML BAG IV_INF (11:57)
--- NOTE | 2024-04-04 13:34 | W.PC.ACHO ---
Registration Status: Primary Language: Preferred Language: ED Information & Data Chief Complaint RespSymp 04/03/24 17:42 Chief Complaint RespSymp 04/03/24 17:27 Triage Note Pt has pneumonia in oct, 04/03/24 17:09 last few days began to feel worse, coughing up phlegm, short of breath, audible wheezing in triage. 88% on RA on arrival. 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 Acquired pancytopenia Pancreatic cyst Steroid-induced psychosis Nephrolithiasis Autoimmune hepatitis (Last Reviewed 03/20/24 @ 09:25 by JULIANNA Milton) History of liver biopsy (~08/2013) Most Recent Vital Signs Temperature 36.7 C 04/03/24 17:19 Temperature Source Oral 04/03/24 17:19 Pulse 70 04/04/24 13:00 Pulse 71 04/04/24 13:00 Respiratory Rate 24 04/04/24 13:00 Respiratory Effort Short of Breath 04/03/24 17:42 Respiratory Depth Normal 04/03/24 17:42 Blood Pressure 87/45 L 04/04/24 13:00 Blood Pressure Mean 56 04/04/24 13:00 Blood Pressure Position Sitting 04/03/24 17:19 Pulse Oximetry 100 04/04/24 13:00 Oxygen Delivery Method Room Air 04/03/24 17:19 Oxygen Flow Rate 0 04/03/24 17:19 Pain Level 8 04/04/24 02:[address] Ha aware of BP; BP checked manually 04/04/24 08:00 Allergies prednisone Allergy (Unknown, Verified 04/03/24 17:54) Psychosis psychosis Precautions Isolation Standard precaution 04/03/24 17:42 Active Medications Generic Name Dose Route Start Last Admin Trade Name Freq PRN Reason Stop Dose Admin Enoxaparin Sodium 40 mg 04/03/24 22:00 04/03/24 22:18 Enoxaparin 40 Mg/0.4 Ml Syr SC 40 mg Q24H DANTE Administration Ketorolac Tromethamine 15 mg 04/03/24 22:39 04/03/24 23:06 Ketorolac 15 Mg/Ml Vial IM 04/08/24 22:38 15 mg Q6H PRN PRN Administration Miscellaneous 1 each 04/04/24 07:30 04/04/24 08:10 Lidocaine Patch Removal TP 1 each DAILY@0600 DANTE Administration Nadolol 20 mg 04/04/24 08:30 04/04/24 10:20 Nadolol 40 Mg Tab PO Not Given DAILY DANTE IV IV Catheter Type [Right Saline Lock Antecubital] IV Catheter Gauge [Right 18 Antecubital] Diet Orders Category Date Time Status npo [Nothing Per Oral] [DIET] Nutrition 04/04/24 Breakfast Active Diagnostics 04/04/24 04/03/24 04/03/24 Range/Units 05:42 21:20 20:21 WBC 8.85 (4.4-10.8) 10^3/uL RBC 3.23 L (3.93-5.22) 10^6/uL Hgb 9.9 L D (11.2-15.7) g/dL Hct 30.1 L (36.0-46.0) % MCV 93 (80-95) fL MCH 30.7 (27.0-33.0) pg MCHC 32.9 (32.0-36.0) % RDW 15.9 H (11.7-14.6) % Plt Count 83 L (130-400) 10^3/uL MPV 10.3 (8.0-11.0) fL Immature Gran % % Neutrophils % % Lymphocytes % % Monocytes % % Eosinophils % % Basophils % % Nucleated RBC % (0.0-0.3) % Absolute Neutrophils (1.2-6.7) 10^3/uL Absolute Lymphocytes (1.2-3.4) 10^3/uL Absolute Monocytes (0.1-0.8) 10^3/uL Absolute Eosinophils (0.0-0.7) 10^3/uL Absolute Basophils (0.0-0.2) 10^3/uL PT (9.1-11.1) sec INR (0.9-1.1) APTT (20.6-30.2) sec VBG pH (7.31-7.41) VBG pCO2 (41-51) mmHg VBG pO2 mmHg VBG HCO3 (23-28) mmol/L VBG Total CO2 (24-29) mmol/L VBG O2 Saturation % VBG Base Excess (-2-3) mmol/L Sodium 136 (136-145) mmol/L Potassium 4.0 (3.5-5.1) mmol/L Chloride 105 (98-107) mmol/L Carbon Dioxide 30.9 (21.0-32.0) mmol/L Anion Gap 0.1 L (3-11) mmol/L BUN 18 (7-18) mg/dL Creatinine 0.9 (0.55-1.02) mg/dL Est GFR (CKD-EPI 2020) 69.20 (mL/min/1.73m2) Glucose 107 H (74-106) mg/dL Calcium 7.9 L (8.5-10.1) mg/dL Magnesium (1.8-2.4) mg/dL Total Bilirubin 1.40 H (0.2-1.0) mg/dL AST 124 H (15-37) U/L ALT 127 H (14-59) U/L Alkaline Phosphatase 67 (46-116) U/L Troponin I Cancelled (<or=51) ng/L NT-Pro-B Natriuret Pep (<300) pg/mL Total Protein 6.8 (6.4-8.2) g/dL Albumin 1.9 L (3.4-5.0) g/dL Procalcitonin ng/mL COVID-19 Source SARS-CoV-2 (PCR) (Negative) Influenza Type A (PCR) (Negative) Influenza Type B (PCR) (Negative) RSV (PCR) (Negative) MRSA (TEM-PCR) Negative (Negative) Add-On Test Request 04/03/24 04/03/24 04/03/24 Range/Units 20:19 19:34 18:59 WBC (4.4-10.8) 10^3/uL RBC (3.93-5.22) 10^6/uL Hgb (11.2-15.7) g/dL Hct (36.0-46.0) % MCV (80-95) fL MCH (27.0-33.0) pg MCHC (32.0-36.0) % RDW (11.7-14.6) % Plt Count (130-400) 10^3/uL MPV (8.0-11.0) fL Immature Gran % % Neutrophils % % Lymphocytes % % Monocytes % % Eosinophils % % Basophils % % Nucleated RBC % (0.0-0.3) % Absolute Neutrophils (1.2-6.7) 10^3/uL Absolute Lymphocytes (1.2-3.4) 10^3/uL Absolute Monocytes (0.1-0.8) 10^3/uL Absolute Eosinophils (0.0-0.7) 10^3/uL Absolute Basophils (0.0-0.2) 10^3/uL PT 13.6 H (9.1-11.1) sec INR 1.4 H (0.9-1.1) APTT 28.7 (20.6-30.2) sec VBG pH 7.40 (7.31-7.41) VBG pCO2 47 (41-51) mmHg VBG pO2 27 mmHg VBG HCO3 29 H (23-28) mmol/L VBG Total CO2 27 (24-29) mmol/L VBG O2 Saturation 46 % VBG Base Excess 4 H (-2-3) mmol/L Sodium (136-145) mmol/L Potassium (3.5-5.1) mmol/L Chloride (98-107) mmol/L Carbon Dioxide (21.0-32.0) mmol/L Anion Gap (3-11) mmol/L BUN (7-18) mg/dL Creatinine (0.55-1.02) mg/dL Est GFR (CKD-EPI 2020) (mL/min/1.73m2) Glucose (74-106) mg/dL Calcium (8.5-10.1) mg/dL Magnesium (1.8-2.4) mg/dL Total Bilirubin (0.2-1.0) mg/dL AST (15-37) U/L ALT (14-59) U/L Alkaline Phosphatase (46-116) U/L Troponin I (<or=51) ng/L NT-Pro-B Natriuret Pep (<300) pg/mL Total Protein (6.4-8.2) g/dL Albumin (3.4-5.0) g/dL Procalcitonin ng/mL COVID-19 Source SARS-CoV-2 (PCR) (Negative) Influenza Type A (PCR) (Negative) Influenza Type B (PCR) (Negative) RSV (PCR) (Negative) MRSA (TEM-PCR) (Negative) Add-On Test Request Cancelled 04/03/24 04/03/24 04/03/24 Range/Units 18:26 17:35 17:28 WBC 9.46 (4.4-10.8) 10^3/uL RBC 4.05 (3.93-5.22) 10^6/uL Hgb 12.3 (11.2-15.7) g/dL Hct 37.2 (36.0-46.0) % MCV 92 (80-95) fL MCH 30.4 (27.0-33.0) pg MCHC 33.1 (32.0-36.0) % RDW 15.5 H (11.7-14.6) % Plt Count 118 L (130-400) 10^3/uL MPV 10.2 (8.0-11.0) fL Immature Gran % 0.6 % Neutrophils % 78.5 % Lymphocytes % 9.4 % Monocytes % 9.9 % Eosinophils % 1.0 % Basophils % 0.6 % Nucleated RBC % 0.0 (0.0-0.3) % Absolute Neutrophils 7.42 H (1.2-6.7) 10^3/uL Absolute Lymphocytes 0.89 L (1.2-3.4) 10^3/uL Absolute Monocytes 0.94 H (0.1-0.8) 10^3/uL Absolute Eosinophils 0.09 (0.0-0.7) 10^3/uL Absolute Basophils 0.06 (0.0-0.2) 10^3/uL PT (9.1-11.1) sec INR (0.9-1.1) APTT (20.6-30.2) sec VBG pH (7.31-7.41) VBG pCO2 (41-51) mmHg VBG pO2 mmHg VBG HCO3 (23-28) mmol/L VBG Total CO2 (24-29) mmol/L VBG O2 Saturation % VBG Base Excess (-2-3) mmol/L Sodium 138 (136-145) mmol/L Potassium 3.7 (3.5-5.1) mmol/L Chloride 103 (98-107) mmol/L Carbon Dioxide 31.9 (21.0-32.0) mmol/L Anion Gap 3.1 (3-11) mmol/L BUN 13 (7-18) mg/dL Creatinine 0.7 (0.55-1.02) mg/dL Est GFR (CKD-EPI 2020) 93.56 (mL/min/1.73m2) Glucose 95 (74-106) mg/dL Calcium 8.5 (8.5-10.1) mg/dL Magnesium 1.6 L (1.8-2.4) mg/dL Total Bilirubin 1.40 H (0.2-1.0) mg/dL AST 193 H (15-37) U/L ALT 179 H (14-59) U/L Alkaline Phosphatase 91 (46-116) U/L Troponin I 4 4 (<or=51) ng/L NT-Pro-B Natriuret Pep 90 (<300) pg/mL Total Protein 8.4 H (6.4-8.2) g/dL Albumin 2.7 L (3.4-5.0) g/dL Procalcitonin 0.15 ng/mL COVID-19 Source NASOPHARYNX SARS-CoV-2 (PCR) Negative (Negative) Influenza Type A (PCR) Negative (Negative) Influenza Type B (PCR) Negative (Negative) RSV (PCR) Negative (Negative) MRSA (TEM-PCR) (Negative) Add-On Test Request Intake and Output - 24 Hour Total 04/03/24 17:06 thru 04/04/24 11:27 Intake Total 750 Balance 750 Weight 63.503 kg Intake: IV 750 Other: # Voids 1 Falls Risk Assessment History of Falls No History 04/03/24 17:43 Contributing Factors No Factors 04/03/24 17:43 Ambulatory Aids Independent 04/03/24 17:43 Tubes/Lines None 04/03/24 17:43 Gait Evaluation No gait disturbance 04/03/24 17:43 Cognition No cognitive impairment 04/03/24 17:43 Fall Total Score 0 04/03/24 17:43 Level of Risk Standard/Low Risk 04/03/24 17:43 Problems (Last Reviewed 03/20/24 @ 09:25 by JULIANNA Milton) Community acquired pneumonia (Acute) Cirrhosis of liver with ascites (Chronic) Pleural effusion associated with hepatic disorder (Acute) Varices of esophagus determined by endoscopy (Acute) v v v v v v v v v Sending and/or Receiving Nurses: Please use comment section below to note any information pertinent to the patient hand-off not included above. Information / Comments:Patient comes from home. Diagnosed with PNA. 18g RAC. Patient known to be hypotensive and asymptomatic. Slight cough but does not desat. but does take a minute to recover. AxOx4 Report received from: AXEL Abraham 13:30
--- NOTE | 2024-04-04 13:39 | W.PM.PROGNOT ---
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 -Continue IV LVQ q 24h -MRSA swab negative (2) Pleural effusion associated with hepatic disorder: Start date: 04/03/24 Start time: 20:56 Status: Acute Assessment and plan: Trigger is right sided pneumonia, with effusion forming due to her underlying cirrhosis. -Consulted Gen Surgery in AM for thoracocentesis and fluid analysis. In the past this was a transudative fluid most likely due to hepatic cirrhosis. (3) Cirrhosis of liver with ascites: Status: Chronic Assessment and plan: Dx autoimmune hepatitis not on immune suppressive therapy Plt 118k. INR 1.4, Tot Bili 1.4, AST 193, ALT 179 Labs and clinical presenation not c/w worsening decompensation of her liver disease. Cont to monitor (4) Varices of esophagus determined by endoscopy: Status: Acute Assessment and plan: -COnt w/ Nadolol 20mg daily (held today with low BP) -no bleeding but H/h down (5) Hypotension: Status: Acute Assessment and plan: BPs run low but lower than baseline while NPO with active infection. Responded to gentle fluids. (6) DVT prophylaxis: Status: Acute Assessment and plan: enoxaparin (7) Anemia: Status: Chronic Assessment and plan: Drop in h/h today but to level previous baseline which may be fluid shift, no clinical bleed, follow. Heme stool. Subjective Subjective Patient reports: voiding w/o difficulty; denies diarrhea, blood in stool, nausea, vomiting or fever Interval history since last seen: 24 hr: has been NPO pending thoracentesis. BPs low in 80s/40s, responded to 500ml LR bolus she feels okay. She is not dizzy now. Shortness of breath is not severe, about the same. She has no abdominal pain. Pain is in right mid back to the shoulder blade and worse with breathing. Exam Narrative Exam Narrative: GEN: alert and oriented, speaking in full sentances, NAD LUNGS: slight rales and diminished breath sounds right base, no wheeze, mild increase WOB CV: RRR, 2/6 systolic murmur ABD: Soft, mild distension, slight fluid wave. no masses, not tender. Ext: no cyanosis, clubbing. Trace pedal edema anya. Objective Last Vital Signs Temp 36.7 C 04/03/24 17:19 Pulse 70 04/04/24 13:00 Resp 24 04/04/24 13:00 BP 87/45 L 04/04/24 13:00 Pulse Ox 100 04/04/24 13:00 Laboratory Results - last 24 hr 04/03/24 04/03/24 04/03/24 17:28 17:35 18:26 WBC 9.46 RBC 4.05 Hgb 12.3 Hct 37.2 MCV 92 MCH 30.4 MCHC 33.1 RDW 15.5 H Plt Count 118 L MPV 10.2 Immature Gran % 0.6 Neutrophils % 78.5 Lymphocytes % 9.4 Monocytes % 9.9 Eosinophils % 1.0 Basophils % 0.6 Nucleated RBC % 0.0 Absolute Neutrophils 7.42 H Absolute Lymphocytes 0.89 L Absolute Monocytes 0.94 H Absolute Eosinophils 0.09 Absolute Basophils 0.06 PT INR APTT VBG pH VBG pCO2 VBG pO2 VBG HCO3 VBG Total CO2 VBG O2 Saturation VBG Base Excess Sodium 138 Potassium 3.7 Chloride 103 Carbon Dioxide 31.9 Anion Gap 3.1 BUN 13 Creatinine 0.7 Est GFR (CKD-EPI 2020) 93.56 Glucose 95 Calcium 8.5 Magnesium 1.6 L Total Bilirubin 1.40 H AST 193 H ALT 179 H Alkaline Phosphatase 91 Troponin I 4 4 NT-Pro-B Natriuret Pep 90 Total Protein 8.4 H Albumin 2.7 L Procalcitonin 0.15 COVID-19 Source NASOPHARYNX SARS-CoV-2 (PCR) Negative Influenza Type A (PCR) Negative Influenza Type B (PCR) Negative RSV (PCR) Negative MRSA (TEM-PCR) Add-On Test Request 04/03/24 04/03/24 04/03/24 18:59 19:34 20:19 WBC RBC Hgb Hct MCV MCH MCHC RDW Plt Count MPV Immature Gran % Neutrophils % Lymphocytes % Monocytes % Eosinophils % Basophils % Nucleated RBC % Absolute Neutrophils Absolute Lymphocytes Absolute Monocytes Absolute Eosinophils Absolute Basophils PT 13.6 H INR 1.4 H APTT 28.7 VBG pH 7.40 VBG pCO2 47 VBG pO2 27 VBG HCO3 29 H VBG Total CO2 27 VBG O2 Saturation 46 VBG Base Excess 4 H Sodium Potassium Chloride Carbon Dioxide Anion Gap BUN Creatinine Est GFR (CKD-EPI 2020) Glucose Calcium Magnesium Total Bilirubin AST ALT Alkaline Phosphatase Troponin I NT-Pro-B Natriuret Pep Total Protein Albumin Procalcitonin COVID-19 Source SARS-CoV-2 (PCR) Influenza Type A (PCR) Influenza Type B (PCR) RSV (PCR) MRSA (TEM-PCR) Add-On Test Request Cancelled 04/03/24 04/03/24 04/04/24 20:21 21:20 05:42 WBC 8.85 RBC 3.23 L Hgb 9.9 L D Hct 30.1 L MCV 93 MCH 30.7 MCHC 32.9 RDW 15.9 H Plt Count 83 L MPV 10.3 Immature Gran % Neutrophils % Lymphocytes % Monocytes % Eosinophils % Basophils % Nucleated RBC % Absolute Neutrophils Absolute Lymphocytes Absolute Monocytes Absolute Eosinophils Absolute Basophils PT INR APTT VBG pH VBG pCO2 VBG pO2 VBG HCO3 VBG Total CO2 VBG O2 Saturation VBG Base Excess Sodium 136 Potassium 4.0 Chloride 105 Carbon Dioxide 30.9 Anion Gap 0.1 L BUN 18 Creatinine 0.9 Est GFR (CKD-EPI 2020) 69.20 Glucose 107 H Calcium 7.9 L Magnesium Total Bilirubin 1.40 H AST 124 H ALT 127 H Alkaline Phosphatase 67 Troponin I Cancelled NT-Pro-B Natriuret Pep Total Protein 6.8 Albumin 1.9 L Procalcitonin COVID-19 Source SARS-CoV-2 (PCR) Influenza Type A (PCR) Influenza Type B (PCR) RSV (PCR) MRSA (TEM-PCR) Negative Add-On Test Request Time Spent with Patient Time Spent with Patient: 35-49 minutes Time was spent: preparing to see the patient(eg.review tests), obtaining and/or reviewing separately otained hiistory, ordering medications,tests, procedures, referring, communicating with other health medicare compliance auditor, indepentently interpreting results, counseling the patient and care coordination
[2024-04-04] MEDS: levoFLOXacin 750 MG/150 ML BAG 100 MG IVPB (21:29)
[2024-04-04] MEDS: Normal Saline Flush 10 ML SYR (21:30)
[2024-04-05] VITALS (7 sets, daily range): BP systolic 111–156; BP diastolic 52–72; PULSE 82–93; RESP 1–20; TEMP 36.7–38; O2SAT 91–99
[2024-04-05] MEDS: Normal Saline Flush 10 ML SYR
[2024-04-05 07:09] LABS: Abs Immature Grans 0.07 10^3/uL (0.0-0.06); Absolute Basophil Count 0.03 10^3/uL (0.0-0.2); Absolute Eosinophil Count 0.07 10^3/uL (0.0-0.7); Absolute Lymphocyte Count 1.04 10^3/uL (1.2-3.4); Absolute Monocyte Count 1.57 10^3/uL (0.1-0.8); Absolute Neutrophil Count 8.07 10^3/uL (1.2-6.7); Basophils % 0.3 %; Eosinophils % 0.6 %; HCT 31.3 % (36.0-46.0); HGB 10.4 g/dL (11.2-15.7); Immature Grans % 0.6 %; Lymphocytes % 9.6 %; MCH 30.4 pg (27.0-33.0); MCHC 33.2 % (32.0-36.0); MCV 92 fL (80-95); Monocytes % 14.5 %; Neutrophils % 74.4 %; RBC 3.42 10^6/uL (3.93-5.22); RDW-SD 52.9 fL; WBC 10.85 10^3/uL (4.4-10.8)
[2024-04-05 07:14] LABS: INR 1.4 (0.9-1.1); Prothrombin Time 13.6 sec (9.1-11.1)
[2024-04-05 07:25] LABS: ALT 101 U/L (14-59); AST 83 U/L (15-37); Alkaline Phosphatase 65 U/L (46-116); Anion Gap -0.2 mmol/L (3-11); BUN 22 mg/dL (7-18); Bilirubin, Total 0.77 mg/dL (0.2-1.0); CO2 32.2 mmol/L (21.0-32.0); CREATININE 0.7 mg/dL (0.55-1.02); Calcium 7.8 mg/dL (8.5-10.1); Chloride 106 mmol/L (98-107); Estimated GFR 93.56 (mL/min/1.73m2); Glucose 127 mg/dL (74-106); Magnesium 1.6 mg/dL (1.8-2.4); Potassium 4.4 mmol/L (3.5-5.1); Sodium 138 mmol/L (136-145); Total Protein 6.8 g/dL (6.4-8.2)
[2024-04-05 07:36] LABS: Diff Comment Diff Reviewed; Platelet Count 99 10^3/uL (130-400); RBC Morphology Normal
--- NOTE | 2024-04-05 09:01 | CMPROGNOTE_ITS ---
Date of service: 04/05/24 Time of Service: 09:01 Care Management Progress Note Progress Note Text Progress Note Text: Samara was sitting up in bed when CM met with her. She is pleasant and easily engages in conversation. She [place] [facility] [place], drain [place]. In the meantime, she is eager to eat and wants to order dinner. CC RN notified and will discuss dietary restrictions with Dr. Street. Per pt, her son visited today and she has been keeping her family updated, as needed. Discharge Potential Discharge Needs: PCP F/U Appt Anticipated Barriers to Discharge: None Identified Patient/Family Education Needs: Review discharge instructions, discuss Ask Me Three Transportation: Private vehicle Plan: Samara is planning on going [place] [facility] [place] a down and back, drain placement. EMS will be coordinated by MS. Anticipate, Samara will be discharged home with no new services when medically stable. She will follow up with her community providers and plan of care and transport with family. CM will follow and continue to assess for discharge needs. Social Determinants of Health Screening Social Determinants of Health last assessed: 04/05/24 Will the Patient Participate in the Screening?: Yes Do you worry about having a steady place to live?: no Problems where you live: pests such as bugs, ants or mice In the past 12 months, have you had to go without electric, gas, oil or water in your home?: no Have you or anyone in your house had to go without enough food to eat?: no Has lack of transportation kept you from medical appointments or from doing things needed for daily living?: no Has anyone in your life made you feel unsafe or unsupported?: no How hard is it for you to pay for the very basics like food, housing, medical care, and heating? Would you say it is:: Somewhat hard Do you want help finding or keeping work or a job?: I do not need or want help If for any reason you need help with day-to-day activities such as bathing, preparing meals, shopping, managing finances, etc., do you get the help you need?: I get all the help I need How often do you feel lonely or isolated from those around you?: Never Do you speak a language other than Uzbek at home?: Yes Does the patient want assistance with any of the above?: Yes Social Determinants of Health Comments(SDOH Details): Applied for financial assistance from [facility] community Health Related Social Needs Health related social needs: inadequate housing (Z59.1), problems related to housing/economic circumstances (Z59.89) and education (Z55.6)
[2024-04-05] MEDS: Albuterol 2.5 MG/3 ML INH SOLN VIAL UPD ×2 (10:07→20:17)
[2024-04-05] MEDS: Nadolol 40 MG TAB 20 MG PO (10:35)
--- NOTE | 2024-04-05 17:33 | W.PM.PROGNOT ---
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 -Continue IV LVQ q 24h -MRSA swab negative pt on levaquin (2) Pleural effusion associated with hepatic disorder: Start date: 04/03/24 Start time: 20:56 Status: Acute Assessment and plan: Trigger is right sided pneumonia, with effusion forming due to her underlying cirrhosis. -Consulted Gen Surgery in AM for thoracocentesis and fluid analysis. In the past this was a transudative fluid most likely due to hepatic cirrhosis. 04/05/24 Pt has an appt tomorrow at 1300 for chest tube placement at [facility] (3) Cirrhosis of liver with ascites: Status: Chronic Assessment and plan: Dx autoimmune hepatitis not on immune suppressive therapy Plt 118k. INR 1.4, Tot Bili 1.4, AST 193, ALT 179 Labs and clinical presenation not c/w worsening decompensation of her liver disease. Cont to monitor (4) Varices of esophagus determined by endoscopy: Status: Acute Assessment and plan: -COnt w/ Nadolol 20mg daily (held today with low BP) -no bleeding but H/h down (5) Hypotension: Status: Acute Assessment and plan: BPs run low but lower than baseline while NPO with active infection. Responded to gentle fluids. (6) DVT prophylaxis: Status: Acute Assessment and plan: enoxaparin (7) Anemia: Status: Chronic Assessment and plan: Drop in h/h today but to level previous baseline which may be fluid shift, no clinical bleed, follow. Heme stool. Subjective Subjective Interval history since last seen: PT seen and examined in her room this am. PT for down an back for IR drain placement Exam Narrative Exam Narrative: GEN: alert and oriented, speaking in full sentances, NAD LUNGS: slight rales and diminished breath sounds right base, no wheeze, mild increase WOB CV: RRR, 2/6 systolic murmur ABD: Soft, mild distension, slight fluid wave. no masses, not tender. Ext: no cyanosis, clubbing. Trace pedal edema anya. Objective Last Vital Signs Temp 38.0 C H 04/05/24 15:28 Pulse 85 01/27/25 15:28 Resp 19 04/05/24 15:28 BP 131/69 04/05/24 15:28 Pulse Ox 96 04/05/24 15:28 Laboratory Results - last 24 hr 04/05/24 06:53 WBC 10.85 H RBC 3.42 L Hgb 10.4 L Hct 31.3 L MCV 92 MCH 30.4 MCHC 33.2 RDW 16.0 H Plt Count 99 L MPV 10.0 Immature Gran % 0.6 Neutrophils % 74.4 Lymphocytes % 9.6 Monocytes % 14.5 Eosinophils % 0.6 Basophils % 0.3 Nucleated RBC % 0.0 Absolute Neutrophils 8.07 H Absolute Lymphocytes 1.04 L Absolute Monocytes 1.57 H Absolute Eosinophils 0.07 Absolute Basophils 0.03 RBC Morphology Normal PT 13.6 H INR 1.4 H Sodium 138 Potassium 4.4 Chloride 106 Carbon Dioxide 32.2 H Anion Gap -0.2 L BUN 22 H Creatinine 0.7 Est GFR (CKD-EPI 2020) 93.56 Glucose 127 H Calcium 7.8 L Magnesium 1.6 L Total Bilirubin 0.77 AST 83 H ALT 101 H Alkaline Phosphatase 65 Total Protein 6.8 Albumin 2.0 L Time Spent with Patient Time Spent with Patient: 35-49 minutes Time was spent: preparing to see the patient(eg.review tests), obtaining and/or reviewing separately otained hiistory, ordering medications,tests, procedures, referring, communicating with other health career law clerk, indepentently interpreting results, counseling the patient and care coordination
[2024-04-05] MEDS: levoFLOXacin 750 MG/150 ML BAG 100 MG IVPB (20:39)
[2024-04-06 03:23] VITALS: BP 118/63; PULSE 84; RESP 15; TEMP 37; O2SAT 96
[2024-04-06 07:24] LABS: Abs Immature Grans 0.04 10^3/uL (0.0-0.06); Absolute Basophil Count 0.04 10^3/uL (0.0-0.2); Absolute Eosinophil Count 0.15 10^3/uL (0.0-0.7); Absolute Lymphocyte Count 0.58 10^3/uL (1.2-3.4); Absolute Monocyte Count 1.35 10^3/uL (0.1-0.8); Absolute Neutrophil Count 7.04 10^3/uL (1.2-6.7); Basophils % 0.4 %; Eosinophils % 1.6 %; HCT 31.9 % (36.0-46.0); HGB 10.6 g/dL (11.2-15.7); Immature Grans % 0.4 %; Lymphocytes % 6.3 %; MCH 30.6 pg (27.0-33.0); MCHC 33.2 % (32.0-36.0); MCV 92 fL (80-95); MPV 9.7 fL (8.0-11.0); Monocytes % 14.7 %; Neutrophils % 76.6 %; Platelet Count 101 10^3/uL (130-400); RBC 3.46 10^6/uL (3.93-5.22); RDW 16.3 % (11.7-14.6); RDW-SD 54.5 fL
[2024-04-06 07:30] VITALS: BP 136/71; PULSE 84; RESP 20; TEMP 37.4; O2SAT 98
[2024-04-06 07:45] LABS: ALT 79 U/L (14-59); AST 56 U/L (15-37); Alkaline Phosphatase 60 U/L (46-116); Anion Gap 0.4 mmol/L (3-11); BUN 17 mg/dL (7-18); Bilirubin, Total 0.95 mg/dL (0.2-1.0); CO2 30.6 mmol/L (21.0-32.0); CREATININE 0.6 mg/dL (0.55-1.02); Calcium 8.4 mg/dL (8.5-10.1); Chloride 106 mmol/L (98-107); Glucose 135 mg/dL (74-106); Potassium 4.7 mmol/L (3.5-5.1); Sodium 137 mmol/L (136-145)
[2024-04-06 07:57] VITALS: O2SAT 98
--- NOTE | 2024-04-06 08:28 | PDOC.CMPRO ---
Date of service: 04/06/24 Time of Service: 08:28 Care Management Progress Note Progress Note Text Progress Note Text: Samara went to [facility] for a down and back drain placement. CM will follow. Discharge Anticipated Barriers to Discharge: Medical Status Patient/Family Education Needs: Review discharge instructions, discuss Ask Me Three Transportation: Private vehicle Plan: Samara went to [facility] for a down and back, drain placement. EMS will be coordinated by MS. Anticipate, Samara will be discharged home with no new services when medically stable. She will follow up with her community providers and plan of care and transport with family. CM will follow and continue to assess for discharge needs. Social Determinants of Health Screening Social Determinants of Health last assessed: 04/06/24 Will the Patient Participate in the Screening?: Yes Do you worry about having a steady place to live?: no Problems where you live: pests such as bugs, ants or mice In the past 12 months, have you had to go without electric, gas, oil or water in your home?: no Have you or anyone in your house had to go without enough food to eat?: no Has lack of transportation kept you from medical appointments or from doing things needed for daily living?: no Has anyone in your life made you feel unsafe or unsupported?: no How hard is it for you to pay for the very basics like food, housing, medical care, and heating? Would you say it is:: Somewhat hard Do you want help finding or keeping work or a job?: I do not need or want help If for any reason you need help with day-to-day activities such as bathing, preparing meals, shopping, managing finances, etc., do you get the help you need?: I get all the help I need How often do you feel lonely or isolated from those around you?: Never Do you speak a language other than Burmese at home?: Yes Does the patient want assistance with any of the above?: Yes Social Determinants of Health Comments(SDOH Details): Applied for financial assistance from [facility] community Health Related Social Needs Health related social needs: inadequate housing (Z59.1), problems related to housing/economic circumstances (Z59.89) and education (Z55.6)
[2024-04-06] MEDS: Lidocaine 5% Patch 1 PATCH TP (08:38)
[2024-04-06] MEDS: Normal Saline Flush 10 ML SYR IVP (11:22)
--- NOTE | 2024-04-06 15:27 | CHAPLAIN ---
I visited with Samara shortly before she was transferred to [facility] [place] [place] this morning. I will try to visit again when she returns, although it might be tomorrow before I see her. She said she is Mandaeism. I introduced myself and offered support, and gave Samara a prayer shawl. According to Care Management notes, Samara lives in [place] with her son, daughter in law and their six kids.
[2024-04-06 16:06] VITALS: BP 95/62; PULSE 78; RESP 16; TEMP 37.2; O2SAT 99
[2024-04-06 16:45] VITALS: BP 106/55; PULSE 80; RESP 16; TEMP 37.3; O2SAT 99
--- NOTE | 2024-04-06 18:24 | W.PM.PROGNOT ---
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 -Continue IV LVQ q 24h -MRSA swab negative pt on levaquin (2) Pleural effusion associated with hepatic disorder: Start date: 04/03/24 Start time: 20:56 Status: Acute Assessment and plan: Trigger is right sided pneumonia, with effusion forming due to her underlying cirrhosis. -Consulted Gen Surgery in AM for thoracocentesis and fluid analysis. In the past this was a transudative fluid most likely due to hepatic cirrhosis. 04/05/24 Pt has an appt tomorrow at 1300 for chest tube placement at [facility] 04/06/24 PT did have chest tube placed and per report over 1200 cc fluid out. Recheck cxr in am (3) Cirrhosis of liver with ascites: Status: Chronic Assessment and plan: Dx autoimmune hepatitis not on immune suppressive therapy Plt 118k. INR 1.4, Tot Bili 1.4, AST 193, ALT 179 Labs and clinical presenation not c/w worsening decompensation of her liver disease. Cont to monitor (4) Varices of esophagus determined by endoscopy: Status: Acute Assessment and plan: -COnt w/ Nadolol 20mg daily (held today with low BP) -no bleeding but H/h down (5) Hypotension: Status: Acute Assessment and plan: BPs run low but lower than baseline while NPO with active infection. Responded to gentle fluids. (6) DVT prophylaxis: Status: Acute Assessment and plan: enoxaparin (7) Anemia: Status: Chronic Assessment and plan: Drop in h/h today but to level previous baseline which may be fluid shift, no clinical bleed, follow. Heme stool. Subjective Subjective Interval history since last seen: PT seen this am prior to down and back at [facility]. PT did have chest tube placed successfully. Exam Narrative Exam Narrative: GEN: alert and oriented, speaking in full sentances, NAD LUNGS: slight rales and diminished breath sounds right base, no wheeze, mild increase WOB CV: RRR, 2/6 systolic murmur ABD: Soft, mild distension, slight fluid wave. no masses, not tender. Ext: no cyanosis, clubbing. Trace pedal edema anya. Objective Last Vital Signs Temp 37.2 C 04/06/24 16:06 Pulse 78 04/06/24 16:06 Resp 16 04/06/24 16:06 BP 95/62 L 04/06/24 16:06 Pulse Ox 99 04/06/24 16:06 Laboratory Results - last 24 hr 04/06/24 07:11 WBC 9.20 RBC 3.46 L Hgb 10.6 L Hct 31.9 L MCV 92 MCH 30.6 MCHC 33.2 RDW 16.3 H Plt Count 101 L MPV 9.7 Immature Gran % 0.4 Neutrophils % 76.6 Lymphocytes % 6.3 Monocytes % 14.7 Eosinophils % 1.6 Basophils % 0.4 Nucleated RBC % 0.0 Absolute Neutrophils 7.04 H Absolute Lymphocytes 0.58 L Absolute Monocytes 1.35 H Absolute Eosinophils 0.15 Absolute Basophils 0.04 Sodium 137 Potassium 4.7 Chloride 106 Carbon Dioxide 30.6 Anion Gap 0.4 L BUN 17 Creatinine 0.6 Est GFR (CKD-EPI 2020) 97.10 Glucose 135 H Calcium 8.4 L Total Bilirubin 0.95 AST 56 H ALT 79 H Alkaline Phosphatase 60 Total Protein 7.0 Albumin 2.0 L Time Spent with Patient Time Spent with Patient: 25-34 minutes Time was spent: preparing to see the patient(eg.review tests), obtaining and/or reviewing separately otained hiistory, ordering medications,tests, procedures, referring, communicating with other health hiv/aids care nurse, indepentently interpreting results, counseling the patient and care coordination
--- NOTE | 2024-04-06 20:01 | NUR.NOTE ---
Nursing Note: Patient returned from [facility] chest tube placement at 15:41, and this RN asked Dr. Street whether she should be connected to suction. Chest tube was connected to suction as directed. Chest tube collected 1200mL of pink fluid. Patient described general unwell feeling which was difficult to describe. Patient and chest tube were assessed by this RN and nurse educator Jovanna, and vital signs were taken. Discussed with Dr. Street, who directed to put the chest tube to gravity only. Chest tube was removed from suction and put to gravity, and output continued. Patient endorses feeling better.
[2024-04-06 20:30] VITALS: RESP 18
[2024-04-06] MEDS: levoFLOXacin 750 MG/150 ML BAG 100 MG IVPB (21:11)
[2024-04-06] MEDS: Enoxaparin 40 MG/0.4 ML SYR SC (21:11)
[2024-04-07] VITALS (7 sets, daily range): BP systolic 97–130; BP diastolic 50–66; PULSE 78–116; RESP 18–20; TEMP 36.1–38; O2SAT 94–98
[2024-04-07 07:32] LABS: Abs Immature Grans 0.03 10^3/uL (0.0-0.06); Absolute Basophil Count 0.02 10^3/uL (0.0-0.2); Absolute Monocyte Count 0.72 10^3/uL (0.1-0.8); Absolute Neutrophil Count 3.63 10^3/uL (1.2-6.7); Basophils % 0.4 %; Eosinophils % 3.8 %; HCT 28.2 % (36.0-46.0); HGB 9.2 g/dL (11.2-15.7); Immature Grans % 0.6 %; Lymphocytes % 11.5 %; MCH 30.8 pg (27.0-33.0); MCHC 32.6 % (32.0-36.0); MCV 94 fL (80-95); MPV 10.1 fL (8.0-11.0); Monocytes % 13.8 %; Neutrophils % 69.9 %; RBC 2.99 10^6/uL (3.93-5.22); RDW 15.9 % (11.7-14.6); RDW-SD 55.5 fL
[2024-04-07 07:59] LABS: Platelet Count 91 10^3/uL (130-400)
[2024-04-07 08:11] LABS: ALT 59 U/L (14-59); AST 42 U/L (15-37); Albumin 1.6 g/dL (3.4-5.0); Alkaline Phosphatase 53 U/L (46-116); Anion Gap 2.5 mmol/L (3-11); BUN 17 mg/dL (7-18); Bilirubin, Total 0.78 mg/dL (0.2-1.0); CO2 28.5 mmol/L (21.0-32.0); CREATININE 0.6 mg/dL (0.55-1.02); Chloride 109 mmol/L (98-107); Glucose 121 mg/dL (74-106); Potassium 4.7 mmol/L (3.5-5.1); Sodium 140 mmol/L (136-145); Total Protein 5.7 g/dL (6.4-8.2)
--- NOTE | 2024-04-07 08:30 | DI.RAD_ITS ---
Exam(s) XR PORTABLE CHEST AP EXAM: XR PORTABLE CHEST AP CLINICAL HISTORY: pleural effusion TECHNIQUE: 2D digital imaging was performed of the chest. One image was obtained. An AP view was ob tained. COMPARISON: CR XR PORTABLE CHEST AP from 01/07/[address] CHEST PE CTA from 04/03/2024 CR XR CHEST 2V PA LATERAL from 04/03/2024 FINDINGS: Since the prior examination is from 04/03/2024, there has been interval placement of a right chest tub e. The chest tube lies at the right costophrenic angle. MEDIASTINUM: Normal. HEART: Normal. PULMONARY VASCULATURE: Normal. LUNGS: The left lung is clear. There is an opacity seen in the right lung base which may represent a telectasis or pneumonia. PLEURAL SPACE: There is no left pleural effusion or pneumothorax. Since the placement of the chest t ube there has been significant decrease in size of the right pleural effusion.. BONE:Within normal limits for the patient's age. OTHER FINDINGS:Normal. IMPRESSION: 1. Significant decrease in size of the right pleural effusion following placement of a right chest tu be. There is a persistent smaller pleural effusion present. 2. Opacity in the right lung base which may represent atelectasis. A superimposed pneumonia cannot b e excluded. 3. Resolution of the leftward mediastinal shift seen on the CT scan from 04/03/2024. DATA REPOSITORY: RADIATION DOSE DELIVERED:
--- NOTE | 2024-04-07 09:00 | CMPROGNOTE_ITS ---
Date of service: 04/07/24 Time of Service: 09:00 Care Management Progress Note Progress Note Text Progress Note Text: Samara was sitting up in bed when CM met with her. She easily engaged with CM and appeared to be in good spirits. Samara informed CM that she had gone to [facility] yesterday for a chest tube insertion. She reported that it drained 2 liters at [facility] and has drained 4 more liters since she returned to [facility]. The plan is to remove the tube tomorrow as long as the drainage remains clear and she has no untoward effects. She anticipates discharge in the next 24-48 hours. She did state that she is feeling much better, although her breathing is more shallow today. Discharge Potential Discharge Needs: PCP F/U Appt Anticipated Barriers to Discharge: Medical Status Patient/Family Education Needs: Review discharge instructions, discuss Ask Me Three Transportation: Private vehicle Plan: Anticipate, Samara will be discharged home with no new services when medically stable. She will follow up with her community providers and plan of care and transport with family. CM will follow and continue to assess for discharge needs. Social Determinants of Health Screening Social Determinants of Health last assessed: 04/07/24 Will the Patient Participate in the Screening?: Yes Do you worry about having a steady place to live?: no Problems where you live: pests such as bugs, ants or mice In the past 12 months, have you had to go without electric, gas, oil or water in your home?: no Have you or anyone in your house had to go without enough food to eat?: no Has lack of transportation kept you from medical appointments or from doing things needed for daily living?: no Has anyone in your life made you feel unsafe or unsupported?: no How hard is it for you to pay for the very basics like food, housing, medical care, and heating? Would you say it is:: Somewhat hard Do you want help finding or keeping work or a job?: I do not need or want help If for any reason you need help with day-to-day activities such as bathing, preparing meals, shopping, managing finances, etc., do you get the help you need?: I get all the help I need How often do you feel lonely or isolated from those around you?: Never Do you speak a language other than Estonian at home?: Yes Does the patient want assistance with any of the above?: Yes Social Determinants of Health Comments(SDOH Details): Applied for financial assistance from [facility] community Health Related Social Needs Health related social needs: inadequate housing (Z59.1), problems related to housing/economic circumstances (Z59.89) and education (Z55.6)
--- NOTE | 2024-04-07 17:52 | W.PM.PROGNOT ---
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 -Continue IV LVQ q 24h -MRSA swab negative pt on levaquin (2) Pleural effusion associated with hepatic disorder: Start date: 04/03/24 Start time: 20:56 Status: Acute Assessment and plan: Trigger is right sided pneumonia, with effusion forming due to her underlying cirrhosis. -Consulted Gen Surgery in AM for thoracocentesis and fluid analysis. In the past this was a transudative fluid most likely due to hepatic cirrhosis. 04/05/24 Pt has an appt tomorrow at 1300 for chest tube placement at [facility] 04/06/24 PT did have chest tube placed and per report over 1200 cc fluid out. Recheck cxr in am 04.07.24 Pt continues to have good drain output with what appears to be transudative fluid. Awaiting procedure note (3) Cirrhosis of liver with ascites: Status: Chronic Assessment and plan: Dx autoimmune hepatitis not on immune suppressive therapy Plt 118k. INR 1.4, Tot Bili 1.4, AST 193, ALT 179 Labs and clinical presenation not c/w worsening decompensation of her liver disease. Cont to monitor (4) Varices of esophagus determined by endoscopy: Status: Acute Assessment and plan: -COnt w/ Nadolol 20mg daily (held today with low BP) -no bleeding but H/h down (5) Hypotension: Status: Acute Assessment and plan: BPs run low but lower than baseline while NPO with active infection. Responded to gentle fluids. (6) DVT prophylaxis: Status: Acute Assessment and plan: enoxaparin (7) Anemia: Status: Chronic Assessment and plan: Drop in h/h today but to level previous baseline which may be fluid shift, no clinical bleed, follow. Heme stool. Subjective Subjective Interval history since last seen: Long discussion with family as well as pt in regards to prognosis/diagnosis and treatment options. Attempting to get procedure notes from [facility]. Exam Narrative Exam Narrative: GEN: alert and oriented, speaking in full sentances, NAD LUNGS: No respiratory distress, decreased but improving breath sounds in LL CV: RRR, 2/6 systolic murmur ABD: Soft, mild distension, slight fluid wave. no masses, not tender. Ext: no cyanosis, clubbing. Trace pedal edema anya. Objective Last Vital Signs Temp 37 C 04/07/24 15:21 Pulse 105 H 04/07/24 15:21 Resp 18 04/07/24 15:21 BP 125/66 04/07/24 15:21 Pulse Ox 98 04/07/24 15:21 Laboratory Results - last 24 hr 04/07/24 07:12 WBC 5.20 RBC 2.99 L Hgb 9.2 L Hct 28.2 L MCV 94 MCH 30.8 MCHC 32.6 RDW 15.9 H Plt Count 91 L MPV 10.1 Immature Gran % 0.6 Neutrophils % 69.9 Lymphocytes % 11.5 Monocytes % 13.8 Eosinophils % 3.8 Basophils % 0.4 Nucleated RBC % 0.0 Absolute Neutrophils 3.63 Absolute Lymphocytes 0.60 L Absolute Monocytes 0.72 Absolute Eosinophils 0.20 Absolute Basophils 0.02 Sodium 140 Potassium 4.7 Chloride 109 H Carbon Dioxide 28.5 Anion Gap 2.5 L BUN 17 Creatinine 0.6 Est GFR (CKD-EPI 2020) 97.10 Glucose 121 H Calcium 8.0 L Total Bilirubin 0.78 AST 42 H ALT 59 Alkaline Phosphatase 53 Total Protein 5.7 L Albumin 1.6 L Time Spent with Patient Time Spent with Patient: 25-34 minutes Time was spent: preparing to see the patient(eg.review tests), obtaining and/or reviewing separately otained hiistory, ordering medications,tests, procedures, referring, communicating with other health healthcare administrative assistant, indepentently interpreting results, counseling the patient and care coordination
[2024-04-07] MEDS: Enoxaparin 40 MG/0.4 ML SYR SC (20:49)
[2024-04-07] MEDS: levoFLOXacin 750 MG/150 ML BAG 100 MG IVPB (20:49)
[2024-04-08] VITALS (10 sets, daily range): BP systolic 97–117; BP diastolic 52–66; PULSE 78–102; RESP 17–18; TEMP 36.5–37.9; O2SAT 94–97
[2024-04-08] MEDS: Nadolol 40 MG TAB 20 MG PO (08:32)
[2024-04-08] MEDS: Lidocaine 5% Patch 1 PATCH TP (08:34)
[2024-04-08] MEDS: Normal Saline Flush 10 ML SYR IVP (08:36)
--- NOTE | 2024-04-08 08:44 | PDOC.CMPRO ---
Date of service: 04/08/24 Time of Service: 08:44 Care Management Progress Note Progress Note Text Progress Note Text: Samara was sitting up in bed when CM met with her. She was smiling ands very pleasant in interaction. Samara's son Cesar and Latoya were also visiting at the time. Samara went to [facility] to have a chest tube inserted in IR. It continues to drain copious amounts of clear fluid. Samara stated that the provider told her she would need follow up with a Weapons System Instrument Mechanic as well as a Steel Wheel Engraver when she is discharged. CM will follow. Discharge Potential Discharge Needs: PCP F/U Appt Anticipated Barriers to Discharge: None Identified Patient/Family Education Needs: Review discharge instructions, discuss Ask Me Three Transportation: Private vehicle Plan: Anticipate, Samara will be discharged home with no new services when medically stable. She will follow up with her community providers and plan of care and transport with family. CM will continue to assess for discharge needs. Social Determinants of Health Screening Social Determinants of Health last assessed: 04/08/24 Will the Patient Participate in the Screening?: Yes Do you worry about having a steady place to live?: no Problems where you live: pests such as bugs, ants or mice In the past 12 months, have you had to go without electric, gas, oil or water in your home?: no Have you or anyone in your house had to go without enough food to eat?: no Has lack of transportation kept you from medical appointments or from doing things needed for daily living?: no Has anyone in your life made you feel unsafe or unsupported?: no How hard is it for you to pay for the very basics like food, housing, medical care, and heating? Would you say it is:: Somewhat hard Do you want help finding or keeping work or a job?: I do not need or want help If for any reason you need help with day-to-day activities such as bathing, preparing meals, shopping, managing finances, etc., do you get the help you need?: I get all the help I need How often do you feel lonely or isolated from those around you?: Never Do you speak a language other than Mohawk at home?: Yes Does the patient want assistance with any of the above?: Yes Social Determinants of Health Comments(SDOH Details): Applied for financial assistance from [facility] community Health Related Social Needs Health related social needs: inadequate housing (Z59.1), problems related to housing/economic circumstances (Z59.89) and education (Z55.6)
--- NOTE | 2024-04-08 18:21 | PGE_ITS ---
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 -Continue IV LVQ q 24h -MRSA swab negative pt on levaquin (2) Pleural effusion associated with hepatic disorder: Start date: 04/03/24 Start time: 20:56 Status: Acute Assessment and plan: Trigger is right sided pneumonia, with effusion forming due to her underlying cirrhosis. -Consulted Gen Surgery in AM for thoracocentesis and fluid analysis. In the past this was a transudative fluid most likely due to hepatic cirrhosis. 04/05/24 Pt has an appt tomorrow at 1300 for chest tube placement at [facility] 04/06/24 PT did have chest tube placed and per report over 1200 cc fluid out. Recheck cxr in am 04.07.24 Pt continues to have good drain output with what appears to be transudative fluid. Awaiting procedure note (3) Cirrhosis of liver with ascites: Status: Chronic Assessment and plan: Dx autoimmune hepatitis not on immune suppressive therapy Plt 118k. INR 1.4, Tot Bili 1.4, AST 193, ALT 179 Labs and clinical presenation not c/w worsening decompensation of her liver disease. Cont to monitor (4) Varices of esophagus determined by endoscopy: Status: Acute Assessment and plan: -COnt w/ Nadolol 20mg daily (held today with low BP) -no bleeding but H/h down (5) Hypotension: Status: Acute Assessment and plan: BPs run low but lower than baseline while NPO with active infection. Responded to gentle fluids. (6) DVT prophylaxis: Status: Acute Assessment and plan: enoxaparin (7) Anemia: Status: Chronic Assessment and plan: Drop in h/h today but to level previous baseline which may be fluid shift, no clinical bleed, follow. Heme stool. Subjective Subjective Interval history since last seen: Pt seen and examined in her room this am. POC discussew with pt as well as family who were at bedside. POC also discussed with bedside nurse during MDR Exam Narrative Exam Narrative: GEN: alert and oriented, speaking in full sentances, NAD LUNGS: No respiratory distress, decreased but improving breath sounds in LL CV: RRR, 2/6 systolic murmur ABD: Soft, mild distension, slight fluid wave. no masses, not tender. Ext: no cyanosis, clubbing. Trace pedal edema anya. chest tube to gravity with copious drainage still Objective Last Vital Signs Temp 37.7 C H 04/08/24 16:15 Pulse 80 04/08/24 15:45 Resp 18 04/08/24 15:45 BP 117/63 04/08/24 15:45 Pulse Ox 97 04/08/24 15:45 Time Spent with Patient Time Spent with Patient: 35-49 minutes Time was spent: preparing to see the patient(eg.review tests), obtaining and/or reviewing separately otained hiistory, ordering medications,tests, procedures, referring, communicating with other health child care coordinator, indepentently interpreting results, counseling the patient and care coordination
[2024-04-08] MEDS: Patch Removal 1 EACH TP (21:27)
[2024-04-09 04:15] VITALS: BP 113/64; PULSE 81; RESP 18; TEMP 37.3; O2SAT 97
[2024-04-09 06:36] LABS: Abs Immature Grans 0.04 10^3/uL (0.0-0.06); Absolute Basophil Count 0.04 10^3/uL (0.0-0.2); Absolute Eosinophil Count 0.31 10^3/uL (0.0-0.7); Absolute Lymphocyte Count 0.82 10^3/uL (1.2-3.4); Absolute Monocyte Count 1.08 10^3/uL (0.1-0.8); Absolute Neutrophil Count 4.19 10^3/uL (1.2-6.7); Basophils % 0.6 %; Eosinophils % 4.8 %; HCT 30.2 % (36.0-46.0); Immature Grans % 0.6 %; Lymphocytes % 12.7 %; MCH 30.9 pg (27.0-33.0); MCHC 33.1 % (32.0-36.0); MCV 93 fL (80-95); MPV 9.8 fL (8.0-11.0); Monocytes % 16.7 %; Neutrophils % 64.6 %; Platelet Count 100 10^3/uL (130-400); RBC 3.24 10^6/uL (3.93-5.22); RDW 15.7 % (11.7-14.6); RDW-SD 53.7 fL; WBC 6.48 10^3/uL (4.4-10.8)
[2024-04-09 06:51] LABS: INR 1.3 (0.9-1.1)
[2024-04-09 07:07] LABS: ALT 51 U/L (14-59); AST 44 U/L (15-37); Albumin 1.6 g/dL (3.4-5.0); Alkaline Phosphatase 65 U/L (46-116); Anion Gap 2.5 mmol/L (3-11); BUN 14 mg/dL (7-18); Bilirubin, Total 0.86 mg/dL (0.2-1.0); CO2 30.5 mmol/L (21.0-32.0); CREATININE 0.6 mg/dL (0.55-1.02); Chloride 103 mmol/L (98-107); Glucose 98 mg/dL (74-106); Potassium 4.2 mmol/L (3.5-5.1); Sodium 136 mmol/L (136-145)
[2024-04-09 07:37] VITALS: BP 96/62; PULSE 78; RESP 16; TEMP 36.1; O2SAT 96
--- NOTE | 2024-04-09 08:30 | DI.RAD_ITS ---
Exam(s) XR PORTABLE CHEST AP EXAM: XR PORTABLE CHEST AP CLINICAL HISTORY: pleural effusion TECHNIQUE: 2D digital imaging was performed of the chest. One image was obtained. An AP view was ob tained. COMPARISON: CR XR PORTABLE CHEST AP from 04/07/2024 FINDINGS: MEDIASTINUM: Normal. HEART: Normal. PULMONARY VASCULATURE: Normal. LUNGS: There is unchanged consolidation in the right lung. The left lung is clear. PLEURAL SPACE: A small right pneumothorax is now visualized. The right pleural effusion appears stab le. There is a right chest tube in place. BONE:Within normal limits for the patient's age. OTHER FINDINGS:Normal. IMPRESSION: 1. There is now small right apical pneumothorax visualized. 2. Otherwise the right hemithorax is unchanged with a persistent pleural effusion and right basilar o pacity which may represent atelectasis or pneumonia. DATA REPOSITORY: RADIATION DOSE DELIVERED:
[2024-04-09] MEDS: Lidocaine 5% Patch 1 PATCH TP (08:45)
[2024-04-09] MEDS: Nadolol 40 MG TAB 20 MG PO (08:46)
[2024-04-09] MEDS: Normal Saline Flush 10 ML SYR IVP (08:46)
--- NOTE | 2024-04-09 11:04 | PDOC.CMPRO ---
Date of service: 04/09/24 Time of Service: 11:04 Care Management Progress Note Progress Note Text Progress Note Text: Samara was sitting up in bed when CM met with her. Her family visited for much of the afternoon, including her 3 youngest grandchildren and she was in very good spirits. Samara informed CM that she got some good newas from Dr. Street today. She knows she has autoimmune hepatitis but did not know her prognosis. Dr. Tobias did some research and was able to inform her that her liver is working well right now. Samara shared that her chest tube drainage had decreased significantly. She stated that she had 4 liters of output yesterday and only 500 ml today. The surgeons have indicated that when the drainage is 100 ml or less, she can be discharged. Discharge Potential Discharge Needs: PCP F/U Appt Anticipated Barriers to Discharge: Medical Status Patient/Family Education Needs: Review discharge instructions, discuss Ask Me Three Transportation: Private vehicle Plan: Anticipate, Samara will be discharged home with no new services when medically stable. She will follow up with her community providers and plan of care and transport with family. CM will continue to assess for discharge needs. Social Determinants of Health Screening Social Determinants of Health last assessed: 04/09/24 Will the Patient Participate in the Screening?: Yes Do you worry about having a steady place to live?: no Problems where you live: pests such as bugs, ants or mice In the past 12 months, have you had to go without electric, gas, oil or water in your home?: no Have you or anyone in your house had to go without enough food to eat?: no Has lack of transportation kept you from medical appointments or from doing things needed for daily living?: no Has anyone in your life made you feel unsafe or unsupported?: no How hard is it for you to pay for the very basics like food, housing, medical care, and heating? Would you say it is:: Somewhat hard Do you want help finding or keeping work or a job?: I do not need or want help If for any reason you need help with day-to-day activities such as bathing, preparing meals, shopping, managing finances, etc., do you get the help you need?: I get all the help I need How often do you feel lonely or isolated from those around you?: Never Do you speak a language other than Ugandan at home?: Yes Does the patient want assistance with any of the above?: Yes Social Determinants of Health Comments(SDOH Details): Applied for financial assistance from [facility] community Health Related Social Needs Health related social needs: inadequate housing (Z59.1), problems related to housing/economic circumstances (Z59.89) and education (Z55.6)
--- NOTE | 2024-04-09 12:40 | PGE_ITS ---
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 -Continue IV LVQ q 24h -MRSA swab negative pt on levaquin 04-09-24 Pt does not appear to have a pneumonia. Will stop levaquin (2) Pleural effusion associated with hepatic disorder: Start date: 04/03/24 Start time: 20:56 Status: Acute Assessment and plan: Trigger is right sided pneumonia, with effusion forming due to her underlying cirrhosis. -Consulted Gen Surgery in AM for thoracocentesis and fluid analysis. In the past this was a transudative fluid most likely due to hepatic cirrhosis. 04/05/24 Pt has an appt tomorrow at 1300 for chest tube placement at [facility] 04/06/24 PT did have chest tube placed and per report over 1200 cc fluid out. Recheck cxr in am 04.07.24 Pt continues to have good drain output with what appears to be transudative fluid. Awaiting procedure note 04.08.24 cxr noted, pt with small right pleural effusion. Would not expect need for intervention (3) Cirrhosis of liver with ascites: Status: Chronic Assessment and plan: Dx autoimmune hepatitis not on immune suppressive therapy Plt 118k. INR 1.4, Tot Bili 1.4, AST 193, ALT 179 Labs and clinical presenation not c/w worsening decompensation of her liver disease. Cont to monitor (4) Varices of esophagus determined by endoscopy: Status: Acute Assessment and plan: -COnt w/ Nadolol 20mg daily (held today with low BP) -no bleeding but H/h down (5) Hypotension: Status: Acute Assessment and plan: BPs run low but lower than baseline while NPO with active infection. Responded to gentle fluids. (6) DVT prophylaxis: Status: Acute Assessment and plan: enoxaparin (7) Anemia: Status: Chronic Assessment and plan: pt's h/h remains stable, continue serially monitoring (8) Pleural effusion: Status: Acute Assessment and plan: noted will recheck in am. Consider CT if continues to expand Subjective Subjective Interval history since last seen: Pt seen and examined in her room this am. Pt without any new significant complaints. Pt still with fairly robust drainage from chest tube. POC d/w pt as well as bedside nurse during MDR Exam Narrative Exam Narrative: GEN: alert and oriented, speaking in full sentances, NAD LUNGS: No respiratory distress, decreased but improving breath sounds in LL. Chest tube in right lung CV: RRR, 2/6 systolic murmur ABD: Soft, mild distension, slight fluid wave. no masses, not tender. Ext: no cyanosis, clubbing. Trace pedal edema anya. chest tube to gravity with copious drainage still IMPRESSION: 1. There is now small right apical pneumothorax visualized. 2. Otherwise the right hemithorax is unchanged with a persistent pleural effusion and right basilar opacity which may represent atelectasis or pneumonia. Objective Last Vital Signs Temp 36.1 C L 04/09/24 07:37 Pulse 78 04/09/24 07:37 Resp 16 04/09/24 07:37 BP 96/62 L 04/09/24 07:37 Pulse Ox 96 04/09/24 07:37 Laboratory Results - last 24 hr 04/09/24 05:38 WBC 6.48 RBC 3.24 L Hgb 10.0 L Hct 30.2 L MCV 93 MCH 30.9 MCHC 33.1 RDW 15.7 H Plt Count 100 L MPV 9.8 Immature Gran % 0.6 Neutrophils % 64.6 Lymphocytes % 12.7 Monocytes % 16.7 Eosinophils % 4.8 Basophils % 0.6 Nucleated RBC % 0.0 Absolute Neutrophils 4.19 Absolute Lymphocytes 0.82 L Absolute Monocytes 1.08 H Absolute Eosinophils 0.31 Absolute Basophils 0.04 PT 13.0 H INR 1.3 H Sodium 136 Potassium 4.2 Chloride 103 Carbon Dioxide 30.5 Anion Gap 2.5 L BUN 14 Creatinine 0.6 Est GFR (CKD-EPI 2020) 97.10 Glucose 98 Calcium 8.0 L Total Bilirubin 0.86 AST 44 H ALT 51 Alkaline Phosphatase 65 Total Protein 6.0 L Albumin 1.6 L Time Spent with Patient Time Spent with Patient: 25-34 minutes Time was spent: preparing to see the patient(eg.review tests), ordering medications,tests, procedures, referring, communicating with other health career and guidance counselor, indepentently interpreting results, counseling the patient and care coordination
--- NOTE | 2024-04-09 13:46 | PHA.REVIEW2 ---
Pharmacy Admission Review Admission Clinical Review Admission Pharmacy Review: Pleural effusion (Acute) Hypotension (Acute) DVT prophylaxis (Acute) Community acquired pneumonia (Acute) Pleural effusion associated with hepatic disorder (Acute) Varices of esophagus determined by endoscopy (Acute) prednisone Allergy (Unknown, Verified 04/03/24 17:54) Psychosis Resuscitation Status Full Code Height 5 ft 10 in Weight 71.985 kg Pharmacy Admission Review Renal Dosing Renal Dosing: BUN 14 mg/dL (7-18) 04/09/24 05:38 Creatinine 0.6 mg/dL (0.55-1.02) 04/09/24 05:38 Medications needing adjustments: Reviewed (CrCl 60.34 mL/min) List of meds needing interventions: Current medications are okay Anticoagulation Anticoagulation: Hgb 10.0 g/dL (11.2-15.7) L 04/09/24 05:38 Hct 30.2 % (36.0-46.0) L 04/09/24 05:38 Plt Count 100 10^3/uL (130-400) L 04/09/24 05:38 INR 1.3 (0.9-1.1) H 04/09/24 05:38 Creatinine 0.6 mg/dL (0.55-1.02) 04/09/24 05:38 DVT Prophylaxis: Reviewed (Hgb increased from 9.2) Medications: Enoxaparin (40mg daily) Opiate Usage Evaluate Pain Scale/Pains Meds: Reviewed (morphine 2mg IVP q4h PRN - no doses given) Scheduled Bowel Reg ordered if on Opiates?: No Relevant Labs Relevant Labs: Sodium 136 mmol/L (136-145) 04/09/24 05:38 Potassium 4.2 mmol/L (3.5-5.1) 04/09/24 05:38 Chloride 103 mmol/L (98-107) 04/09/24 05:38 Magnesium 1.6 mg/dL (1.8-2.4) L 04/05/24 06:53 Electrolytes, C-Reactive P, ESR: Reviewed Cardiac Review Cardiac Review: Troponin I Cancelled 04/03/24 20:21 NT-Pro-B Natriuret Pep 90 pg/mL (<300) 04/03/24 17:28 BP, HR, EF%: Reviewed (BP 96/62 and HR WNL) List meds needing interventions: Has order for nadolol 20mg daily QTc Review QTc: Reviewed (451 from 04/03/24) IV to PO Switch IV Medications: Reviewed (morphine) Home Meds Home Med List reviewed: Reviewed Relevent Home Meds Not ordered & why?: Vitamin D3, vitamin B12, probiotic, milk thistle, multivitamin and selenium Current Meds Current Medication Order Review: Intervened Comments: Added IV access order
[2024-04-09 14:36] VITALS: BP 102/57; PULSE 84; RESP 16; TEMP 37.2; O2SAT 97
[2024-04-09 19:29] VITALS: BP 114/70; PULSE 94; RESP 18; TEMP 38.3; O2SAT 95
[2024-04-09] MEDS: Enoxaparin 40 MG/0.4 ML SYR SC (21:38)
[2024-04-09] MEDS: Patch Removal 1 EACH TP (21:38)
[2024-04-09 23:24] VITALS: BP 105/57; PULSE 85; RESP 18; TEMP 37.3; O2SAT 93
[2024-04-10 04:07] VITALS: BP 99/58; PULSE 79; RESP 18; TEMP 37.2; O2SAT 95
[2024-04-10 08:00] VITALS: BP 100/54; PULSE 77; RESP 16; TEMP 37.1; O2SAT 95
[2024-04-10] MEDS: Lidocaine 5% Patch 1 PATCH TP (08:30)
[2024-04-10] MEDS: Nadolol 40 MG TAB 20 MG PO (08:30)
[2024-04-10] MEDS: Normal Saline Flush 10 ML SYR IVP (08:31)
[2024-04-10 11:11] VITALS: BP 101/65; PULSE 75; RESP 16; TEMP 36.6; O2SAT 97
--- NOTE | 2024-04-10 13:39 | PGE_ITS ---
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 -Continue IV LVQ q 24h -MRSA swab negative pt on levaquin 04-09-24 Pt does not appear to have a pneumonia. Will stop levaquin (2) Pleural effusion associated with hepatic disorder: Start date: 04/03/24 Start time: 20:56 Status: Acute Assessment and plan: Trigger is right sided pneumonia, with effusion forming due to her underlying cirrhosis. -Consulted Gen Surgery in AM for thoracocentesis and fluid analysis. In the past this was a transudative fluid most likely due to hepatic cirrhosis. 04/05/24 Pt has an appt tomorrow at 1300 for chest tube placement at [facility] 04/06/24 PT did have chest tube placed and per report over 1200 cc fluid out. Recheck cxr in am 04.07.24 Pt continues to have good drain output with what appears to be transudative fluid. Awaiting procedure note 04.08.24 cxr noted, pt with small right pleural effusion. Would not expect need for intervention 04/10/24 Pt does have continued drainage from chest tube. At this point I do wonder if pt is making as much fluid as she is draining out. Will monitor for one more day and if drainage continues will consider talking to [facility] in regards to a pleurodesis (3) Cirrhosis of liver with ascites: Status: Chronic Assessment and plan: Dx autoimmune hepatitis not on immune suppressive therapy Plt 118k. INR 1.4, Tot Bili 1.4, AST 193, ALT 179 Labs and clinical presenation not c/w worsening decompensation of her liver disease. Cont to monitor (4) Varices of esophagus determined by endoscopy: Status: Acute Assessment and plan: -COnt w/ Nadolol 20mg daily (held today with low BP) -no bleeding but H/h down (5) Hypotension: Status: Acute Assessment and plan: BPs run low but lower than baseline while NPO with active infection. Responded to gentle fluids. (6) DVT prophylaxis: Status: Acute Assessment and plan: enoxaparin (7) Anemia: Status: Chronic Assessment and plan: pt's h/h remains stable, continue serially monitoring (8) Pneumothorax: Status: Acute Assessment and plan: small pneumothorax found on cxr yesterday. Percentage involvement not mentioned but in reviewing the film the pneumothorax is quite small. Will repeat CXR in am to monitor resolution Subjective Subjective Interval history since last seen: Pt seen and examined in her room this afternoon. POC d/w pt and son who was at bedside. POC also d/w bedside nurse during MDR. No new complaints. Tolerating chest tube Exam Narrative Exam Narrative: GEN: alert and oriented, speaking in full sentances, NAD LUNGS: No respiratory distress, decreased but improving breath sounds in LL. Chest tube in right lung CV: RRR, 2/6 systolic murmur ABD: Soft, mild distension, slight fluid wave. no masses, not tender. Ext: no cyanosis, clubbing. Trace pedal edema anya. chest tube to gravity with copious drainage still IMPRESSION: 1. There is now small right apical pneumothorax visualized. 2. Otherwise the right hemithorax is unchanged with a persistent pleural effusion and right basilar opacity which may represent atelectasis or pneumonia. Objective Last Vital Signs Temp 36.6 C 04/10/24 11:11 Pulse 75 04/10/24 11:11 Resp 16 04/10/24 11:11 BP 101/65 04/10/24 11:11 Pulse Ox 97 04/10/24 11:11 Time Spent with Patient Time Spent with Patient: 25-34 minutes Time was spent: preparing to see the patient(eg.review tests), ordering medications,tests, procedures, referring, communicating with other health pharmacist critical care, indepentently interpreting results, counseling the patient and care coordination
[2024-04-10 15:21] VITALS: BP 120/62; PULSE 76; RESP 16; TEMP 37; O2SAT 99
[2024-04-10 19:50] VITALS: BP 108/64; PULSE 84; RESP 16; TEMP 36.7; O2SAT 97
[2024-04-10] MEDS: Enoxaparin 40 MG/0.4 ML SYR SC (21:08)
[2024-04-10] MEDS: Patch Removal 1 EACH TP (21:08)
[2024-04-10 23:08] VITALS: BP 104/57; PULSE 74; RESP 16; TEMP 36.5; O2SAT 96
[2024-04-11] VITALS (9 sets, daily range): BP systolic 90–107; BP diastolic 46–58; PULSE 67–78; RESP 15–19; TEMP 36.6–37.9; O2SAT 95–99
--- NOTE | 2024-04-11 | DI.RAD_ITS ---
Exam(s) XR PORTABLE CHEST AP EXAM: XR PORTABLE CHEST AP CLINICAL HISTORY: pneumothorax TECHNIQUE: 2D digital imaging was performed of the chest. One image was obtained. An AP view was ob tained. COMPARISON: CR XR PORTABLE CHEST AP from 04/09/2024 FINDINGS: MEDIASTINUM: Normal. HEART: Normal. PULMONARY VASCULATURE: Normal. LUNGS: There has been some clearing seen in the right lung base suggesting some improvement in the ri ght basilar infiltrate. The left lung remains clear. PLEURAL SPACE: A pneumothorax is not definitely visualized on this examination. The left lung shows no evidence of a pneumothorax or pleural effusion. There has been some improvement in the opacity in the right lung base suggesting some improvement in the right pleural effusion. BONE:Within normal limits for the patient's age. OTHER FINDINGS:There is again seen a right chest tube. IMPRESSION: 1. Overall slight increased aeration of the right lung base since the prior examination. 2. The previously seen small right apical pneumothorax is not visualized on the current examination. DATA REPOSITORY: RADIATION DOSE DELIVERED:
[2024-04-11 07:12] LABS: Abs Immature Grans 0.05 10^3/uL (0.0-0.06); Absolute Basophil Count 0.03 10^3/uL (0.0-0.2); Absolute Eosinophil Count 0.27 10^3/uL (0.0-0.7); Absolute Lymphocyte Count 0.75 10^3/uL (1.2-3.4); Absolute Monocyte Count 1.03 10^3/uL (0.1-0.8); Absolute Neutrophil Count 2.67 10^3/uL (1.2-6.7); Basophils % 0.6 %; Eosinophils % 5.6 %; HCT 29.3 % (36.0-46.0); Lymphocytes % 15.6 %; MCH 30.6 pg (27.0-33.0); MCHC 34.1 % (32.0-36.0); MCV 90 fL (80-95); MPV 9.8 fL (8.0-11.0); Monocytes % 21.5 %; Neutrophils % 55.7 %; Platelet Count 105 10^3/uL (130-400); RBC 3.27 10^6/uL (3.93-5.22); RDW 15.6 % (11.7-14.6); RDW-SD 51.8 fL
[2024-04-11 07:25] LABS: ALT 47 U/L (14-59); AST 55 U/L (15-37); Albumin 1.5 g/dL (3.4-5.0); Alkaline Phosphatase 70 U/L (46-116); Anion Gap 0.3 mmol/L (3-11); BUN 16 mg/dL (7-18); Bilirubin, Total 0.78 mg/dL (0.2-1.0); CO2 31.7 mmol/L (21.0-32.0); CREATININE 0.6 mg/dL (0.55-1.02); Calcium 8.1 mg/dL (8.5-10.1); Chloride 103 mmol/L (98-107); Glucose 91 mg/dL (74-106); Potassium 4.3 mmol/L (3.5-5.1); Sodium 135 mmol/L (136-145)
[2024-04-11] MEDS: Lidocaine 5% Patch 1 PATCH TP (08:30)
[2024-04-11] MEDS: Nadolol 40 MG TAB 20 MG PO (08:31)
--- NOTE | 2024-04-11 17:35 | W.PM.PROGNOT ---
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 -Continue IV LVQ q 24h -MRSA swab negative pt on levaquin 04-09-24 Pt does not appear to have a pneumonia. Will stop levaquin (2) Pleural effusion associated with hepatic disorder: Start date: 04/03/24 Start time: 20:56 Status: Acute Assessment and plan: Trigger is right sided pneumonia, with effusion forming due to her underlying cirrhosis. -Consulted Gen Surgery in AM for thoracocentesis and fluid analysis. In the past this was a transudative fluid most likely due to hepatic cirrhosis. 04/05/24 Pt has an appt tomorrow at 1300 for chest tube placement at [facility] 04/06/24 PT did have chest tube placed and per report over 1200 cc fluid out. Recheck cxr in am 04.07.24 Pt continues to have good drain output with what appears to be transudative fluid. Awaiting procedure note 04.08.24 cxr noted, pt with small right pleural effusion. Would not expect need for intervention 04/10/24 Pt does have continued drainage from chest tube. At this point I do wonder if pt is making as much fluid as she is draining out. Will monitor for one more day and if drainage continues will consider talking to [facility] in regards to a pleurodesis 04/11/24 Would consider discussing with [facility] tomorrow about a pleurodesis or a pleurX (3) Cirrhosis of liver with ascites: Status: Chronic Assessment and plan: Dx autoimmune hepatitis not on immune suppressive therapy Plt 118k. INR 1.4, Tot Bili 1.4, AST 193, ALT 179 Labs and clinical presenation not c/w worsening decompensation of her liver disease. Cont to monitor (4) Varices of esophagus determined by endoscopy: Status: Acute Assessment and plan: -COnt w/ Nadolol 20mg daily (held today with low BP) -no bleeding but H/h down (5) Hypotension: Status: Acute Assessment and plan: BPs run low but lower than baseline while NPO with active infection. Responded to gentle fluids. (6) DVT prophylaxis: Status: Acute Assessment and plan: enoxaparin (7) Anemia: Status: Chronic Assessment and plan: pt's h/h remains stable, continue serially monitoring (8) Pneumothorax: Status: Acute Assessment and plan: small pneumothorax found on cxr yesterday. Percentage involvement not mentioned but in reviewing the film the pneumothorax is quite small. Will repeat CXR in am to monitor resolution 2.05.04 Resolved Subjective Subjective Interval history since last seen: Pt seen and examined this am. No new complaints Exam Narrative Exam Narrative: GEN: alert and oriented, speaking in full sentances, NAD LUNGS: No respiratory distress, decreased but improving breath sounds in LL. Chest tube in right lung CV: RRR, 2/6 systolic murmur ABD: Soft, mild distension, slight fluid wave. no masses, not tender. Ext: no cyanosis, clubbing. Trace pedal edema anya. chest tube to gravity with copious drainage still IMPRESSION: 1. There is now small right apical pneumothorax visualized. 2. Otherwise the right hemithorax is unchanged with a persistent pleural effusion and right basilar opacity which may represent atelectasis or pneumonia. IMPRESSION: 04/11/24 1. Overall slight increased aeration of the right lung base since the prior examination. 2. The previously seen small right apical pneumothorax is not visualized on the current examination. Objective Last Vital Signs Temp 37.4 C 04/11/24 15:20 Pulse 74 04/11/24 15:20 Resp 16 04/11/24 15:29 BP 104/57 L 04/11/24 15:20 Pulse Ox 99 04/11/24 15:20 Laboratory Results - last 24 hr 04/11/24 06:38 WBC 4.80 RBC 3.27 L Hgb 10.0 L Hct 29.3 L MCV 90 MCH 30.6 MCHC 34.1 RDW 15.6 H Plt Count 105 L MPV 9.8 Immature Gran % 1.0 Neutrophils % 55.7 Lymphocytes % 15.6 Monocytes % 21.5 Eosinophils % 5.6 Basophils % 0.6 Nucleated RBC % 0.0 Absolute Neutrophils 2.67 Absolute Lymphocytes 0.75 L Absolute Monocytes 1.03 H Absolute Eosinophils 0.27 Absolute Basophils 0.03 Sodium 135 L Potassium 4.3 Chloride 103 Carbon Dioxide 31.7 Anion Gap 0.3 L BUN 16 Creatinine 0.6 Est GFR (CKD-EPI 2020) 97.10 Glucose 91 Calcium 8.1 L Total Bilirubin 0.78 AST 55 H ALT 47 Alkaline Phosphatase 70 Total Protein 6.0 L Albumin 1.5 L Time Spent with Patient Time Spent with Patient: 25-34 minutes Time was spent: preparing to see the patient(eg.review tests), ordering medications,tests, procedures, referring, communicating with other health insurance healthcare representative, indepentently interpreting results, counseling the patient and care coordination
[2024-04-11] MEDS: Enoxaparin 40 MG/0.4 ML SYR SC (21:09)
[2024-04-11] MEDS: Patch Removal 1 EACH TP (21:14)
[2024-04-12] VITALS (9 sets, daily range): BP systolic 98–108; BP diastolic 56–65; PULSE 69–87; RESP 16–19; TEMP 36.6–37.6; O2SAT 94–99
[2024-04-12] MEDS: Nadolol 40 MG TAB 20 MG PO (07:54)
[2024-04-12] MEDS: Lidocaine 5% Patch 1 PATCH TP (07:54)
--- NOTE | 2024-04-12 08:43 | CMPROGNOTE_ITS ---
Date of service: 04/12/24 Time of Service: 08:43 Care Management Progress Note Progress Note Text Progress Note Text: Samara was sitting up in bed when CM met with her. She was, as usual, pleasant in manner and in good spirits.Samara informed CM that she feels better and is looking forward to the day she can be discharged. Unfortunately she continues to have a large amount of drainage from her chest tube. [facility] [place] again yesterday and they recommended either pleuredesis or a Pleurex catheter if the drainage continued. It has. Today when the provider made a follow up phone call, he was told to call GI at . When he did, he was told Samara no longer sees GI at [facility] but has a new toggler at [facility] (DR.Brian Acosta). The provider called and left a message for them. Discharge Potential Discharge Needs: PCP F/U Appt Anticipated Barriers to Discharge: Medical Status Patient/Family Education Needs: Review discharge instructions, discuss Ask Me Three Transportation: Private vehicle Plan: Anticipate, Samara will be discharged home with no new services when medically stable. She may require transfer to [facility] for a down and back procedure as her chest tube drainage is still significant. She will follow up with her community providers and plan of care and transport with family. CM will continue to assess for discharge needs. Social Determinants of Health Screening Social Determinants of Health last assessed: 04/13/24 Will the Patient Participate in the Screening?: Yes Do you worry about having a steady place to live?: no Problems where you live: pests such as bugs, ants or mice In the past 12 months, have you had to go without electric, gas, oil or water in your home?: no Have you or anyone in your house had to go without enough food to eat?: no Has lack of transportation kept you from medical appointments or from doing things needed for daily living?: no Has anyone in your life made you feel unsafe or unsupported?: no How hard is it for you to pay for the very basics like food, housing, medical care, and heating? Would you say it is:: Somewhat hard Do you want help finding or keeping work or a job?: I do not need or want help If for any reason you need help with day-to-day activities such as bathing, preparing meals, shopping, managing finances, etc., do you get the help you need?: I get all the help I need How often do you feel lonely or isolated from those around you?: Never Do you speak a language other than Swedish at home?: Yes Does the patient want assistance with any of the above?: Yes Social Determinants of Health Comments(SDOH Details): Applied for financial assistance from [facility] community Health Related Social Needs Health related social needs: inadequate housing (Z59.1), problems related to housing/economic circumstances (Z59.89) and education (Z55.6)
--- NOTE | 2024-04-12 13:51 | PGE_ITS ---
Date of Service Date of service: 04/12/24 Time of Service: 13:51 Assessment and Plan Assessment and plan (1) Pleural effusion associated with hepatic disorder: Start date: 04/03/24 Start time: 20:56 Status: Acute Assessment and plan: -Initially thought trigger is right sided pneumonia that was determined to not have a pneumonia and antibiotics were thus discontinued -Consulted Gen Surgery in AM for thoracocentesis and fluid analysis. In the past this was a transudative fluid most likely due to hepatic cirrhosis. -Chest tube was placed at [facility] on 04/06/2024 -Fluid was noted as being transitive, and since that time patient has not a total of about 22 L of fluid out ranging from 2 to 5 L/day -Given ongoing drainage of fluid, [facility] was consulted and they recommended discussing with gastroenterology -Discussed with [facility] noted that the patient is no longer under their care as per [facility] risk-management, but did state that she receives GI care at [place] under Dr. Sergo Acosta; message was left at his office on the afternoon of 04/12/2024 and will await his recommendations (2) Community acquired pneumonia: Status: Acute Assessment and plan: -Was initially on Levaquin and was thought that this was the trigger for pleural effusion as noted above -However, it was ultimately determined the patient did not have pneumonia and antibiotics were discontinued (3) Cirrhosis of liver with ascites: Status: Chronic Assessment and plan: -Dx autoimmune hepatitis not on immune suppressive therapy -Plt 118k. INR 1.4, Tot Bili 1.4, AST 193, ALT 179 -Labs and clinical presenation not c/w worsening decompensation of her liver disease. (4) Varices of esophagus determined by endoscopy: Status: Acute Assessment and plan: -COnt w/ Nadolol 20mg daily (held today with low BP) -no bleeding but H/h down (5) Hypotension: Status: Acute Assessment and plan: BPs run low but lower than baseline while NPO with active infection. Responded to gentle fluids. (6) DVT prophylaxis: Status: Acute Assessment and plan: enoxaparin (7) Anemia: Status: Chronic Assessment and plan: pt's h/h remains stable, continue serially monitoring (8) Pneumothorax: Status: Acute Assessment and plan: -small pneumothorax but is since resolved as of 04/11/2024 Subjective Subjective Interval history since last seen: Patient states that she is feeling better. She understands we will be consulting with [facility] to figure out next best course of action getting an ongoing significant fluid output from chest tube. Exam Narrative Exam Narrative: Well-appearing female laying in bed in no acute distress, ANO x 4, heart regular rhythm, lungs clear to auscultation bilaterally with chest tube continuing to drain significant transudative fluid from the right lung, abdomen soft, nontender, nondistended Objective Last Vital Signs Temp 98.2 F 04/12/24 12:02 Pulse 69 04/12/24 12:02 Resp 16 04/12/24 12:02 BP 100/58 L 04/12/24 12:02 Pulse Ox 98 04/12/24 12:02 Time Spent with Patient Time Spent with Patient: >50 minutes Time was spent: preparing to see the patient(eg.review tests), obtaining and/or reviewing separately otained hiistory, ordering medications,tests, procedures, referring, communicating with other health child care director, indepentently interpreting results, counseling the patient and care coordination
[2024-04-12] MEDS: Enoxaparin 40 MG/0.4 ML SYR SC (21:45)
[2024-04-13 03:33] VITALS: BP 121/55; PULSE 81; RESP 19; TEMP 37.4; O2SAT 98
[2024-04-13 07:14] LABS: HCT 32.3 % (36.0-46.0); MCH 30.1 pg (27.0-33.0); MCHC 34.1 % (32.0-36.0); MCV 88 fL (80-95); MPV 10.3 fL (8.0-11.0); Platelet Count 137 10^3/uL (130-400); RBC 3.66 10^6/uL (3.93-5.22); RDW 15.6 % (11.7-14.6); RDW-SD 50.4 fL; WBC 7.34 10^3/uL (4.4-10.8)
[2024-04-13 07:20] LABS: INR 1.2 (0.9-1.1); Prothrombin Time 12.2 sec (9.1-11.1)
[2024-04-13 07:28] LABS: ALT 54 U/L (14-59); AST 76 U/L (15-37); Albumin 1.8 g/dL (3.4-5.0); Alkaline Phosphatase 81 U/L (46-116); BUN 26 mg/dL (7-18); Bilirubin, Total 0.73 mg/dL (0.2-1.0); CREATININE 0.6 mg/dL (0.55-1.02); Calcium 8.1 mg/dL (8.5-10.1); Chloride 102 mmol/L (98-107); Glucose 96 mg/dL (74-106); Potassium 4.9 mmol/L (3.5-5.1); Sodium 133 mmol/L (136-145); Total Protein 6.7 g/dL (6.4-8.2)
[2024-04-13 08:36] VITALS: BP 91/54; PULSE 84; RESP 18; TEMP 36.4; O2SAT 99
--- NOTE | 2024-04-13 08:42 | CMPROGNOTE_ITS ---
Date of service: 04/13/24 Time of Service: 08:42 Care Management Progress Note Progress Note Text Progress Note Text: Samara was visiting with family when CM went to meet with her. She appeared to be in good spirits and, per report, is feeling well. Her provider has tried to reach Samara's deputy editor in chief in [place] 2 days in a row but has not received a call back. Samara's chest tube continues to drain a lot of fluid, 6510-3540 ml/day, but is less than over the weekend when it drained over 2-3L/day.. Her vital signs remain stable and her oxygen saturation is in the upper 90s on room air. Discharge Potential Discharge Needs: PCP F/U Appt Anticipated Barriers to Discharge: Medical Status Patient/Family Education Needs: Review discharge instructions, discuss Ask Me Three Transportation: Private vehicle Plan: Anticipate, Samara will be discharged home with no new services when medically stable. She may require transfer to [facility] for a down and back procedure as her chest tube drainage is still significant. She will follow up with her community providers and plan of care and transport with family. CM will continue to assess for discharge needs. Social Determinants of Health Screening Social Determinants of Health last assessed: 04/13/24 Will the Patient Participate in the Screening?: Yes Do you worry about having a steady place to live?: no Problems where you live: pests such as bugs, ants or mice In the past 12 months, have you had to go without electric, gas, oil or water in your home?: no Have you or anyone in your house had to go without enough food to eat?: no Has lack of transportation kept you from medical appointments or from doing things needed for daily living?: no Has anyone in your life made you feel unsafe or unsupported?: no How hard is it for you to pay for the very basics like food, housing, medical care, and heating? Would you say it is:: Somewhat hard Do you want help finding or keeping work or a job?: I do not need or want help If for any reason you need help with day-to-day activities such as bathing, preparing meals, shopping, managing finances, etc., do you get the help you need?: I get all the help I need How often do you feel lonely or isolated from those around you?: Never Do you speak a language other than [place] at home?: Yes Does the patient want assistance with any of the above?: Yes Social Determinants of Health Comments(SDOH Details): Applied for financial assistance from [facility] community Health Related Social Needs Health related social needs: inadequate housing (Z59.1), problems related to housing/economic circumstances (Z59.89) and education (Z55.6)
[2024-04-13] MEDS: Lidocaine 5% Patch 1 PATCH TP (09:01)
[2024-04-13] MEDS: Nadolol 40 MG TAB 20 MG PO (09:01)
[2024-04-13 09:03] VITALS: BP 100/56
--- NOTE | 2024-04-13 13:38 | W.PM.PROGNOT ---
Date of Service Date of service: 04/13/24 Time of Service: 13:38 Assessment and Plan Assessment and plan (1) Pleural effusion associated with hepatic disorder: Start date: 04/03/24 Start time: 20:56 Status: Acute Assessment and plan: -Initially thought trigger is right sided pneumonia that was determined to not have a pneumonia and antibiotics were thus discontinued -Consulted Gen Surgery in AM for thoracocentesis and fluid analysis. In the past this was a transudative fluid most likely due to hepatic cirrhosis. -Chest tube was placed at [facility] on 04/06/2024 -Fluid was noted as being transitive, and since that time patient has not a total of about 25 L of fluid out ranging from 2 to 5 L/day, 2.4L as of 14:00 04/13 -Given ongoing drainage of fluid, [facility] IR was consulted and they recommended discussing with gastroenterology -Discussed with [facility] GI noted that the patient is no longer under their care as per [facility] risk-management, but did state that she receives GI care at [place] under Dr. Sergo Acosta; message was left at his office on the afternoon of 04/12/2024 and will await his recommendations -I again reached out to Dr. Acosta early afternoon 04/13/2024; still awaiting return phone call and recommendations (2) Community acquired pneumonia: Status: Acute Assessment and plan: -Was initially on Levaquin and was thought that this was the trigger for pleural effusion as noted above -However, it was ultimately determined the patient did not have pneumonia and antibiotics were discontinued (3) Cirrhosis of liver with ascites: Status: Chronic Assessment and plan: -Dx autoimmune hepatitis not on immune suppressive therapy -Plt 118k. INR 1.4, Tot Bili 1.4, AST 193, ALT 179 -Labs and clinical presenation not c/w worsening decompensation of her liver disease. (4) Varices of esophagus determined by endoscopy: Status: Acute Assessment and plan: -COnt w/ Nadolol 20mg daily (held today with low BP) -no bleeding but H/h down (5) Hypotension: Status: Acute Assessment and plan: BPs run low but lower than baseline while NPO with active infection. Responded to gentle fluids. (6) DVT prophylaxis: Status: Acute Assessment and plan: enoxaparin (7) Anemia: Status: Chronic Assessment and plan: pt's h/h remains stable, continue serially monitoring (8) Pneumothorax: Status: Acute Assessment and plan: -small pneumothorax but is since resolved as of 04/11/2024 Subjective Subjective Interval history since last seen: Patient states that she is doing well today, and understands that I will be discussing with her check processing clerk Dr. Acosta in regards to managing her ongoing hydrothorax in the setting of chest tube placement. Otherwise she states that she is feeling well has no other complaints or concerns at this time. Exam Narrative Exam Narrative: Well-appearing female laying in bed in no acute distress, ANO x 4, heart regular rhythm, lungs clear to auscultation bilaterally with chest tube continuing to drain significant transudative fluid from the right lung, abdomen soft, nontender, nondistended Objective Last Vital Signs Temp 97.5 F L 04/13/24 08:36 Pulse 84 04/13/24 08:36 Resp 18 04/13/24 08:36 BP 100/56 L 04/13/24 09:03 Pulse Ox 99 04/13/24 08:36 Laboratory Results - last 24 hr 04/13/24 06:24 WBC 7.34 RBC 3.66 L Hgb 11.0 L Hct 32.3 L MCV 88 MCH 30.1 MCHC 34.1 RDW 15.6 H Plt Count 137 MPV 10.3 PT 12.2 H INR 1.2 H Sodium 133 L Potassium 4.9 Chloride 102 Carbon Dioxide 28.0 Anion Gap 3.0 BUN 26 H Creatinine 0.6 Est GFR (CKD-EPI 2020) 97.10 Glucose 96 Calcium 8.1 L Total Bilirubin 0.73 AST 76 H ALT 54 Alkaline Phosphatase 81 Total Protein 6.7 Albumin 1.8 L Time Spent with Patient Time Spent with Patient: >50 minutes Time was spent: preparing to see the patient(eg.review tests), obtaining and/or reviewing separately otained hiistory, ordering medications,tests, procedures, referring, communicating with other health child care cook, indepentently interpreting results, counseling the patient and care coordination
--- NOTE | 2024-04-13 14:06 | W.NUTRFU ---
Date of service: 04/13/24 Time of Service: 14:06 Nutrition Note NOTE: have visited with art and her family multiple times this admission for treatment for pleural effusion associated with hepatic disorder (cirrhosis with ascites). Patient has been eating well on a regular diet with normal consistencies. Her weight has fluctuated with the ascites fluid collecting and drainage affecting her weight. Overall weight loss has trended over the last year with a 6-7kg wt loss over the last 16 months. Total protein lab wnl, albumin 1.8 today. She has been educated on high protein diet to replace losses in fluids. She was taking chocolate boost ONS BID however son visited and has concerns with these being high in sugar and very processed. Agreement was made to try the whey protein smoothie made in the kitchen as 2pm nourishment. No nutrition interventions planned at this time outside of supporting a higher protein, varied diet along with 8oz protein shake daily from the kitchen. Will continue to monitor weight, labs, po intake. Time Spent in Nutritional Counseling and Treatment: 10 minutes
[2024-04-13 19:10] VITALS: BP 96/58; PULSE 93; RESP 18; TEMP 37.1; O2SAT 96
[2024-04-13] MEDS: Patch Removal 1 EACH TP (20:18)
[2024-04-13 23:06] VITALS: BP 100/62; PULSE 81; RESP 17; TEMP 36.9; O2SAT 96
[2024-04-13] MEDS: Enoxaparin 40 MG/0.4 ML SYR SC (23:11)
[2024-04-14] VITALS (12 sets, daily range): BP systolic 90–110; BP diastolic 46–70; PULSE 68–84; RESP 16–17; TEMP 36.4–37.6; O2SAT 95–97
[2024-04-14] MEDS: Lidocaine 5% Patch 1 PATCH TP (08:12)
[2024-04-14] MEDS: Nadolol 40 MG TAB 20 MG PO (08:14)
--- NOTE | 2024-04-14 09:29 | PDOC.CMPRO ---
Date of service: 04/14/24 Time of Service: 09:29 Care Management Progress Note Progress Note Text Progress Note Text: Samara was sitting up in bed when CM met with her. She was smiling and engaged per usual. Samara has been hospitalized for 11 days with a pleural effusion secondary to autoimmune hepatitis. She went to [facility] and had a chest tube placed last week. She has had copious amounts of drainage, up to 3-4 L/day. Samara shared that Dr. Harris explained the pathophysiology of what was going on in her body and how he planned to address it. His plan is to leave the chest tube as is for another day or two while diuresing her with Lasix. It is hoped that the excess fluid that collects can be eliminated by increasing her urine output rather than collecting in her chest. Samara stated that she is really impressed with the hospitalists and is grateful for the excellent care she is receiving. Discharge Potential Discharge Needs: PCP F/U Appt Anticipated Barriers to Discharge: Medical Status Patient/Family Education Needs: Review discharge instructions, discuss Ask Me Three Transportation: Private vehicle Plan: Anticipate, Samara will be discharged home with no new services when medically stable. She may require transfer to [facility] for a down and back procedure as her chest tube drainage is still significant. She will follow up with her community providers and plan of care and transport with family. CM will continue to assess for discharge needs. Social Determinants of Health Screening Social Determinants of Health last assessed: 04/14/24 Will the Patient Participate in the Screening?: Yes Do you worry about having a steady place to live?: no Problems where you live: pests such as bugs, ants or mice In the past 12 months, have you had to go without electric, gas, oil or water in your home?: no Have you or anyone in your house had to go without enough food to eat?: no Has lack of transportation kept you from medical appointments or from doing things needed for daily living?: no Has anyone in your life made you feel unsafe or unsupported?: no How hard is it for you to pay for the very basics like food, housing, medical care, and heating? Would you say it is:: Somewhat hard Do you want help finding or keeping work or a job?: I do not need or want help If for any reason you need help with day-to-day activities such as bathing, preparing meals, shopping, managing finances, etc., do you get the help you need?: I get all the help I need How often do you feel lonely or isolated from those around you?: Never Do you speak a language other than Armenian at home?: Yes Does the patient want assistance with any of the above?: Yes Social Determinants of Health Comments(SDOH Details): Applied for financial assistance from [facility] community Health Related Social Needs Health related social needs: inadequate housing (Z59.1), problems related to housing/economic circumstances (Z59.89) and education (Z55.6)
[2024-04-14] MEDS: Midodrine 2.5 MG TAB PO ×3 (10:58→20:15)
--- NOTE | 2024-04-14 12:32 | PGE_ITS ---
Date of Service Date of service: 04/14/24 Time of Service: 12:32 Assessment and Plan Assessment and plan (1) Pleural effusion associated with hepatic disorder: Start date: 04/03/24 Start time: 20:56 Status: Acute Assessment and plan: -Initially thought trigger is right sided pneumonia that was determined to not have a pneumonia and antibiotics were thus discontinued -Consulted Gen Surgery in AM for thoracocentesis and fluid analysis. In the past this was a transudative fluid most likely due to hepatic cirrhosis. -Chest tube was placed at [facility] on 04/06/2024 -Fluid was noted as being transitive, and since that time patient has not a total of about 26.5 L of fluid out ranging from 2 to 5 L/day, 0.5L as of 10am 04/14 -Given ongoing drainage of fluid, [facility] IR was consulted and they recommended discussing with gastroenterology -Discussed with [facility] GI noted that the patient is no longer under their care as per [facility] risk-management, but did state that she receives GI care at [place] under Dr. Sergo Acosta; message was left at his office on the afternoon of 04/12/2024 and will await his recommendations -I again reached out to Dr. Acosta early afternoon 04/13/2024without callback -plan is to initiate midodrine 2.5mg TID as of AM 04/14, and give initial dose if IV lasix 10mg ~noon; will monitor UOP and blood pressure and give additional doses of lasix as tolerated -once chest tube output has decreased as a result of diuresis with lasix, will then have chest tube removed (2) Community acquired pneumonia: Status: Acute Assessment and plan: -Was initially on Levaquin and was thought that this was the trigger for pleural effusion as noted above -However, it was ultimately determined the patient did not have pneumonia and antibiotics were discontinued (3) Cirrhosis of liver with ascites: Status: Chronic Assessment and plan: -Dx autoimmune hepatitis not on immune suppressive therapy -Plt 118k. INR 1.4, Tot Bili 1.4, AST 193, ALT 179 -Labs and clinical presenation not c/w worsening decompensation of her liver disease. (4) Varices of esophagus determined by endoscopy: Status: Acute Assessment and plan: -COnt w/ Nadolol 20mg daily -no bleeding but H/h down (5) Hypotension: Status: Acute Assessment and plan: BPs run low but lower than baseline while NPO with active infection. Responded to gentle fluids. (6) DVT prophylaxis: Status: Acute Assessment and plan: enoxaparin (7) Anemia: Status: Chronic Assessment and plan: pt's h/h remains stable, continue serially monitoring (8) Pneumothorax: Status: Acute Assessment and plan: -small pneumothorax but is since resolved as of 04/11/2024 Subjective Subjective Interval history since last seen: Patient states that she is continuing to do well. She also understands the plan to initiate midodrine in order to allow for aggressive diuresis with Lasix and attempt to decrease the fluid output of her chest tube. She has no complaints concerns at this time. Exam Narrative Exam Narrative: Well-appearing female laying in bed in no acute distress, ANO x 4, heart regular rhythm, lungs clear to auscultation bilaterally with chest tube continuing to drain significant transudative fluid from the right lung, abdomen soft, nontender, nondistended Objective Last Vital Signs Temp 97.5 F L 04/14/24 03:11 Pulse 77 04/14/24 03:11 Resp 17 04/14/24 03:11 BP 90/60 L 04/14/24 11:35 Pulse Ox 97 04/14/24 03:11 Time Spent with Patient Time Spent with Patient: >50 minutes Time was spent: preparing to see the patient(eg.review tests), obtaining and/or reviewing separately otained hiistory, ordering medications,tests, procedures, referring, communicating with other health caregiver services home, indepentently interpreting results, counseling the patient and care coordination
[2024-04-14] MEDS: Furosemide 20 MG/2 ML VIAL 10 MG IVP ×2 (12:37→15:52)
[2024-04-14] MEDS: Normal Saline Flush 10 ML SYR IVP (18:33)
[2024-04-14] MEDS: Patch Removal 1 EACH TP (20:19)
[2024-04-14] MEDS: Enoxaparin 40 MG/0.4 ML SYR SC (22:47)
[2024-04-15] VITALS (8 sets, daily range): BP systolic 88–106; BP diastolic 36–60; PULSE 72–73; RESP 16–18; TEMP 36.5–37.6; O2SAT 96–100
[2024-04-15 07:46] LABS: HCT 34.8 % (36.0-46.0); HGB 11.6 g/dL (11.2-15.7); MCH 30.4 pg (27.0-33.0); MCHC 33.3 % (32.0-36.0); MCV 91 fL (80-95); MPV 9.5 fL (8.0-11.0); Platelet Count 161 10^3/uL (130-400); RBC 3.82 10^6/uL (3.93-5.22); RDW 15.6 % (11.7-14.6); RDW-SD 51.1 fL; WBC 7.92 10^3/uL (4.4-10.8)
[2024-04-15 08:07] LABS: ALT 63 U/L (14-59); AST 93 U/L (15-37); Alkaline Phosphatase 88 U/L (46-116); Anion Gap 1.2 mmol/L (3-11); BUN 29 mg/dL (7-18); Bilirubin, Total 0.71 mg/dL (0.2-1.0); CO2 29.8 mmol/L (21.0-32.0); CREATININE 0.8 mg/dL (0.55-1.02); Calcium 8.6 mg/dL (8.5-10.1); Chloride 101 mmol/L (98-107); Estimated GFR 79.71 (mL/min/1.73m2); Glucose 118 mg/dL (74-106); Potassium 4.9 mmol/L (3.5-5.1); Sodium 132 mmol/L (136-145); Total Protein 7.2 g/dL (6.4-8.2)
[2024-04-15] MEDS: Lidocaine 5% Patch 1 PATCH TP (08:54)
[2024-04-15] MEDS: Furosemide 20 MG/2 ML VIAL IVP ×2 (08:55→15:32)
[2024-04-15] MEDS: Normal Saline Flush 10 ML SYR IVP ×2 (08:55→19:48)
[2024-04-15] MEDS: Nadolol 40 MG TAB 20 MG PO (08:55)
[2024-04-15] MEDS: Midodrine 2.5 MG TAB PO ×3 (08:56→19:49)
--- NOTE | 2024-04-15 09:20 | CMPROGNOTE_ITS ---
Date of service: 04/15/24 Time of Service: 09:20 Care Management Progress Note Progress Note Text Progress Note Text: Samara was sitting up in bed visiting with her son and [id number] when CM met with her. She remains in good spirits and reported that she feels well. Samara's chest tube drainage is starting to decrease and her urine output is increasing as planned. Per provider, she seems to be responding favorably to the change in her treatment plan with the addition of midodrine and Lasix.CM will follow. Discharge Potential Discharge Needs: PCP F/U Appt Anticipated Barriers to Discharge: None Identified Patient/Family Education Needs: Review discharge instructions, discuss Ask Me Three Transportation: Private vehicle Plan: Anticipate, Samara will be discharged home with no new services when medically stable. She may require transfer to [facility] for a down and back procedure as her chest tube drainage is still significant. She will follow up with her community providers and plan of care and transport with family. CM will continue to assess for discharge needs. Social Determinants of Health Screening Social Determinants of Health last assessed: 04/15/24 Will the Patient Participate in the Screening?: Yes Do you worry about having a steady place to live?: no Problems where you live: pests such as bugs, ants or mice In the past 12 months, have you had to go without electric, gas, oil or water in your home?: no Have you or anyone in your house had to go without enough food to eat?: no Has lack of transportation kept you from medical appointments or from doing things needed for daily living?: no Has anyone in your life made you feel unsafe or unsupported?: no How hard is it for you to pay for the very basics like food, housing, medical care, and heating? Would you say it is:: Somewhat hard Do you want help finding or keeping work or a job?: I do not need or want help If for any reason you need help with day-to-day activities such as bathing, preparing meals, shopping, managing finances, etc., do you get the help you need?: I get all the help I need How often do you feel lonely or isolated from those around you?: Never Do you speak a language other than Faroese at home?: Yes Does the patient want assistance with any of the above?: Yes Social Determinants of Health Comments(SDOH Details): Applied for financial assistance from [facility] community Health Related Social Needs Health related social needs: inadequate housing (Z59.1), problems related to housing/economic circumstances (Z59.89) and education (Z55.6)
--- NOTE | 2024-04-15 14:54 | PGE_ITS ---
Date of Service Date of service: 04/15/24 Time of Service: 14:54 Assessment and Plan Assessment and plan (1) Pleural effusion associated with hepatic disorder: Start date: 04/03/24 Start time: 20:56 Status: Acute Assessment and plan: -Initially thought trigger is right sided pneumonia that was determined to not have a pneumonia and antibiotics were thus discontinued -Consulted Gen Surgery in AM for thoracocentesis and fluid analysis. In the past this was a transudative fluid most likely due to hepatic cirrhosis. -Chest tube was placed at [facility] on 04/06/2024 -Fluid was noted as being transitive, and since that time patient has not a total of about 26.5 L of fluid out ranging from 2 to 5 L/day, 0.5L as of 10am 04/14 -Given ongoing drainage of fluid, [facility] IR was consulted and they recommended discussing with gastroenterology -Discussed with [facility] GI noted that the patient is no longer under their care as per [facility] risk-management, but did state that she receives GI care at [place] under Dr. Sergo Acosta; message was left at his office on the afternoon of 04/12/2024 and will await his recommendations -I again reached out to Dr. Acosta early afternoon 04/13/2024without callback -plan is to initiate midodrine 2.5mg TID as of AM 25, and give initial dose if IV lasix 10mg ~noon; additional 10mg IV lasix given PM 25 -as of AM 2/6 patient appears to be on pace to have only ~1,200ml out of her chest tube with increasin in urine output, which is significant imnprovement -will continue 20mg IV lasix BID and consider increasing lasix as BP allows -once chest tube output has significantly decreased as a result of diuresis with lasix, will then have chest tube removed (2) Community acquired pneumonia: Status: Acute Assessment and plan: -Was initially on Levaquin and was thought that this was the trigger for pleural effusion as noted above -However, it was ultimately determined the patient did not have pneumonia and antibiotics were discontinued (3) Cirrhosis of liver with ascites: Status: Chronic Assessment and plan: -Dx autoimmune hepatitis not on immune suppressive therapy -Plt 118k. INR 1.4, Tot Bili 1.4, AST 193, ALT 179 -Labs and clinical presenation not c/w worsening decompensation of her liver disease. (4) Varices of esophagus determined by endoscopy: Status: Acute Assessment and plan: -COnt w/ Nadolol 20mg daily -no bleeding but H/h down (5) Hypotension: Status: Acute Assessment and plan: BPs run low but lower than baseline while NPO with active infection. Responded to gentle fluids. (6) DVT prophylaxis: Status: Acute Assessment and plan: enoxaparin (7) Anemia: Status: Chronic Assessment and plan: pt's h/h remains stable, continue serially monitoring (8) Pneumothorax: Status: Acute Assessment and plan: -small pneumothorax but is since resolved as of 04/11/2024 Subjective Subjective Interval history since last seen: Patient states that she continues to feel well. She is encouraged that she is having decreased output of her chest tube and increased urine output as planned by initiating midodrine and IV Lasix. At this time she has no other complaints or concerns. Exam Narrative Exam Narrative: Well-appearing female laying in bed in no acute distress, ANO x 4, heart regular rhythm, lungs clear to auscultation bilaterally with chest tube continuing to drain significant transudative fluid from the right lung, abdomen soft, nontender, nondistended Objective Last Vital Signs Temp 97.7 F 04/15/24 07:31 Pulse 72 04/15/24 07:31 Resp 18 04/15/24 09:06 BP 90/60 L 04/15/24 13:33 Pulse Ox 100 04/15/24 07:31 Laboratory Results - last 24 hr 04/15/24 07:15 WBC 7.92 RBC 3.82 L Hgb 11.6 Hct 34.8 L MCV 91 MCH 30.4 MCHC 33.3 RDW 15.6 H Plt Count 161 MPV 9.5 Sodium 132 L Potassium 4.9 Chloride 101 Carbon Dioxide 29.8 Anion Gap 1.2 L BUN 29 H Creatinine 0.8 Est GFR (CKD-EPI 2020) 79.71 Glucose 118 H Calcium 8.6 Total Bilirubin 0.71 AST 93 H ALT 63 H Alkaline Phosphatase 88 Total Protein 7.2 Albumin 2.0 L Time Spent with Patient Time Spent with Patient: >50 minutes Time was spent: preparing to see the patient(eg.review tests), obtaining and/or reviewing separately otained hiistory, ordering medications,tests, procedures, referring, communicating with other health youth care specialist, indepentently interpreting results, counseling the patient and care coordination
[2024-04-15] MEDS: Patch Removal 1 EACH TP (19:49)
[2024-04-15] MEDS: Enoxaparin 40 MG/0.4 ML SYR SC (22:13)
[2024-04-16] VITALS (9 sets, daily range): BP systolic 79–96; BP diastolic 48–59; PULSE 66–88; RESP 15–18; TEMP 36.5–37.1; O2SAT 94–100
[2024-04-16 07:00] LABS: HGB 11.7 g/dL (11.2-15.7); MCH 30.5 pg (27.0-33.0); MCHC 34.4 % (32.0-36.0); MCV 89 fL (80-95); MPV 9.6 fL (8.0-11.0); Platelet Count 174 10^3/uL (130-400); RBC 3.83 10^6/uL (3.93-5.22); RDW 15.6 % (11.7-14.6); RDW-SD 50.6 fL; WBC 8.19 10^3/uL (4.4-10.8)
[2024-04-16 07:27] LABS: ALT 66 U/L (14-59); AST 96 U/L (15-37); Albumin 1.9 g/dL (3.4-5.0); Alkaline Phosphatase 85 U/L (46-116); BUN 30 mg/dL (7-18); Bilirubin, Total 0.77 mg/dL (0.2-1.0); CREATININE 0.7 mg/dL (0.55-1.02); Calcium 8.4 mg/dL (8.5-10.1); Chloride 97 mmol/L (98-107); Estimated GFR 93.56 (mL/min/1.73m2); Glucose 96 mg/dL (74-106); Potassium 4.8 mmol/L (3.5-5.1); Sodium 127 mmol/L (136-145); Total Protein 7.2 g/dL (6.4-8.2)
[2024-04-16] MEDS: Lidocaine 5% Patch 1 PATCH TP (08:08)
[2024-04-16] MEDS: Nadolol 40 MG TAB 20 MG PO (08:09)
[2024-04-16] MEDS: Midodrine 2.5 MG TAB PO ×3 (08:09→19:58)
[2024-04-16] MEDS: Normal Saline Flush 10 ML SYR IVP ×2 (08:12→19:58)
[2024-04-16] MEDS: Furosemide 20 MG/2 ML VIAL IVP ×2 (08:12→16:02)
--- NOTE | 2024-04-16 08:41 | CMPROGNOTE_ITS ---
Date of service: 04/16/24 Time of Service: 08:41 Care Management Progress Note Progress Note Text Progress Note Text: Samara was sitting up in bed visiting with her son when CM met with her. She was smiling and informed CM that she had some good news today. The provider told her that the drainage form her chest tube has finally slowed down and that her urine output is increasing, the exact effect he was hoping to achieve with the medications changes he made. The provider went on the state that if it continues, he may remove the chest tube this weekend. Samara has been very patient with the course of her illness but she has shared how much she looks f orward to going home. She knows that this news brings her a step closer to discharge. Discharge Potential Discharge Needs: PCP F/U Appt Anticipated Barriers to Discharge: None Identified Patient/Family Education Needs: Review discharge instructions, discuss Ask Me Three Transportation: Private vehicle Plan: Anticipate, Samara will be discharged home with no new services when medically stable. She will follow up with her community providers and plan of care and transport with family. CM will continue to assess for discharge needs. Social Determinants of Health Screening Social Determinants of Health last assessed: 04/16/24 Will the Patient Participate in the Screening?: Yes Do you worry about having a steady place to live?: no Problems where you live: pests such as bugs, ants or mice In the past 12 months, have you had to go without electric, gas, oil or water in your home?: no Have you or anyone in your house had to go without enough food to eat?: no Has lack of transportation kept you from medical appointments or from doing things needed for daily living?: no Has anyone in your life made you feel unsafe or unsupported?: no How hard is it for you to pay for the very basics like food, housing, medical care, and heating? Would you say it is:: Somewhat hard Do you want help finding or keeping work or a job?: I do not need or want help If for any reason you need help with day-to-day activities such as bathing, preparing meals, shopping, managing finances, etc., do you get the help you n eed?: I get all the help I need How often do you feel lonely or isolated from those around you?: Never Do you speak a language other than Djib[place]ian at home?: Yes Does the patient want assistance with any of the above?: Yes Social Determinants of Health Comments(SDOH Details): Applied for financial assistance from [facility] community Health Related Social Needs Health related social needs: inadequate housing (Z59.1), problems related to housing/economic circumstances (Z59.89) and education (Z55.6)
--- NOTE | 2024-04-16 11:03 | W.PM.PROGNOT ---
Date of Service Date of service: 04/16/24 Time of Service: 11:03 Assessment and Plan Assessment and plan (1) Pleural effusion associated with hepatic disorder: Start date: 04/03/24 Start time: 20:56 Status: Acute Assessment and plan: -Initially thought trigger is right sided pneumonia that was determined to not have a pneumonia and antibiotics were thus discontinued -Consulted Gen Surgery in AM for thoracocentesis and fluid analysis. In the past this was a transudative fluid most likely due to hepatic cirrhosis. -Chest tube was placed at [facility] on 04/06/2024 -Fluid was noted as being transitive, and since that time patient has not a total of about 26.5 L of fluid out ranging from 2 to 5 L/day, 0.5L as of 10am 04/14 -Given ongoing drainage of fluid, [facility] was consulted and they recommended discussing with gastroenterology -Discussed with [facility] noted that the patient is no longer under their care as per [facility] risk-management, but did state that she receives GI care at [facility] under Dr. Sergo Acosta; message was left at his office on the afternoon of 04/12/2024 and will await his recommendations -I again reached out to Dr. Acosta early afternoon 04/13/2024without callback -plan is to initiate midodrine 2.5mg TID as of AM 04/14, and give initial dose if IV lasix 10mg ~noon; additional 10mg IV lasix given PM 5 -as of AM 04/16 patient appears to be on pace to have only 200ml out of her chest tube over the last 6 hours which is a significant improvement -will continue 20mg IV lasix BID and consider increasing lasix as BP allows -plan for possible chest tube removal tomorroa 04/17 if output remains low (2) Community acquired pneumonia: Status: Acute Assessment and plan: -Was initially on Levaquin and was thought that this was the trigger for pleural effusion as noted above -However, it was ultimately determined the patient did not have pneumonia and antibiotics were discontinued (3) Cirrhosis of liver with ascites: Status: Chronic Assessment and plan: -Dx autoimmune hepatitis not on immune suppressive therapy -Plt 118k. INR 1.4, Tot Bili 1.4, AST 193, ALT 179 -Labs and clinical presenation not c/w worsening decompensation of her liver disease. (4) Varices of esophagus determined by endoscopy: Status: Acute Assessment and plan: -COnt w/ Nadolol 20mg daily -no bleeding but H/h down (5) Hypotension: Status: Acute Assessment and plan: BPs run low but lower than baseline while NPO with active infection. Responded to gentle fluids. (6) DVT prophylaxis: Status: Acute Assessment and plan: enoxaparin (7) Anemia: Status: Chronic Assessment and plan: pt's h/h remains stable, continue serially monitoring (8) Pneumothorax: Status: Acute Assessment and plan: -small pneumothorax but is since resolved as of 04/11/2024 Subjective Subjective Interval history since last seen: Patient states that she is doing well today. She is excited about the fact that she has had significant decrease output of her chest tube, and that if output remains low there is possibility could be removed tomorrow. She has no complaints or concerns at this time. Exam Narrative Exam Narrative: Well-appearing female laying in bed in no acute distress, ANO x 4, heart regular rhythm, lungs clear to auscultation bilaterally with chest tube continuing to drain significant transudative fluid from the right lung, abdomen soft, nontender, nondistended Objective Last Vital Signs Temp 98.1 F 04/16/24 07:33 Pulse 70 04/16/24 07:33 Resp 18 04/16/24 07:33 BP 92/57 L 04/16/24 07:33 Pulse Ox 100 04/16/24 07:33 Laboratory Results - last 24 hr 04/16/24 06:33 WBC 8.19 RBC 3.83 L Hgb 11.7 Hct 34.0 L MCV 89 MCH 30.5 MCHC 34.4 RDW 15.6 H Plt Count 174 MPV 9.6 Sodium 127 L Potassium 4.8 Chloride 97 L Carbon Dioxide 28.0 Anion Gap 2.0 L BUN 30 H Creatinine 0.7 Est GFR (CKD-EPI 2020) 93.56 Glucose 96 Calcium 8.4 L Total Bilirubin 0.77 AST 96 H ALT 66 H Alkaline Phosphatase 85 Total Protein 7.2 Albumin 1.9 L Time Spent with Patient Time Spent with Patient: >50 minutes Time was spent: preparing to see the patient(eg.review tests), obtaining and/or reviewing separately otained hiistory, ordering medications,tests, procedures, referring, communicating with other health career transition specialist, indepentently interpreting results, counseling the patient and care coordination
[2024-04-16] MEDS: Patch Removal 1 EACH TP (19:59)
[2024-04-16] MEDS: Enoxaparin 40 MG/0.4 ML SYR SC (21:15)
[2024-04-17] VITALS (8 sets, daily range): BP systolic 82–102; BP diastolic 52–65; PULSE 67–92; RESP 14–18; TEMP 36.3–37.2; O2SAT 96–100
[2024-04-17] MEDS: Furosemide 20 MG/2 ML VIAL IVP ×2 (07:27→15:01)
[2024-04-17] MEDS: Midodrine 2.5 MG TAB PO ×2 (07:27→13:45)
[2024-04-17] MEDS: Nadolol 40 MG TAB 20 MG PO (07:27)
[2024-04-17] MEDS: Lidocaine 5% Patch 1 PATCH TP (07:27)
[2024-04-17] MEDS: Normal Saline Flush 10 ML SYR IVP ×2 (07:30→21:25)
--- NOTE | 2024-04-17 08:08 | PT.INIE ---
Date of service: 04/17/24 Time of Service: 07:45 PT Notes Visit Reasons: Pleural Effusion Inpatient Physical Therapy Evaluation Date: April 17, 2024 Referring Doctor: Thad Harris PT Orders: PT CONSULT Precautions: Standard Patient Profile/Admitting Diagnosis: Samara is a 69 year old female who presents to the emergency department on 04/03/24 for evaluation of productive cough. She had developed fatigue, decreased appetite, and shortness of breath. This is accompanied by right mid back discomfort that is worsened with deep breathing. She reports that she had viral symptoms at the beginning of March, was evaluated at [facility] on 03/19/2024. At that time she was found to have diffuse wheezing, declined chest x-ray.she says that symptoms got better the next couple of days, but then became acutely worsened a couple of days ago. She denies fever/chills, headache, dizziness, sore throat, congestion, chest pain, nausea/vomiting, abdominal pain, change in bowel or bladder function. Past medical history is significant for cirrhosis with esophageal varices, is treated with nadolol. She did have pneumonia back in December. Diagnosed with pleural effusion PMHX: ACP (advance care planning) (Acute) Community acquired pneumonia (Acute) Umbilical hernia without obstruction and without gangrene (Acute) Reduced at [facility] ER; not containing intestine on MRI abd 11/2023. Managing with abd pressure; felt to be due to ascites and internal abd pressure.Cirrhosis of liver with ascites (Chronic) managed with surveillance and nadolol by [facility]; previously declined goal directed treatment with azathioprine.Pleural effusion associated with hepatic disorder (Acute) Complete uterine prolapse with prolapse of anterior vaginal wall (Acute) 83mm gelhorn pessary in place Desires hysterectomy with [facility] urogyn but needs to be medically stable in regards to other comorbidities first.Varices of esophagus determined by endoscopy (Acute) s/p esophageal varices banding 12/2022 s/p esophageal varices banding 02/2023 PRHPortal hypertension (Acute) Thrombocytopenia (Chronic) due to cirrhosis Medical History Electrical alternans Pleural effusion, right Vaginal pessary in situ 01/06/24: switched back to 83mm gelhorn as she is worried the pessary is contributing to her increasing fluid/ascites 12/30/23: increased to 89mm gelhorn pessary due to persistent prolapse around pessary Mar 2023: switched to 83mm gelhorn due to pessary falling out Oct 2022: fitted with #7 RS pessary Vasospasm of peripheral artery Acquired pancytopenia Pancreatic cyst incidental findingSteroid-induced psychosis had side effects with headaches, self-weaned, then recurrent use caused psychosis which required 5 day hospitalization to wean the prednisoneNephrolithiasis incidental finding on MRIAutoimmune hepatitis biopsy with grade 2-3, st 1-2. AFP negative. Managed with azathioprine historically; repeat biopsy at [facility] negative inflammation. Surgical History History of liver biopsy (~08/2013) Social History/Home Situation: Lives in a private multi level home with her son, daughter in law and their 6 children. Prior to admittance to hospital was independent with all ADLs without assistive device Current Functional Limitations: Decreased activity tolerance Subjective: Samara notes she is feeling much better. Declines any dizziness or shortness of breath. Does note of some discomfort into the right shoulder blade region rating 2/10 on visual analog scale. Feels muscular related. Feels with her positioning secondary to the discomfort into the lungs feels she has created muscle imbalance. Objective: General Observation: IV access right upper extremity, chest tube Mental Status: Alert and oriented x 3. Very pleasant Pain:2/10- Right periscapular region Vital Signs: Monitor via nursing ROM: Right Upper Extremity: Demonstrates within functional limit right upper extremity range of motion Left Upper Extremity: Demonstrates within functional limit left upper extremity range of motion Right Lower Extremity: Demonstrates full right lower extremity range of motion Left Lower Extremity: Demonstrates full left lower extremity range of motion Strength: Right Upper Extremity: Demonstrates good gravity resisted strength right upper extremity Left Upper Extremity: Demonstrates good gravity resisted strength left upper extremity Right Lower Extremity: Demonstrates good gravity resisted strength right lower extremity Left Lower Extremity: Demonstrates good gravity resisted strength left lower extremity Sensation: Intact to light touch bilateral upper and lower extremities. Declines any paresthesias Bed Mobility/Transfers: Sit to stand supervision Stand to sit independent Bed to chair supervision Gait: Ambulated 300 feet with front wheeled walker good marci declined any shortness of breath. Completed 1 flight of stairs reciprocal fashion with use of railing with no complaints of shortness of breath or instability Balance: Static Sitting: Normal Dynamic Sitting: Normal Static Standing: Good Dynamic Standing: Good 4 stage balance assessment feet together 10 seconds, foot and instep of other foot 10 seconds, tandem stance 10 seconds, unilateral stance right 10 seconds left 7 seconds Special Tests: Mobility Limitations Standardized Measure [facility] AM-PAC 6 clicks Basic Mobility Inpatient Short Form: Raw Score: 22 CMS Score: 21% Informed Consent/Education: Patient instructed in purpose of PT consult and plan of care. Assessment: Patient is a 69 year old female referred to physical therapy services with the diagnosis of pleural effusion. Patient presents with clinical signs and symptoms consistent with diagnosis, as demonstrated by the following impairment level findings: Decreased functional endurance. Impairments are contributing to the following functional limitations: Decreased activity tolerance Patient is assessed as a Low 34064 complexity based on the following: History: As above Examination: As above Presentation: Stable Decision Making: Low complexity Goals: Goals X1 week 1. Supine-Sit independent 2. Sit-Supine independent 3. Sit-Stand independent 4. Stand-Sit independent 5. Bed-Chair independent 6. Chair-Bed independent 7. Gait able to ambulate 500 feet or greater with least restrictive assistive device as needed 8. Stairs ascend/descend flight of stairs Plan of Care/Treatment Plan: 1-2x/day, 7 days/week x 1 week. Plan of care has been reviewed with the SAND SCREENER OPERATOR providing the service under Physical Therapy direction. Initiate Physical Therapy intervention for strengthening, bed mobility, transfers, gait, stairs, balance training, use of assistive device. DISCHARGE RECOMMENDATIONS: Home with no services once medically cleared TREATMENT CODE/TIME: 66317 IE 20 minutes 7:45 am Disclaimer: This note was created using [employer] voice recognition software. It was reviewed for major content. However, there may be multiple small discrepancies and errors due to the voice recognition aspects of the software.
--- NOTE | 2024-04-17 13:50 | PT.INTREAT ---
Date of service: 04/17/24 Time of Service: 13:25 PT Notes Visit Reasons: Pleural Effusion Inpatient Physical Therapy Treatment Note [facility] Date: April 17, 2024 PRECAUTIONS: Standard SUBJECTIVE: Samara notes that she sat up for lunch and felt good to be out of bed for a period of time. OBJECTIVE: ? Therapeutic Activities (73321m4-42 minutes): Direct one-on-one instruction in dynamic activities to improve functional performance. ? BED MOBILITY/TRANSFERS? Supine-sit:Independent ? Sit-supine: Independent? Sit-stand: Independent? Stand-sit: Independent ? Bed-Chair: Independent with use of FWW? Chair-bed: Independent with use of FWW Provided skilled cues and instruction on performance and technique throughout. Patient education regarding pacing and breathing techniques to maximize activity tolerance? GAIT? Assistive Device: FWW? Weight bearing: Full Assist: Supervision ? Distance:? 600 ft? Deviation: no deviations noted ? Therapeutic Exercises (39574y2-45 minutes): Direct one-on-one instruction in therapeutic exercises to develop strength, endurance, range of motion and flexibility. ? Exercises: LAQ 10 x R/L Seated iso hip adduction with manual resist x10 Seated iso hip abduction with manual resist x10 Seated March R/L x10 Sit-stand x5 Stand HR x15 ? Provided skilled instruction in proper exercise performance ASSESSMENT:? Demonstrates safe transfers. Independent bed mobility. Increased walking tolerance with FWW. PLAN: Continue with POC. TREATMENT CODE/TIME: 18856g9-24 minutes; 10084f2-26 minutes 13:25-13:50 DISCHARGE RECOMMENDATION: Home once medically cleared
--- NOTE | 2024-04-17 15:40 | PGE_ITS ---
Date of Service Date of service: 04/17/24 Time of Service: 15:41 Assessment and Plan Assessment and plan (1) Pleural effusion associated with hepatic disorder: Start date: 04/03/24 Start time: 20:56 Status: Acute Assessment and plan: -Initially thought trigger is right sided pneumonia that was determined to not have a pneumonia and antibiotics were thus discontinued -Consulted Gen Surgery in AM for thoracocentesis and fluid analysis. -Chest tube was placed at [facility] on 04/06/2024 -Fluid was noted as being transudative with persistently high output over 2L/day. -Given ongoing drainage of fluid, [facility] IR was consulted, then GI, but unable to get callback from her primary GI Dr. Sergo Acosta after two attempts -initiated midodrine 2.5mg TID as of AM 04/14, and started on IV furosemide, chest tube output is improving. -will await surgeon input about removing this chest tube, for now increase midodrine and convert to oral furosemide. (2) Cirrhosis of liver with ascites: Status: Chronic Assessment and plan: -Dx autoimmune hepatitis not on immune suppressive therapy -Child-Kinney score 8, Class B -Labs have improved or been stable with exception of sodium trending down, MELD3 is 20 based on current labs 04/17. (3) Varices of esophagus determined by endoscopy: Status: Acute Assessment and plan: -COnt w/ Nadolol 20mg daily -no bleeding, h/h steady. -We discussed transition to carvedilol given recent research suggesting decreased mortality, but she prefers to defer. With increasing platelets this suggests less portal HTN and bleeding risk now. (4) Hypotension: Status: Acute Assessment and plan: BPs run low a/w cirrhosis, now on midodrine so she can tolerate diuresis. Increased to 5mg 04/17 (5) Pneumothorax: Status: Acute Assessment and plan: -small pneumothorax but is since resolved as of 04/11/2024 (6) Hyponatremia: Status: Acute Assessment and plan: mild. associated with cirrhosis. continue to monitor as we diurese. (7) DVT prophylaxis: Status: Acute Assessment and plan: enoxaparin Subjective Subjective Patient reports: no new complaints and tolerating a regular diet; denies diarrhea, nausea or fever Interval history since last seen: Feeling okay. Breathing is better since the chest tube placed. She had previously been on furosemide for LE edema and ascites but found it hard due to urinary urgency and incontinence. Doing okay this time. Exam Narrative Exam Narrative: Well-appearing female sitting up in bed in no acute distress, ANO x 4, heart regular rhythm, lungs clear to auscultation bilaterally with chest tube continuing to drain straw colored fluid from the right lung, abdomen soft, nontender, nondistended. Extremities warm, no edema. Objective Last Vital Signs Temp 36.4 C L 04/17/24 11:20 Pulse 67 04/17/24 11:20 Resp 18 04/17/24 11:20 BP 82/52 L 04/17/24 11:20 Pulse Ox 100 04/17/24 11:20 Time Spent with Patient Time Spent with Patient: 35-49 minutes Time was spent: preparing to see the patient(eg.review tests), obtaining and/or reviewing separately otained hiistory, ordering medications,tests, procedures, referring, communicating with other health respiratory care program director, indepentently interpreting results, counseling the patient and care coordination
[2024-04-17] MEDS: Midodrine 2.5 MG TAB 5 MG PO (19:38)
[2024-04-17] MEDS: Patch Removal 1 EACH TP (21:25)
[2024-04-17] MEDS: Enoxaparin 40 MG/0.4 ML SYR SC (21:25)
[2024-04-18] VITALS (7 sets, daily range): BP systolic 90–103; BP diastolic 51–66; PULSE 71–87; RESP 15–20; TEMP 36.6–38.2; O2SAT 95–99
--- NOTE | 2024-04-18 | DI.RAD_ITS ---
Exam(s) XR CHEST 2V PA LATERAL EXAM: XR CHEST 2V PA LATERAL CLINICAL HISTORY: fever. TECHNIQUE: 2D digital imaging was performed. COMPARISON: CR XR PORTABLE CHEST AP from 04/09/2024 CR XR PORTABLE CHEST AP from 04/11/2024 FINDINGS: 2 views: Position of the pigtail drainage catheter in the lower right pleural space is unchanged. The amount of infiltrate in the right lower lobe is unchanged as is the size of the small right pleur al effusion. Right upper lobe remains clear as does the opposite-left lung and there is no pleural e ffusion on the opposite-left side. Heart size is normal. The mediastinum is not widened. IMPRESSION: As above. DATA REPOSITORY: RADIATION DOSE DELIVERED:
[2024-04-18] MEDS: Furosemide 40 MG TAB PO ×2 (08:00→13:17)
[2024-04-18] MEDS: Midodrine 2.5 MG TAB 5 MG PO ×3 (08:00→20:12)
[2024-04-18] MEDS: Lidocaine 5% Patch 1 PATCH TP (08:01)
[2024-04-18] MEDS: Normal Saline Flush 10 ML SYR IVP ×2 (08:01→20:13)
[2024-04-18] MEDS: Nadolol 40 MG TAB 20 MG PO (08:01)
--- NOTE | 2024-04-18 08:43 | PTTR_ITS ---
Date of service: 04/18/24 Time of Service: 08:20 PT Notes Visit Reasons: Pleural Effusion Inpatient Physical Therapy Treatment Note [facility] Date: April 18, 2024 PRECAUTIONS:Standard SUBJECTIVE: Samara notes she slept much better last night. Feels very rested and has heard rumor she might be able to go home this afternoon. PM: Samara notes she was having a little stomach upset following lunch. Just requested a smoothie. Feels up to a walk this afternoon. Notes that she will be staying the night again for they need to look at the chest xray following the clamp of the chest tube. OBJECTIVE: ? Therapeutic Activities (67118p0-40 minutes): Direct one-on-one instruction in dynamic activities to improve functional performance. ?? BED MOBILITY/TRANSFERS? Rolling L/R: Independent Supine-sit: Independent? Sit-supine: Independent? Sit-stand: Independent? Stand-sit: Independent? Bed-Chair: Standby assist with front wheeled walker? Chair-bed: Standby assist with front wheeled walker PM no assistive device utilized for bed to chair transfer Provided skilled cues and instruction on performance and technique throughout. Patient education regarding pacing and breathing techniques to maximize activity tolerance? GAIT?: AM ? Assistive Device: FWW ? Weight bearing: Full Assist: SBA ? Distance:? 600ft? Deviation: No deviations. ? ? ? GAIT: PM Assistive Device None Weight bearing full Assist: Supervision Distance: 300 ft Deviation: Upon first standing from bed mild loss of balance. Was able to self correct. ? STAIRS:able to ascend descend a flight of stairs reciprocal fashion with use of railing without difficulty ? Therapeutic Exercises (19228h1-63 minutes): Direct one-on-one instruction in therapeutic exercises to develop strength, endurance, range of motion and flexibility. ? Exercises : Standing hip flexion 10x R/L Standing hip abduction 10x R/L Standing HR 15x SSH 10x R/L Sit- stand 5x with minimal use of UE assist? Provided skilled instruction in proper exercise performance Provided skilled manual cues to facilitate proper muscle recruitment and/or form: ASSESSMENT: Samara making steady gains. No gait deviations. Is stable with stair negotiation for her bedroom is on the second floor of her home. PLAN: Continue with plan of care TREATMENT CODE/TIME: 52482p5-21 minutes, 46004n9-00 minutes 8:20-8:45 am 64806k1-66 minutes 14:15-14:30 pm DISCHARGE RECOMMENDATION: Home with no services once medically cleared Disclaimer: This note was created using [employer] voice recognition software. It was reviewed for major content. However, there may be multiple small discrepancies and errors due to the voice recognition aspects of the software.
[2024-04-18] MEDS: Spironolactone 25 MG TAB PO (09:39)
--- NOTE | 2024-04-18 11:58 | W.PM.PROGNOT ---
Date of Service Date of service: 04/18/24 Time of Service: 12:10 Assessment and Plan Assessment and plan (1) Pleural effusion associated with hepatic disorder: Status: Acute Assessment and plan: 69 female with recurrent pleural effusion unknown etiology, possible related to liver disease. Patient and hospitalist are inquiring about removal of the catheter in the right chest. After discussion with the patient, we opted to clamp the catheter until tomorrow morning. We will Obtain a chest x-ray in the morning and make further decisions from there. Dr. Black will be covering. I will make her aware. Subjective Subjective Interval history since last seen: Patient is a 69-year-old woman on the hospitalist service. She has a right-sided chest tube in place for the hospitalist. On review of her chart, this was not placed here by general surgery. Nurse reports it was placed at [facility]. It was placed for pleural effusion that was accumulating at a rate of 2 to 5 L/day. Hospitalist does not seem to have a known etiology for this accumulation of fluid. The patient has some history of liver disease but does not have significant ascites. Reportedly the fluid was transudative. Unknown if cytology was sent. Patient has been on twice daily Lasix for diuresis and the output from the chest tube in the last 24 hours has been down to about 400 mL of serosanguineous fluid. Hospitalist are asking about removing the tube now that the output has come down. Patient does not complain of any pain from the chest tube. She does not complain of any shortness of breath. Exam Narrative Exam Narrative: General?patient lying in bed with head of bed elevated, no apparent distress Chest?unlabored respiratory effort, no use of accessory muscles. she has what appears to be a pigtail catheter inserting the chest wall in the lateral aspect on the right side. This is connected to a Pleur-evac that is not connected to suction. Per the markings on the Pleur-evac patient has had 500 mL out in the past 30 hours. Objective Last Vital Signs Temp 36.7 C 04/18/24 11:13 Pulse 71 04/18/24 11:13 Resp 15 04/18/24 11:13 BP 95/51 L 04/18/24 11:13 Pulse Ox 98 04/18/24 11:13 Time Spent with Patient Time Spent with Patient: <25 minutes Time was spent: preparing to see the patient(eg.review tests), obtaining and/or reviewing separately otained hiistory, referring, communicating with other health daytime caregiver and counseling the patient
--- NOTE | 2024-04-18 14:41 | W.PM.PROGNOT ---
Date of Service Date of service: 04/18/24 Time of Service: 14:42 Assessment and Plan Assessment and plan (1) Pleural effusion associated with hepatic disorder: Start date: 04/03/24 Start time: 20:56 Status: Acute Assessment and plan: -Initially thought trigger is right sided pneumonia that was determined to not have a pneumonia and antibiotics were thus discontinued -Consulted Gen Surgery initially, but chest tube ended up being placed at [facility] on 04/06/2024 -Fluid was noted as being transudative with persistently high output over 2L/day. -Unable callback from her primary GI Dr. Sergo Acosta after two attempts -initiated midodrine 2.5mg TID as of AM 04/14, and started on IV furosemide, chest tube output improving. -appreciate surgery input, clamping chest tube, consider pulling 04/19. (2) Cirrhosis of liver with ascites: Status: Chronic Assessment and plan: -Dx autoimmune hepatitis not on immune suppressive therapy -Child-Kinney score 8, Class B, stable. -Labs have improved or been stable with exception of sodium trending down, MELD3 is 20 based on current labs 04/17. Follow. (3) Varices of esophagus determined by endoscopy: Status: Acute Assessment and plan: -COnt w/ Nadolol 20mg daily -no bleeding, h/h steady. -04/17 discussed transition to carvedilol given recent research suggesting decreased mortality, but she prefers to defer. With increasing platelets this suggests less portal HTN and bleeding risk now. (4) Hypotension: Status: Acute Assessment and plan: BPs run low a/w cirrhosis, now on midodrine so she can tolerate diuresis. Increased to 5mg 04/17 (5) Pneumothorax: Status: Acute Assessment and plan: -small pneumothorax but is since resolved as of 04/11/2024 (6) Hyponatremia: Status: Acute Assessment and plan: mild. associated with cirrhosis, high ouput chest tube could have been making worse. Repeat Na with labs in am after adjusting diuretics today. (7) DVT prophylaxis: Status: Acute Assessment and plan: enoxaparin Subjective Subjective Patient reports: no new complaints, tolerating a regular diet and voiding w/o difficulty; denies diarrhea, nausea, vomiting, shortness of breath or fever Interval history since last seen: She feels well. Not getting abdominal pain or chest pain. Up walking and not feeling weak or dizzy. Exam Narrative Exam Narrative: Well-appearing female sitting up in bed in no acute distress, ANO x 4, heart regular rhythm, lungs clear to auscultation bilaterally with chest tube continuing to drain straw colored fluid from the right lung, abdomen soft, nontender, nondistended. Extremities warm, no edema. Objective Last Vital Signs Temp 36.7 C 04/18/24 11:13 Pulse 71 04/18/24 11:13 Resp 15 04/18/24 11:13 BP 95/51 L 04/18/24 11:13 Pulse Ox 98 04/18/24 11:13 Time Spent with Patient Time Spent with Patient: 35-49 minutes Time was spent: preparing to see the patient(eg.review tests), obtaining and/or reviewing separately otained hiistory, ordering medications,tests, procedures, referring, communicating with other health child adolescent care, indepentently interpreting results, counseling the patient and care coordination
[2024-04-18] MEDS: Patch Removal 1 EACH TP (20:13)
[2024-04-18 21:14] LABS: HGB 11.1 g/dL (11.2-15.7); MCH 30.8 pg (27.0-33.0); MCHC 34.7 % (32.0-36.0); MCV 89 fL (80-95); MPV 9.3 fL (8.0-11.0); Platelet Count 191 10^3/uL (130-400); RDW 15.6 % (11.7-14.6); RDW-SD 50.7 fL; WBC 11.55 10^3/uL (4.4-10.8)
[2024-04-18] MEDS: Enoxaparin 40 MG/0.4 ML SYR SC (21:27)
--- NOTE | 2024-04-18 21:56 | DI.VRAD_ITS ---
PROCEDURE INFORMATION: Exam: XR Chest Exam date and time: 04/18/2024 9:21 PM Age: 69 years old Clinical indication: Fever; Prior surgery: Chest tube placed 04/06/24 TECHNIQUE: Imaging protocol: Radiologic exam of the chest. Views: 2 views. COMPARISON: CR XR PORTABLE CHEST AP 04/11/2024 9:57 AM FINDINGS: Tubes, catheters and devices: Pigtail catheter tip located in the region of the inferolateral right hemithorax. Lungs: Compared to 04/11/2024, no interval change in infiltrate within the right mid / lower lung zones. No left lung infiltrate. Pleural spaces: No pneumothorax. Small right pleural fluid collection. No left pleural fluid collection. Heart/Mediastinum: No cardiomegaly. Bones/joints: Spinal degenerative changes. IMPRESSION: 1. Pigtail catheter tip located in the inferolateral right hemithorax region. 2. No pneumothorax. 3. Small right pleural fluid collection. 4. Compared to 04/11/2024, no interval change in infiltrate within the right mid / lower lung zones. Dictated and Authenticated by: Mick Rodriguez MD. Orderin Nadeem Wilder MD
--- NOTE | 2024-04-18 22:43 | W.EVENT ---
Date of service: 04/18/24 Time of Service: 22:43 Event Note: Called for fever. Patient with right pleural effusion of unknown etiology, s/p chest tube which is currently clamped pending possible discontinuation. Had previously been on antibiotics for what had been considered a pneumonia but later deemed not to have so been and has been of antibiotics it appears for over a week. At present only reports that she felt a little chilly, no other specific symptoms whatsoever. On exam temp to 38.2. No drainage from chest tube site. No calf swelling or tenderness. CXR shows catheter in place, small residual effusion on right and stable infiltrate. White count 11, urine not yet obtained. Blood cultures obtained. A/P: Low grade fever without source evident. Will continue to monitor, await urine and blood cultures. Would not at this point resume antibiotics. Time Spent with Patient Time spent in critical care(minutes): 20 Time Spent Included: Chart review, Documenting critically ill care and Time at immediate bedside
[2024-04-18 23:12] LABS: Bilirubin Negative (Negative); Blood Trace-intact (Negative); Clarity Sl Cloudy (Clear); Glucose Negative (Negative); Ketones Negative (Negative); Leukocyte Esterase Moderate (Negative); Nitrite Negative (Negative); Specific Gravity 1.015 (1.005-1.025); Urobilinogen 0.2 mg/dL (Up to 0.2); pH 5.5 (5-8)
[2024-04-18 23:18] LABS: Epithelial Cells Few HPF (Negative); RBC 0-2 HPF (0-2); WBC 20-50 HPF (0-5)
[2024-04-18 23:19] LABS: Bacteria Few HPF (Negative); C & S Indicated? Yes; Casts Negative LPF (Negative); Crystals Negative HPF (Negative); Mucus Moderate (Negative); Other Cells Rare Renal (Negative)
[2024-04-19 03:32] VITALS: BP 107/57; PULSE 77; RESP 18; TEMP 37.3; O2SAT 97
[2024-04-19] MEDS: cefTRIAXone 1 GM/50 ML BAG IVPB (03:47)
[2024-04-19 06:36] LABS: ALT 71 U/L (14-59); AST 93 U/L (15-37); Albumin 1.8 g/dL (3.4-5.0); Alkaline Phosphatase 79 U/L (46-116); Anion Gap 4.6 mmol/L (3-11); BUN 31 mg/dL (7-18); Bilirubin, Total 0.85 mg/dL (0.2-1.0); CO2 25.4 mmol/L (21.0-32.0); CREATININE 0.7 mg/dL (0.55-1.02); Calcium 8.2 mg/dL (8.5-10.1); Chloride 98 mmol/L (98-107); Estimated GFR 93.56 (mL/min/1.73m2); Glucose 106 mg/dL (74-106); Magnesium 1.8 mg/dL (1.8-2.4); Potassium 4.8 mmol/L (3.5-5.1); Sodium 128 mmol/L (136-145)
[2024-04-19 07:37] VITALS: BP 100/60; PULSE 73; RESP 18; TEMP 37.2; O2SAT 100
[2024-04-19] MEDS: Normal Saline Flush 10 ML SYR IVP (07:43)
[2024-04-19] MEDS: Nadolol 40 MG TAB 20 MG PO (07:43)
[2024-04-19] MEDS: Midodrine 2.5 MG TAB 5 MG PO ×2 (07:43→13:38)
[2024-04-19] MEDS: Furosemide 40 MG TAB PO ×2 (07:43→13:38)
--- NOTE | 2024-04-19 09:40 | DI.RAD_ITS ---
Exam(s) XR CHEST 2V PA LATERAL EXAM: XR CHEST 2V PA LATERAL CLINICAL HISTORY: pleural effusion. TECHNIQUE: 2D digital imaging was performed. COMPARISON: CR,XR XR CHEST 2V PA LATERAL from 04/18/2024 FINDINGS: 2 views: Position of the right pigtail drainage catheter in the lower right pleural space is unchanged. Size of the small-moderate right pleural effusion is unchanged yesterday. The pleural fluid meniscus is below the level the pigtail part of the catheter. There is persistent prominent area of infiltrate in the right lower lobe without improvement. Remain tawny of the lung cleary are clear. There is no pleural effusion on the opposite-left side. Heart size remains normal. IMPRESSION: As above. Recommend if possible that this patient spend some time in [id number] decubitus posit ion so as to bring the non loculated appearing pleural effusion to the level of the drainage catheter . DATA REPOSITORY: RADIATION DOSE DELIVERED:
--- NOTE | 2024-04-19 09:50 | PDOC.CMPRO ---
Date of service: 04/19/24 Time of Service: 09:50 Care Management Progress Note Discharge Potential Discharge Needs: PCP F/U Appt Anticipated Barriers to Discharge: Medical Status Patient/Family Education Needs: Review discharge instructions, discuss Ask Me Three Transportation: Private vehicle Plan: Anticipate Samara will be discharged home with no new services when medically stable. She will follow up with her community providers and plan of care and transport with family. CM will continue to assess for discharge needs. Social Determinants of Health Screening Social Determinants of Health last assessed: 04/19/24 Will the Patient Participate in the Screening?: Yes Do you worry about having a steady place to live?: no Problems where you live: pests such as bugs, ants or mice In the past 12 months, have you had to go without electric, gas, oil or water in your home?: no Have you or anyone in your house had to go without enough food to eat?: no Has lack of transportation kept you from medical appointments or from doing things needed for daily living?: no Has anyone in your life made you feel unsafe or unsupported?: no How hard is it for you to pay for the very basics like food, housing, medical care, and heating? Would you say it is:: Somewhat hard Do you want help finding or keeping work or a job?: I do not need or want help If for any reason you need help with day-to-day activities such as bathing, preparing meals, shopping, managing finances, etc., do you get the help you need?: I get all the help I need How often do you feel lonely or isolated from those around you?: Never Do you speak a language other than Mosotho at home?: Yes Does the patient want assistance with any of the above?: Yes Social Determinants of Health Comments(SDOH Details): Applied for financial assistance from [facility] community Health Related Social Needs Health related social needs: inadequate housing (Z59.1), problems related to housing/economic circumstances (Z59.89) and education (Z55.6)
--- NOTE | 2024-04-19 10:04 | PT.INTREAT ---
PT Notes Visit Reasons: Pleural Effusion Inpatient Physical Therapy Treatment Note [facility] Date: 04/19/2024 PRECAUTIONS:Standard SUBJECTIVE: Samara reports she just had a chest Xray and she is expecting to go home today. Pt and son reviewed HEP OBJECTIVE:Pt with clamped chest tube in am. Chest tube removed prior to pmsession ? Therapeutic Activities (98813): Direct one-on-one instruction in dynamic activities to improve functional performance. ?? BED MOBILITY/TRANSFERS? Rolling L/R: Independent Supine-sit: Independent? Sit-supine: Independent? Sit-stand: Independent? Stand-sit: Independent? Bed-Chair / commode: independent? Commode/Chair-bed: independent Provided skilled cues and instruction on for tubing management and technique throughout. Patient education regarding pacing and breathing techniques to maximize activity tolerance?while on stairs and long distance walking to lean against wall if able .? GAIT?: AM ? Assistive Device: FWW ? Weight bearing: Full Assist: SBA ? Distance:? 300 ft? Deviation: No deviations. ? ? ? GAIT: am Assistive Device None Weight bearing full Assist: Supervision/ Assist for chest tubing vac management Distance: 300 ft Deviation: reduced step length for initial 4-5 steps then reciprocal pattern ? STAIRS:able to ascend descend a flight of stairs reciprocal fashion with use of left railing without difficulty SBA ( dependent for chest tube vac management)? Therapeutic Exercises ([id number] minutes): Direct one-on-one instruction in therapeutic exercises to develop strength, endurance, range of motion and flexibility. Access Code: [email or web address] URL: [email or web address] Date: 04/19/2024 Prepared by: Alesiha To Exercises - Standing Hip Abduction - 2 x daily - 7 x weekly - 2 sets - 10 reps - Standing Heel Raises - 2 x daily - 7 x weekly - 2 sets - 10 reps - Standing Hip Flexion - 2 x daily - 7 x weekly - 2 sets - 10 reps - Standing Hip Extension - 1 x daily - 7 x weekly - 3 sets - 10 reps - Sit to Stand - 2 x daily - 7 x weekly - 1 sets - 10 reps - Mini Squat with Counter Support - 2 x daily - 7 x weekly - 1 sets - 10 reps - Step Up - 2 x daily - 7 x weekly - 1 sets - 10 reps? Provided skilled instruction in proper exercise performance Provided skilled manual cues to facilitate proper muscle recruitment and/or form: ASSESSMENT: Pt is able to perform stairs with one railing to access her bedroom within her home. She is also able to perform transfers and ambulation without AD. She was instructed in pacing techniques and use of stand rests as needed to increase her stand activity tolerance. Pt issued and reviewed HEP with son present in PM PLAN: Continue with plan of care TREATMENT CODE/TIME: [id number] am PM 65079 x 1 for 14 mins [id number] DISCHARGE RECOMMENDATION: Home with no services once medically cleared
[2024-04-19 11:27] VITALS: BP 98/60; PULSE 68; RESP 18; TEMP 37.6; O2SAT 100
[2024-04-19 11:39] VITALS: PULSE 74; TEMP 36.4
[2024-04-19] MEDS: Spironolactone 25 MG TAB PO (13:38)
[2024-04-19] MEDS: Azithromycin 250 MG TAB 500 MG PO (13:38)
--- NOTE | 2024-04-19 14:16 | W.PM.PROGNOT ---
Date of Service Date of service: 04/19/24 Time of Service: 14:17 Assessment and Plan Assessment and plan (1) Pleural effusion: Status: Acute Assessment and plan: The patient has a right pleural effusion which is loculated. Hopefully generalized pleural effusion will not recur as the mid part of the lung is probably scarred in place now. She should be given full instructions on signs and symptoms for return. Subjective Subjective Interval history since last seen: This patient has been in the hospital for several weeks with a pigtail catheter in the right chest for chronic effusion. The pigtail catheter was placed as an outpatient trip to [facility]. The effusion has been stable and yesterday on plain films appeared loculated, stable, above the existing chest tube. Yesterday the tube was clamped and this morning a chest x-ray was obtained that shows very little change in the appearance of the plain x-rays. The patient would like to have the tube removed and would like to be Exam Narrative Exam Narrative: Thin elderly woman who is able to move about independently. She is alert and oriented and in no distress. Resp Other: Chest tube is intact and when unclamping and having her cough there is no extra fluid coming out of the tube. Objective Last Vital Signs Temp 36.4 C L 04/19/24 11:39 Pulse 74 04/19/24 11:39 Resp 18 04/19/24 11:27 BP 98/60 L 04/19/24 11:27 Pulse Ox 100 04/19/24 11:27 Laboratory Results - last 24 hr 04/18/24 04/18/24 04/19/24 21:06 23:03 05:53 WBC 11.55 H RBC 3.60 L Hgb 11.1 L Hct 32.0 L MCV 89 MCH 30.8 MCHC 34.7 RDW 15.6 H Plt Count 191 MPV 9.3 Sodium 128 L Potassium 4.8 Chloride 98 Carbon Dioxide 25.4 Anion Gap 4.6 BUN 31 H Creatinine 0.7 Est GFR (CKD-EPI 2020) 93.56 Glucose 106 Calcium 8.2 L Magnesium 1.8 Total Bilirubin 0.85 AST 93 H ALT 71 H Alkaline Phosphatase 79 Total Protein 7.0 Albumin 1.8 L Urine Color Yellow Urine Clarity Sl Cloudy Urine pH 5.5 Ur Specific [place] 1.015 Urine Protein Negative Urine Ketones Negative Urine Blood Trace-intact H Urine Nitrite Negative Urine Bilirubin Negative Urine Urobilinogen 0.2 Ur Leukocyte Esterase Moderate H Urine RBC 0-2 Urine WBC 20-50 H Ur Epithelial Cells Few Urine Crystals Negative Urine Bacteria Few Urine Casts Negative Urine Mucus Moderate Urine Other Rare Renal Ur Culture Indicated? Yes Urine Glucose Negative Objective Narrative Objective Narrative: The patient is placed in the semierect position, right side up. The suture on the pigtail catheter is removed and the string on the three-way catheter is loosened. While the patient performed Valsalva I attempted to remove the tube but it would not come easily and it was painful for the patient. I then cut the tube, had her Valsalva and the pigtail easily. A Mepilex dressing is placed and the patient fell better and the pain subsided. She is breathing normally. Procedures Other Procedure Description/Findings: Removal of pleural pigtail catheter is described above Time Spent with Patient Time Spent with Patient: <25 minutes Time was spent: preparing to see the patient(eg.review tests) and referring, communicating with other health career center director
--- NOTE | 2024-04-19 15:45 | DSE_ITS ---
Date of service: 04/19/24 Time of Service: 15:45 DS: Diagnosis Discharge Diagnosis (1) Pleural effusion: Status: Acute Discharge Plan Disposition Patient Disposition: Home Condition: Good Discharge Details Reason For Visit: Pleural Effusion Admit Date/Time: 04/03/24 21:03 Admit Provider: Jonathan Thayer Attending Provider: Jonathan Thayer Primary Care Provider: Sruthi Eden Hospital Course Hospital Course: 69 yo F with history of cirrhosis secondary to autoimmune hepatitis with associated portal HTN/esophageal varices who is not on any current immunosuppressive therapy who presented with 2 day history of chest pain and dyspnea on 04/03. CT Chest showed significant pleural effusion along w/ concern for RML infiltrate. She was treated with levofloxacin, MRSA PCR nares was negative. General surgery consulted for theracentesis, and she ended up going down/back to [facility] on 04/06 for a chest tube placement. Fluid analysis showed red tinged fluid with 4844 WBC, 81% PMNs, glucose of 91 and LDH of 503 c/w exudative parapneumonic effusion. She felt better after the fluid was removed, but the chest tube continued to put out over 2 liters of fluid per day. Antibiotics were stopped 04/09 with the impression that there was not a clear pneumonia. Given ongoing high ouput, hospitalist Dr. Harris reached out to [facility] IR and GI but consult was deferred to her primary credit card associate Dr. Acosta at [facility]. We were not able to get through to Dr. Acosta. She felt and looked well but her blood pressures were running low, so midodrine was started along with furosemide in an effort to reduce the pleural effusion. Spironolactone was also added and furosemide changed to oral in preparation for discharge. On 04/18 the pace of pleura fluid output was decreasing to around 300/24hr. The chest tube was clamped after CXR, and CXR was repeated 04/19. There was not significant change in the effusion. Overnight 04/18- she did have a fever. She had pyuria and still had a possible lung infiltrate. Given this, she was started on ceftriaxone and azithromycin. She was sent home with four days of amox/clav and azithromycin to cover possible lung and urine infection. Furosemide, spironolactone, and midodrine were continued at discharge. BMP was ordered for 1 week with plan to follow up with PCP. If she is still feeling well, plan is to taper both the diuretics and the midodrine. She did have some hyponatremia develop during her admission. She did not have symptoms. This should be followed. Her liver function was stable during admission. Her Lnufe-Rzohzdei-Ndyo score was 8, class B. Her MELD-3 score was 20 based (higher related to hyponatremia, only 14 based on admission sodium). She has a planned routine endoscopy scheduled in [place] on 04/26. The discharge summary should be faxed to Dr. Acosta's office as they may want to defer routine endocscopy until the effusion resolves or at least is totally stable. Home Meds and New Rx's Prescriptions: New furosemide 40 mg Tablet 40 mg PO BID@0830,1400 Qty: 60 0RF azithromycin 250 mg Tablet 250 mg PO DAILY Qty: 4 0RF spironolactone 25 mg Tablet 25 mg PO DAILY Qty: 30 0RF midodrine 2.5 mg Tablet 5 mg PO TID Qty: 90 0RF amoxicillin-pot clavulanate 875-125 mg tablet 1 tab PO BID Qty: 8 0RF Continued milk thistle 500 mg capsule 500 mg PO DAILY Rx Instructions: give with meal/snack cholecalciferol (vitamin D3) 50 mcg (2,000 unit) capsule 50 mcg PO DAILY Joseph Probiotic 14 billion cell capsule 1 cell PO DAILY Qty: 90 2RF selenium 200 mcg capsule 200 mcg PO DAILY cyanocobalamin-liver extract Tablet 1 tab PO DAILY multivitamin [Daily Multi-Vitamin] Tablet 1 tab PO DAILY nadolol 20 mg tablet 20 mg PO DAILY Qty: 30 5RF Discharge Instructions Instructions: Pleural effusion - Discharge instructions Additional Instructions: The x-rays did look like you may have had an infection in the lung contributing to the effusion. Take 4 more days of the two antibiotics. This will also cover a urine infection. You are on 3 other medications. Two are diuretics (water pills) that help keep fluid from accumulating. The third (midodrine) helps maintain the blood pressure high enough for the others to work. I would recommend trying to gradually taper these in a week or two after you see your PCP. Once you don't need the diuretics, you can stop the midodrine as well. You should see your primary care by next week. You should have labs done before the visit to check on your kidney function and electrolytes. Stand Alone Forms: Nursing Discharge Form Referrals: Sruthi Eden MD [Primary Care Provider] - (Please call the office to make a hospital follow up within 7-10 days) Activity:: Activity as Tolerated Equipment/Supplies:: No Equipment Needed Diet:: As Tolerated Discharge Orders Discharge Orders: Discharge Order (Routine); Ordered 04/19/24 Ordered By: Haroon Ha Other Ambulatory Orders: Basic Metabolic Panel (Routine) Timeframe: 1 Week Facility: [facility] - Location: Laboratory Outpatient - [facility] Ordered By: Haroon Ha Discharge Data Discharge Date/Time-TO BE ENTERED AT DEPARTURE: 04/19/24 15:24 DS: Summary Time Spent with Patient providing and/or coordinating discharge services: Greater than 30 minutes Status at Discharge Functional status at discharge: independent ambulation Overall status at discharge: patient is back to baseline Mental Status: mental status grossly normal Speech and Movement: speech and movement normal Mood: congruent mood Affect: normal affect Quality:SDOH Health Related Social Needs: Health related social needs inadequate housing (Z59.1) , problems related to housing/economic circumstances (Z59.89), education (Z55.6) Health related social needs details none has strong sneed pport system Exam Narrative Exam Narrative: Well-appearing female sitting up in bed in no acute distress, ANO x 4, heart regular rhythm, lungs clear to auscultation bilaterally with chest tube removed, good air movement. abdomen soft, nontender, nondistended. Extremities warm, no edema. Psych Mental Status: mental status grossly normal Speech and Movement: speech and movement normal Mood: congruent mood Affect: normal affect DS: Data Vitals/I&O Vitals and I&O: Vital Signs Temperature 36.4 C L 04/19/24 11:39 Temperature Source Temporal Artery Scan 04/19/24 11:39 Pulse 74 04/19/24 11:39 Pulse Rhythm Regular 04/04/24 14:08 Pulse 71 04/04/24 13:00 Respiratory Rate 18 04/19/24 11:27 Respiratory Effort Short of Breath, Accessory Muscle Use, Incrsd Work of [place] thing 04/04/24 14:08 Respiratory Depth Deep 04/04/24 14:08 Respiratory Pattern Tachypnea 04/04/24 14:08 Blood Pressure 98/60 L 04/19/24 11:27 Blood Pressure Mean 56 04/04/24 13:00 Blood Pressure Position Sitting 04/03/24 17:19 Pulse Oximetry 100 04/19/24 11:27 Oxygen Delivery Method Room Air 04/19/24 11:44 Oxygen Flow Rate 0 04/19/24 11:44 Pain Level 1 04/19/24 03:32 Comment Burning gas pain, RN notified of BP. 04/18/24 11:[address] Ha aware of BP; BP checked manually 04/04/24 08:00 Intake & Output 04/18/24 04/19/24 04/19/24 23:59 11:59 23:59 Intake Total 820 / 1060 240 / 1060 Output Total 500 / 1075 0 / 200 200 / 200 Balance -490 / -1065 820 / 860 40 / 860 Intake: IV 60 / 60 Oral 760 / 1000 240 / 1000 Output: Chest Tube Drainage 0 / 125 0 / 0 Urine 500 / 950 200 / 200 Other: Urine Color Straw Light Leigh Yellow Urine Appearance Cloudy Clear Clear Urine Odor None Comment unknown amount, UA collected Stool Size Large Stool Characteristics Formed Data Completed and Pending Labs on day of discharge: Labs from last 24 hours 04/19/24 04/18/24 04/18/24 05:53 23:03 21:06 WBC 11.55 H RBC 3.60 L Hgb 11.1 L Hct 32.0 L MCV 89 MCH 30.8 MCHC 34.7 RDW 15.6 H Plt Count 191 MPV 9.3 Sodium 128 L Potassium 4.8 Chloride 98 Carbon Dioxide 25.4 Anion Gap 4.6 BUN 31 H Creatinine 0.7 Est GFR (CKD-EPI 2020) 93.56 Glucose 106 Calcium 8.2 L Magnesium 1.8 Total Bilirubin 0.85 AST 93 H ALT 71 H Alkaline Phosphatase 79 Total Protein 7.0 Albumin 1.8 L Urine Color Yellow Urine Clarity Sl Cloudy Urine pH 5.5 Ur Specific [place] 1.015 Urine Protein Negative Urine Ketones Negative Urine Blood Trace-intact H Urine Nitrite Negative Urine Bilirubin Negative Urine Urobilinogen 0.2 Ur Leukocyte Esterase Moderate H Urine RBC 0-2 Urine WBC 20-50 H Ur Epithelial Cells Few Urine Crystals Negative Urine Bacteria Few Urine Casts Negative Urine Mucus Moderate Urine Other Rare Renal Ur Culture Indicated? Yes Urine Glucose Negative 04/18/24 23:03 Urine - Reflex from Ua Urine Culture - Pending 04/18/24 21:06 Blood Blood Culture - Pending 04/18/24 21:00 Blood Blood Culture - Pending Preliminary micro results at discharge 04/18/24 23:03 Urine Culture - Pending Urine - Reflex from Ua 04/18/24 21:06 Blood Culture - Pending Blood 04/18/24 21:00 Blood Culture - Pending Blood PFSH All Active Problems (Updated 04/17/24 @ 15:57 by Haroon Ha) Hyponatremia (Acute) Palliative care status (Acute) Pneumothorax (Acute) Pleural effusion (Acute) Anemia (Chronic) Hypotension (Acute) DVT prophylaxis (Acute) ACP (advance care planning) (Acute) Community acquired pneumonia (Acute) Umbilical hernia without obstruction and without gangrene (Acute) Reduced at [facility] ER; not containing intestine on MRI abd 11/2023. Managing with abd pressure; felt to be due to ascites and internal abd pressure. Cirrhosis of liver with ascites (Chronic) managed with surveillance and nadolol by [facility]; previously declined goal directed treatment with azathioprine. Pleural effusion associated with hepatic disorder (Acute) Complete uterine prolapse with prolapse of anterior vaginal wall (Acute) 83mm gelhorn pessary in place Desires hysterectomy with [facility] urogyn but needs to be medically stable in regards to other comorbidities first. 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 Medical History Electrical alternans Pleural effusion, right Vaginal pessary in situ 01/06/24: switched back to 83mm gelhorn as she is worried the pessary is contributing to her increasing fluid/ascites 12/30/23: increased to 89mm gelhorn pessary due to persistent prolapse around pessary Mar 2023: switched to 83mm gelhorn due to pessary falling out Oct 2022: fitted with #7 RS pessary Vasospasm of peripheral artery Acquired pancytopenia Pancreatic cyst incidental finding 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 AFP negative. Managed with azathioprine historically; repeat biopsy at [facility] negative inflammation. Surgical History History of liver biopsy (~08/2013) Family History Mother Diabetes Father Alzheimers disease Sister Depression Hypertension Sister No problems noted. Sister Rheumatoid arthritis Brother No problems noted. Brother Hypertension Son No problems noted. Daughter No problems noted. 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 Pets and animals: No Sexually active: No Do you think of yourself as: straight/heterosexual Current gender identity: female What is your relationship status?: How often do you talk on the phone with friends or family?: three or more times per week How often do you get together with friends or relatives?: three or more times per week How often do you attend mosque or jewish services?: 4 or more times per year Do you belong to any clubs or organized social groups?: no Panel score (0-1 are the most socially isolated patients): 2 What type of physical activity do you participate in: walking Duration: 15-30 minutes/day Frequency: daily Jaclyn/Yarsani: Yazidi Special jaclyn needs: No Seatbelt use: always Helmet use: No Drive intox or ride w/intox water truck driver: No Do you feel safe at home: Yes Do you feel safe in your relationship?: Yes Additional Social history: Enjoys spending time with family, playing sports/games with them. Female Reproductive History Menstrual Age of Menarche: 13 Menopause type: natural Date of menopause: 08/08/05 History History 2 Para 2 Hx # Term Pregnancies 2 Multiple births Hx # Pregnancies Ectopic pregnancies AB induced Hx Number of Living Children 2 AB spontaneous Past Pregnancies Del. Date GA/Weeks # Preg Succ Route Wgt Sex Labor Lgth Anesth esia Location Prov Complic 10/07/77 40 No vaginal 3529.516 g Male 10 09/27/82 40 No vaginal 3657.088 g Female Delivery Date: 10/07/77 Last Updated by: Yojana Daniels laceration with repair Time Spent with Patient Time Spent with Patient: 45-69 minutes Time was spent: preparing to see the patient(eg.review tests), obtaining and/or reviewing separately otained hiistory, ordering medications,tests, procedures, referring, communicating with other health neonatal intensive care unit nurse, indepentently interpreting results, counseling the patient and care coordination
--- NOTE | 2024-04-19 16:31 | CMDISCH_ITS ---
Date of service: 04/19/24 Time of Service: 16:31 LACE Index Scoring Tool Questions: Length of Stay (in days): 14 or more Was the patient admitted via the E.D.?: Yes Comorbidities: Liver or Renal Disease E.D. Visits: 1 Answers: Total Score: 16 Risk of Readmission: High Risk Care Management Discharge Plan Reason for Hospitalization: Pleural Effusion Discharge Plan: Samara returned home today with no new services. She reported that she is well supported at home, and does not feel that she needs any services at this time. Her son drove her home via private vehicle. She will follow up with her PCP and discharge plan of care. Patient/Family Education Needs: Review discharge instructions and limitations, discussion of self care needs including ask me three. SDOH Health Related Social Needs: Health related social needs inadequate housing (Z59.1) , problems related to housing/economic circumstances (Z59.89), education (Z55.6) Health related social needs details none has strong sneed pport system
== END 2024-04-19 15:24 | disposition home or self-care (01) | DRG 433 ==
LOC: ER 21:25 → EDHOLD 22:18 → MS 04-04 13:47
PROVIDERS: Family Medicine; General Practice; Hospitalist; Admitting Provider Student in an Organized Health Care Education/Training Program; Emergency Provider Nurse Practitioner Family; PCP Family Medicine; Visit Provider Student in an Organized Health Care Education/Training Program
DX: K74.69 Other cirrhosis of liver (principal); E87.1 Hypo-osmolality and hyponatremia; J91.8 Pleural effusion in other conditions classified elsewhere; R18.8 Other ascites; I85.10 Secondary esophageal varices without bleeding; K76.6 Portal hypertension; J93.83 Other pneumothorax; I95.9 Hypotension, unspecified; K75.4 Autoimmune hepatitis; D69.59 Other secondary thrombocytopenia; K42.9 Umbilical hernia without obstruction or gangrene; D64.9 Anemia, unspecified; R50.9 Fever, unspecified; R82.81 Pyuria
CPT/HCPCS: 32552; 00123; 36410; 36415; 71275; 80053; 82805; 84145; 85027; 87040; 87637; 87641; 93005; 96361; 96365; 96366; 96367; 97110; 97161; 97530; 99221; 99231; 99285; J1650; 71045; 71046; 81003; 81015; 82272; 83735; 83880; 84484; 85025; 85610; 85730; 87086; 93010; 94640; 94760; 99223; 99232; 99233; 99239; J0692; J0696; J1885; J1941; J1956; J3010; J3475; J3490; J7613; J7620

== ENCOUNTER 2024-04-21 14:15 | Outpatient (CLI) | payer MEDICARE, SELFPAY ==
[2024-04-21 13:58] LABS: Abs Immature Grans 0.06 10^3/uL (0.0-0.06); Absolute Basophil Count 0.05 10^3/uL (0.0-0.2); Absolute Eosinophil Count 0.23 10^3/uL (0.0-0.7); Absolute Lymphocyte Count 0.78 10^3/uL (1.2-3.4); Absolute Monocyte Count 0.84 10^3/uL (0.1-0.8); Absolute Neutrophil Count 5.08 10^3/uL (1.2-6.7); Basophils % 0.7 %; Eosinophils % 3.3 %; HCT 32.5 % (36.0-46.0); HGB 10.7 g/dL (11.2-15.7); Immature Grans % 0.9 %; Lymphocytes % 11.1 %; MCH 30.1 pg (27.0-33.0); MCHC 32.9 % (32.0-36.0); MCV 92 fL (80-95); MPV 9.5 fL (8.0-11.0); Monocytes % 11.9 %; Neutrophils % 72.1 %; Platelet Count 184 10^3/uL (130-400); RBC 3.55 10^6/uL (3.93-5.22); RDW 15.9 % (11.7-14.6); RDW-SD 53.1 fL; WBC 7.04 10^3/uL (4.4-10.8)
[2024-04-21 14:09] LABS: INR 1.2 (0.9-1.1); Prothrombin Time 11.8 sec (9.1-11.1)
[2024-04-21 14:12] LABS: ALT 66 U/L (14-59); AST 76 U/L (15-37); Alkaline Phosphatase 85 U/L (46-116); Anion Gap 0.6 mmol/L (3-11); BUN 28 mg/dL (7-18); Bilirubin, Total 0.61 mg/dL (0.2-1.0); CO2 30.4 mmol/L (21.0-32.0); CREATININE 0.9 mg/dL (0.55-1.02); Calcium 8.5 mg/dL (8.5-10.1); Chloride 101 mmol/L (98-107); Glucose 112 mg/dL (74-106); Potassium 4.3 mmol/L (3.5-5.1); Sodium 132 mmol/L (136-145); Total Protein 7.4 g/dL (6.4-8.2)
[2024-04-21 21:54] LABS: AFP Tumor Marker <2.5 ng/mL (<8.1)
== END 2024-04-21 14:16 | disposition home or self-care (01) ==
LOC: LBO 14:18
PROVIDERS: PCP Family Medicine; Visit Provider Nurse Practitioner
DX: K74.69 Other cirrhosis of liver (principal)
CPT/HCPCS: 36415; 80053; 82105; 85025; 85610

== ENCOUNTER 2024-04-28 02:26 | Outpatient (CLI) | payer MEDICARE, SELFPAY ==
[2024-04-28 17:12] LABS: Anion Gap 5.6 mmol/L (3-11); BUN 20 mg/dL (7-18); CO2 27.4 mmol/L (21.0-32.0); CREATININE 0.7 mg/dL (0.55-1.02); Calcium 8.1 mg/dL (8.5-10.1); Chloride 103 mmol/L (98-107); Estimated GFR 93.56 (mL/min/1.73m2); Glucose 107 mg/dL (74-106); Potassium 3.5 mmol/L (3.5-5.1); Sodium 136 mmol/L (136-145)
== END 2024-04-28 02:27 | disposition home or self-care (01) ==
LOC: LBO 02:27
PROVIDERS: Family Medicine; PCP Family Medicine; Visit Provider Family Medicine
DX: E87.1 Hypo-osmolality and hyponatremia (principal)
CPT/HCPCS: 36415; 80048

== ENCOUNTER 2024-05-03 01:28 | Outpatient (CLI) | payer MEDICARE, SELFPAY ==
--- NOTE | 2024-05-03 | DI.US_ITS ---
Exam(s) US ABDOMEN EXAM: US ABDOMEN CLINICAL HISTORY: K74.69 Other cirrhosis of liver, ascites, pancreatic cyst TECHNIQUE: Ultrasound abdomen performed using standard protocol. COMPARISON: CT CT ABDOMEN PELVIS WO from 09/27/[address] THORAX ABD/PEL CTA from 01/01/2023 MR MR ABDOMEN WO/W from 12/16/2023 US POCUS EXAM from 01/07/[address] CHEST PE CTA from 01/07/[address] ABDOMEN PELVIS WO from 01/07/[address] CHEST PE CTA from 04/03/2024 CR XR CHEST 2V PA LATERAL from 04/19/2024 FINDINGS: LIVER: Shrunken, cirrhotic appearance. Simple cysts are again demonstrated. No suspicious mass. GALLBLADDER: cholelithiasis. No evidence of wall thickening. GALLO'S SIGN: Negative. BILIARY SYSTEM: No intrahepatic or extrahepatic biliary ductal dilation. KIDNEYS: Kidneys are symmetric in size. No evidence of renal calculi. No evidence of hydronephrosis. No renal mass or cyst identified. PANCREAS: Simple appearing cyst measuring 6 by 15 millimeters in the body. SPLEEN: Enlarged at 14 cm in length. ABDOMINAL AORTA AND IVC: Visualized portions normal caliber. ASCITES: A mild amount of ascites is noted in both upper quadrants. IMPRESSION: Cirrhotic appearing liver. No suspicious mass. New Splenomegaly and ascites again noted. Roughly stable appearance of small simple pancreatic cyst. DATA REPOSITORY:
== END 2024-05-03 01:48 ==
LOC: DI 01:28
PROVIDERS: PCP Family Medicine; Visit Provider Nurse Practitioner
DX: K74.69 Other cirrhosis of liver (principal); R16.1 Splenomegaly, not elsewhere classified
CPT/HCPCS: 76700

== ENCOUNTER 2024-05-06 11:20 | Outpatient (REF) | payer MEDICARE, SELFPAY ==
[2024-05-06 14:07] LABS: C Diff PCR Negative (Negative)
== END 2024-05-06 11:21 | disposition home or self-care (01) ==
LOC: LBN 11:20
PROVIDERS: PCP Family Medicine; Visit Provider Family Medicine
DX: R19.7 Diarrhea, unspecified (principal)
CPT/HCPCS: 87493

== ENCOUNTER 2024-05-06 13:06 | Outpatient (CLI) | payer MEDICARE, SELFPAY ==
[2024-05-06 11:50] LABS: Abs Immature Grans 0.03 10^3/uL (0.0-0.06); Absolute Basophil Count 0.04 10^3/uL (0.0-0.2); Absolute Eosinophil Count 0.25 10^3/uL (0.0-0.7); Absolute Lymphocyte Count 0.84 10^3/uL (1.2-3.4); Absolute Monocyte Count 0.67 10^3/uL (0.1-0.8); Basophils % 0.8 %; Eosinophils % 4.8 %; HGB 10.1 g/dL (11.2-15.7); Immature Grans % 0.6 %; Lymphocytes % 16.1 %; MCH 30.3 pg (27.0-33.0); MCHC 32.6 % (32.0-36.0); MCV 93 fL (80-95); MPV 9.9 fL (8.0-11.0); Monocytes % 12.8 %; Neutrophils % 64.9 %; Platelet Count 105 10^3/uL (130-400); RBC 3.33 10^6/uL (3.93-5.22); RDW 16.1 % (11.7-14.6); RDW-SD 55.3 fL; WBC 5.23 10^3/uL (4.4-10.8)
[2024-05-06 12:21] LABS: ALT 62 U/L (14-59); AST 76 U/L (15-37); Albumin 2.1 g/dL (3.4-5.0); Alkaline Phosphatase 76 U/L (46-116); Anion Gap 6.2 mmol/L (3-11); BUN 16 mg/dL (7-18); Bilirubin, Total 0.63 mg/dL (0.2-1.0); CO2 25.8 mmol/L (21.0-32.0); CREATININE 0.6 mg/dL (0.55-1.02); Calcium 8.6 mg/dL (8.5-10.1); Chloride 108 mmol/L (98-107); Glucose 90 mg/dL (74-106); Magnesium 1.8 mg/dL (1.8-2.4); Potassium 3.7 mmol/L (3.5-5.1); Sodium 140 mmol/L (136-145); Total Protein 7.2 g/dL (6.4-8.2)
== END 2024-05-06 13:07 | disposition home or self-care (01) ==
LOC: LBO 13:06
PROVIDERS: PCP Family Medicine; Visit Provider Family Medicine
DX: K74.60 Unspecified cirrhosis of liver (principal); R18.8 Other ascites; Z00.00 Encounter for general adult medical examination without abnormal findings
CPT/HCPCS: 36415; 80053; 83735; 85025

== ENCOUNTER 2024-06-11 00:31 | Outpatient (CLI) | payer MEDICARE, SELFPAY ==
--- NOTE | 2024-06-11 | DI.US_ITS ---
Exam(s) US ABDOMEN LIMITED EXAM: US ABDOMEN LIMITED CLINICAL HISTORY: Other cirrhosis of liver, K74.69; assess for ascites TECHNIQUE: Ultrasound abdomen performed using standard protocol. COMPARISON: CT CT ABDOMEN PELVIS WO from 01/07/[address] CHEST PE CTA from 04/03/2024 US US ABDOMEN from 05/03/2024 FINDINGS: There is abundant ascites. Evident in all 4 quadrants of the abdomen and pelvis LIVER: Liver is again noted be cirrhotic in appearance and contains multiple cysts, the largest measu ring 5 cm. GALLBLADDER/BILIARY: Multiple gallstones are again noted. Gallbladder wall appears edematous, measur ing 10 mm. The common hepatic duct isnot dilated, measuring 5mm at the level of sherry hepatis. PANCREAS: Small cyst noted in the body of the pancreas measuring 9 x 7 mm. Other possibly is at this is a vessel. Nevertheless, benign appearance. RIGHT KIDNEY:No evidence of solid mass, calculus, nor hydronephrosis. No cortical cysts evident. IMPRESSION: 1. There is abundant ascites in the abdomen and pelvis.. 2. Cirrhotic appearing liver which contains multiple cysts is again noted. 3. Multiple gallstones and somewhat edematous appearing gallbladder wall. Possible cholecystitis. The CBD is not dilated. 4. Possible small benign-appearing cyst noted in the pancreatic body DATA REPOSITORY:
--- NOTE | 2024-06-11 | DI.RAD_ITS ---
Exam(s) XR CHEST 2V PA LATERAL EXAM: XR CHEST 2V PA LATERAL CLINICAL HISTORY: Liver disease, K76.9. TECHNIQUE: 2D digital imaging was performed. COMPARISON: CR,XR XR CHEST 2V PA LATERAL from 04/18/2024 CR XR CHEST 2V PA LATERAL from 04/19/2024 FINDINGS: 2 views: Heart size is normal. The mediastinum is not widened. Left lung is clear although there is slight blunting of left costophrenic angle which may indicate sm all amount left pleural fluid. The previously present pigtail drainage catheter in the lower right pleural space has been removed. Loculated pleural effusion on the right side extending into the minor fissure is again noted and has not decreased in size. There is some improved aeration of the lower right lung field. IMPRESSION: Persistent right-sided pleural effusion moderate size. This appears loculated. DATA REPOSITORY: RADIATION DOSE DELIVERED:
== END 2024-06-11 00:51 ==
LOC: DI 00:32
PROVIDERS: PCP Family Medicine; Visit Provider Nurse Practitioner
DX: R91.8 Other nonspecific abnormal finding of lung field; K74.69 Other cirrhosis of liver
CPT/HCPCS: 71046; 76705

== ENCOUNTER 2024-06-11 12:24 | Outpatient (CLI) | payer MEDICARE, SELFPAY ==
[2024-06-11 13:35] LABS: ALT 37 U/L (14-59); AST 48 U/L (15-37); Albumin 2.3 g/dL (3.4-5.0); Alkaline Phosphatase 59 U/L (46-116); Anion Gap 6.7 mmol/L (3-11); BUN 14 mg/dL (7-18); Bilirubin, Total 0.9 mg/dL (0.2-1.0); CO2 29.3 mmol/L (21.0-32.0); CREATININE 0.6 mg/dL (0.55-1.02); Calcium 8.2 mg/dL (8.5-10.1); Chloride 106 mmol/L (98-107); Glucose 88 mg/dL (74-106); Potassium 3.3 mmol/L (3.5-5.1); Sodium 142 mmol/L (136-145)
== END 2024-06-11 12:25 | disposition home or self-care (01) ==
LOC: LBO 12:25
PROVIDERS: PCP Family Medicine; Visit Provider Family Medicine
DX: Z00.00 Encounter for general adult medical examination without abnormal findings (principal); K74.60 Unspecified cirrhosis of liver; R18.8 Other ascites
CPT/HCPCS: 36415; 80053

== ENCOUNTER → 2024-06-17 09:50 | Outpatient (BNVA) | payer MEDICARE, SELFPAY | PROVIDERS: PCP Family Medicine; Referring Provider Family Medicine; Visit Provider Student in an Organized Health Care Education/Training Program | DX: J94.8 Other specified pleural conditions (principal); K42.9 Umbilical hernia without obstruction or gangrene | CPT/HCPCS: 99215 ==

== ENCOUNTER 2024-07-23 01:37 | Outpatient (CLI) | payer MEDICARE, SELFPAY ==
[2024-07-23 15:51] LABS: Abs Immature Grans 0.03 10^3/uL (0.0-0.06); Absolute Basophil Count 0.04 10^3/uL (0.0-0.2); Absolute Eosinophil Count 0.24 10^3/uL (0.0-0.7); Absolute Lymphocyte Count 0.56 10^3/uL (1.2-3.4); Absolute Monocyte Count 0.61 10^3/uL (0.1-0.8); Absolute Neutrophil Count 3.06 10^3/uL (1.2-6.7); Basophils % 0.9 %; Eosinophils % 5.3 %; HCT 30.3 % (36.0-46.0); HGB 9.8 g/dL (11.2-15.7); Immature Grans % 0.7 %; Lymphocytes % 12.3 %; MCH 28.9 pg (27.0-33.0); MCHC 32.3 % (32.0-36.0); MCV 89 fL (80-95); MPV 10.1 fL (8.0-11.0); Monocytes % 13.4 %; Neutrophils % 67.4 %; Platelet Count 116 10^3/uL (130-400); RBC 3.39 10^6/uL (3.93-5.22); RDW 16.5 % (11.7-14.6); RDW-SD 54.2 fL; WBC 4.54 10^3/uL (4.4-10.8)
[2024-07-23 16:14] LABS: INR 1.3 (0.9-1.1); Prothrombin Time 12.7 sec (9.1-11.1)
[2024-07-23 16:58] LABS: ALT 35 U/L (14-59); AST 54 U/L (15-37); Albumin 2.5 g/dL (3.4-5.0); Alkaline Phosphatase 79 U/L (46-116); Anion Gap 4.4 mmol/L (3-11); BUN 17 mg/dL (7-18); Bilirubin, Total 0.6 mg/dL (0.2-1.0); CO2 28.6 mmol/L (21.0-32.0); CREATININE 0.7 mg/dL (0.55-1.02); Calcium 8.5 mg/dL (8.5-10.1); Chloride 105 mmol/L (98-107); Estimated GFR 93.56 (mL/min/1.73m2); Glucose 124 mg/dL (74-106); Potassium 3.9 mmol/L (3.5-5.1); Sodium 138 mmol/L (136-145)
== END 2024-07-23 01:38 | disposition home or self-care (01) ==
LOC: LBO 01:38
PROVIDERS: PCP Family Medicine; Visit Provider Family Medicine
DX: K74.60 Unspecified cirrhosis of liver (principal); R18.8 Other ascites; Z79.01 Long term (current) use of anticoagulants; Z00.00 Encounter for general adult medical examination without abnormal findings
CPT/HCPCS: 36415; 80053; 85025; 85610

== ENCOUNTER 2024-08-31 13:13 | Outpatient (CLI) | payer MEDICARE, SELFPAY ==
--- NOTE | 2024-08-31 13:48 | DI.RAD_ITS ---
Exam(s) XR CHEST 2V PA LATERAL EXAM: XR CHEST 2V PA LATERAL CLINICAL HISTORY: shortness of breath J94.8 PLEURAL CONDITION K76.9 LIVER DISEASE J91.8 TECHNIQUE: 2D digital imaging was performed. Two views. COMPARISON: CR XR CHEST 2V PA LATERAL from 06/11/2024 FINDINGS: HEART: Normal size. Aorta: Not dilated. PULMONARY VASCULATURE: Normal. MEDIASTINUM: Unremarkable. LUNGS: Clear. PLEURAL SPACE: There is decreased right pleural effusion compared to the prior exam. Small amount of fluid remains present along the fissure. There is improved aeration of the right lung compared to the prior exam. No new abnormalities are seen. No pneumothorax. BONE:Unremarkable for age. SOFT TISSUES: Unremarkable. IMPRESSION: Decreased amount of right pleural fluid and improved right pulmonary aeration. DATA REPOSITORY: RADIATION DOSE DELIVERED:
== END 2024-08-31 13:33 ==
LOC: DI 13:13
PROVIDERS: PCP Family Medicine; Visit Provider Nurse Practitioner Acute Care
DX: J94.8 Other specified pleural conditions (principal); K76.9 Liver disease, unspecified; J91.8 Pleural effusion in other conditions classified elsewhere
CPT/HCPCS: 71046

== ENCOUNTER 2024-09-01 17:29 | Inpatient (IN) | payer MEDICARE, SELFPAY ==
[2024-09-01 17:35] VITALS: BP 144/84; PULSE 78; RESP 20; TEMP 37.3; O2SAT 98
[2024-09-01 17:49] VITALS: BP 144/84; PULSE 78; RESP 20; TEMP 37.3; O2SAT 98
--- NOTE | 2024-09-01 18:15 | DI.CT_ITS ---
Exam(s) CT ABDOMEN PELVIS W EXAM: CT ABDOMEN PELVIS W CLINICAL HISTORY: umbilical hernia TECHNIQUE: Imaging Protocol: Axial computed tomography images with coronal and sagittal reformatted images were created and reviewed. CONTRAST MATERIAL: Intravenous: Omnipaque 350 Contrast volume:75 mL Oral: No COMPARISON: CT CT ABDOMEN PELVIS WO from 09/27/[address] THORAX ABD/PEL CTA from 01/01/[address] ABDOMEN PELVIS WO from 01/07/2024 FINDINGS: ABDOMEN: Lung Bases: Gastroesophageal varices are present consistent with the patient's history of hepatic cirrhosis and portal hypertension. There is a tiny right pleural effusion. Liver: The liver is small with a nodular contour most suggestive of hepatic cirrhosis. There are several hepatic simple cysts present. No suspicious hepatic masses are seen. Portal, Superior Mesenteric, and Splenic Veins: There are areas of decreased attenuation seen in the main portal vein suspicious for nonobstructive thrombus. Gallbladder and Biliary Tract: Cholelithiasis. There is no significant biliary ductal dilatation. Pancreas: Normal density, no abnormal calcifications or inflammatory process. There is a stable cyst seen in the body of the pancreas. Spleen: Splenomegaly. Adrenals: No masses seen. Kidneys: Normal size, contour and axis. There is left nephrolithiasis. No obstructive uropathy. There are simple renal cysts. No follow-up is recommended. Abdominal Aorta: Abdominal portion non-dilated. Atherosclerotic calcification is present. Bowel: The patient has a moderate sized umbilical hernia. It contains a loop of small bowel. There is dilatation of the small bowel proximally consistent with obstruction. There is bowel wall thickening seen of the small bowel distal to the umbilical hernia. There is normal caliber small bowel near the terminal ileum. The colon shows normal distension. There is however wall thickening seen in the ascending colon and proximal transverse colon. There is no evidence of appendicitis. Peritoneal Cavity: There is a very large amount of abdominal and pelvic ascites. No free air. Lymph Nodes: Within normal limits. Bones: Within normal limits for the patient's age. Soft Tissues: There is mild edema seen in the soft tissues. There is a moderately large fluid containing right inguinal hernia. The fluid appears loculated within the hernia. PELVIS: Bladder: Symmetric distention, no gross wall thickening. Reproductive Organs: There is a pessary in place. Lymph Nodes: Within normal limits. Bones: Within normal limits for the patient's age. IMPRESSION: 1. Small bowel containing moderate-sized umbilical hernia. There are findings of small bowel obstruction to the level of the umbilical hernia. 2. Bowel wall thickening seen in the small bowel distal to the hernia and in the proximal colon. This may represent an enterocolitis. Sequelae from the patient's hepatic failure should also be considered. 3. Hepatic cirrhosis and portal venous hypertension with a large amount of abdominal pelvic ascites and gastroesophageal varices. Splenomegaly. 4. Moderately large right inguinal hernia containing a large amount of fluid. The fluid does appear to be loculated. 5. Area of decreased density in the main portal vein consistent with nonocclusive thrombus. 6. Small amount of right pleural effusion. 7. The preliminary [facility] report was reviewed. RADIATION DOSE DELIVERED: 486.46mGy.cm Total DLP DATA REPOSITORY: All CT scans at this facility are submitted to the National Radiology Data Registry (NRDR) Dose Index Registry (DIR) with the [employer] (ACR). RADIATION OPTIMIZATION: All CT scans at this facility use at least one of these dose optimization techniques: automated exposure control; mA and/or kV adjustment per patient size (includes targeted exams where dose is matched to clinical indication); or iterative reconstruction.
[2024-09-01 18:30] LABS: Lactate 1.3 mmol/L (<or=2.0)
[2024-09-01 18:34] LABS: Abs Immature Grans 0.01 10^3/uL (0.0-0.06); Absolute Basophil Count 0.03 10^3/uL (0.0-0.2); Absolute Lymphocyte Count 0.75 10^3/uL (1.2-3.4); Absolute Monocyte Count 0.49 10^3/uL (0.1-0.8); Basophils % 0.7 %; Eosinophils % 4.9 %; HCT 35.5 % (36.0-46.0); HGB 11.7 g/dL (11.2-15.7); Immature Grans % 0.2 %; Lymphocytes % 18.4 %; MCH 28.1 pg (27.0-33.0); MCV 85 fL (80-95); Neutrophils % 63.8 %; RBC 4.17 10^6/uL (3.93-5.22); RDW-SD 52.9 fL; WBC 4.07 10^3/uL (4.4-10.8)
[2024-09-01 18:42] LABS: INR 1.4 (0.9-1.1); Prothrombin Time 13.8 sec (9.1-11.1)
[2024-09-01 18:46] LABS: Diff Comment PLT Morph Reviewed; Platelet Count 92 10^3/uL (130-400); RBC Morphology Normal
[2024-09-01 18:56] LABS: ALT 179 U/L (14-59); AST 275 U/L (15-37); Albumin 2.7 g/dL (3.4-5.0); Alkaline Phosphatase 99 U/L (46-116); Anion Gap 6.8 mmol/L (3-11); BUN 9 mg/dL (7-18); Bilirubin, Total 1.3 mg/dL (0.2-1.0); CO2 28.2 mmol/L (21.0-32.0); CREATININE 0.7 mg/dL (0.55-1.02); Calcium 8.5 mg/dL (8.5-10.1); Chloride 102 mmol/L (98-107); Estimated GFR 93.56 (mL/min/1.73m2); Glucose 94 mg/dL (74-106); Potassium 3.3 mmol/L (3.5-5.1); Sodium 137 mmol/L (136-145); Total Protein 8.7 g/dL (6.4-8.2)
[2024-09-01] MEDS: Omnipaque 350 MG/ML 100 ML BTL 75 ML IJ (19:05)
[2024-09-01] MEDS: Normal Saline - Diluent 50 ML VIAL IJ (19:06)
--- NOTE | 2024-09-01 19:45 | DI.VRAD_ITS ---
Addendum created by Michelle Pollack MD on 09/01/2024 7:46:23 PM EDT: This report contains findings that may be critical to patient care. The pertinent findings were communicated via telephone with MARIO ALCANTARA at 19:45 EDT on 09/01/2024. The findings were acknowledged and understood. Initial report created on 09/01/2024 7:45:07 PM EDT: PROCEDURE INFORMATION: Exam: CT Abdomen And Pelvis With Contrast Exam date and time: 09/01/2024 18:54 Age: 69 years old Clinical indication: Other: Umbilical hernia TECHNIQUE: Imaging protocol: Computed tomography of the abdomen and pelvis with contrast. Contrast material: OMNIPAQUE 350; Contrast volume: 75 ml; Contrast route: INTRAVENOUS (IV); COMPARISON: CT ABDOMEN PELVIS WO 01/07/2024 02:12 FINDINGS: Lungs: Greatly improved aeration of lung bases. Right pleural fluid has resolved. Liver: Liver contour is nodular. Benign hepatic cyst(s), no followup necessary. Gallbladder and biliary ducts: Cholelithiasis again seen, gallbladder now appears very contracted. No significant biliary dilation or radiopaque stones in the biliary tree. Pancreas: No ductal dilation. No mass . Spleen: Splenomegaly, similar to prior. Small peripheral indeterminate mid splenic lesion favors a small hemangioma and could be worked up with MRI if clinically indicated. Adrenal glands: No suspicious mass. Kidneys and ureters: No hydronephrosis. No masses. Stomach and bowel: Moderate wall thickening of right-sided intraperitoneal small bowel; mild wall thickening of stomach, duodenum and mild wall thickening throughout majority of colon, however moderate wall thickening to severe wall thickening of the right colon. Appendix: No evidence of appendicitis. Intraperitoneal space: Large four-quadrant ascites, increased. No abscess or free air. Vasculature: Large gastroesophageal varices similar to more pronounced. Subcentimeter filling defects within the periphery of the upper main portal vein very challenging to 0 compared to previous noncontrast CT, not definitely present on previous MRI. Peripheral calcifications along the distended portal vein similar to prior probably secondary to chronic/prior thrombus. Subtle filling defect suspected in the uppermost SMV, nonocclusive. Lymph nodes: No significantly enlarged lymph nodes. Urinary bladder: No gross wall thickening. Reproductive: Pessary in the vagina. Bones/joints: Mild lumbar spondylosis. No acute fracture or subluxation. Soft tissues: Moderate in volume ascites and small bowel containing umbilical hernia; herniated small bowel demonstrates mild wall thickening; moderate to severe distension of proximal intraperitoneal small bowel. Other findings: No gross attic masses on this phase of imaging. IMPRESSION: 1. Moderate in volume ascites and small bowel containing umbilical hernia causing a partial small bowel obstruction moderate in severity. Early inflammation of the herniated small bowel. 2. Cirrhosis again seen. 3. Portal hypertension probably decompensated. 4. Large four-quadrant ascites, increased. Splenomegaly, varices again seen. 5. Nonocclusive thrombus, portal vein and SMV, probably new since prior. Evidence of chronic portal thrombus most likely as well. 6. Multifocal wall thickening throughout GI tract as above. Favor this is probably due to portal hypertension rather than infectious or inflammatory causes. 7. Additional findings as described. Dictated and Authenticated by: Michelle Pollack MD. Orderin Marino Feliz MD
[2024-09-01] MEDS: Ondansetron 4 MG/2 ML VIAL IVP (20:56)
--- NOTE | 2024-09-01 21:07 | W.ANESPRE ---
General Info Date of Service Date Performed: 09/01/24 Height: 5 ft 10 in Weight: 78.925 kg Body Mass Index (BMI): 25.0 Meds Allergies and Home Medications Allergies Allergy/AdvReac Type Severity Reaction Status Date / Time prednisone Allergy Unknown Psychosis Verified 09/01/24 17:34 Home Medication ?Medication ?Instructions ?Recorded multivitamin (Daily Multi-Vitamin 1 tab PO DAILY 04/13/21 tablet) cholecalciferol (vitamin D3) 50 50 mcg PO DAILY 10/14/22 mcg (2,000 unit) capsule milk thistle 500 mg capsule 500 mg PO DAILY 10/16/22 cyanocobalamin-liver extract tablet 1 tab PO DAILY 03/19/24 selenium 200 mcg capsule 200 mcg PO DAILY 03/19/24 nadolol 20 mg tablet 20 mg PO DAILY #30 tabs 05/11/24 potassium chloride 10 mEq 20 meq (2 x 10 mEq) PO DAILY #60 06/28/24 capsule,extended release caps Lactobacillus combo no.23 14 1 cell PO DAILY PRN 09/01/24 billion cell capsule (Joseph Probiotic) furosemide 20 mg tablet 40 mg (2 x 20 mg) PO QDAY #60 tabs 09/01/24 Current Visit Medications: Current Medications Generic Name Dose Route Start Last Admin Trade Name Freq PRN Reason Stop Dose Admin IV Miscellaneous Supplies 1 each 09/01/24 18:15 Iv Access-Emergency Dept IV DIRECTED DANTE Iohexol 75 ml 09/01/24 19:15 09/01/24 19:05 Omnipaque 350 Mg/Ml 100 Ml Btl IJ 10/01/24 23:59 75 ml DIRECTED DANTE Administration Sodium Chloride 0 ml 09/01/24 18:09 Normal Saline Flush 10 Ml Syr IVP PRN PRN Sodium Chloride 0 ml 09/01/24 20:00 Normal Saline Flush 10 Ml Syr IVP BID DANTE Sodium Chloride 0 ml 09/01/24 18:09 Normal Saline 10 Ml Vial IJ DIRECTED PRN Sodium Chloride 50 ml 09/01/24 19:15 09/01/24 19:06 Normal Saline - Diluent 50 Ml Vial IJ 50 ml .FOR DI USE DANTE Administration PFSH Active Problems Active Problems: Problem Status Onset Code Shortness of breath Acute R06.02 Hydrothorax Acute J94.8 Palliative care status Acute Z51.5 Anemia Chronic D64.9 Hypotension Acute I95.9 ACP (advance care planning) Acute Z71.89 Umbilical hernia without obstruction and without gangrene Acute K42.9 Cirrhosis of liver with ascites Chronic K74.60, R18.8 Pleural effusion associated with hepatic disorder Acute K76.9, J91.8 Complete uterine prolapse with prolapse of anterior vaginal wall Acute N81.3 Portal hypertension Acute K76.6 Thrombocytopenia Chronic D69.6 Medical History Medical History Acquired pancytopenia Autoimmune hepatitis biopsy with grade 2-3, st 1-2. AFP negative. Managed with azathioprine historically; repeat biopsy at [facility] [place] negative inflammation. 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, self-weaned, then recurrent use caused psychosis which required 5 day hospitalization to wean the prednisone Vaginal pessary in situ 01/06/24: switched back to 83mm gelhorn as she is worried the pessary is contributing to her increasing fluid/ascites 12/30/23: increased to 89mm gelhorn pessary due to persistent prolapse around pessary Mar 2023: switched to 83mm gelhorn due to pessary falling out Oct 2022: fitted with #7 RS pessary Varices of esophagus determined by endoscopy s/p esophageal varices banding 12/2022 s/p esophageal varices banding 02/2023 [facility] Vasospasm of peripheral artery Surgical History Surgical History History of liver biopsy (~08/2013) Tobacco Smoking/Tobacco Use Status: Never Passive smoking exposure: No Second hand exposure: No Alcohol Alcohol Intake: never Substance Use Substance use: Never Substance use type: does not use Prental History History 2 Para 2 Hx # Term Pregnancies 2 Multiple births Hx # Pregnancies Ectopic pregnancies AB induced Hx Number of Living Children 2 AB spontaneous Past Pregnancies Del. Date GA/Weeks # Preg Succ Route Wgt Sex Labor Lgth Anesthesia Location Prov Complic 10/07/77 40 No vaginal 3529.516 g Male 10 09/27/82 40 No vaginal 3657.088 g Female Delivery Date: 10/07/77 Last Updated by: Yojana Daniels laceration with repair Vital Signs and Lab Results Vital Signs Most Recent Vital Signs in EMR: Most Recent Vital Signs Temp Pulse Resp BP Pulse Ox 37.3 C 78 20 144/84 H 98 09/01/24 17:49 09/01/24 17:49 09/01/24 17:49 09/01/24 17:49 09/01/24 17:49 Lab Results 09/01/24 18:23 09/01/24 18:23 Complete Blood Count: WBC, (4.4-10.8) 4.07 10^3/uL L Today, 18:23 RBC, (3.93-5.22) 4.17 10^6/uL Today, 18:23 Hgb, (11.2-15.7) 11.7 g/dL Today, 18:23 Hct, (36.0-46.0) 35.5 % L Today, 18:23 Plt Count, (130-400) 92 10^3/uL L Today, 18:23 VBG Lactate, (<or=2.0) 1.3 mmol/L Today, 18:23 Complete Metabolic Panel: Sodium, (136-145) 137 mmol/L Today, 18:23 Potassium, (3.5-5.1) 3.3 mmol/L L Today, 18:23 Chloride, (98-107) 102 mmol/L Today, 18:23 Carbon Dioxide, (21.0-32.0) 28.2 mmol/L Today, 18:23 BUN, (7-18) 9 mg/dL Today, 18:23 Creatinine, (0.55-1.02) 0.7 mg/dL Today, 18:23 Est GFR (CKD-EPI 2020), (mL/min/1.73m2) 93.56 Today, 18:23 Calcium, (8.5-10.1) 8.5 mg/dL Today, 18:23 Albumin, (3.4-5.0) 2.7 g/dL L Today, 18:23 Glucose, (74-106) 94 mg/dL Today, 18:23 Liver Function Panel: ALT, (14-59) 179 U/L H Today, 18:23 AST, (15-37) 275 U/L H Today, 18:23 Coagulation Panel: INR, (0.9-1.1) 1.4 H Today, 18:23 PT, (9.1-11.1) 13.8 sec H Today, 18:23 Imaging and Studies Imaging and Studies Study information below may be from another EMR and interpreted by another provider. Please see original notes in EMR for more complete details. EKG Summary: 03/2024:SR Echocardiogram Summary: Conclusion Normal left ventricular wall thickness and chamber size. Ejection fraction is 65%. Wall motion is normal Normal right ventricular size and function Borderline dilated left atrium. Normal right atrial size There is no significant valvular disease There is no pericardial effusion CT Summary: 09/01/24:IMPRESSION: 1. Moderate in volume ascites and small bowel containing umbilical hernia causing a partial small bowel obstruction moderate in severity. Early inflammation of the herniated small bowel. 2. Cirrhosis again seen. 3. Portal hypertension probably decompensated. 4. Large four-quadrant ascites, increased. Splenomegaly, varices again seen. 5. Nonocclusive thrombus, portal vein and SMV, probably new since prior. Evidence of chronic portal thrombus most likely as well. 6. Multifocal wall thickening throughout GI tract as above. Favor this is probably due to portal hypertension rather than infectious or inflammatory causes. Anesthesia Assessment and Plan Anesthesia History Personal History: No History of Anesthesia Complications Family History: No Family History of Anesthesia Complications Exercise Tolerance Exercise Tolerance: Metabolic Equivalents>4 Pertinent Negatives Pertinent Negatives: No Symptoms of GERD, No Major Cardiovascular Symptoms or Complaints, No Major Pulmonary Symptoms or Complaints and No History of CVA/TIA Cardiac & Pulmonary Exam Cardiac Exam: Normal S1/S2 Heart Sounds Pulmonary Exam: Clear Bilateral Breath Sounds Implantable Cardiac Device Does patient have a Pacemaker or an ICD?: No Airway Exam Known Difficult Airway: No Mallampati Class: 1 Mouth Opening: Normal (> 3cm) Thyromental Distance: Greater than 3 cm Neck Range of Motion: Full ROM Neck Circumference: Normal Teeth Condition: Normal Dentition ASA Classification ASA Score: ASA 3 Emergency Case?: Yes NPO Status NPO Status: NPO Clears >2 hours, Solids >8 hours Anesthesia Plan Resuscitation Status: Full Code Anesthesia Technique: General Anesthesia Airway Planned: Endotracheal Tube Monitors Used: Standard Monitors
[2024-09-01 21:08] VITALS: BMI 25.0
--- NOTE | 2024-09-01 21:15 | W.PM.HP.N ---
Date of service: 09/01/24 Time of Service: 21:15 Assessment and Plan Assessment and plan (1) Umbilical hernia with obstruction: Status: Acute Assessment and plan: The patient understands that she is somewhat high risk for surgery with her liver disease and resulting decompensations including portal hypertension, lower extremity edema, ascites, thrombocytopenia, hypoalbuminemia. However she also understands that supportive care is not a tenable approach as she has a bowel obstruction and can easily progress at any time to strangulation. For this reason she does except recommendation for an urgent repair. Conceivably this could be a very simple procedure as long as the bowel is not compromised and she does not need a bowel resection. Possible risks of the surgery are outlined including bleeding, wound infection, recurrent hernia, ascites leak. She agrees to proceed emergently to the operating room, Signed the consent form. Her son is present and they have both asked pertinent questions. (2) Thrombocytopenia: Status: Chronic Assessment and plan: Platelet count is 92,000, it has been much lower recently and the patient denies easy bleeding and bruising. She is aware that we do not carry platelets at this hospital. (3) Portal hypertension: Status: Acute (4) Cirrhosis of liver with ascites: Status: Chronic Assessment and plan: There is potential for hepatic decompensation postoperatively but she will be observed in the hospital and I will request hospitalist consult to see if there is anything that can be recommended to maximize postoperative recovery (5) Pleural effusion associated with hepatic disorder: Status: Acute Assessment and plan: The right effusion seems to have been resolved with the pigtail catheter she had over the winter (6) Varices of esophagus determined by endoscopy: Assessment and plan: Varices have been banded so it may not be hazardous to place an NG tube if that is needed. History of Present Illness Narrative: This patient is a 70-year-old woman with cirrhosis and portal hypertension secondary to autoimmune hepatitis who presents with an incarcerated umbilical hernia. Patient has a known umbilical hernia which on previous CT scan only contained omental fat. The hernia has become larger recently. The patient states that for the last week she was coughing a lot because of allergies and today after eating a small breakfast the hernia became quite large and tender. In the past she has always been able to reduce the hernia but she tried for several hours today and could not get the hernia to reduce. Because of the purplish discoloration of the skin the emergency department provider was worried about strangulation of bowel. She obtained a CT scan of the abdomen and pelvis which shows a loop of small intestine incarcerated in the umbilical hernia with proximal dilation of the small bowel indicating obstruction. There are no radiologic Signs of vascular compromise. The patient has declined receiving sedation to help reduce the hernia and wishes to proceed to the operating room for an emergent hernia repair. The patient has seen Dr. Yonas White as an outpatient with plans for an elective repair. Her goal was to continue to work on reduction of the ascites with diuretics prior to the surgery. She has a history of esophageal varices without bleeding but has had several episodes of variceal banding by gastroenterology at [facility]. The patient has started to experience some nausea but has not vomited. Review of Systems Narrative: Full 10 systems review was obtained with the following pertinent positives: Mild shortness of breath with exertion; moderate leg swelling, improving recently Pertinent negatives: Denies chest pain on exertion, denies history of blood clots, denies easy bleeding or easy bruising PFSH All Active Problems (Updated 09/01/24 @ 21:51 by Janet Black MD) Umbilical hernia with obstruction (Acute) Shortness of breath (Acute) Hydrothorax (Acute) Palliative care status (Acute) Anemia (Chronic) Hypotension (Acute) ACP (advance care planning) (Acute) Umbilical hernia without obstruction and without gangrene (Acute) Reduced at [facility] ER; not containing intestine on MRI abd 11/2023. Managing with abd pressure; felt to be due to ascites and internal abd pressure. Cirrhosis of liver with ascites (Chronic) managed with surveillance and nadolol by [facility]; previously declined goal directed treatment with azathioprine. Pleural effusion associated with hepatic disorder (Acute) Complete uterine prolapse with prolapse of anterior vaginal wall (Acute) 83mm gelhorn pessary in place Desires hysterectomy with urogyn but needs to be medically stable in regards to other comorbidities first. Portal hypertension (Acute) Thrombocytopenia (Chronic) due to cirrhosis Medical History (Updated 09/01/24 @ 21:51 by Janet Black MD) Varices of esophagus determined by endoscopy s/p esophageal varices banding 12/2022 s/p esophageal varices banding 02/2023 [facility] Electrical alternans Pleural effusion, right Vaginal pessary in situ 01/06/24: switched back to 83mm gelhorn as she is worried the pessary is contributing to her increasing fluid/ascites 12/30/23: increased to 89mm gelhorn pessary due to persistent prolapse around pessary Mar 2023: switched to 83mm gelhorn due to pessary falling out Oct 2022: fitted with #7 RS pessary Vasospasm of peripheral artery Acquired pancytopenia Pancreatic cyst incidental finding 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 AFP negative. Managed with azathioprine historically; repeat biopsy at [facility] negative inflammation. Surgical History (Updated 09/01/24 @ 21:20 by Janet Black MD) No pertinent past surgical history History of liver biopsy (~08/2013) Family History Mother Diabetes Father Alzheimers disease Sister Depression Hypertension Sister No problems noted. Sister Rheumatoid arthritis Brother No problems noted. Brother Hypertension Son No problems noted. Daughter No problems noted. 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 Pets and animals: No Sexually active: No Do you think of yourself as: straight/heterosexual Current gender identity: female What is your relationship status?: How often do you talk on the phone with friends or family?: three or more times per week How often do you get together with friends or relatives?: three or more times per week How often do you attend gnosticism or nondenominational services?: 4 or more times per year Do you belong to any clubs or organized social groups?: no Panel score (0-1 are the most socially isolated patients): 2 What type of physical activity do you participate in: walking Duration: 15-30 minutes/day Frequency: daily Jaclyn/Methodist: Anabaptism Special jaclyn needs: No Seatbelt use: always Helmet use: No Drive intox or ride w/intox vending route driver: No Do you feel safe at home: Yes Do you feel safe in your relationship?: Yes Additional Social history: Enjoys spending time with family, playing sports/games with them. Female Reproductive History Menstrual Age of Menarche: 13 Menopause type: natural Date of menopause: 08/08/05 History History 2 Para 2 Hx # Term Pregnancies 2 Multiple births Hx # Pregnancies Ectopic pregnancies AB induced Hx Number of Living Children 2 AB spontaneous Past Pregnancies Del. Date GA/Weeks # Preg Succ Route Wgt Sex Labor Lgth Anesthesia Location Prov Complic 10/07/77 40 No vaginal 3529.516 g Male 10 09/27/82 40 No vaginal 3657.088 g Female Delivery Date: 10/07/77 Last Updated by: Yojana Daniels laceration with repair Meds Allergies and Home Medications Allergies Allergy/AdvReac Type Severity Reaction Status Date / Time prednisone Allergy Unknown Psychosis Verified 09/01/24 17:34 Home Medications ?Medication ?Instructions ?Recorded ?Confirmed ?Type multivitamin (Daily Multi-Vitamin 1 tab PO DAILY 04/13/21 09/01/24 History tablet) cholecalciferol (vitamin D3) 50 50 mcg PO DAILY 10/14/22 09/01/24 History mcg (2,000 unit) capsule milk thistle 500 mg capsule 500 mg PO DAILY 10/16/22 09/01/24 History cyanocobalamin-liver extract tablet 1 tab PO DAILY 03/19/24 09/01/24 History selenium 200 mcg capsule 200 mcg PO DAILY 03/19/24 09/01/24 History nadolol 20 mg tablet 20 mg PO DAILY #30 tabs 05/11/24 09/01/24 Rx potassium chloride 10 mEq 20 meq (2 x 10 mEq) PO DAILY #60 06/28/24 09/01/24 Rx capsule,extended release caps Lactobacillus combo no.23 14 1 cell PO DAILY PRN 09/01/24 09/01/24 History billion cell capsule (Joseph Probiotic) furosemide 20 mg tablet 40 mg (2 x 20 mg) PO QDAY #60 tabs 09/01/24 09/01/24 Rx Exam Narrative Exam Narrative: Constitutional: Patient is semireclined, holding an ice pack on her abdomen, just mild distress. Patient is alert and oriented HEENT: normal appearance, head atraumatic, Neck midline no JVD; Chest: clear to auscultation on the left; inspiratory and expiratory rhonchi on the right Cor: RRR S1 S2 no murmur, no tachycardia Abdomen: Distended with ascites but soft and generally nontender except for the hernia sac. The hernia sac protrudes remarkably and there is slight purplish discoloration of the overlying skin. There is palpable fluid in the hernia sac and a firm round structure incarcerated which is tender which is likely the incarcerated intestine. There is absence of anything that feels like obvious omental fat on palpation. Patient does not tolerate attempt at reduction. Extremities: Bilateral pitting edema, left pedal pulses easily palpable, right pedal pulses trace Psych: normal mood and affect Results Labs 09/01/24 18:23 09/01/24 18:23 Labs: Laboratory Results - last 24 hr 09/01/24 18:23 WBC 4.07 L RBC 4.17 Hgb 11.7 Hct 35.5 L MCV 85 MCH 28.1 MCHC 33.0 RDW 17.0 H Plt Count 92 L MPV 10.0 Immature Gran % 0.2 Neutrophils % 63.8 Lymphocytes % 18.4 Monocytes % 12.0 Eosinophils % 4.9 Basophils % 0.7 Nucleated RBC % 0.0 Absolute Neutrophils 2.60 Absolute Lymphocytes 0.75 L Absolute Monocytes 0.49 Absolute Eosinophils 0.20 Absolute Basophils 0.03 RBC Morphology Normal PT 13.8 H INR 1.4 H VBG Lactate 1.3 Sodium 137 Potassium 3.3 L Chloride 102 Carbon Dioxide 28.2 Anion Gap 6.8 BUN 9 Creatinine 0.7 Est GFR (CKD-EPI 2020) 93.56 Glucose 94 Calcium 8.5 Total Bilirubin 1.3 H AST 275 H ALT 179 H Alkaline Phosphatase 99 Total Protein 8.7 H Albumin 2.7 L Last Vital Signs Temp 37.3 C 09/01/24 17:49 Pulse 78 09/01/24 17:49 Resp 20 09/01/24 17:49 BP 144/84 H 09/01/24 17:49 Pulse Ox 98 09/01/24 17:49 H&P: Quality VTE Contraindication No VTE Prophylaxis: Contraindicated (Already a high risk for operative bleeding with thrombocytopenia) Time Spent Time spent with Patient: >75 minutes Time was spent: preparing to see the patient(eg.review tests), obtaining and/or reviewing separately otained hiistory, referring, communicating with other health life care planner, indepentently interpreting results, counseling the patient and care coordination
--- NOTE | 2024-09-01 21:48 | ED.GENADUL_ITS ---
Discharge Plan Disposition Patient Disposition: Admit to [facility] Condition: Stable Discharge Details Clinical Impression: Umbilical hernia with obstruction Primary Care Provider: Sruthi Eden ED Provider: Cedric Pichardo Home Meds and New Rx's Prescriptions: No Action milk thistle 500 mg capsule 500 mg PO DAILY Rx Instructions: give with meal/snack cholecalciferol (vitamin D3) 50 mcg (2,000 unit) capsule 50 mcg PO DAILY selenium 200 mcg capsule 200 mcg PO DAILY cyanocobalamin-liver extract Tablet 1 tab PO DAILY multivitamin [Daily Multi-Vitamin] Tablet 1 tab PO DAILY nadolol 20 mg tablet 20 mg PO DAILY Qty: 30 5RF potassium chloride 10 mEq capsule, extended release 20 meq PO DAILY Qty: 60 5RF furosemide 20 mg tablet 40 mg PO QDAY Qty: 60 1RF Joseph Probiotic 14 billion cell capsule 1 cell PO DAILY PRN HPI General Date/Time Provider Initiated Documentation: 09/01/24 17:35 . Limitations to Documentation: no limitations . Information obtained by: patient . HPI Narrative: 59-year-old female with past medical history of cirrhosis, portal hypertension p resents for evaluation of acute abdominal pain. She reports that she has a known fibroid the last few days, she has had some URI symptoms and a cough. She states that increasing cough is causing her umbilical hernia. She states that she is usually able to reduce it herself. She states that over the last couple of days she has been having URI symptoms and having a lot of coughing. She states that the coughing is making the hernia worse and that over the last 5 hours she has not been able to reduce it. She reports that she has tried several different techniques that have previously been shown to her by the physicians. She states that she has significant pain around the umbilicus and has been having nausea, but no vomiting. Related Data Home Medications ?Medication ?Instructions ?Recorded ?Confirmed multivitamin (Daily Multi-Vitamin 1 tab PO DAILY 04/1309/01/24 tablet) cholecalciferol (vitamin D3) 50 50 mcg PO DAILY 09/01/24 mcg (2,000 unit) capsule milk thistle 500 mg capsule 500 mg PO DAILY 10/16/22 0 09/01/24 cyanocobalamin-liver extract tablet 1 tab PO DAILY 01/0109/01/24 selenium 200 mcg capsule 200 mcg PO DAILY 03/19/24 nadolol 20 mg tablet 20 mg PO DAILY #30 tabs 03/0 07/0209/01/24 potassium chloride 10 mEq 20 meq (2 x 10 mEq) PO DAILY #60 06/28/24 09/01/24 capsule,extended release caps Lactobacillus combo no.23 14 1 cell PO DAILY PRN 09/0109/01/24 billion cell capsule (Joseph Probiotic) furosemide 20 mg tablet 40 mg (2 x 20 mg) PO QDAY #6 0 tabs 09/01/24 09/01/24 Previous Rx's ?Medication ?Instructions ?Recorded nadolol 20 mg tablet 20 mg PO DAILY #30 tabs 0307/02 potassium chloride 10 mEq 20 meq (2 x 10 mEq) PO DAILY #60 06/28/24 capsule,extended release caps furosemide 20 mg tablet 40 mg (2 x 20 mg) PO QDAY #6 0 tabs 09/01/24 Allergies Allergy/AdvReac Type Severity Reaction Status Date / Time prednisone Allergy Unknown Psychosis Verified 09/01/24 17:34 General Stated Complaint: Abd Prob FÉLIX: 2 Exam Narrative Exam Narrative: Review of Systems: All systems reviewed & are unremarkable except as noted in HPI and below thin chronically ill-appearing, no jaundice NCAT PERRL, normal conjunctiva RRR Unlabored respiratory effort abdominal distention that is soft umbilical hernia noted, significant tenderness with palpation over this area, there is purpleish discoloration of the hernia area, No rashes or lesions. no focal neurologic deficits Appropriate mood and affect Course Vital Signs Vital signs: Vital Signs Temperature 37.3 C 09/01/24 17:35 Pulse 78 09/01/24 17:35 Respiratory Rate 20 09/01/24 17:35 Blood Pressure 144/84 H 09/01/24 17:35 Pulse Oximetry 98 09/01/24 17:35 Temperature 37.3 C 09/01/24 17:49 Temperature Source Temporal Artery Scan 09/01/24 17:49 Pulse 78 09/01/24 17:49 Respiratory Rate 20 09/01/24 17:49 Blood Pressure 144/84 H 09/01/24 17:49 Blood Pressure Position Sitting 09/01/24 17:49 Pulse Oximetry 98 09/01/24 17:49 Oxygen Delivery Method Room Air 09/01/24 17:49 Oxygen Flow Rate 0 09/01/24 17:49 Pain Level 9 09/01/24 17:49 Lab/Test Results Lab/Test Results: Laboratory Tests Range/Units 09/01/24 18:23 WBC (4.4-10.8) 10^3/uL 4.07 L RBC (3.93-5.22) 10^6/uL 4.17 Hgb (11.2-15.7) g/dL 11.7 Hct (36.0-46.0) % 35.5 L MCV (80-95) fL 85 MCH (27.0-33.0) pg 28.1 MCHC (32.0-36.0) % 33.0 RDW (11.7-14.6) % 17.0 H Plt Count (130-400) 10^3/uL 92 L MPV (8.0-11.0) fL 10.0 Immature Gran % % 0.2 Neutrophils % % 63.8 Lymphocytes % % 18.4 Monocytes % % 12.0 Eosinophils % % 4.9 Basophils % % 0.7 Nucleated RBC % (0.0-0.3) % 0.0 Absolute Neutrophils (1.2-6.7) 10^3/uL 2.60 Absolute Lymphocytes (1.2-3.4) 10^3/uL 0.75 L Absolute Monocytes (0.1-0.8) 10^3/uL 0.49 Absolute Eosinophils (0.0-0.7) 10^3/uL 0.20 Absolute Basophils (0.0-0.2) 10^3/uL 0.03 RBC Morphology Normal PT (9.1-11.1) sec 13.8 H INR (0.9-1.1) 1.4 H VBG Lactate (<or=2.0) mmol/L 1.3 Sodium (136-145) mmol/L 137 Potassium (3.5-5.1) mmol/L 3.3 L Chloride (98-107) mmol/L 102 Carbon Dioxide (21.0-32.0) mmol/L 28.2 Anion Gap (3-11) mmol/L 6.8 BUN (7-18) mg/dL 9 Creatinine (0.55-1.02) mg/dL 0.7 Est GFR (CKD-EPI 2020) (mL/min/1.73m2) 93.56 Glucose (74-106) mg/dL 94 Calcium (8.5-10.1) mg/dL 8.5 Total Bilirubin (0.2-1.0) mg/dL 1.3 H AST (15-37) U/L 275 H ALT (14-59) U/L 179 H Alkaline Phosphatase (46-116) U/L 99 Total Protein (6.4-8.2) g/dL 8.7 H Albumin (3.4-5.0) g/dL 2.7 L Medical Decision Making Emergent evaluation of umbilical hernia. Initial differential includes incarcerated hernia, bowel obstruction, ascites. I reviewed the patient's medical record and noted that she had a fat-containing hernia on prior imaging. At this time she has signs and examination concerning for a bowel containing hernia. Despite multiple attempts I have not been able to reduce the hernia. She was placed in Trendelenburg and ice was placed on the umbilicus. I discussed with the general surgery and got a CT to further evaluate. I reviewed the radiographs and discussed with radiologist, there is significant concern that the hernia does contain bowel and has caused a bowel obstruction. Patient has refused any sedation or IV pain medication in the emergency department to facilitate the reduction of this hernia. She was evaluated in the ED by general surgery as well as the [facility] to determine her candidacy for surgical repair at this facility. At this time they have elected to proceed with emergent surgical repair of her incarcerated umbilical hernia. Quality:SDOH Health Related Social Needs: Health related social needs inadequate housing house/e con circumstance education Health related social needs details none has strong sneed pport system Critical Care Time Critical Care Time Critical Care Time: Yes Total Critical Care Time: 35 Attestation: CRITICAL CARE Upon my evaluation, this patient had a high probability of imminent or life-threatening deterioration due to incarcerated, umbilical hernia with SBO which required my direct attention, intervention, and personal management. I have personally provided 35 minutes of critical care time exclusive of time spent on separately billable procedures. Time includes review of laboratory data, radiology results, discussion with consultants, and monitoring for potential decompensation. Interventions were performed as documented above [facility] All Active Problems (Updated 09/01/24 @ 22:01 by Cedric Pichardo MD) Umbilical hernia with obstruction (Acute) Shortness of breath (Acute) Hydrothorax (Acute) Palliative care status (Acute) Anemia (Chronic) Hypotension (Acute) ACP (advance care planning) (Acute) Umbilical hernia without obstruction and without gangrene (Acute) Reduced at [facility]; not containing intestine on MRI abd 11/2023. Managing with abd pressure; felt to be due to ascites and internal abd pressure. Cirrhosis of liver with ascites (Chronic) managed with surveillance and nadolol by [facility]; previously declined goal directed treatment with azathioprine. Pleural effusion associated with hepatic disorder (Acute) Complete uterine prolapse with prolapse of anterior vaginal wall (Acute) 83mm gelhorn pessary in place Desires hysterectomy with urogyn but needs to be medically stable in regards to other comorbidities first. Portal hypertension (Acute) Thrombocytopenia (Chronic) due to cirrhosis Medical History (Updated 09/01/24 @ 22:01 by Cedric Pichardo MD) Varices of esophagus determined by endoscopy s/p esophageal varices banding 12/2022 s/p esophageal varices banding 02/2023 [facility] Electrical alternans Pleural effusion, right Vaginal pessary in situ 01/06/24: switched back to 83mm gelhorn as she is worried the pessary is contributing to her increasing fluid/ascites 12/30/23: increased to 89mm gelhorn pessary due to persistent prolapse around pessary Mar 2023: switched to 83mm gelhorn due to pessary falling out Oct 2022: fitted with #7 RS pessary Vasospasm of peripheral artery Acquired pancytopenia Pancreatic cyst incidental finding 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 AFP negative. Managed with azathioprine historically; repeat biopsy at [facility] negative inflammation. Surgical History (Updated 09/01/24 @ 21:20 by Janet Black MD) No pertinent past surgical history History of liver biopsy (~08/2013) Family History Mother Diabetes Father Alzheimers disease Sister Depression Hypertension Sister No problems noted. Sister Rheumatoid arthritis Brother No problems noted. Brother Hypertension Son No problems noted. Daughter No problems noted. 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 Pets and animals: No Sexually active: No Do you think of yourself as: straight/heterosexual Current gender identity: female What is your relationship status?: How often do you talk on the phone with friends or family?: three or more times per week How often do you get together with friends or relatives?: three or more times per week How often do you attend baptism or adventism services?: 4 or more times per year Do you belong to any clubs or organized social groups?: no Panel score (0-1 are the most socially isolated patients): 2 What type of physical activity do you participate in: walking Duration: 15-30 minutes/day Frequency: daily Jaclyn/Catholic: Congregational Special jaclyn needs: No Seatbelt use: always Helmet use: No Drive intox or ride w/intox commercial driver's license driver: No Do you feel safe at home: Yes Do you feel safe in your relationship?: Yes Additional Social history: Enjoys spending time with family, playing sports/games with them. Female Reproductive History Menstrual Age of Menarche: 13 Menopause type: natural Date of menopause: 08/08/05 History History 2 Para 2 Hx # Term Pregnancies 2 Multiple births Hx # Pregnancies Ectopic pregnancies AB induced Hx Number of Living Children 2 AB spontaneous Past Pregnancies Del. Date GA/Weeks # Preg Succ Route Wgt Sex Labor Lgth Anesth esia Location Prov Complic 10/07/77 40 No vaginal 3529.516 g Male 10 09/27/82 40 No vaginal 3657.088 g Female Delivery Date: 10/07/77 Last Updated by: Yojana Daniels laceration with repair
[2024-09-01] MEDS: ceFAZolin 2 GM/50 ML BAG 100 GM (22:01)
[2024-09-01] MEDS: Lactated Ringers 1,000 ML 50 ML IV (22:01)
[2024-09-01] MEDS: Bupivacaine 0.25% Pres-Free 30 ML VIAL (22:35)
[2024-09-02] VITALS (63 sets, daily range): BP systolic 75–108; BP diastolic 44–65; PULSE 58–92; RESP 11–26; TEMP 36.3–36.9; O2SAT 89–100
--- NOTE | 2024-09-02 00:11 | W.PM.OP ---
Operative Note Operative Note PRE-OP DIAGNOSIS: Incarcerated umbilical hernia with obstruction and abdominal ascites Incarcerated umbilical hernia with obstruction and without strangulation, abdominal ascites PROCEDURE: Primary repair of umbilical hernia SURGEON: Janet Black Refer to Anesthesia Record ESTIMATED BLOOD LOSS: 15 PATHOLOGY: none sent COMPLICATIONS: Other (mild aspiration event) Patient was transported to: ICU Patient's condition: stable Indications: 69-year-old woman with history of an umbilical hernia presents to the emergency room with acute obstruction and possible strangulation. Findings: 1 cm hernia defect through which a single loop of small intestine was incarcerated and dilated but with adequate blood supply. The hernia defect had to be enlarged to nearly 2 cm in order to reduce the sac contents. 3.5 L of ascites fluid were evacuated from the abdomen. Procedure Description: The patient was brought to the operating room where she was positively identified by the staff. The patient was administered general endotracheal anesthesia. During intubation there was an aspiration episode which was identified immediately and oropharyngeal suctioning and additional 2 endotracheal suctioning were promptly performed. A timeout was performed confirming the patient's identity, goal of the procedure. The abdomen was prepped with ChloraPrep and draped in sterile fashion. A vertical midline incision was made from just above the umbilicus to the right lateral side of it. The superior part of the hernia sac was dissected away from the overlying skin and surrounding tissues. Once mobilized it was punctured, evacuating ascites fluid from the sac itself. The only contents was the 1 loop of bowel and this could only be reduced after incising from the superior fascial edge, up to the midline nearly 1 cm. Even when incarcerated, the bowel did not have vascular compromise. Additional hernia sac was dissected away from the umbilical skin and the fascial edges. A pool tip on the suction was used to evacuate 3 and half liters of ascites fluid from the right upper quadrant and pelvis. A vest over pants type repair of the hernia was performed with 3 horizontal mattress sutures for the deep layer, and 3 sutures of 0 Prolene for the superficial layer. After irrigating the wound with saline, the subcutaneous tissues were reapproximated with interrupted 3-0 Vicryl sutures. Skin edges were reapproximated with a running 4-0 Monocryl suture. Mastisol and Steri-Strips were placed on the skin edges with a bulky gauze and Tegaderm dressing. Patient was awoken in the operating room and extubated uneventfully. She was transferred to the ICU in stable condition. Sponge and instrument count is correct. Date of Procedure: 09/02/24
[2024-09-02] MEDS: Normal Saline 500 ML 250 ML IV (01:36)
--- NOTE | 2024-09-02 01:46 | W.PC.ACHO ---
Registration Status: ADM IN Primary Language: Preferred Language: ED Information & Data Chief Complaint Abd Prob 09/01/24 21:51 Triage Note Pt has umbillical hernia, 09/01/24 17:35 known. Has been waiting for health improvements before surgery has had URI symptoms so coughing more. Usually can get hernia back in in about an hour, but now unable to and has been protruding for 4 hours. Pt reports it is painful 9/10 pain. Medical / Surgical History (Last Reviewed 08/30/24 @ 11:00 by Tila Zuniga RN) Varices of esophagus determined by endoscopy Electrical alternans Pleural effusion, right Vaginal pessary in situ Vasospasm of peripheral artery Acquired pancytopenia Pancreatic cyst Steroid-induced psychosis Nephrolithiasis Autoimmune hepatitis (Last Updated 09/01/24 @ 21:20 by Janet Black MD) No pertinent past surgical history History of liver biopsy (~08/2013) Most Recent Vital Signs Temperature 37.3 C 09/01/24 17:49 Temperature Source Temporal Artery Scan 09/01/24 17:49 Pulse 78 09/01/24 17:49 Respiratory Rate 20 09/01/24 17:49 Blood Pressure 144/84 H 09/01/24 17:49 Blood Pressure Position Sitting 09/01/24 17:49 Pulse Oximetry 98 09/01/24 17:49 Oxygen Delivery Method Room Air 09/01/24 17:49 Oxygen Flow Rate 0 09/01/24 17:49 Pain Level 9 09/01/24 17:49 Allergies prednisone Allergy (Unknown, Verified 09/01/24 17:34) Psychosis psychosis Precautions Isolation Standard precaution 09/01/24 17:49 Active Medications Generic Name Dose Route Start Last Admin Trade Name Lin PRN Reason Stop Dose Admin Sodium Chloride 500 mls @ 250 mls/hr 09/02/24 00:40 09/02/24 01:36 Saline 500ml Bag IV 09/02/24 02:39 250 mls/hr BOLUS ONE Administration IV IV Catheter Type [Left Peripheral IV Antecubital] IV Catheter Type [Right Saline Lock Forearm] IV Catheter Gauge [Left 18 Antecubital] IV Catheter Gauge [Right 20 Forearm] Diet Orders Category Date Time Status Nothing Per Oral [DIET] Nutrition 09/02/24 00:40 Active Diagnostics 09/02/24 09/01/24 Range/Units 05:35 18:23 WBC Pending 4.07 L (4.4-10.8) 10^3/uL RBC Pending 4.17 (3.93-5.22) 10^6/uL Hgb Pending 11.7 (11.2-15.7) g/dL Hct Pending 35.5 L (36.0-46.0) % MCV Pending 85 (80-95) fL MCH Pending 28.1 (27.0-33.0) pg MCHC Pending 33.0 (32.0-36.0) % RDW Pending 17.0 H (11.7-14.6) % Plt Count Pending 92 L (130-400) 10^3/uL MPV Pending 10.0 (8.0-11.0) fL Immature Gran % 0.2 % Neutrophils % 63.8 % Lymphocytes % 18.4 % Monocytes % 12.0 % Eosinophils % 4.9 % Basophils % 0.7 % Nucleated RBC % 0.0 (0.0-0.3) % Absolute Neutrophils 2.60 (1.2-6.7) 10^3/uL Absolute Lymphocytes 0.75 L (1.2-3.4) 10^3/uL Absolute Monocytes 0.49 (0.1-0.8) 10^3/uL Absolute Eosinophils 0.20 (0.0-0.7) 10^3/uL Absolute Basophils 0.03 (0.0-0.2) 10^3/uL RBC Morphology Normal PT Pending 13.8 H (9.1-11.1) sec INR Pending 1.4 H (0.9-1.1) VBG Lactate 1.3 (<or=2.0) mmol/L Sodium Pending 137 (136-145) mmol/L Potassium Pending 3.3 L (3.5-5.1) mmol/L Chloride Pending 102 (98-107) mmol/L Carbon Dioxide Pending 28.2 (21.0-32.0) mmol/L Anion Gap Pending 6.8 (3-11) mmol/L BUN Pending 9 (7-18) mg/dL Creatinine Pending 0.7 (0.55-1.02) mg/dL Est GFR (CKD-EPI 2020) Pending 93.56 (mL/min/1.73m2) Glucose Pending 94 (74-106) mg/dL Calcium Pending 8.5 (8.5-10.1) mg/dL Total Bilirubin Pending 1.3 H (0.2-1.0) mg/dL AST Pending 275 H (15-37) U/L ALT Pending 179 H (14-59) U/L Alkaline Phosphatase Pending 99 (46-116) U/L Total Protein Pending 8.7 H (6.4-8.2) g/dL Albumin Pending 2.7 L (3.4-5.0) g/dL Intake and Output - 24 Hour Total 09/01/24 17:29 thru 09/02/24 01:27 Intake Total 805.833 Output Total 15 Balance 790.833 Weight 78.925 kg Intake: IV 805.833 Output: Estimated Blood Loss 15 Falls Risk Assessment History of Falls Previous History 09/01/24 17:49 Contributing Factors Unstable,Impairments, 09/01/24 17:49 Incontinence,Medications Ambulatory Aids Independent 09/01/24 17:49 Tubes/Lines None 09/01/24 17:49 Gait Evaluation No gait disturbance 09/01/24 17:49 Cognition No cognitive impairment 09/01/24 17:49 Fall Total Score 27 09/01/24 17:49 Level of Risk Moderate Risk 09/01/24 17:49 Problems (Last Reviewed 08/30/24 @ 11:00 by Tila Zuniga RN) Umbilical hernia with obstruction (Acute) Cirrhosis of liver with ascites (Chronic) Pleural effusion associated with hepatic disorder (Acute) Portal hypertension (Acute) Thrombocytopenia (Chronic) v v v v v v v v v Sending and/or Receiving Nurses: Please use comment section below to note any information pertinent to the patient hand-off not included above. Information / Comments: Report received from: Emeka Muse, Anesthesiologist
[2024-09-02 07:31] LABS: HCT 35.1 % (36.0-46.0); HGB 11.3 g/dL (11.2-15.7); MCH 27.5 pg (27.0-33.0); MCHC 32.2 % (32.0-36.0); MCV 85 fL (80-95); RBC 4.11 10^6/uL (3.93-5.22); RDW 16.9 % (11.7-14.6); RDW-SD 52.9 fL; WBC 7.76 10^3/uL (4.4-10.8)
[2024-09-02 07:55] LABS: ALT 134 U/L (14-59); AST 197 U/L (15-37); Albumin 2.1 g/dL (3.4-5.0); Alkaline Phosphatase 82 U/L (46-116); Anion Gap 7.4 mmol/L (3-11); BUN 14 mg/dL (7-18); Bilirubin, Total 1.1 mg/dL (0.2-1.0); CO2 25.6 mmol/L (21.0-32.0); CREATININE 0.7 mg/dL (0.55-1.02); Calcium 7.6 mg/dL (8.5-10.1); Chloride 104 mmol/L (98-107); Estimated GFR 93.56 (mL/min/1.73m2); Glucose 99 mg/dL (74-106); Potassium 3.6 mmol/L (3.5-5.1); Sodium 137 mmol/L (136-145); Total Protein 7.1 g/dL (6.4-8.2)
[2024-09-02 08:04] LABS: Platelet Count 85 10^3/uL (130-400)
--- NOTE | 2024-09-02 08:07 | W.PM.PROGNOT ---
Date of Service Date of service: 09/02/24 Time of Service: 07:45 Assessment and Plan Assessment and plan (1) Umbilical hernia with obstruction: Status: Acute Assessment and plan: POD #1 s/p Primary repair of incarcerated umbilical hernia Pain is currently well controlled and she is comfortable and motivated to be up and moving. Strongly encouraged her to participate in ambulation, transfers in and out of bed, sitting in the chair and use of the incentive spirometer. Incision site was not observed this morning, dressing is in place. No staining or shadowing noted. No erythema, swelling or induration around the dressing. Regular diet is ordered. Strongly encouraged her to consume high protein items to help facilitate healing whenever possible. P// Pain control, ambulation and pulmonary toilet are today's priorities. (2) Thrombocytopenia: Status: Chronic (3) Portal hypertension: Status: Acute (4) Cirrhosis of liver with ascites: Status: Chronic Assessment and plan: There is potential for hepatic decompensation postoperatively but she will be observed in the hospital. Hospitalist has been consulted. (5) Pleural effusion associated with hepatic disorder: Status: Acute Assessment and plan: The right effusion seems to have been resolved with the pigtail catheter she had over the winter (6) Varices of esophagus determined by endoscopy: Assessment and plan: Varices have been banded so it may not be hazardous to place an NG tube if that is needed. Subjective Subjective Interval history since last seen: Patient reports that she is feeling much improved this morning. She states that she has been using the commode without difficulty. She has been attempting use of the incentive spirometer, however this causes pressure along her incision site and causes discomfort. She denies any feeling of SOB, chest pain, nausea or vomiting. Exam Const General: cooperative, healthy appearing and comfortable Orientation: alert and oriented x3 Resp Effort & Inspection: normal respiratory effort, no audible wheezes and cough GI Inspection: distended and incision (Dressing in place over umbilical site ) Palpation: soft, no guarding, tender and ascites Objective Last Vital Signs Temp 36.9 C 09/02/24 07:45 Pulse 67 09/02/24 07:41 Resp 26 H 09/02/24 07:41 BP 89/52 L 09/02/24 07:41 Pulse Ox 96 09/02/24 07:41 Laboratory Results - last 24 hr 09/01/24 09/02/24 18:23 06:04 WBC 4.07 L 7.76 RBC 4.17 4.11 Hgb 11.7 11.3 Hct 35.5 L 35.1 L MCV 85 85 MCH 28.1 27.5 MCHC 33.0 32.2 RDW 17.0 H 16.9 H Plt Count 92 L 85 L MPV 10.0 11.0 Immature Gran % 0.2 Neutrophils % 63.8 Lymphocytes % 18.4 Monocytes % 12.0 Eosinophils % 4.9 Basophils % 0.7 Nucleated RBC % 0.0 Absolute Neutrophils 2.60 Absolute Lymphocytes 0.75 L Absolute Monocytes 0.49 Absolute Eosinophils 0.20 Absolute Basophils 0.03 RBC Morphology Normal PT 13.8 H INR 1.4 H VBG Lactate 1.3 Sodium 137 137 Potassium 3.3 L 3.6 Chloride 102 104 Carbon Dioxide 28.2 25.6 Anion Gap 6.8 7.4 BUN 9 14 Creatinine 0.7 0.7 Est GFR (CKD-EPI 2020) 93.56 93.56 Glucose 94 99 Calcium 8.5 7.6 L Total Bilirubin 1.3 H 1.1 H AST 275 H 197 H ALT 179 H 134 H Alkaline Phosphatase 99 82 Total Protein 8.7 H 7.1 Albumin 2.7 L 2.1 L Time Spent with Patient Time Spent with Patient: <25 minutes Time was spent: preparing to see the patient(eg.review tests), obtaining and/or reviewing separately otained hiistory and counseling the patient
[2024-09-02 08:36] LABS: INR 1.5 (0.9-1.1)
--- NOTE | 2024-09-02 08:51 | PDOC.CMIN ---
Date of service: 09/02/24 Time of Service: 08:51 Care Management Initial Assmt Initial Assessment Reason for Hospitalization: umbilical hernia repair Functional Status/Living Situation Patient Presentation: Samara, sheryl Barroso as her mother likes to call her, lives in a large single family home in [place] with her son, his and their 6 children. She noted that it is a very busy household with kids ranging from 5 to 19. She also has a daughter who lives in [place]. 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 She is independent at baseline and does not receive any community services. Samara was sitting up in bed when CM met with her. She was awake and alert and easily engaged with CM, known to her from a previous admission. Eden Barroso shared the details leading up to her need for admission for an incarcerated umbilical hernia. She shared that when it pops out, she is usually able to manually reduce it by lying down and putting gentle pressure on it. She was unable to do that successfully this time, so after 4 -5 hours, she decided to come to the ED. She was seen, examined and admitted for emergency surgery. Samara informed CM that she is feeling good today. Her pain is minimal and she has good bowel sounds. She has been told that she will likely remain in the hospital for another day or two. The pleural effusion that has been an issue for the past few months has significantly reduced in size and she is feeling much better. Samara talked about each of her grandchildren and their accomplishments. Her oldest 2 grandsons have promising careers and the others all have jobs and/or are very successful at sports. Samara is very proud of each and every one of them and supports them and all of their activities and endeavors. Town of Residence: [place] Resides with: Child (lives with her son and his family) Significant Other/Family: Out of area (daughter in [place]) Employment Status: Retired Instrumental Activities of Daily Living (ADLs): Independent Medications Medication Management: No Issues/Barriers identified Physical Functioning/Mobility Assistive Device: none Advance Directives Advance Directives: Do you have an Advance Directive: Y 10/16/22, 16:20 AD On File at [facility]: Y 10/16/22, 16:20 Date Asked 10/16/22 05/05/24, 07:39 AD Date Reviewed 09/01/24 09/01/24, 18:03 COLST On File at [facility] No 04/03/24, 17:11 COLST Date Scanned Code Status Resuscitation Status Full Code Insurance Coverage/Financial Issues Insurance: BC/BS Medicare Advantage Financial Issues: Has recently been approved for [facility] Patient Assistance 100% for which she is very grateful. Care Team Visit Care Team Role Provider Type Sruthi Eden MD Primary Care Provider [facility] STAFF PHYSICIAN Cedric Pichardo MD Emergency Provider [facility] STAFF PHYSICIAN Janet Black MD Admit Provider [facility] STAFF PHYSICIAN Attending Provider Discharge Potential Discharge Needs: PCP F/U Appt and Surgical F/U Appt Anticipated Barriers to Discharge: None Identified Patient/Family Education Needs: Review discharge instructions, discuss Ask Me Three Transportation: Private vehicle Plan: Anticipate Samara will be discharged home with no new services when medically stable. She will follow up with her community providers and plan of care and transport with family. CM will follow and continue to assess for discharge needs. Social Determinants of Health Screening Will the Patient Participate in the Screening?: Declined to provide Comments: Patient declining at this time due to exhaustion post-surgery; may answer at later time. PFSH All Active Problems (Updated 09/01/24 @ 22:01 by Cedric Pichardo MD) Umbilical hernia with obstruction (Acute) Shortness of breath (Acute) Hydrothorax (Acute) Palliative care status (Acute) Anemia (Chronic) Hypotension (Acute) ACP (advance care planning) (Acute) Umbilical hernia without obstruction and without gangrene (Acute) Reduced at [facility]; not containing intestine on MRI abd 11/2023. Managing with abd pressure; felt to be due to ascites and internal abd pressure. Cirrhosis of liver with ascites (Chronic) managed with surveillance and nadolol by [facility]; previously declined goal directed treatment with azathioprine. Pleural effusion associated with hepatic disorder (Acute) Complete uterine prolapse with prolapse of anterior vaginal wall (Acute) 83mm gelhorn pessary in place Desires hysterectomy with urogyn but needs to be medically stable in regards to other comorbidities first. Portal hypertension (Acute) Thrombocytopenia (Chronic) due to cirrhosis Medical History (Updated 09/01/24 @ 22:01 by Cedric Pichardo MD) Varices of esophagus determined by endoscopy s/p esophageal varices banding 12/2022 s/p esophageal varices banding 02/2023 [facility] [employer] Pleural effusion, right Vaginal pessary in situ 01/06/24: switched back to 83mm gelhorn as she is worried the pessary is contributing to her increasing fluid/ascites 12/30/23: increased to 89mm gelhorn pessary due to persistent prolapse around pessary Mar 2023: switched to 83mm gelhorn due to pessary falling out Oct 2022: fitted with #7 RS pessary Vasospasm of peripheral artery Acquired pancytopenia Pancreatic cyst incidental finding 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 AFP negative. Managed with azathioprine historically; repeat biopsy at [facility] negative inflammation. Surgical History (Updated 09/01/24 @ 21:20 by Jaent Black MD) No pertinent past surgical history History of liver biopsy (~08/2013) Family History Mother Diabetes Father Alzheimers disease Sister Depression Hypertension Sister No problems noted. Sister Rheumatoid arthritis Brother No problems noted. Brother Hypertension Son No problems noted. Daughter No problems noted. 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 Pets and animals: No Sexually active: No Do you think of yourself as: straight/heterosexual Current gender identity: female What is your relationship status?: How often do you talk on the phone with friends or family?: three or more times per week How often do you get together with friends or relatives?: three or more times per week How often do you attend lutheran or catholic services?: 4 or more times per year Do you belong to any clubs or organized social groups?: no Panel score (0-1 are the most socially isolated patients): 2 What type of physical activity do you participate in: walking Duration: 15-30 minutes/day Frequency: daily Jaclyn/Pentecostalism: Muslim Special jaclyn needs: No Seatbelt use: always Helmet use: No Drive intox or ride w/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 Female Reproductive History Menstrual Age of Menarche: 13 Menopause type: natural Date of menopause: 08/08/05 History History 2 Para 2 Hx # Term Pregnancies 2 Multiple births Hx # Pregnancies Ectopic pregnancies AB induced Hx Number of Living Children 2 AB spontaneous Past Pregnancies Del. Date GA/Weeks # Preg Succ Route Wgt Sex Labor Lgth Anesthesia Location Prov Complic 10/07/77 40 No vaginal 3529.516 g Male 10 09/27/82 40 No vaginal 3657.088 g Female Delivery Date: 10/07/77 Last Updated by: Yojana Daniels laceration with repair
[2024-09-02] MEDS: Potassium Chloride 10 MEQ CAPCR 20 MEQ PO (09:14)
[2024-09-02] MEDS: Furosemide 20 MG TAB 40 MG PO (09:15)
[2024-09-02] MEDS: Normal Saline Flush 10 ML SYR IVP ×2 (09:15→21:49)
[2024-09-02] MEDS: Multivitamin TAB 1 TAB PO (09:15)
--- NOTE | 2024-09-02 12:45 | PHA.REVIEW2 ---
Pharmacy Admission Review Admission Clinical Review Admission Pharmacy Review: Umbilical hernia with obstruction (Acute) Pleural effusion associated with hepatic disorder (Acute) Portal hypertension (Acute) prednisone Allergy (Unknown, Verified 09/01/24 17:34) Psychosis Resuscitation Status Full Code Height 5 ft 10 in Weight 78.9 kg Comments Comments/Follow Ups: POD #1 s/p Primary repair of incarcerated umbilical hernia Pharmacy Admission Review Renal Dosing Renal Dosing: BUN 14 mg/dL (7-18) 09/02/24 06:04 Creatinine 0.7 mg/dL (0.55-1.02) 09/02/24 06:04 Medications needing adjustments: Reviewed (CrCl 66.13 mL/min) List of meds needing interventions: Current medications are okay Anticoagulation Anticoagulation: Hgb 11.3 g/dL (11.2-15.7) 09/02/24 06:04 Hct 35.1 % (36.0-46.0) L 09/02/24 06:04 Plt Count 85 10^3/uL (130-400) L 09/02/24 06:04 INR 1.5 (0.9-1.1) H 09/02/24 06:04 Creatinine 0.7 mg/dL (0.55-1.02) 09/02/24 06:04 DVT Prophylaxis: Reviewed (SCDs) Opiate Usage Evaluate Pain Scale/Pains Meds: Reviewed (hydromorphone 0.5mg IVP q4h PRN - no doses given so far) Scheduled Bowel Reg ordered if on Opiates?: No Relevant Labs Relevant Labs: Sodium 137 mmol/L (136-145) 09/02/24 06:04 Potassium 3.6 mmol/L (3.5-5.1) 09/02/24 06:04 Chloride 104 mmol/L (98-107) 09/02/24 06:04 Electrolytes, C-Reactive P, ESR: Reviewed (AST/ALT decreased from 275/179 to 197/134, total bilirubin decreased from 1.3 to 1.1) Cardiac Review Cardiac Review: Blood Pressure 80/51 1148 Blood Pressure 91/63 0831 Blood Pressure 92/61 0801 Blood Pressure 89/52 0741 Blood Pressure 89/55 0731 Blood Pressure 89/55 0700 Blood Pressure 92/57 0631 Blood Pressure 93/57 0601 BP, HR, EF%: Reviewed (HR WNL) List meds needing interventions: Has orders for furosemide 40mg daily and nadolol 20mg daily QTc Review QTc: Reviewed (451 from 04/03/24 - most recent EKG on file) IV to PO Switch IV Medications: Reviewed (hydromorphone, ketorolac and ondansetron) Home Meds Home Med List reviewed: Reviewed Relevent Home Meds Not ordered & why?: vitamin D3, vitamin B12 and selenium Current Meds Current Medication Order Review: Intervened Comments: Added 2nd PRN to lactobacillus order per pharmacy protocol Comments Comments/Follow Ups: POD #1 s/p Primary repair of incarcerated umbilical hernia
[2024-09-02] MEDS: ALBUMIN HUMAN 25 GM/100 ML BTL IVPB (13:32)
--- NOTE | 2024-09-02 16:29 | W.ANESPOSTOP ---
Postoperative Evaluation Date, Time and Location Date Performed: 09/02/24 Time Performed: 16:29 Patient Location: Intensive Care Unit Vital Signs Most Recent Imported Vital Signs: Most Recent Vital Signs Temp Pulse Resp BP Pulse Ox 36.8 C 77 26 H 81/48 L 99 09/02/24 16:00 09/02/24 14:34 09/02/24 14:34 09/02/24 14:34 09/02/24 14:34 Pain Score Most Recent Pain Score: Most Recent Pain Score Pain Level 9 09/01/24 17:49 Assessment Mental Status: Awake (Alert & Oriented to Patient Baseline) Airway and Respiratory Function: Patent airway with normal (patient baseline) respiratory exam Cardiovascular Function: Hemodynamically Unstable (See Explanation) (Mild hypotension post-op) Hydration Status: Adequately Hydrated Nausea & Vomiting: No Nausea or Vomiting Pain: Pt. Denies Any Pain Peripheral Nerve Block: Patient did not receive a nerve block
[2024-09-03] VITALS (57 sets, daily range): BP systolic 75–105; BP diastolic 40–67; PULSE 57–99; RESP 11–33; TEMP 36.7–36.9; O2SAT 91–99
[2024-09-03 06:27] LABS: HCT 27.1 % (36.0-46.0); HGB 9.1 g/dL (11.2-15.7); MCH 28.3 pg (27.0-33.0); MCHC 33.6 % (32.0-36.0); MCV 84 fL (80-95); MPV 10.2 fL (8.0-11.0); RBC 3.21 10^6/uL (3.93-5.22); RDW 17.2 % (11.7-14.6); RDW-SD 53.5 fL; WBC 5.91 10^3/uL (4.4-10.8)
[2024-09-03 07:25] LABS: Platelet Count 81 10^3/uL (130-400)
--- NOTE | 2024-09-03 08:35 | DI.RAD_ITS ---
Exam(s) XR CHEST 2V PA LATERAL EXAM: XR CHEST 2V PA LATERAL CLINICAL HISTORY: pneumonia TECHNIQUE: 2D digital imaging was performed of the chest. Two images were obtained. PA and lateral views were obtained. COMPARISON: CR XR CHEST 2V PA LATERAL from 08/31/2024 FINDINGS: MEDIASTINUM: Normal. HEART: Normal. PULMONARY VASCULATURE: Normal. LUNGS: When compared to the examination from 08/31/2024, there has been worsening of the right lower lobe infiltrate. The left lung is clear. PLEURAL SPACE: There is a right pleural effusion. There is a small left pleural effusion. There is no pneumothorax. BONE:Within normal limits for the patient's age. OTHER FINDINGS:Normal. IMPRESSION: Worsening pneumonia with the worsening infiltrate seen in the right lower lobe. Small bilateral pleural effusions. DATA REPOSITORY: RADIATION DOSE DELIVERED:
[2024-09-03] MEDS: Furosemide 20 MG TAB 40 MG PO (08:40)
[2024-09-03] MEDS: Potassium Chloride 10 MEQ CAPCR 20 MEQ PO (08:41)
[2024-09-03] MEDS: Multivitamin TAB 1 TAB PO (08:41)
[2024-09-03] MEDS: Normal Saline Flush 10 ML SYR IVP ×2 (08:41→21:21)
[2024-09-03] MEDS: Ketorolac 15 MG/ML VIAL IVP ×3 (08:45→21:22)
[2024-09-03] MEDS: AMPICILLIN/SULBACTAM 3 GM in Normal Saline 100 ML IVPB ×2 (12:35→18:48)
[2024-09-03] MEDS: Normal Saline 500 ML IV (12:51)
--- NOTE | 2024-09-03 17:23 | PDOC.CMPRO ---
Date of service: 09/03/24 Time of Service: 17:23 Care Management Progress Note Progress Note Text Progress Note Text: Eden was sitting up in her chair visiting with her daughter when CM met with her. She was pleasant and engaged well in conversation. She reported that she is doing well today, although per report her chest xray was worse today than when she arrived. Per RN, she is currently on IV antibiotics, and her blood pressure has been low, but she is not symptomatic at this time. Eden reported that she has a very supportive family, and her son will likely drive her home when she is ready for discharge. CM will continue to follow. Discharge Potential Discharge Needs: Surgical F/U Appt Anticipated Barriers to Discharge: None Identified Patient/Family Education Needs: Review discharge instructions, discuss Ask Me Three Transportation: Private vehicle Plan: Anticipate Samara will be discharged home with no new services when medically stable. She will follow up with her community providers and plan of care and transport with family. CM will follow and continue to assess for discharge needs. Social Determinants of Health Screening Will the Patient Participate in the Screening?: Declined to provide Comments: Patient declining at this time due to exhaustion post-surgery; may answer at later time.
--- NOTE | 2024-09-03 19:40 | W.PM.PROGNOT ---
Date of Service Date of service: 09/03/24 Time of Service: 19:40 Assessment and Plan Assessment and plan (1) Umbilical hernia with obstruction: Status: Acute Assessment and plan: I think Samara looks very good today. She has been on room air, maintaining normal saturations, but her chest x-ray does show a little bit of progression of the infiltrate. Although this is little bit difficult to say as there is certainly some atelectasis, and the effusion makes interpretation a bit challenging. Regardless, I think the course of Unasyn for empiric treatment of community-acquired and aspiration pneumonia is appropriate here. She certainly has chronic liver disease, and I would consider that fairly significant comorbidity. we will continue with basic pulmonary toileting, and intensive spirometry to help improve aeration. I anticipate her getting out of the ICU tomorrow. Subjective Subjective Interval history since last seen: Samara looks great today. She is sitting up in the chair, and has been up and moving around the room a bit. She is tolerating liquids without any nausea or vomiting, and her appetite seems to be increasing. She is passing flatus, but has had no bowel movement yet. Exam Resp Other: Lung sounds are mostly clear, little bit diminished at the bases bilaterally. Cough is strong GI Other: Abdomen is soft and minimally tender. Bandages are clean, and there is no erythema. Objective Last Vital Signs Temp 98.4 F 09/03/24 13:17 Pulse 76 09/03/24 19:01 Resp 22 09/03/24 19:01 BP 93/54 L 09/03/24 19:01 Pulse Ox 99 09/03/24 18:41 Laboratory Results - last 24 hr 09/03/24 06:12 WBC 5.91 RBC 3.21 L Hgb 9.1 L D Hct 27.1 L MCV 84 MCH 28.3 MCHC 33.6 RDW 17.2 H Plt Count 81 L MPV 10.2 Time Spent with Patient Time Spent with Patient: 25-34 minutes Time was spent: preparing to see the patient(eg.review tests), ordering medications,tests, procedures, referring, communicating with other health insurance healthcare representative, indepentently interpreting results and counseling the patient
[2024-09-03] MEDS: Lactobacillus Acidophilus CAP 1 CAP PO (21:23)
[2024-09-04] VITALS (128 sets, daily range): BP systolic 76–120; BP diastolic 46–71; PULSE 58–78; RESP 14–30; TEMP 36.5; O2SAT 89–100
[2024-09-04] MEDS: AMPICILLIN/SULBACTAM 3 GM in Normal Saline 100 ML IVPB ×4 (00:53→20:07)
[2024-09-04] MEDS: Ketorolac 15 MG/ML VIAL IVP ×2 (05:54→20:11)
[2024-09-04 07:29] LABS: HCT 27.9 % (36.0-46.0); HGB 9.2 g/dL (11.2-15.7); MCH 28.3 pg (27.0-33.0); MCV 86 fL (80-95); RBC 3.25 10^6/uL (3.93-5.22); RDW 17.3 % (11.7-14.6); RDW-SD 54.4 fL; WBC 3.43 10^3/uL (4.4-10.8)
[2024-09-04 07:50] LABS: ALT 110 U/L (14-59); AST 189 U/L (15-37); Alkaline Phosphatase 65 U/L (46-116); Anion Gap 6.3 mmol/L (3-11); BUN 27 mg/dL (7-18); Bilirubin, Direct 0.3 mg/dL (0.0-0.2); Bilirubin, Total 0.6 mg/dL (0.2-1.0); CO2 24.7 mmol/L (21.0-32.0); CREATININE 0.6 mg/dL (0.55-1.02); Calcium 7.8 mg/dL (8.5-10.1); Chloride 108 mmol/L (98-107); Glucose 98 mg/dL (74-106); Potassium 4.3 mmol/L (3.5-5.1); Sodium 139 mmol/L (136-145); Total Protein 6.3 g/dL (6.4-8.2)
[2024-09-04] MEDS: Furosemide 20 MG TAB 40 MG PO (07:50)
[2024-09-04] MEDS: Potassium Chloride 10 MEQ CAPCR 20 MEQ PO (07:51)
[2024-09-04] MEDS: Multivitamin TAB 1 TAB PO (07:51)
[2024-09-04] MEDS: Nadolol 40 MG TAB 20 MG PO (07:51)
[2024-09-04] MEDS: Normal Saline Flush 10 ML SYR IVP ×2 (07:52→20:11)
--- NOTE | 2024-09-04 08:35 | W.PM.PROGNOT ---
Date of Service Date of service: 09/04/24 Time of Service: 08:35 Assessment and Plan Assessment and plan (1) Umbilical hernia with obstruction: Status: Acute Assessment and plan: I think it is reasonable to transfer out of the intensive care unit to the regular floor today. I will add a little bit of MiraLAX to help promote GI motility, and I think it is reasonable to consult physical therapy to see how she does with ambulation and stairs over the next 24 hours. Hopefully, she will be in a position where she can get discharged home Friday or Friday Subjective Subjective Interval history since last seen: Samara is awake and alert, and sitting up in the chair. She has been getting around the room a little bit. She tolerated breakfast this morning, without any abdominal complaints. However, she denies any flatus or bowel movement yet Exam GI Other: Abdomen is soft, and a bit distended or full with ascites. Bandaging is all clean and dry. I did remove this today. There are no signs of erythema or infection at the incision site. Objective Last Vital Signs Temp 97.7 F 09/04/24 00:59 Pulse 58 L 09/04/24 07:01 Resp 15 09/04/24 07:01 BP 98/58 L 09/04/24 07:01 Pulse Ox 96 09/04/24 07:01 Laboratory Results - last 24 hr 09/04/24 05:50 Sodium 139 Potassium 4.3 Chloride 108 H Carbon Dioxide 24.7 Anion Gap 6.3 BUN 27 H Creatinine 0.6 Est GFR (CKD-EPI 2020) 97.10 Glucose 98 Calcium 7.8 L Total Bilirubin 0.6 Conjugated Bilirubin 0.3 H AST 189 H ALT 110 H Alkaline Phosphatase 65 Total Protein 6.3 L Albumin 2.0 L Time Spent with Patient Time Spent with Patient: 25-34 minutes Time was spent: preparing to see the patient(eg.review tests), ordering medications,tests, procedures and indepentently interpreting results
[2024-09-04] MEDS: Polyethylene Glycol 3350 17 GM PACKET PO (12:38)
--- NOTE | 2024-09-04 14:15 | PT.INIE ---
PT Notes Visit Reasons: post op hernia repair, aspiration event Physical Therapy Inpatient Initial Evaluation Date: 09/04/2024 Referring Doctor: Sergo Tobias MD PT Orders: PT CONSULT: Limited ability. Status post postumbilical hernia repair with ascites Precautions: Fall. Standard. Activity as tolerated. Patient Profile/Admitting Diagnosis: dEen Barroso is a 69-year-old female who was diagnosed with incarcerated umbilical hernia with obstruction and ascites but without strangulation s/p primary repair of umbilical hernia on 09/02/2024. Patient is also being managed for thrombocytopenia, portal hypertension, and pleural effusion associated with hepatic disorder. PMHX: All Active Problems (Updated 09/01/24 @ 21:51 by Janet Black MD) Umbilical hernia with obstruction (Acute) Shortness of breath (Acute) Hydrothorax (Acute) Palliative care status (Acute) Anemia (Chronic) Hypotension (Acute) ACP (advance care planning) (Acute) Umbilical hernia without obstruction and without gangrene (Acute) Reduced at [facility]; not containing intestine on MRI abd 11/2023. Managing with abd pressure; felt to be due to ascites and internal abd pressure. Cirrhosis of liver with ascites (Chronic) managed with surveillance and nadolol by [facility]; previously declined goal directed treatment with azathioprine. Pleural effusion associated with hepatic disorder (Acute) Complete uterine prolapse with prolapse of anterior vaginal wall (Acute) 83mm gelhorn pessary in place Desires hysterectomy with urogyn but needs to be medically stable in regards to other comorbidities first. Portal hypertension (Acute) Thrombocytopenia (Chronic) due to cirrhosis Medical History (Updated 09/01/24 @ 21:51 by Janet Black MD) Varices of esophagus determined by endoscopy s/p esophageal varices banding 12/2022 s/p esophageal varices banding 02/2023 [facility] Electrical alternans Pleural effusion, right Vaginal pessary in situ 01/06/24: switched back to 83mm gelhorn as she is worried the pessary is contributing to her increasing fluid/ascites 12/30/23: increased to 89mm gelhorn pessary due to persistent prolapse around pessary Mar 2023: switched to 83mm gelhorn due to pessary falling out Oct 2022: fitted with #7 RS pessary Vasospasm of peripheral artery Acquired pancytopenia Pancreatic cyst incidental finding 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 AFP negative. Managed with azathioprine historically; repeat biopsy at [facility] negative inflammation. Surgical History (Updated 09/01/24 @ 21:20 by Janet Black MD) No pertinent past surgical history History of liver biopsy (~08/2013) Social History/Home Situation: Live with daughter's family in a private home. Has a flight of steps to her bedroom. Independent with all aspects of ADLs prior to surgery. Equipment Owned/DME: Nonre Subjective: Pleasant and cooperative. Denied headache, chest pain, and lightheadedness throughout session. Objective: General Observation: Seated on bedside chair. IV through right UE was temporarily capped by nurse Connie for this afternoon's walk with PT. Ascites noted. B LE swelling with R more affceted than L. Mental Status: Alert and oriented as to person, place, time, and purpose. Able to pay attention, focus, and respond appropriately. Pain: soreness over surgical incision that minimally limited today's mobility assessment. Vital Signs: SaO2 stayed above 90% on room air and HR ranged from 75-85 throughout session. ROM: Right Upper Extremity: Shoulder Flexion WFL. Shoulder abduction WFL. Elbow flexion WFL. Wrist flexion WFL. Functional opening and closing of hand WFL. Left Upper Extremity: Shoulder Flexion WFL. Shoulder abduction WFL. Elbow flexion WFL. Wrist flexion WFL. Functional opening and closing of hand WFL. Right Lower Extremity: Hip flexion WFL. Hip abduction WFL. Knee flexion WFL. Ankle dorsiflexion WFL. Ankle plantarflexion WFL. Left Lower Extremity: Hip flexion WFL. Hip abduction WFL. Knee flexion WFL. Ankle dorsiflexion WFL. Ankle plantarflexion WFL. Strength: Right Upper Extremity: Shoulder flexors 4/5. Shoulder abductors 4/5. Elbow flexors 5/5. Elbow extensors 5/5. Sterile Processing Technologist strong. Left Upper Extremity: Shoulder flexors 4/5. Shoulder abductors 4/5. Elbow flexors 5/5. Elbow extensors 5/5. Sterile Processing Technologist strong. Right Lower Extremity: Hip flexors 4/5. Hip abductors 4/5. Knee flexors 4/5. Knee extensors 4-/5. Ankle dorsiflexors 4-/5. Ankle plantarflexors 4-/5. Left Lower Extremity: Hip flexors 4/5. Hip abductors 4/5. Knee flexors 4/5. Knee extensors 4-/5. Ankle dorsiflexors 4-/5. Ankle plantarflexors 4-/5. Bed Mobility/Transfers: Minimal cueing provided for use of B hands as needed for support, movement sequence, AD management, and posture to reduce fall risk and minimize pain report Sit to stand supervision with no AD Stand to sit supervision with no AD Bed to reclining chair supervision with no AD Gait: Provided supervision assist only for a level surface ambulation of about 500 feet using no assistive device with report of 1-2/10 pain over surgical incision that minimally limited patient's ability to walk. Osiris minimally decreased. No path deviation. No SOB. No LOB. Balance: Static Sitting: Normal Dynamic Sitting: Normal Static Standing: Good Dynamic Standing: Good Special Tests: Mobility Limitations Standardized Measure [facility] AM-PAC 6 clicks Basic Mobility Inpatient Short Form: Raw Score: 24 CMS Score: 0% deficit Informed Consent/Education: Patient was instructed in purpose of PT consult and plan of care. Agreeable to proceed with established PT POC to achieve personal goals. Assessment: S/P repair of umbilical hernia now only equiring supervision assist for hallway ambulation for directions only.Patient presents with clinical signs and symptoms consistent with current/admitting diagnoses that have resulted to mobility limitations, gait instability, generalized weakness, and overall ADL decline as demonstrated by the following impairment level findings: 1. Impaired activity tolerance 2. Limitation of joint range of motion in [] 3. Swelling in abdominal area and B LEs Impairments are contributing to the following functional limitations: 1. Increased completion time for mobility ADL performance Patient is assessed as a 74838 low complexity based on the following: History: 69-year-old female with past medical history as indicated above Examination: Demonstrable impairment in strength, balance, and mobility level with underlying impairments and functional limitations as exhibited above Presentation: Stable Decision Makin low complexity Goals: Goals X1 week 1. Stand-Sit independent 2. Bed-Chair independent 3. Chair-Bed independent 4. Independent gait on level surface with use of no AD for at least 1000 feet without report of pain nor dyspnea 5. Independent stair negotiation while holding onto [] rails for at least [] steps without report of pain nor dyspnea 6. Independent with home exercise program 7. Normal static and dynamic standing balance/tolerance Plan of Care/Treatment Plan: 1-2x/day, 7 days/week x 1 week. Plan of care has been reviewed with the CAP BLOCKER providing the service under Physical Therapy direction. Initiate Physical Therapy intervention for pain management as needed, strengthening, bed mobility, transfers, gait, stairs, balance training, and use of assistive device. DISCHARGE RECOMMENDATIONS: Home with outpatient PT for lymphedema management. TREATMENT CODE/TIME: 12262 x 20 minutes x 20 minutes, 44688 x 9 minutes for 1 unit (14:15-14:44). Thank you for the opportunity to participate in the care of this patient. Shavon Mckeon PT, DPT, CLT [facility] [place], [place]
[2024-09-05] VITALS (14 sets, daily range): BP systolic 99–129; BP diastolic 57–79; PULSE 62–81; RESP 13–32; TEMP 36.4–37.3; O2SAT 96–100
[2024-09-05] MEDS: AMPICILLIN/SULBACTAM 3 GM in Normal Saline 100 ML IVPB ×2 (01:01→06:09)
[2024-09-05] MEDS: Normal Saline 500 ML 15 ML IV (04:36)
[2024-09-05] MEDS: Ketorolac 15 MG/ML VIAL IVP (04:50)
[2024-09-05] MEDS: Normal Saline Flush 10 ML SYR IVP ×3 (07:29→20:19)
[2024-09-05] MEDS: Polyethylene Glycol 3350 17 GM PACKET PO (07:39)
[2024-09-05] MEDS: Nadolol 40 MG TAB 20 MG PO (07:40)
[2024-09-05] MEDS: Furosemide 20 MG TAB 40 MG PO (07:40)
[2024-09-05] MEDS: Potassium Chloride 10 MEQ CAPCR 20 MEQ PO (07:40)
[2024-09-05] MEDS: Multivitamin TAB 1 TAB PO (07:45)
--- NOTE | 2024-09-05 09:00 | DI.RAD_ITS ---
Exam(s) XR CHEST 2V PA LATERAL EXAM: XR CHEST 2V PA LATERAL CLINICAL HISTORY: Aspiration pneumonia TECHNIQUE: 2D digital imaging was performed. Two views. COMPARISON: CR XR PORTABLE CHEST AP from 01/07/[address] CHEST PE CTA from 04/03/2024 CR XR PORTABLE CHEST AP from 04/09/2024 CR XR CHEST 2V PA LATERAL from 06/11/2024 CR XR CHEST 2V PA LATERAL from 08/31/[address] ABDOMEN PELVIS W from 09/01/2024 CR XR CHEST 2V PA LATERAL from 09/03/2024 FINDINGS: Overlying monitoring leads. HEART: Normal size. Aorta: Not dilated. PULMONARY VASCULATURE: Normal. MEDIASTINUM: Mediastinal shift toward the right, unchanged. LUNGS: Chronic right-sided pulmonary scarring. Improvement in previously noted right lower lobe infiltrate. PLEURAL SPACE: Tiny bilateral pleural effusions. Loculated fluid again noted along the right major fissure. No pneumothorax. BONE:Unremarkable for age. SOFT TISSUES: Unremarkable. IMPRESSION: Some improvement in right lower lobe infiltrate. Loculated fluid again noted along the right major fissure. Tiny bilateral pleural effusions. The preliminary [facility] report was reviewed. DATA REPOSITORY: RADIATION DOSE DELIVERED:
--- NOTE | 2024-09-05 10:28 | DI.[facility]_ITS ---
PROCEDURE INFORMATION: Exam: XR Chest Exam date and time: 09/05/2024 9:56 AM Age: 69 years old Clinical indication: Other: Aspiration pneumonia TECHNIQUE: Imaging protocol: Radiologic exam of the chest. Views: 2 views. COMPARISON: CR XR CHEST 2V PA LATERAL 09/03/2024 8:33 AM no prior report FINDINGS: Lungs: Right mid lung opacity unchanged, possible fluid within the right major fissure. Right basilar consolidation unchanged. Loss of volume in the right lung with shift of mediastinal structures rightward Pleural spaces: Small bilateral pleural effusions Heart/Mediastinum: Unchanged Bones/joints: Unremarkable. IMPRESSION: No significant interval change Dictated and Authenticated by: Janet Kumar MD. Orderin Jatinder Trotter MD
--- NOTE | 2024-09-05 11:16 | PTTR_ITS ---
PT Notes Visit Reasons: post op hernia repair, aspiration event Physical Therapy Inpatient Treatment Note Date: 09/05/2024 Precautions: Fall. Standard. Activity as tolerated. Subjective: Verbalized minimal soreness on surgical site needing the small incision strap on for support. Still has reservations about trying out the actual stairwell in med surg area but okay with doing the practice steps seferal times for this session. Pleasant and cooperative. Denied headache, chest pain, and lightheadedness throughout session. Objective: General Observation: telemetry discontinued as of this mornning. Seated on bedside chair. IV through right UE was temporarily capped by Nurse. Ascites noted. B LE swelling with R more affected than L. Mental Status: Alert and oriented as to person, place, time, and purpose. Able to pay attention, focus, and respond appropriately. Pain: Continued oreness over surgical incision that minimally limited today's mobility assessment. Vital Signs: SaO2 stayed above 90% on room air and HR ranged from 75-85 throughout session. Bed Mobility/Transfers: Minimal cueing provided for use of B hands as needed for support, movement sequence, AD management, and posture to reduce fall risk and minimize pain report Sit to stand independent Stand to sit independent Bed to reclining chair supervision with no AD Gait: Osiris improved for this session. Provided supervision assist only for a level surface ambulation of about 500 feet using no assistive device with report of 1- 2/10 pain over surgical incision that minimally limited patient's ability to walk. No path deviation. No SOB. No LOB. Stairs: Up and dwon 18 X 4-inch steps and 12 X 6-inch steps while holding onto B rails fro support with [id number] pattern. THERA EX: Reviewed correct movement execution of HEP for this session. Copy of HEP also was provided: Seated marches x 10 Seated quads sets 5 sh x 10 LAQs x 10 Ankle Df/PF x 10S Sit<>stand with hand support x 5 Balance: Static Sitting: Normal Dynamic Sitting: Normal Static Standing: Good Dynamic Standing: Good Assessment: POD 3 S/P repair of umbilical hernia requiring supervision assist for hallway ambulation for directions only. Osiris improving and patient verbalized gait speed is beginning to normalize. Plan of Care/Treatment Plan: 1-2x/day, 7 days/week x 1 week. Plan to negotiate actual stairwell before discharge tomorrow. review HEP as needed. DISCHARGE RECOMMENDATIONS: Home with outpatient PT for lymphedema management. TREATMENT CODE/TIME: 96168 x 25 minutes for 2 units, 04735 x 13 minutes for 1 unit (11:16-11:55).
[2024-09-05] MEDS: Amoxicillin 875/Clav. 125 TAB PO ×2 (13:29→21:44)
[2024-09-06 05:15] VITALS: PULSE 82; TEMP 36.9
[2024-09-06 06:00] VITALS: BP 115/70; PULSE 80; O2SAT 95
[2024-09-06 06:28] VITALS: BP 115/70; PULSE 77
--- NOTE | 2024-09-06 06:35 | DSE_ITS ---
Date of service: 09/06/24 Time of Service: 06:35 DS: Diagnosis Discharge Diagnosis (1) Umbilical hernia with obstruction: Status: Acute Asessment and Plan: Discharge home with outpatient follow-up Discharge Plan Disposition Patient Disposition: Home Condition: Improving Discharge Details Reason For Visit: post op hernia repair, aspiration event Admit Date/Time: 09/02/24 00:11 Admit Provider: Janet Black Attending Provider: Janet Black Primary Care Provider: Sruthi Eden Hospital Course Hospital Course: Samara is a 69-year-old woman with autoimmune hepatitis and cirrhosis complicated by ascites who presents with an incarcerated umbilical hernia. She underwent emergency exploration and reduction of a loop of intestine. The hernia defect was closed primarily. Postoperative course was complicated by aspiration pneumonia which was treated with antibiotics. Chest radiography improved, she had no oxygen requirement. She was discharged home with outpatient follow-up Home Meds and New Rx's Prescriptions: New amoxicillin-pot clavulanate 875-125 mg Tablet 1 tab PO BID Qty: 8 0RF Rx Instructions: Take 1 tablet by mouth in the morning, and 1 tablet by mouth in the evening until antibiotics are complete Lactobacillus acidophilus 500 million cell Capsule 500 mmu cells PO TID PRN PRNQty: 14 0RF Continued milk thistle 500 mg capsule 500 mg PO DAILY Rx Instructions: give with meal/snack cholecalciferol (vitamin D3) 50 mcg (2,000 unit) capsule 50 mcg PO DAILY selenium 200 mcg capsule 200 mcg PO DAILY cyanocobalamin-liver extract Tablet 1 tab PO DAILY multivitamin [Daily Multi-Vitamin] Tablet 1 tab PO DAILY nadolol 20 mg tablet 20 mg PO DAILY Qty: 30 5RF potassium chloride 10 mEq capsule, extended release 20 meq PO DAILY Qty: 60 5RF furosemide 20 mg tablet 40 mg PO QDAY Qty: 60 1RF Joseph Probiotic 14 billion cell capsule 1 cell PO DAILY PRN Discharge Instructions Additional Instructions: Samara, it was good seeing you, and I hope you make a quick recovery as you transition home. As you already know, you suffered complications related to an umbilical hernia. Specifically, there was a loop of intestine that became entrapped in the hernia. You underwent emergency surgery to reduce the intestines back to the normal position, and a primary repair of the hole causing the hernia. Your course was complicated by pneumonia, which was treated with antibiotics. Your chest x-ray has been improving, and you have had no oxygen requirement while you are in the hospital. I will continue the antibiotics for a few more days as you transition home. Please be sure to use these antibiotics for the next 4 days to complete your course of treatment. With regards to your incision, things seem to be healing okay so far. I would like you to wash the incision with warm soapy water every day. The sterile Band-Aids may start to fall off in the shower. If that happens, that is totally fine. You do not need to have any specific bandaging cover the incisions, but if you find that more comfortable, please feel free to do so. You should be up and moving around a little bit more more each day. Basic walking, and simple exercises are great strategies to help with your recovery. Be careful with lifting. Keep it less than a gallon of milk or so. Be careful with vigorous activities that twist or stretch her abdomen. I suggest using [id number] ibuprofen for pain, and I suspect that low-dose Tylenol would be okay for the first few days if you need that. As you have already experienced, ice packs are also quite helpful. During your hospital stay, you also met with the physical therapist during your recovery. The recommendations were for outpatient physical therapy, and I will place that referral today. I will have my office schedule a follow-up visit, but if you need anything at all in the meantime, please do not hesitate to call. The office phone number is [phone] Referrals: Sruthi Eden MD [Primary Care Provider, Medicine] Sergo Tobias MD [ [facility] STAFF PHYSICIAN, Surgery] Activity:: No heavy lifting Equipment/Supplies:: No Equipment Needed Diet:: As Tolerated DS: Summary Time Spent with Patient providing and/or coordinating discharge services: Greater than 30 minutes Status at Discharge Functional status at discharge: independent ambulation Overall status at discharge: patient is progressing back to baseline Mental Status: mental status grossly normal Speech and Movement: speech and movement normal Mood: congruent mood Affect: normal affect Quality:SDOH Health Related Social Needs: Health related social needs inadequate housing house/e con circumstance education Health related social needs details none has strong [facility] Quality: VTE Contraindication No VTE Prophylaxis: Contraindicated (Already a high risk for operative bleeding with thrombocytopenia) Exam Psych Mental Status: mental status grossly normal Speech and Movement: speech and movement normal Mood: congruent mood Affect: normal affect DS: Data Vitals/I&O Vitals and I&O: Vital Signs Temperature 98.4 F 09/06/24 05:15 Temperature Source Temporal Artery Scan 09/06/24 05:15 Pulse 82 09/06/24 05:15 Pulse 78 09/05/24 18:00 Respiratory Rate 20 09/05/24 19:55 Respiratory Effort Normal 09/02/24 00:10 Respiratory Depth Normal 09/02/24 00:10 Respiratory Pattern Normal 09/02/24 00:10 Blood Pressure 129/79 09/05/24 23:48 Blood Pressure Mean 93 09/05/24 23:48 Blood Pressure Position Sitting 09/01/24 17:49 Pulse Oximetry 96 09/05/24 23:48 Oxygen Delivery Method Room Air 09/05/24 19:00 Oxygen Flow Rate 0 09/05/24 19:00 Pain Level 0 09/06/24 05:15 Comment Changed from left forearm to right upper arm 09/02/24 22:06 Intake & Output 09/05/24 09/05/24 09/06/24 11:59 23:59 11:59 Intake Total 1024.5 / 1984.5 960 / 1984.5 Output Total 575 / 1850 1275 / 1850 800 / 800 Balance 449.5 / 134.5 -315 / 134.5 -800 / -800 Weight 172 lb 9.951 oz Intake: IV 664.5 / 664.5 Oral 360 / 1320 960 / 1320 Output: Urine 575 / 1850 1275 / 1850 800 / 800 Other: Urine Color Yellow Pale Pale Yellow Yellow Urine Appearance Clear Clear Urine Odor Normal None None PFSH All Active Problems (Updated 09/01/24 @ 22:01 by Cedric Pichardo MD) Umbilical hernia with obstruction (Acute) Shortness of breath (Acute) Hydrothorax (Acute) Palliative care status (Acute) Anemia (Chronic) Hypotension (Acute) ACP (advance care planning) (Acute) Umbilical hernia without obstruction and without gangrene (Acute) Reduced at [facility]; not containing intestine on MRI abd 11/2023. Managing with abd pressure; felt to be due to ascites and internal abd pressure. Cirrhosis of liver with ascites (Chronic) managed with surveillance and nadolol by [facility]; previously declined goal directed treatment with azathioprine. Pleural effusion associated with hepatic disorder (Acute) Complete uterine prolapse with prolapse of anterior vaginal wall (Acute) 83mm gelhorn pessary in place Desires hysterectomy with urogyn but needs to be medically stable in regards to other comorbidities first. Portal hypertension (Acute) Thrombocytopenia (Chronic) due to cirrhosis Medical History (Updated 09/01/24 @ 22:01 by Cedric Pichardo MD) Varices of esophagus determined by endoscopy s/p esophageal varices banding 12/2022 s/p esophageal varices banding 02/2023 [facility] Electrical alternans Pleural effusion, right Vaginal pessary in situ 01/06/24: switched back to 83mm gelhorn as she is worried the pessary is contributing to her increasing fluid/ascites 12/30/23: increased to 89mm gelhorn pessary due to persistent prolapse around pessary Mar 2023: switched to 83mm gelhorn due to pessary falling out Oct 2022: fitted with #7 RS pessary Vasospasm of peripheral artery Acquired pancytopenia Pancreatic cyst incidental finding 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 AFP negative. Managed with azathioprine historically; repeat biopsy at [facility] negative inflammation. Surgical History (Updated 09/01/24 @ 21:20 by Janet Black MD) No pertinent past surgical history History of liver biopsy (~08/2013) Family History Mother Diabetes Father Alzheimers disease Sister Depression Hypertension Sister No problems noted. Sister Rheumatoid arthritis Brother No problems noted. Brother Hypertension Son No problems noted. Daughter No problems noted. 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 Pets and animals: No Sexually active: No Do you think of yourself as: straight/heterosexual Current gender identity: female What is your relationship status?: How often do you talk on the phone with friends or family?: three or more times per week How often do you get together with friends or relatives?: three or more times per week How often do you attend episcopalian or moravian services?: 4 or more times per year Do you belong to any clubs or organized social groups?: no Panel score (0-1 are the most socially isolated patients): 2 What type of physical activity do you participate in: walking Duration: 15-30 minutes/day Frequency: daily Jaclyn/Adventism: Evangelical Special jaclyn needs: No Seatbelt use: always Helmet use: No Drive intox or ride w/intox charter driver: No Do you feel safe at home: Yes Do you feel safe in your relationship?: Yes Additional Social history: Enjoys spending time with family, playing sports/games with them. Female Reproductive History Menstrual Age of Menarche: 13 Menopause type: natural Date of menopause: 08/08/05 History History 2 Para 2 Hx # Term Pregnancies 2 Multiple births Hx # Pregnancies Ectopic pregnancies AB induced Hx Number of Living Children 2 AB spontaneous Past Pregnancies Del. Date GA/Weeks # Preg Succ Route Wgt Sex Labor Lgth Anesth esia Location [facility] 10/07/77 40 No vaginal 7 lb 12.5 oz Male 10 09/27/82 40 No vaginal 8 lb 1 oz Female Delivery Date: 10/07/77 Last Updated by: Yojana Daniels laceration with repair Time Spent with Patient Time Spent with Patient: <45 minutes Time was spent: preparing to see the patient(eg.review tests), indepentently interpreting results, counseling the patient and care coordination
[2024-09-06] MEDS: Potassium Chloride 10 MEQ CAPCR 20 MEQ PO (08:26)
[2024-09-06] MEDS: Multivitamin TAB 1 TAB PO (08:27)
[2024-09-06] MEDS: Amoxicillin 875/Clav. 125 TAB PO (08:27)
[2024-09-06] MEDS: Furosemide 20 MG TAB 40 MG PO (08:28)
[2024-09-06] MEDS: Polyethylene Glycol 3350 17 GM PACKET PO (08:29)
[2024-09-06] MEDS: Nadolol 40 MG TAB 20 MG PO (08:31)
--- NOTE | 2024-09-06 08:33 | PGE_ITS ---
Date of Service Date of service: 09/06/24 Time of Service: 10:08 Assessment and Plan Assessment and plan (1) Umbilical hernia with obstruction: Status: Acute Assessment and plan: I will discharge her home today with 4 more days of therapy for community- acquired aspiration pneumonia. Will set up a follow-up appointment in the office for hernia repair postop. Subjective Subjective Interval history since last seen: Noemy looks great today. She is up and walking around. She washed her hair. She is tolerating food, having bowel movements without any issues. Pain has been well-controlled. Exam GI Other: Abdomen is fluid-filled, but the incision remains clean and dry. There are no signs of infection. Objective Last Vital Signs Temp 98.4 F 09/06/24 05:15 Pulse 77 09/06/24 06:28 Resp 20 09/05/24 19:55 BP 115/70 09/06/24 06:28 Pulse Ox 95 09/06/24 06:00 Time Spent with Patient Time Spent with Patient: <25 minutes Time was spent: preparing to see the patient(eg.review tests), indepentently interpreting results and counseling the patient
[2024-09-06] MEDS: Normal Saline Flush 10 ML SYR IVP (08:35)
--- NOTE | 2024-09-06 09:00 | CMDISCH_ITS ---
Date of service: 09/06/24 Time of Service: 09:00 LACE Index Scoring Tool Questions: Length of Stay (in days): 4 - 6 Was the patient admitted via the E.D.?: No Comorbidities: Liver or Renal Disease E.D. Visits: 2 Answers: Total Score: 11 Risk of Readmission: High Risk Care Management Discharge Plan Reason for Hospitalization: umbilical hernia Discharge Plan: Samara will be discharged home with no new services. She will follow up with her community providers and plan of care and transport with family. Patient/Family Education Needs: Review discharge instructions, limitations, follow up plan and discuss Ask Me Three SDOH Health Related Social Needs: Health related social needs inadequate housing house/e con circumstance education Health related social needs details none has strong sneed pport system
== END 2024-09-06 11:00 | disposition home or self-care (01) | DRG 353 ==
LOC: ER 22:01 → DSU 22:16 → ICU 09-02 00:35
PROVIDERS: Admitting Provider Surgery; Emergency Provider Emergency Medicine; PCP Family Medicine; Responsible Provider Surgery; Visit Provider Surgery
PROC: (CPT 49592; principal; 2024-09-01 21:25)
DX: K42.0 Umbilical hernia with obstruction, without gangrene (principal); J69.0 Pneumonitis due to inhalation of food and vomit; I85.00 Esophageal varices without bleeding; K76.6 Portal hypertension; R18.8 Other ascites; J91.8 Pleural effusion in other conditions classified elsewhere; K74.60 Unspecified cirrhosis of liver; K75.4 Autoimmune hepatitis; D64.9 Anemia, unspecified; N81.3 Complete uterovaginal prolapse; D69.59 Other secondary thrombocytopenia; Z96.0 Presence of urogenital implants
CPT/HCPCS: 49592; 36415; 80048; 80053; 80076; 85027; 96374; 97110; 97161; 97530; 99223; 99231; 99238; 99291; 71046; 74177; 83605; 85025; 85610; 94667; J0295; J0665; J0690; J1100; J1885; J2003; J2371; J2405; J2598; J2704; J3490; P9047

== ENCOUNTER → 2024-09-15 13:23 | Outpatient (BNVA) | payer MEDICARE, SELFPAY | PROVIDERS: PCP Family Medicine; Referring Provider Family Medicine; Visit Provider Surgery | DX: Z09 Encounter for follow-up examination after completed treatment for conditions other than malignant neoplasm (principal) | CPT/HCPCS: 99024 ==

== ENCOUNTER 2024-09-15 14:24 | Outpatient (CLI) | payer MEDICARE, SELFPAY ==
--- NOTE | 2024-09-15 14:15 | DI.RAD_ITS ---
Exam(s) XR CHEST 2V PA LATERAL EXAM: XR CHEST 2V PA LATERAL CLINICAL HISTORY: cough eval for pneumonia R05.9 TECHNIQUE: 2D digital imaging was performed. Two views. COMPARISON: CT CT CHEST PE CTA from 04/03/2024 CR,XR XR CHEST 2V PA LATERAL from 09/05/2024 FINDINGS: HEART: Normal size. Aorta: Not dilated. PULMONARY VASCULATURE: Normal. MEDIASTINUM: Unremarkable. LUNGS: Stable appearance of right-sided pulmonary scarring and right lower lobe volume loss. Stable appearance of loculated fluid along the fissure. No new infiltrates. The left lung appears clear. PLEURAL SPACE: No pneumothorax. Stable mild blunting at the right costophrenic angle.. BONE:Unremarkable for age. SOFT TISSUES: Unremarkable. IMPRESSION: Stable appearance of the chest. DATA REPOSITORY: RADIATION DOSE DELIVERED:
== END 2024-09-15 14:44 ==
LOC: DI 14:24
PROVIDERS: PCP Family Medicine; Visit Provider Surgery
DX: R05.9 Cough, unspecified (principal)
CPT/HCPCS: 71046

== ENCOUNTER → 2024-10-04 13:00 | Outpatient (BNVA) | payer MEDICARE, SELFPAY | PROVIDERS: PCP Family Medicine; Referring Provider Family Medicine; Visit Provider Internal Medicine Pulmonary Disease | DX: R91.8 Other nonspecific abnormal finding of lung field (principal); K76.9 Liver disease, unspecified; J91.8 Pleural effusion in other conditions classified elsewhere; K74.60 Unspecified cirrhosis of liver; R18.8 Other ascites; R10.9 Unspecified abdominal pain | CPT/HCPCS: 99214; 76604 ==

== ENCOUNTER 2024-10-04 13:57 | Emergency (ER) | payer MEDICARE, SELFPAY ==
[2024-10-04 14:06] VITALS: BP 137/77; PULSE 82; RESP 18; TEMP 36.9; O2SAT 97
[2024-10-04 14:34] LABS: Glucose Negative (Negative)
[2024-10-04 14:41] LABS: C & S Indicated? No; RBC 0-2 HPF (0-2); WBC 0-2 HPF (0-5)
[2024-10-04 15:10] LABS: Abs Immature Grans 0.04 10^3/uL (0.0-0.06); HCT 34.6 % (36.0-46.0); HGB 11.0 g/dL (11.2-15.7); Immature Grans % 0.5 %; MCH 27.6 pg (27.0-33.0); MCHC 31.8 % (32.0-36.0); MCV 87 fL (80-95); MPV 9.9 fL (8.0-11.0); RBC 3.98 10^6/uL (3.93-5.22); RDW 18.2 % (11.7-14.6); RDW-SD 58.3 fL; WBC 8.31 10^3/uL (4.4-10.8)
[2024-10-04 15:23] LABS: Platelet Count 98 10^3/uL (130-400); RBC Morphology Normal
[2024-10-04 15:41] LABS: ALT 80 U/L (14-59); AST 135 U/L (15-37); Albumin 2.8 g/dL (3.4-5.0); Alkaline Phosphatase 88 U/L (46-116); Anion Gap 8.3 mmol/L (3-11); BUN 11 mg/dL (7-18); Bilirubin, Total 1.7 mg/dL (0.2-1.0); CO2 26.7 mmol/L (21.0-32.0); Calcium 8.4 mg/dL (8.5-10.1); Chloride 102 mmol/L (98-107); Estimated GFR 79.71 (mL/min/1.73m2); Glucose 96 mg/dL (74-106); Lipase 40 U/L (<78); Potassium 3.3 mmol/L (3.5-5.1); Sodium 137 mmol/L (136-145); Total Protein 8.7 g/dL (6.4-8.2); Troponin I 4 ng/L (<or=51)
--- NOTE | 2024-10-04 15:42 | W.ED.GENAD ---
Discharge Plan Disposition Patient Disposition: Home Condition: Stable Discharge Details Clinical Impression: Autoimmune hepatitis, Colitis, Inguinal hernia of right side without obstruction or gangrene Primary Care Provider: Sruthi [facility] ED Provider: July Yanez [facility] Meds and New Rx's Prescriptions: No Action milk thistle 500 mg capsule 500 mg PO DAILY Rx Instructions: give with meal/snack cholecalciferol (vitamin D3) 50 mcg (2,000 unit) capsule 50 mcg PO DAILY selenium 200 mcg capsule 200 mcg PO DAILY cyanocobalamin-liver extract Tablet 1 tab PO DAILY multivitamin [Daily Multi-Vitamin] Tablet 1 tab PO DAILY nadolol 20 mg tablet 20 mg PO DAILY Qty: 30 5RF potassium chloride 10 mEq capsule, extended release 20 meq PO DAILY Qty: 60 5RF furosemide 20 mg tablet 40 mg PO QDAY Qty: 60 1RF Joseph Probiotic 14 billion cell capsule 1 cell PO DAILY PRN Discharge Instructions Instructions: Groin Hernia (DC), Colitis (DC) Additional Instructions: CT of your abdomen today shows that you have some inflammation in your bowel consistent with colitis. Your inguinal hernia does not have any signs of obstruction. Recommend soft diet. Advance as tolerated. Follow-up with your surgeon to further discuss plans for your inguinal hernia. Return if you develop any significant increase in pain, vomiting, fevers. Discharge Data Discharge Physician: July Yanez [facility] General Date/Time Provider Initiated Documentation: 10/04/24 14:11. HPI Narrative: 69-year-old female with history of vitamin hepatitis with ascites presents for evaluation of right lower quadrant abdominal pain. Patient states that she began having some pain in her right lower quadrant last night. She states at the time she felt that there was some hardness to the area. She has a known hernia in the area. She did recently have an umbilical hernia repaired. They were monitoring her right groin hernia. She states that she has had some decreased appetite since that time. No fevers or chills. No nausea or vomiting. No increased urinary frequency, dysuria, gross hematuria. No difficulty moving her bowels. She does have abdominal distention with her ascites today however it is not worse than usual. She feels that the hard area in her right lower quadrant has actually improved this afternoon. Related Data Home Medications ?Medication ?Instructions ?Recorded ?Confirmed multivitamin (Daily Multi-Vitamin 1 tab PO DAILY 04/13/21 10/04/24 tablet) cholecalciferol (vitamin D3) 50 50 mcg PO DAILY 10/14/22 10/04/24 mcg (2,000 unit) capsule milk thistle 500 mg capsule 500 mg PO DAILY 10/16/22 10/04/24 cyanocobalamin-liver extract tablet 1 tab PO DAILY 03/19/24 10/04/24 selenium 200 mcg capsule 200 mcg PO DAILY 03/19/24 10/04/24 nadolol 20 mg tablet 20 mg PO DAILY #30 tabs 05/11/24 10/04/24 potassium chloride 10 mEq 20 meq (2 x 10 mEq) PO DAILY #60 06/28/24 10/04/24 capsule,extended release caps Lactobacillus combo no.23 14 1 cell PO DAILY PRN 09/01/24 10/04/24 billion cell capsule (Joseph Probiotic) furosemide 20 mg tablet 40 mg (2 x 20 mg) PO QDAY #60 tabs 09/01/24 10/04/24 Previous Rx's ?Medication ?Instructions ?Recorded nadolol 20 mg tablet 20 mg PO DAILY #30 tabs 05/11/24 potassium chloride 10 mEq 20 meq (2 x 10 mEq) PO DAILY #60 06/28/24 capsule,extended release caps furosemide 20 mg tablet 40 mg (2 x 20 mg) PO QDAY #60 tabs 09/01/24 Allergies Allergy/AdvReac Type Severity Reaction Status Date / Time prednisone Allergy Unknown Psychosis Verified 10/04/24 14:11 General Stated Complaint: Abd Prob FÉLIX: 3 Review of Systems Narrative: Remainder of review of systems otherwise negative except for as noted in the HPI x 10. Exam Narrative Exam Narrative: General: non-toxic, no respiratory distress, comfortable HEENT: normocephalic, atraumatic, lids and lashes normal, PERRL, EOMI, anicteric sclera, no conjunctival injection, moist oral mucosa Card: regular rate and rhythm, S1S2, no murmurs, rubs, or gallops Lungs: good air entry, clear to auscultation bilaterally. no wheezes, rales, rhonchi, or retractions Abd: soft, non-tender, distended with ascites, normal bowel sounds, healing midline incision around umbilicus, no rebound or guarding, no peritoneal signs, no CVAT Musculoskeletal: full range of motion of arms and legs, no tenderness to palpation. no clubbing or cyanosis, bilateral lower extremity edema Neurologic: appropriate for age, strength normal Psych: alert and oriented Skin: no petechiae, no lesions, warm and dry Course Vital Signs Vital signs: Vital Signs Temperature 36.9 C 10/04/24 14:06 Pulse 82 10/04/24 14:06 Respiratory Rate 18 10/04/24 14:06 Blood Pressure 137/77 10/04/24 14:06 Pulse Oximetry 97 10/04/24 14:06 Temperature 36.9 C 10/04/24 14:06 Temperature Source Oral 10/04/24 14:06 Pulse 82 10/04/24 14:06 Respiratory Rate 18 10/04/24 14:06 Blood Pressure 137/77 10/04/24 14:06 Pulse Oximetry 97 10/04/24 14:06 Oxygen Delivery Method Room Air 10/04/24 14:06 Oxygen Flow Rate 0 10/04/24 14:06 Pain Level 6 10/04/24 14:06 Lab/Test Results Lab/Test Results: Laboratory Tests Range/Units 10/04/24 10/04/24 14:21 14:52 WBC (4.4-10.8) 10^3/uL 8.31 RBC (3.93-5.22) 10^6/uL 3.98 Hgb (11.2-15.7) g/dL 11.0 L Hct (36.0-46.0) % 34.6 L MCV (80-95) fL 87 MCH (27.0-33.0) pg 27.6 MCHC (32.0-36.0) % 31.8 L RDW (11.7-14.6) % 18.2 H Plt Count (130-400) 10^3/uL 98 L MPV (8.0-11.0) fL 9.9 Immature Gran % % 0.5 Neutrophils % % 83.3 Lymphocytes % % 8.4 Monocytes % % 6.4 Eosinophils % % 1.0 Basophils % % 0.4 Nucleated RBC % (0.0-0.3) % 0.0 Absolute Neutrophils (1.2-6.7) 10^3/uL 6.93 H Absolute Lymphocytes (1.2-3.4) 10^3/uL 0.70 L Absolute Monocytes (0.1-0.8) 10^3/uL 0.53 Absolute Eosinophils (0.0-0.7) 10^3/uL 0.08 Absolute Basophils (0.0-0.2) 10^3/uL 0.03 RBC Morphology Normal VBG Lactate (<or=2.0) mmol/L 1.3 Urine Color (Yellow) Yellow Urine Clarity (Clear) Clear Urine pH (5-8) 7.0 Ur Specific Pierce (1.005-1.025) 1.015 Urine Protein (Neg-Trace) mg/dL Negative Urine Ketones (Negative) mg/dL Negative Urine Blood (Negative) Trace-lysed H Urine Nitrite (Negative) Negative Urine Bilirubin (Negative) Negative Urine Urobilinogen (Up to 0.2) mg/dL 0.2 Ur Leukocyte Esterase (Negative) Small H Urine RBC (0-2) HPF 0-2 Urine WBC (0-5) HPF 0-2 Ur Epithelial Cells (Negative) HPF Rare Urine Crystals (Negative) HPF Negative Urine Bacteria (Negative) HPF Negative Urine Casts (Negative) LPF Negative Urine Mucus (Negative) Negative Ur Culture Indicated? No Urine Glucose (Negative) mg/dL Negative Medical Decision Making 69-year-old female with history of autoimmune hepatitis with ascites presents for evaluation of right lower quadrant pain. She feels that this is likely in the area of her hernia. At time my evaluation I do not feel any bulging, induration. There is no erythema or warmth. The area is nontender. Laboratory studies show mildly low potassium. No elevated white count or lactic acid. She does have chronic thrombocytopenia and elevation of LFTs. UA negative for infection. CT abdomen pelvis was obtained and shows some mild colitis. Right inguinal hernia noted without any obstruction. Patient is reassured by these findings. She will advance diet as tolerated and follow-up with surgery to discuss further recommendations for hernia. She understands indications to return. Quality:SDOH Health Related Social Needs: Health related social needs inadequate housing house/econ circumstance education Health related social needs details none has strong support system PFSH All Active Problems (Updated 10/04/24 @ 17:16 by July Yanez MD) Inguinal hernia of right side without obstruction or gangrene (Acute) Colitis (Acute) Abdominal pain (Acute) Pulmonary infiltrates (Acute) Right inguinal hernia (Acute) Varices of esophagus determined by endoscopy (Acute) s/p esophageal varices banding 12/2022 s/p esophageal varices banding 02/2023 [facility] Autoimmune hepatitis (Acute) biopsy with grade 2-3, st 1-2. AFP negative. Managed with azathioprine historically; repeat biopsy at [facility] negative inflammation. Palliative care status (Acute) Anemia (Chronic) Hypotension (Acute) ACP (advance care planning) (Acute) Cirrhosis of liver with ascites (Chronic) managed with surveillance and nadolol by [facility]; previously declined goal directed treatment with azathioprine. Pleural effusion associated with hepatic disorder (Acute) Complete uterine prolapse with prolapse of anterior vaginal wall (Acute) 83mm gelhorn pessary in place Desires hysterectomy with urogyn but needs to be medically stable in regards to other comorbidities first. Portal hypertension (Acute) Thrombocytopenia (Chronic) due to cirrhosis Medical History Umbilical hernia without obstruction and without gangrene Reduced at [facility] ER; not containing intestine on MRI abd 11/2023. Managing with abd pressure; felt to be due to ascites and internal abd pressure. 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 Sister Rheumatoid arthritis Brother No problems noted. Brother Hypertension Son No problems noted. Daughter No problems noted. 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 Pets and animals: No Sexually active: No Do you think of yourself as: straight/heterosexual Current gender identity: female What is your relationship status?: How often do you talk on the phone with friends or family?: three or more times per week How often do you get together with friends or relatives?: three or more times per week How often do you attend pentecostalism or taoist services?: 4 or more times per year Do you belong to any clubs or organized social groups?: no Panel score (0-1 are the most socially isolated patients): 2 What type of physical activity do you participate in: walking Duration: 15-30 minutes/day Frequency: daily Jaclyn/Confucianism: Religious Special jaclyn needs: No Seatbelt use: always Helmet use: No Drive intox or ride w/intox food service driver: No Do you feel safe at home: Yes Do you feel safe in your relationship?: Yes Additional Social history: Enjoys spending time with family, playing sports/games with them. Female Reproductive History Menstrual Age of Menarche: 13 Menopause type: natural Date of menopause: 08/08/05 History History 2 Para 2 Hx # Term Pregnancies 2 Multiple births Hx # Pregnancies Ectopic pregnancies AB induced Hx Number of Living Children 2 AB spontaneous Past Pregnancies Del. Date GA/Weeks # Preg Succ Route Wgt Sex Labor Lgth Anesthesia Location Prov Complic 10/07/77 40 No vaginal 3529.516 g Male 10 09/27/82 40 No vaginal 3657.088 g Female Delivery Date: 10/07/77 Last Updated by: Yojana Daniels laceration with repair
--- NOTE | 2024-10-04 15:45 | DI.CT_ITS ---
Exam(s) CT ABDOMEN PELVIS W EXAM: CT ABDOMEN PELVIS W CLINICAL HISTORY: rlq pain, hx hernia. TECHNIQUE: Imaging Protocol: Axial computed tomography images with coronal and sagittal reformatted images were created and reviewed CONTRAST MATERIAL: Intravenous: Omnipaque 350 Contrast volume:75 ml Oral: no COMPARISON: CT CT ABDOMEN PELVIS W from 09/01/2024 FINDINGS: ABDOMEN and PELVIS: Lung Bases: Small bilateral pleural effusions. Esophageal varices. Liver: Nodular, cirrhotic appearing liver with multiple cysts. No suspicious mass. Some previously noted focal thrombus in the distal main portal vein has increased in size, now approximately 50 percent stenosis. Gallbladder and biliary tract: Stones are noted at the dependent portion of the gallbladder. Gallbladder wall difficult to discern due to surrounding ascites. No gross evidence of wall thickening.. No biliary dilation. Pancreas: Normal density. No abnormal calcifications or inflammatory process. No evidence of mass. Spleen: Enlarged, unchanged. Kidneys: Normal size, contour and axis. Stone upper pole left kidney. No obstructive uropathy. No suspicious masses seen. Adrenal glands: No masses seen. Vasculature: Abdominal aorta non-dilated. A celiac axis, SMA, SHERICE and renal arteries are unremarkable. No significant atherosclerotic changes. Soft tissues: Edema in the subcutaneous fat. Large right inguinal hernia containing fluid. There again appear to be loculated fluid no evidence of bowel extending into the hernia. Collections within the hernia. Previously noted umbilical hernia is no longer present. Bladder: Nearly empty. Not well evaluated. Bowel: The colon is difficult to visualize due to surrounding ascites. There is apparent wall thickening involving the cecum and ascending colon. This could represent infectious, inflammatory or ischemic colitis. Peritoneal cavity: Large quantity of ascites again noted, not appreciably changed. No focal collection. No mesenteric inflammatory response. No free air. Bones: Unremarkable for age. Reproductive organs: Pessary noted. Lymph nodes: No pathologically enlarged lymph nodes. IMPRESSION:: Stable appearance of cirrhotic liver and large quantity of ascites. Stable appearance of right inguinal hernia containing loculated fluid collections. Colon is somewhat difficult due to visualized due to surrounding ascites and lack of oral contrast. There is marked wall thickening of the cecum and ascending colon consistent with colitis. No evidence of small-bowel obstruction. RADIATION DOSE DELIVERED: Total DLP DATA REPOSITORY: All CT scans at this facility are submitted to the National Radiology Data Registry (NRDR) Dose Index Registry (DIR) with the [employer] (ACR). RADIATION OPTIMIZATION: All CT scans at this facility use at least one of these dose optimization techniques: automated exposure control; mA and/or kV adjustment per patient size (includes targeted exams where dose is matched to clinical indication); or iterative reconstruction.
[2024-10-04] MEDS: Omnipaque 350 MG/ML 100 ML BTL IJ (16:10)
[2024-10-04] MEDS: Normal Saline - Diluent 50 ML VIAL IJ (16:16)
[2024-10-04 17:29] VITALS: BP 127/75; PULSE 82; RESP 14; O2SAT 98
== END 2024-10-04 17:30 | disposition home or self-care (01) ==
PROVIDERS: Emergency Medicine; Emergency Provider Emergency Medicine Emergency Medical Services; PCP Family Medicine
DX: K40.90 Unilateral inguinal hernia, without obstruction or gangrene, not specified as recurrent (principal); K52.9 Noninfective gastroenteritis and colitis, unspecified; R10.31 Right lower quadrant pain; Z59.10 Inadequate housing, unspecified; Z59.89 Other problems related to housing and economic circumstances
CPT/HCPCS: 99283; 99285; 36415; 80053; 83690; 74177; 81003; 81015; 83605; 84484; 85025; J3490

== ENCOUNTER 2024-10-11 01:23 | Outpatient (CLI) | payer MEDICARE, SELFPAY ==
--- NOTE | 2024-10-11 09:30 | DI.US_ITS ---
Exam(s) US ABDOMEN EXAM: US ABDOMEN CLINICAL HISTORY: CIRRHOSIS OF LIVER K74.69 DUE FOR HCC SURVEILLANCE TECHNIQUE: Ultrasound abdomen performed using standard protocol. COMPARISON: US US ABDOMEN LIMITED from 06/11/[address] ABDOMEN PELVIS W from 10/04/2024 FINDINGS: ABDOMINAL AORTA AND IVC: Visualized portions normal caliber. PANCREAS: Normal where visualized. LIVER: Coarsened echotexture. The liver has a nodular contour. These findings are consistent with the patient's history of hepatic cirrhosis. Hepatopetal flow in the Portal Vein. There again seen several hepatic cysts. The largest measures 12 cm. The liver is small. GALLBLADDER:Cholelithiasis is present. There is mild gallbladder wall thickening likely reflecting the patient has cirrhosis and ascites. BILIARY SYSTEM: Common bile duct measures < 7 mm. No intrahepatic biliary ductal dilation. GALLO'S SIGN: Negative. KIDNEYS: Kidneys are symmetric in size. There is an echogenic 1 cm focus in the upper pole of the left kidney consistent with a renal stone. No evidence of hydronephrosis. No renal mass or cyst identified. SPLEEN: The spleen is enlarged measuring 18 cm. ASCITES: There is a large amount of abdominal and pelvic ascites. Incidental note is made of a right pleural effusion. IMPRESSION: 1. Findings consistent with hepatic cirrhosis, splenomegaly and a large amount of abdominal and pelvic ascites. 2. No suspicious hepatic masses. 3. Cholelithiasis and right nephrolithiasis. 4. Hepatic cysts. DATA REPOSITORY:
== END 2024-10-11 01:43 ==
LOC: DI 01:24
PROVIDERS: PCP Family Medicine; Visit Provider Nurse Practitioner
DX: K74.69 Other cirrhosis of liver (principal)
CPT/HCPCS: 76700

== ENCOUNTER 2024-10-14 04:38 | Outpatient (CLI) | payer MEDICARE, SELFPAY ==
[2024-10-14 13:27] LABS: Abs Immature Grans 0.02 10^3/uL (0.0-0.06); HCT 29.9 % (36.0-46.0); HGB 9.8 g/dL (11.2-15.7); Immature Grans % 0.4 %; MCH 29.0 pg (27.0-33.0); MCHC 32.8 % (32.0-36.0); MCV 89 fL (80-95); MPV 10.1 fL (8.0-11.0); RBC 3.38 10^6/uL (3.93-5.22); RDW 18.4 % (11.7-14.6); RDW-SD 59.6 fL; WBC 4.47 10^3/uL (4.4-10.8)
[2024-10-14 13:54] LABS: Ovalocytes 2+; Platelet Count 99 10^3/uL (130-400); Schistocytes 1+
[2024-10-14 14:07] LABS: ALT 56 U/L (14-59); AST 101 U/L (15-37); Albumin 2.3 g/dL (3.4-5.0); Alkaline Phosphatase 74 U/L (46-116); Anion Gap 3.7 mmol/L (3-11); BUN 12 mg/dL (7-18); Bilirubin, Total 0.9 mg/dL (0.2-1.0); CO2 30.3 mmol/L (21.0-32.0); Calcium 8.3 mg/dL (8.5-10.1); Chloride 104 mmol/L (98-107); Estimated GFR 93.56 (mL/min/1.73m2); Glucose 103 mg/dL (74-106); Potassium 3.4 mmol/L (3.5-5.1); Sodium 138 mmol/L (136-145); Total Protein 7.6 g/dL (6.4-8.2)
[2024-10-14 14:11] LABS: INR 1.3 (0.9-1.1); Prothrombin Time 13.2 sec (9.1-11.1)
== END 2024-10-14 04:39 | disposition home or self-care (01) ==
PROVIDERS: PCP Family Medicine; Visit Provider Nurse Practitioner
DX: K74.69 Other cirrhosis of liver (principal)
CPT/HCPCS: 36415; 80053; 82105; 85025; 85610

== ENCOUNTER → 2024-10-15 10:54 | Outpatient (BNVA) | payer MEDICARE, SELFPAY | PROVIDERS: PCP Family Medicine; Referring Provider Family Medicine; Visit Provider Surgery | DX: K74.60 Unspecified cirrhosis of liver (principal); R18.8 Other ascites; Z87.19 Personal history of other diseases of the digestive system; Z98.890 Other specified postprocedural states | CPT/HCPCS: 99024 ==

== ENCOUNTER 2024-10-28 16:12 | Outpatient (CLI) | payer MEDICARE, SELFPAY ==
--- NOTE | 2024-10-28 06:53 | DI.RAD_ITS ---
Exam(s) XR CHEST 2V PA LATERAL EXAM: XR CHEST 2V PA LATERAL CLINICAL HISTORY: pulmonary infiltrates R91.8 ABNL FINDINGS TECHNIQUE: 2D digital imaging was performed. Two views. COMPARISON: CT CT CHEST PE CTA from 04/03/2024 CR XR CHEST 2V PA LATERAL from 09/03/2024 CR XR CHEST 2V PA LATERAL from 09/15/2024 FINDINGS: HEART: Normal size. Aorta: Not dilated. PULMONARY VASCULATURE: Normal. MEDIASTINUM: Unremarkable. LUNGS: No infiltrates are visible. PLEURAL SPACE: Tiny bilateral pleural effusions which appear increased in size from the prior exam. Stable appearance of density in the right mid lung field, likely fluid loculated in the fissure. No pneumothorax. BONE:Unremarkable for age. SOFT TISSUES: Unremarkable. IMPRESSION: Mild interval increase in size tiny bilateral pleural effusions. Stable appearance of loculated of fluid in the fissure and right-sided volume loss. DATA REPOSITORY: RADIATION DOSE DELIVERED:
== END 2024-10-28 16:32 ==
LOC: DI 16:12
PROVIDERS: PCP Family Medicine; Visit Provider Internal Medicine Pulmonary Disease
DX: R91.8 Other nonspecific abnormal finding of lung field (principal)
CPT/HCPCS: 71046

== ENCOUNTER → 2024-11-03 13:46 | Outpatient (BNVA) | payer MEDICARE, SELFPAY | PROVIDERS: PCP Family Medicine; Referring Provider Family Medicine; Visit Provider Internal Medicine Pulmonary Disease | DX: K76.9 Liver disease, unspecified (principal); J91.8 Pleural effusion in other conditions classified elsewhere; R91.8 Other nonspecific abnormal finding of lung field | CPT/HCPCS: 99214 ==

== ENCOUNTER 2024-11-25 04:08 | Outpatient (CLI) | payer MEDICARE, SELFPAY ==
--- NOTE | 2024-11-25 07:15 | DI.CT_ITS ---
Exam(s) CT CHEST WO EXAM: CT CHEST WO CLINICAL HISTORY: Pulmonary infiltrates / pleural effusion,r91.8,k76.9,j91.8. TECHNIQUE: Multi planar reconstructions were performed. CONTRAST MATERIAL: None COMPARISON: CT CT CHEST PE CTA from 04/03/2024 CR XR CHEST 2V PA LATERAL from 06/11/[address] ABDOMEN PELVIS W from 09/01/[address] ABDOMEN PELVIS W from 10/04/2024 FINDINGS: CHEST: LUNGS: There is a large right subpulmonic effusion now evident. There is still remains aeration of the right upper lobe and part of the right lower lobe. Right middle lobe is collapsed. There are mild increased markings in the basal segments of the right lower lobe. The opposite-left lung is clear and there is no pleural effusion on the left side. There are no findings in trachea and mainstem bronchi. MEDIASTINUM: There is no obvious hilar nor mediastinal adenopathy. Partially visualized thyroid unremarkable.No obvious axillary adenopathy CARDIAC: Heart size is normal. There is no pericardial effusion.Caliber of the thoracic aorta is within upper normal limits. VISUALIZED UPPER ABDOMEN:Very cirrhotic appearing liver and splenomegaly again noted. There are multiple hypodensities in liver which are similar to previous and are probably cysts. OSSEOUS: No significant osseous lesions.No fractures.. IMPRESSION: 1. There is a very large right side sub pulmonic effusion with adjacent lung atelectasis. There is no pleural effusion on the opposite-left side. 2. Very cirrhotic appearing liver/splenomegaly/abdominal ascites again evident. RADIATION DOSE DELIVERED: 166.14mGy.cm Total DLP DATA REPOSITORY: All CT scans at this facility are submitted to the National Radiology Data Registry (NRDR) Dose Index Registry (DIR) with the [employer] (ACR). RADIATION OPTIMIZATION: All CT scans at this facility use at least one of these dose optimization techniques: automated exposure control; mA and/or kV adjustment per patient size (includes targeted exams where dose is matched to clinical indication); or iterative reconstruction.
== END 2024-11-25 04:28 ==
PROVIDERS: PCP Family Medicine; Visit Provider Internal Medicine Pulmonary Disease
DX: J98.11 Atelectasis (principal); J91.8 Pleural effusion in other conditions classified elsewhere; K76.9 Liver disease, unspecified
CPT/HCPCS: 71250

== ENCOUNTER → 2024-12-01 12:47 | Outpatient (BNVA) | payer MEDICARE, SELFPAY | PROVIDERS: PCP Family Medicine; Referring Provider Family Medicine; Visit Provider Internal Medicine Pulmonary Disease | DX: K76.9 Liver disease, unspecified (principal); J91.8 Pleural effusion in other conditions classified elsewhere; K75.4 Autoimmune hepatitis; R06.00 Dyspnea, unspecified | CPT/HCPCS: 76604; 99214 ==

== ENCOUNTER 2024-12-08 13:46 | Outpatient (CLI) | payer MEDICARE, SELFPAY ==
[2024-12-08 17:43] LABS: ALT 73 U/L (14-59); AST 103 U/L (15-37); Albumin 2.6 g/dL (3.4-5.0); Alkaline Phosphatase 74 U/L (46-116); Anion Gap 5.4 mmol/L (3-11); BUN 14 mg/dL (7-18); Bilirubin, Total 0.7 mg/dL (0.2-1.0); CO2 30.6 mmol/L (21.0-32.0); Calcium 8.2 mg/dL (8.5-10.1); Chloride 103 mmol/L (98-107); Estimated GFR 97.10 (mL/min/1.73m2); Glucose 103 mg/dL (74-106); Potassium 3.9 mmol/L (3.5-5.1); Sodium 139 mmol/L (136-145); Total Protein 7.9 g/dL (6.4-8.2)
== END 2024-12-08 13:47 | disposition home or self-care (01) ==
LOC: ORDER INT 13:59 → LBN 17:12
PROVIDERS: PCP Family Medicine; Referring Provider Family Medicine; Visit Provider Internal Medicine Pulmonary Disease
DX: K76.9 Liver disease, unspecified (principal); J91.8 Pleural effusion in other conditions classified elsewhere
CPT/HCPCS: 80053

== ENCOUNTER → 2024-12-08 13:46 | Outpatient (BNVA) | payer MEDICARE, SELFPAY | PROVIDERS: PCP Family Medicine; Referring Provider Family Medicine; Visit Provider Internal Medicine Pulmonary Disease | DX: K76.9 Liver disease, unspecified (principal); R91.8 Other nonspecific abnormal finding of lung field | CPT/HCPCS: 36415; 76604; 99214 ==

== ENCOUNTER 2024-12-28 00:06 | Outpatient (CLI) | payer MEDICARE, SELFPAY ==
[2024-12-28 13:39] LABS: Abs Immature Grans 0.01 10^3/uL (0.0-0.06); HCT 31.6 % (36.0-46.0); HGB 10.2 g/dL (11.2-15.7); Immature Grans % 0.3 %; MCH 28.7 pg (27.0-33.0); MCHC 32.3 % (32.0-36.0); MCV 89 fL (80-95); MPV 9.7 fL (8.0-11.0); RBC 3.55 10^6/uL (3.93-5.22); RDW 16.0 % (11.7-14.6); RDW-SD 53.0 fL; WBC 3.72 10^3/uL (4.4-10.8)
[2024-12-28 13:59] LABS: Platelet Count 79 10^3/uL (130-400); RBC Morphology Normal
[2024-12-28 14:24] LABS: ALT 62 U/L (14-59); AST 86 U/L (15-37); Albumin 2.5 g/dL (3.4-5.0); Alkaline Phosphatase 67 U/L (46-116); Anion Gap 2.4 mmol/L (3-11); BUN 12 mg/dL (7-18); Bilirubin, Total 0.6 mg/dL (0.2-1.0); CO2 32.6 mmol/L (21.0-32.0); Calcium 8.3 mg/dL (8.5-10.1); Chloride 103 mmol/L (98-107); Estimated GFR 93.56 (mL/min/1.73m2); Glucose 97 mg/dL (74-106); Potassium 3.7 mmol/L (3.5-5.1); Sodium 138 mmol/L (136-145); Total Protein 7.9 g/dL (6.4-8.2)
[2024-12-28 14:27] LABS: INR 1.3 (0.9-1.1); Prothrombin Time 12.7 sec (9.1-11.1)
== END 2024-12-28 00:07 | disposition home or self-care (01) ==
LOC: LBO 00:06
PROVIDERS: PCP Family Medicine; Visit Provider Registered Nurse
DX: K74.60 Unspecified cirrhosis of liver (principal); R18.8 Other ascites; Z00.00 Encounter for general adult medical examination without abnormal findings; Z79.01 Long term (current) use of anticoagulants
CPT/HCPCS: 36415; 80053; 85025; 85610

== ENCOUNTER → 2025-01-12 14:14 | Outpatient (BNVA) | payer MEDICARE, SELFPAY | PROVIDERS: PCP Family Medicine; Referring Provider Family Medicine; Visit Provider Internal Medicine Pulmonary Disease | DX: K76.9 Liver disease, unspecified (principal); J91.8 Pleural effusion in other conditions classified elsewhere; D69.6 Thrombocytopenia, unspecified; R06.00 Dyspnea, unspecified | CPT/HCPCS: 99214 ==